=== PATIENT | male | born 1945 | race Caucasian/White ===

== ENCOUNTER 2023-07-22 15:47 | Inpatient (IN) | payer MEDICARE, BC, SELFPAY ==
[2023-07-22] VITALS (20 sets, daily range): BP systolic 82–132; BP diastolic 49–76; PULSE 100–143; RESP 16–22; TEMP 36.4–36.7; O2SAT 90–97; BMI 22.8
--- NOTE | 2023-07-22 16:33 | ED_ITS ---
HPI - General Adult General Chief complaint: Shortness of Breath/Dyspnea Stated complaint: diff breathing-PCP sent to ER for high heart rate Time Seen by Provider: 07/22/23 16:14 Source: patient and family Limitations: no limitations History of Present Illness HPI narrative: Patient is a 78-year-old male presenting today with lethargy, URI symptoms, decreased appetite. Patient is very hard of hearing and his gives most of the history. She states that in the last 3 days he developed URI symptoms including cough, runny nose and congestion. He has become more lethargic with increased fatigue. He has had terrible appetite for many years however in the last 3 days gotten worse where he barely eats anything. He denies any diarrhea or urinary symptoms. He denies any abdominal discomfort or chest pain. has similar URI symptoms. She is not aware of any fever, but states they do not have a thermometer at home. He denies any chills or shivering. Patient was seen in the clinic earlier and swabbed for COVID, however results have not returned and he was told to come to the ER for further management because he was tachycardic. states that he generally uses a wheelchair or walker at home, however she was not able to have an even stand up to use the bathroom today which is not his baseline. Past medical history significant for diabetes, hyperlipidemia, tremor, depression, BPH, coronary artery disease status post CABG, usual bear syndrome, COPD, alcohol use disorder in remission, hearing loss. Related Data Home Medications Medication Instructions Recorded Confirmed albuterol 90 mcg/actuation aerosol mcg inhalation 07/22/23 inhaler aspirin 81 mg chewable tablet 81 mg PO DAILY 07/22/23 07/22/23 (Chin Chewable Low Dose Aspirin) bupropion HCl 300 mg 24 hr tablet, 300 mg PO QAM 07/22/23 07/22/23 extended release cholecalciferol (vitamin D3) .ROUTE 07/22/23 fluticasone propion-salmeterol inhalation 07/22/23 gabapentin 300 mg capsule 300 mg PO QPM 07/22/23 07/22/23 metformin 1,000 mg tablet 1,000 mg PO BID 07/22/23 07/22/23 primidone 50 mg tablet 50 mg PO QAM 07/22/23 07/22/23 tamsulosin 0.4 mg capsule 0.4 mg PO DAILY 07/22/23 07/22/23 trazodone 100 mg tablet 200 mg PO DAILY 07/22/23 07/22/23 Allergies Allergy/AdvReac Type Severity Reaction Status Date / Time No Known Drug Allergies Allergy Verified 07/22/23 16:02 Review of Systems Status of ROS: Reports: 10 or more systems reviewed and unremarkable except as noted in History and below [facility] Medical History Essential tremor ?G25.0 - Essential tremor (ICD-10) Pulmonary nodules ?R91.8 - Other nonspecific abnormal finding of lung field (ICD-10) Alcohol abuse ?F10.10 - Alcohol abuse, uncomplicated (ICD-10) Depression ?F32.A - Depression, unspecified (ICD-10) CKD (chronic kidney disease) stage 3, GFR 30-59 ml/min ?N18.30 - Chronic kidney disease, stage 3 unspecified (ICD-10) COPD (chronic obstructive pulmonary disease) ?J44.9 - Chronic obstructive pulmonary disease, unspecified (ICD-10) Chronic inflammatory demyelinating neuropathy ?G61.81 - Chronic inflammatory demyelinating polyneuritis (ICD-10) Acquired hemolytic anemia ?D59.9 - Acquired hemolytic anemia, unspecified (ICD-10) Hepatic steatosis ?K76.0 - Fatty (change of) liver, not elsewhere classified (ICD-10) Pseudophakia ?Z96.1 - Presence of intraocular lens (ICD-10) Type 2 diabetes mellitus with microalbuminuria ?E11.29 - Type 2 diabetes mellitus with other diabetic kidney complication (ICD-10) ?R80.9 - Proteinuria, unspecified (ICD-10) Gilbert syndrome ?E80.4 - Gilbert syndrome (ICD-10) Diabetic peripheral neuropathy ?E11.42 - Type 2 diabetes mellitus with diabetic polyneuropathy (ICD-10) Gout ?M10.9 - Gout, unspecified (ICD-10) Hypercholesterolemia ?E78.00 - Pure hypercholesterolemia, unspecified (ICD-10) CAD (coronary artery disease) ?I25.10 - Atherosclerotic heart disease of [place] coronary artery without angina pectoris (ICD-10) Social History (Updated 07/22/23 @ 22:20 by Marni Albarran PA-C) Do you use any of these nicotine containing products: Vaping Products Exam Narrative: Exam Narrative: frail, elderly patient in no acute distress. Alert and oriented. Answers questions appropriately. Mood and affect are appropriate. Thoughts are goal oriented and rational. No tangential or magical thinking noted. Patient speaks in full sentences without needing to catch their breath. very hard of hearing. Follows all commands. HEENT: Normocephalic atraumatic. Pupils are equally round reactive to light. Extraocular muscles are intact. Conjunctivae are moist without any icterus noted. Moist mucous membranes. Posterior pharynx is normal. Neck is soft without any lymphadenopathy or thyromegaly. No masses are appreciated. Cardiovascular: Irregularly irregular, tachycardic. Lungs: Clear to auscultation bilaterally no wheezes rhonchi or rales are appreciated. Patient takes deep breaths without any discomfort. Abdomen: Soft and nontender nondistended with normal bowel sounds. Extremities: Bilateral lower extremities are without edema. Skin: Well perfused without any obvious rashes. Const: Vital Signs, click to edit/add: Vital Signs - 24 hr 07/22/23 15:54 07/22/23 16:49 07/22/23 17:05 Temperature 97.5 F L Pulse Rate 117 H Pulse Rate [Pulse Oximeter] 112 H Respiratory Rate 16 Blood Pressure 108/70 Blood Pressure [Ri ght Upper Arm] 112/76 Pulse Oximetry 94 97 Oxygen Delivery Me thod Room Air 07/22/23 17:09 07/22/23 17:15 07/22/23 17:33 Temperature Pulse Rate 121 H 128 H 111 H Pulse Rate [Pulse Oximeter] Respiratory Rate Blood Pressure Blood Pressure [Ri ght Upper Arm] Pulse Oximetry 95 96 94 Oxygen Delivery Me thod 07/22/23 17:35 07/22/23 17:45 07/22/23 18:00 Temperature Pulse Rate 116 H 120 H 137 H Pulse Rate [Pulse Oximeter] Respiratory Rate Blood Pressure 112/74 Blood Pressure [Ri ght Upper Arm] Pulse Oximetry 91 96 94 Oxygen Delivery Me thod 07/22/23 18:17 07/22/23 18:30 07/22/23 18:36 Temperature Pulse Rate 129 H 117 H Pulse Rate [Pulse Oximeter] Respiratory Rate Blood Pressure 132/68 Blood Pressure [Ri ght Upper Arm] Pulse Oximetry 95 90 Oxygen Delivery Me thod 07/22/23 19:27 07/22/23 19:28 07/22/23 19:30 Temperature Pulse Rate 130 H 143 H Pulse Rate [Pulse Oximeter] Respiratory Rate Blood Pressure 123/57 L Blood Pressure [Ri ght Upper Arm] Pulse Oximetry 91 90 Oxygen Delivery Me thod 07/22/23 19:45 07/22/23 20:17 Temperature Pulse Rate 111 H Pulse Rate [Pulse Oximeter] Respiratory Rate Blood Pressure 109/54 L Blood Pressure [Ri ght Upper Arm] Pulse Oximetry 94 Oxygen Delivery Pa thod Course Course ED Course: IV established and labs were drawn. His white blood cell count is elevated at 14.05, hemoglobin low at 11.3, neutrophils elevated at 11.1. D-dimer markedly elevated at 2.86 - because of this we did proceed with a chest CT which did not show acute abnormalities. No PE. Chemistries are unremarkable. Lactate elevated at 2.5. Total bili elevated at 3.7 and direct bili at 0.8. LFTs unremarkable. CRP markedly elevated at 16.3. UA positive for protein, glucose and bilirubin, no evidence of infection. Triple swab was negative. Patient's EKG, read by me, shows atrial fibrillation with a pulse of 129. We did start IV fluids. Given his signs of infection, he did receive a dose of Zosyn. For AFib with RVR IV metoprolol was given, pulse did come down into the low 100s. Vital Signs Vital signs: Initial Vital Signs Temperature 97.5 F L 07/22/23 15:54 Temperature Source Temporal Artery Scan 07/22/23 15:54 Pulse Rate 112 H 07/22/23 15:54 Respiratory Rate 16 07/22/23 15:54 Blood Pressure 112/76 07/22/23 15:54 Blood Pressure Mean 88 07/22/23 15:54 Blood Pressure Position Sitting 07/22/23 15:54 Pulse Oximetry 94 07/22/23 15:54 Oxygen Delivery Method Room Air 07/22/23 15:54 Vital Signs Temperature 97.5 F L 07/22/23 15:54 Pulse Rate 112 H 07/22/23 15:54 Respiratory Rate 16 07/22/23 15:54 Blood Pressure 112/76 07/22/23 15:54 Pulse Oximetry 94 07/22/23 15:54 Oxygen Delivery Method Room Air 07/22/23 15:54 Temperature 97.5 F L 07/22/23 15:54 Pulse Rate 111 H 07/22/23 19:45 Respiratory Rate 16 07/22/23 15:54 Blood Pressure 109/54 L 07/22/23 20:17 Pulse Oximetry 94 07/22/23 19:45 Oxygen Delivery Method Room Air 07/22/23 15:54 Medications Administered Medications: Generic Name Dose Route Start Last Admin Trade Name Riddhi PRN Reason Stop Dose Admin Albuterol/Ipratropium 1 neb 07/22/23 22:00 07/22/23 22:46 Iprat-Albut 0.5-2.5 Mg/3 Ml Neb IH 1 neb Q6H GINETTE Administration Benzonatate 100 mg 07/22/23 22:30 07/22/23 22:55 Benzonatate 100 Mg Capsule PO 100 mg TID GINETTE Administration Guaifenesin 600 mg 07/22/23 22:30 07/22/23 22:47 Guaifenesin 600 Mg Tab.Er.12h PO 600 mg BID GINETTE Administration Sodium Chloride 1,000 mls @ 125 mls/hr 07/22/23 21:07 07/22/23 22:46 0.9 % Sodium Chloride 1000 Ml IV 125 mls/hr .Q8H GINETTE Administration Metoprolol Tartrate 12.5 mg 07/22/23 22:30 07/22/23 22:47 Metoprolol Tartrate 25 Mg Tablet PO 12.5 mg BID GINETTE Administration Trazodone HCl 200 mg 07/22/23 22:10 07/22/23 22:47 Trazodone Hcl 50 Mg Tablet PO 200 mg HS GINETTE Administration Discontinued Medications Generic Name Dose Route Start Last Admin Trade Name Riddhi PRN Reason Stop Dose Admin Diltiazem HCl 10 mg 07/22/23 20:05 07/22/23 20:22 Diltiazem 5 Mg/Ml Inj IVP 07/22/23 20:06 Not Given ONCE ONE Sodium Chloride 1,000 mls @ 500 mls/hr 07/22/23 16:24 07/22/23 17:00 0.9 % Sodium Chloride 1000 Ml IV 07/22/23 18:23 500 mls/hr .Q2H GINETTE Administration Piperacillin Sod/Tazobactam 100 mls @ 200 mls/hr 07/22/23 18:00 07/22/23 20:30 Sod 3.375 gm/ Sodium Chloride IVPB 07/22/23 18:01 Infused ONCE ONE Infusion Metoprolol Tartrate 5 mg 07/22/23 19:12 07/22/23 19:25 Metoprolol Tartrate 1 Mg/Ml Inj IVP 07/22/23 19:13 5 mg ONCE ONE Administration Medical Decision Making MDM Narrative Medical decision making narrative: 78-year-old male with weakness, URI symptoms, AFib with RVR, COPD. Patient presenting with weakness- is unable to manage patient home, and evidence of potential infection. At this time patient will be admitted for further management. Medical Records Medical records reviewed: Yes I reviewed the patient's medical records Lab Data Lab results reviewed: Yes I reviewed the patient's lab results Labs: Lab Results 07/22/23 07/22/23 07/22/23 Range/Units 16:44 16:56 19:55 WBC 14.05 H (4.50-11.00) K/uL RBC 3.65 L (4.30-5.90) m/uL Hgb 11.3 L (13.5-17.5) gm/dL Hct 33.0 L (37.0-53.0) % MCV 90 (80-100) fL MCH 31 (26-34) pg MCHC 34 (32-36) gm/dL RDW Coeff of Tong 15.7 H (11.5-15.5) % Plt Count 186 (140-440) K/uL Neut % (Auto) 79.1 H (42.0-72.0) % Lymph % (Auto) 7.2 L (20-44) % Mchenry % (Auto) 12.3 H (0.0-11.0) % Eos % (Auto) 0.1 (0.0-7.0) % Baso % (Auto) 0.7 (0.0-3.0) % Neut # (Auto) 11.10 H (1.7-7.0) K/uL Lymph # (Auto) 1.00 (0.90-2.90) K/uL Mchenry # (Auto) 1.70 H (0.00-0.90) K/UL Eos # (Auto) 0.00 (0.00-0.50) K/uL Baso # (Auto) 0.10 (0.00-0.30) K/uL Abs Immat Gran (auto) 0.10 (0.00-0.30) K/uL Imm/Tot Granulo (auto) 0.6 % Diff Slide Review Acceptable Review (Acceptable) D-Dimer Quant (PE/DVT) 2.86 H (0.00-0.50) ug/ml Sodium 139 (135-149) mmol/L Potassium 3.5 L (3.6-5.1) mmol/L Chloride 103 (96-114) mmol/L Carbon Dioxide 25 (20-32) mmol/L Anion Gap 11 (7-15) mEq/L BUN 19 (7-30) mg/dL Creatinine 0.8 (0.5-1.5) mg/dL Estimated Creat Clear 63.11 Estimated GFR 91 ml/min Glucose 169 H (60-115) mg/dL Lactate 2.5 H 2.8 H (0.5-1.9) mmol/L Calcium 9.8 (8.4-10.6) mg/dL Magnesium 2.1 (1.5-2.6) mg/dL Total Bilirubin 3.7 H (0.1-1.5) mg/dL Direct Bilirubin 0.8 H (0.0-0.5) mg/dL AST 42 H (12-35) U/L ALT 43 (4-50) U/L Alkaline Phosphatase 69 (40-150) U/L Troponin I 0.02 (0.01-0.04) ng/mL C-Reactive Protein 16.3 H (0.5-1.0) mg/dL NT-Pro-B Natriuret Pep 2320 pg/mL Total Protein 8.0 (6.0-8.3) g/dL Albumin 4.4 (3.3-5.0) g/dL Procalcitonin 0.10 (<0.50) ng/mL Urine Color Adilia A (Yellow) Urine Appearance Clear (Clear) Urine pH 5.5 (5.0-8.5) Ur Specific [place] >= 1.030 (1.000-1.030) Urine Protein 2+ A (Negative) Urine Glucose (UA) 1+ A (Negative) Urine Ketones Trace A (Negative) Urine Blood Trace-intact A (Negative) Urine Nitrite Negative (Negative) Urine Bilirubin 1+ A (Negative) Urine Urobilinogen 2.0 A (0.2-1.0) Ur Leukocyte Esterase Negative (Negative) Urine RBC 0-2 (0-2) Urine WBC 0-2 (0-5) Urine WBC Clumps None (None) Ur Squamous Epith Cells None (None-Few) Urine Bacteria Few A (None) SARS-CoV-2 (PCR) Negative SARS-CoV-2 (Negative) Influenza Type A (PCR) Negative PCR FLU A (Negative) Influenza Type B (PCR) Negative PCR FLU B (Negative) RSV (PCR) Negative PCR RSV (Negative) POC Troponin I 0.01 (0.01-0.04) ng/ml Imaging Data CT scan - chest: Attestation: I have reviewed the pertinent imaging results. Radiologist's impression: TECHNIQUE: CT angiogram chest with contrast, pulmonary embolism protocol. Multiplanar axial, coronal, and sagittal reformats are included. MIP images to improve detection of pulmonary emboli are included. Intravenous contrast: 95 mL Isovue 370 FINDINGS: PE: Well-timed contrast bolus. No pulmonary emboli. Normal caliber main pulmonary artery. Normal sized right heart chambers. No reflux of contrast below the diaphragm. Heart and great vessels: No pericardial effusion. Normal cardiac chamber size. Moderate atherosclerotic plaques. No aortic aneurysm. Lungs: Inspiratory phase imaging with respiratory motion artifact. No nodules or masses. No consolidations. Moderate centrilobular emphysema. Basilar and peripheral predominant reticulation without definite honeycombing. Pleura: No pleural effusion. No pneumothorax. Airway: Normal tracheobronchial tree. Lymph nodes: No thoracic adenopathy. Mediastinum: No pneumomediastinum. Bones: No fractures. No focal bone lesions. Median sternotomy wires. Chest wall: Normal. No masses. Upper abdomen: Normal. IMPRESSION: 1. No pulmonary embolus. 2. Centrilobular emphysema. Multifocal peripheral reticulation may be fibrosis. ECG Data Attestation: I personally reviewed and interpreted this ECG as follows: Discharge Plan Discharge Clinical Impression: Weakness, COPD (chronic obstructive pulmonary disease), Atrial fibrillation with RVR, URI (upper respiratory infection), Malnutrition Patient Disposition: Admitted As Observation Condition: Stable
--- OUTSIDE RECORDS SUMMARY | 2023-07-22 16:46 | XMS_ITS | Referral Summary ---
Author Name Unknown Organization [facility] Address [address] [place] [id number] Care Team Providers Care Wheel Fitter Name Role Phone Nabor Xiao Kira DURHAM Primary Care Provider [phone] Allergies No known active allergies Medications Medication Sig Dispensed Refills Start Date End Date Status traZODone (DESYREL) 100 MG tablet Take 200 mg by mouth nightly as needed 0 Active gabapentin (NEURONTIN) 100 MG capsule Take 200 mg by mouth every morning In the morning and noon 0 Active atorvastatin (LIPITOR) 80 MG tablet Take 40 mg by mouth daily Take one-half tablet at bedtime 0 Active cholecalciferol (VITAMIN D) 1000 UNIT tablet Take 1,000 Units by mouth daily 0 Active DULoxetine (CYMBALTA) 60 MG capsule Take 60 mg by mouth daily 0 Active metFORMIN (GLUCOPHAGE) 1000 MG tablet Take 1,000 mg by mouth 2 times daily (with meals) 0 Active gabapentin (NEURONTIN) 100 MG capsule Take 300 mg by mouth every evening 0 Active budesonide-formoterol (SYMBICORT) 160-4.5 MCG/ACT Inhaler Inhale 2 puffs into the lungs 2 times daily 0 Active aspirin 81 MG EC tablet Take 81 mg by mouth daily 0 Active nitroGLYcerin (NITROSTAT) 0.[address] 0.4 mg under the tongue every 5 minutes as needed for chest pain For chest pain place 1 tablet under the tongue every 5 minutes for 3 doses. If symptoms persist 5 minutes after 1st dose call 911. 0 Active glipiZIDE (GLUCOTROL) 5 MG tablet Take 5 mg by mouth every morning 0 Active Active Problems Problem Noted Date Diagnosed Date Altered mental status, unspe cified altered mental status type 02/16/2021 Syncope 02/23/2020 CAD (coronary artery disease) Overview: CABG RODRIGEZ to prox-mid LAD, SVG aorta to posterolateral RCA COPD (chronic obstructive pulmonary disease) Multiple lung nodules Essential tremor HTN (hypertension) Orthostatic hypotension Depression Osteoarthritis Social History Tobacco Use Types Packs/Day Years Used Date Smoking Tobacco: Former Cigarettes 1 2 Q uit: 04/19/2013 Smokeless Tobacco: Never Adolescent Education Answer Date Record ed Getting School Help Needed Not on file 04/07 Sex and Gender Information Value Date Recorded Sex Assigned at Not on file Gender Identity Not on file Sexual Orientation Not on file Last Filed Vital Signs Vital Sign Reading Time Taken Comments Blood Pressure 140/73 03/21/2022 12:50 AM CDT Pulse 86 03/21/2022 12:50 AM CDT Temperature 36.6 ??C (97.9 ??F) 03/20/2022 8:38 PM CD T Respiratory Rate 18 03/20/2022 8:38 PM CDT Oxygen Saturation 98% 03/21/2022 12:50 AM CDT Inhaled Oxygen Concentration - - Weight 72.6 kg (160 lb) 03/20/2022 8:38 PM CDT Height 182.9 cm (6') 02/16/2021 5:07 PM CDT Body Mass Index 21.7 02/16/2021 5:07 PM CDT Plan of Treatment Not on file Advance Directives For more information, please contact: [phone] Latest Code Status on File Code Status Date Activated Date Inactivated Comments Full Code 02/16/2021 10:29 PM 02/17/2021 3:31 PM All basic and advanced life-sustaining interventions are performed as appropriate Question Answer Comments Code status determined by: Unable to determine; FULL CODE until documents or legal decision maker available Code Status History Code Status Date Activated Date Inactivated Comments Full Code 02/23/2020 8:49 PM 02/25/2020 3:14 PM All b asic and advanced life-sustaining interventions are performed as appropriate Question Answer Comments Code status determined by: Discussion with patient/ legal decision maker Care Teams Wheel Fitter Relationship Specialty [place] [id number] [place] [address] PCP - General Family Medicine 09/15/20
--- OUTSIDE RECORDS SUMMARY | 2023-07-22 16:46 | XMS_ITS | Encounter Summary ---
Author Name Unknown Organization [facility] Address [address] [place] [address]. [place] [address] Care Team Providers Care Diagnostics Tech Name Role Phone Frw, None Primary Care Provider Reza Bryant MD Unavailable [phone] [facility] Primary Care Prov ider Xiao Tomlin DO Primary Care Provider [phone] Encounter Details Date Type Department Care Team (Late st Contact Info) Description 04/18/2009 Office Visit-[facility] [address] [place] [address] Magno Bar MD Social History Tobacco Use Types Packs/Day Years Used Date Smoking Tobacco: Never Assessed Sex and Gender Information Value Date Recorded Sex Assigned at Not on file Gender Identity Not on file Sexual Orientation Not on file documented as of this encounter Progress Notes * Magno Bar MD - 04/20/2009 7:47 AM CDT Progress Note Created by: Magno Bar M.D. APPT [id number] DATE: 04/18/2009 LUCÍA VIZCARRA [id number] DATE OF : 1945 AGE: [age] years old Referring Physician: RAMESH CERON Referring Clinic: [facility] CURRENT DIAGNOSES 1. - Hyperlipidemia mixed, 272.2 2. Smoking or Tobacco Abuse, 305.1 3. - CAD, 414.00 4. - CABG, V45.81 ALLERGIES NKA MEDICATIONS (prior to changes made today) 1. Primidone 50 mg, 1 p.o. twice daily 2. Trazodone Hydrochloride 100 mg, 1 p.o. qHS 3. Effexor Xr 225 Mg, 1 p.o. daily 4. Metoprolol 50mg, 1/2 tab twice daily 5. Rosuvastatin 40mg, 1/2 tab qHS 6. Prilosec 20 Mg, 1 p.o. twice daily 7. flunisolide nasal spray 0.025%, Take as Directed 8. Mometasone furoate 220mcg, Take as Directed 9. Albuterol Sulfate 90 mcg/inhaler, Take as Directed 10. Formoterol fumarate 12 mcg, Take as Directed 11. Chondroitin-Glucosamine 400 mg-500 mg, 1 p.o. daily 12. Nicotine Patch ., 14mg patch daily-not on, patient is smoking 13. Isosorbide Mononitrate 30 Mg, 1 p.o. daily 14. Nitroglycerin 0.4 Mg, 1 tab sublingual as needed for chest pain 15. vitamins ., 1 p.o. daily 16. Aspirin 325mg, 1 p.o. daily CHIEF COMPLAINTS Followup of hospital visit HISTORY OF PRESENT ILLNESS I saw Daryl Vizcarra today who is 64 and was in the hospital in December of 2008 because of vague chest discomfort. My clinical intuition was that it was possibly angina but it was not profoundly so. He ended up having coronary and graft angiography, which revealed a totally occluded RCA but a patent graft to the inferior wall and an old inferior scar. The LAD had significant proximal disease with a patent RODRIGEZ. There was a 60% stenosis of the LAD beyond the bifurcation of the LAD and diagonal and distalto the anastomosis of the mammary artery. It was felt that these stenoses were not likely severe enough to cause a type of rest discomfort in symptoms he was having. We chose to treat him medically and subsequently he has done well. On the good side is he has not had any chest pain, palpitations orshortness of breath and he has had a quieting of the symptoms that led him to be hospitalized. On the down side, he is continuing to smoke 5-10 cigarettes a day. I must have spent 20 minutes begging and encouraging him not to do so. His physical exam over and above the smell of tobacco showed a blood pressure of 106/60, heart rate62 beats per minute, he weighed 192 pounds with this clothes on. He had no neck vein distention or bruit. Heart was regular without gallop or murmur. Lungs clear. Abdomen soft without organomegaly. Extremities were free of edema. I reviewed the medications of metoprolol, Crestor, isosorbide, aspirin, and Nitroglycerin with him.These are the drugs mainly from the cardiology standpoint. With this he is normotensive and his lipid profiles have been relatively decent. Total cholesterol in December of 2005 was 130, the LDL 67, HDL l ow at 26, which we have relatively less control over. We could try adding Niacin but I thought it was more important to get him to work on his cigarettes at this point. PAST HISTORY Past Medical Illnesses: depressionS/P ECT treatment, essential tremors dsylipidemia, tobacco abuse, hard of hearing, nephrolithiasis, hypertension, COPD Past Cardiac Illnesses: CAD 2 vessel CABG 11/10 Surgeries/Procedures - General: R knee arthroscopy, reconstructive surgery L upper extremity, Bypass Graft Anatomy: 11/10 CABG RODRIGEZ to proxmal mid LAD, SVG from aorta to posterolateral branch of RCA Cardiology Procedures-Invasive: cardiac cath (left) Oct 2005, cardiac cath (left) Dec 2008 Cardiology Procedures-Noninvasive: 10/11 stress echo, echo Dec 2008, myocardial perfusion (Nuc) Dec 2008 Cardiac Cath Results: 12/14 LAD 70% stenosis PMHx Echo Results: 12/14 mild LAE Left Ventricular Ejection Fraction: 12/14 EF 50-55% by echo Nuclear Results: 12/14, mild apical myocardial ischemia in the distal LAD FAMILY HISTORY: Father - committed suicide; Mother - CAD in her 70 s; Sister 1 - of Hodgkin's in her 40 s; CARDIAC RISK FACTORS Tobacco Abuse: currently smoking, 2008; Family History of Heart Disease: negative; Hyperlipidemia: positive, controlled; Hypertension: positive, well controlled; Diabetes Mellitus: negative; Prior History of Heart Disease: positive, CAD; Obesity:negative; Sedentary Life Style:negative; Age:negative; LDL Goal <LT> 100 SOCIAL HISTORY Alcohol Use - 2 beers a day; Smoking - smoked in teen years, quit for 3 years, restated about 6 months ago and 1 07/09 ppd; Diet - regular diet without modifications and caffeine use-5 or more per day;Lifestyle - with 1 child; Exercise - no regular exercise; Seat Belt Use - always; Occupation - retired and use to work at [employer] in [place]; Residence - lives with and children,lives in [place] year round and raising 's nephew; Place of - [place]; REVIEW OF SYSTEMS GENERAL decreased energy, weight loss, approx 8 lbs since 02/13, no change in appetite INTEGUMENTARY denies any change in hair or nails, rashes, or skin lesions. EYES wears eye glasses/contact lenses, blurred vision EARS, NOSE, THROAT, MOUTH denies any hearing loss, epistaxis, hoarseness or difficulty speaking. RESPIRATORY cough, dyspnea with exertion CARDIOVASCULAR dizziness, light headedness, dyspnea on exertion ABDOMINAL history of acid reflux MUSCULOSKELETAL denies any history of arthritic symptoms or back problems. NEUROLOGICAL positive for headaches PSYCHIATRIC depression ENDOCRINE denies any history of thyroid disease or diabetes mellitus. HEMATOLOGICAL/IMMUNOLOGIC easy bruising PHYSICAL EXAMINATION VITAL SIGNS: Blood Pressure: 106/57 Sitting, Left arm, large cuff Pulse- 63.00/min. Weight- 192.00 lbs. Height- 70.75 Temperature- .00 CONSTITUTIONAL cooperative, alert and oriented,well developed, well nourished, in no acute distress., smell of tobacco SKIN warm and dry to touch, no apparent skin lesions, or masses noted. HEAD normocephalic, atraumatic EYES Pupils equal and round, conjunctivae and lids unremarkable, sclera white, no xanthalasma ENT no pallor or cyanosis, dentition good NECK carotid pulses are full and equal bilaterally, JVP normal, no carotid bruit, no thyromegaly CHEST clear to auscultation CARDIAC regular rhythm, S1 normal, S2 normal, No S3 or S4, Apical impulse not displaced, no murmurs, gallops or rubs detected. ABDOMEN abdomen soft, bowel sounds normoactive, no masses, no hepatosplenomegaly, non- tender, no bruits PERIPHERAL PULSES pulses full and equal in all extremities, no bruits auscultated. EXTREMITIES & BACK no clubbing, cyanosis or edema NEUROLOGICAL no gross motor deficits noted, affect appropriate, oriented to time, person and place. MEDICATIONS UPDATED/STARTED TODAY: Primidone 50 mg, 1 p.o. twice daily, 0 Trazodone Hydrochloride 100 mg, 1 p.o. qHS, 0 Effexor Xr 225 Mg, 1 p.o. daily, 0 Metoprolol 50mg, 1/2 tab twice daily, #60 Rosuvastatin 40mg, 1/2 tab qHS, #30 or #100 Prilosec 20 Mg, 1 p.o. twice daily, 0 flunisolide nasal spray 0.025%, Take as Directed, 0 Mometasone furoate 220mcg, Take as Directed, 0 Albuterol Sulfate 90 mcg/inhaler, Take as Directed, 0 Formoterol fumarate 12 mcg, Take as Directed, 0 Chondroitin-Glucosamine 400 mg-500 mg, 1 p.o. daily, 0 Nicotine Patch ., 14mg patch daily-not on, patient is smoking, 0 Isosorbide Mononitrate 30 Mg, 1 p.o. daily, #30 or #100 Nitroglycerin 0.4 Mg, 1 tab sublingual as needed for chest pain, #25 MEDICATIONS REFILLED/STOPPED TODAY: Prilosec 20 Mg 1 p.o. daily 0 Refill, Flonase 0.05 mg/inh Take as Directed Treatment Completed, Isosorbide Mononitrate 30 mg 1 p.o. daily Refill, Metoprolol 25mg 1 p.o. twice daily Refill, Nicotine patch . 14mg patch daily Refill, Nitroglycerin 0.4 mg 1 tab sublingual as needed for chest pain Refill, Prilosec 20 mg 1 p.o. daily Refill, Crestor 20 mg 1 p.o. qHS Treatment Completed, Effexor XR 225 mg 1 p.o. daily Refill, Desyrel 100 mg 1 qHS Treatment Completed, Ventolin 90 mcg/inh Take as Directed Treatment Completed, Foradil 120 mcg 1 puff twice daily, prn Treatment Completed and Asmanex 220 mcg 2 puffs twice daily Treatment Completed IMPRESSION: 1. No evidence of persistent chest discomfort. 2. No current signs of angina. 3. Multiple vessel coronary artery disease. 4. Chronic tobacco abuse. 5. HDL deficiency, consider titrating up Niacin in the future. He says he is willing to think about stopping smoking again. He says it is difficult, as we know because his smokes. Still in all I tried to strongly encourage him to stand up for himself and get off of cigarettes. He sheepishly admits he will give it a try. Magno Bar M.D. documented in this encounter Plan of Treatment Not on file documented as of this encounter Visit Diagnoses Not on filedocumented in this encounter Additional Health Concerns Infection Onset Date Last Indicated Resolved Time Rule Out COVID-19 02/23/2020 02/23/2020 02/24/2020 2:05 PM CDT Rule Out COVID-19 02/16/2021 02/16/2021 02/16/2021 6:19 PM CDT documented as of this encounter Care Teams Diagnostics Tech Relationship Specialty Start Date End Date Frw, None PCP - General Family Practice 11/09/11 07/20/12 Reza Leary MD [facility] [address] [place] [address] [facility] [address] [place] [address] PCP - ENT ENT-Otolaryngology 11/09/11 02/16/21 [place] [address] PCP - General 07/21/12 09/14/20 [place] [address] [place] [address] PCP - General Family Medicine 09/15/20 documented as of this encounter
--- OUTSIDE RECORDS SUMMARY | 2023-07-22 16:46 | XMS_ITS | Encounter Summary ---
Author Name Unknown Organization [facility] Address [address] [place] [address]. [place] [address] Care Team Providers Care Marketing Developer Name Role Phone Frw, None Primary Care Provider Reza Bryant MD Unavailable [phone] [place], [facility] Primary Care Prov ider Xiao Tomlin DO Primary Care Provider [phone] Encounter Details Date Type Department Care Team (Late st Contact Info) Description 07/17/2012 Office Visit-[facility] [address] [place] [address] Magno Bar MD Social History Tobacco Use Types Packs/Day Years Used Date Smoking Tobacco: Never Assessed Sex and Gender Information Value Date Recorded Sex Assigned at Not on file Gender Identity Not on file Sexual Orientation Not on file documented as of this encounter Progress Notes * Magno Bar MD - 07/21/2012 4:12 PM CST Progress Note Created by: Magno Bar M.D. APPT [id number] DATE: 07/17/2012 LUCÍA VIZCARRA [id number] DATE OF : 1945 AGE: [age] years old Referring Physician: [facility] Referring Clinic: [facility] CURRENT DIAGNOSES 1. - Hyperlipidemia mixed, 272.2 2. Smoking or Tobacco Abuse, 305.1 3. - CAD, 414.00 4. - CABG, V45.81 ALLERGIES NKA MEDICATIONS (prior to changes made today) 1. Albuterol Sulfate 90 mcg/Actuation HFA Aerosol Inhaler, Take as Directed 2. Aspirin 325 mg Tablet, 1 p.o. daily 3. Effexor XR 150 mg capsule,extended release 24hr, 1 p.o. daily 4. Fish Oil 1,000 mg capsule, 1 p.o. daily 5. flunisolide nasal spray 0.025%, Take as Directed 6. Isosorbide Mononitrate 30 mg Tablet Sustained Release 24 hr, 1 p.o. daily 7. Metoprolol Hriuwalf64 mg Tablet, 1/2 tab twice daily 8. Nitroglycerin 0.4 mg Tablet, Sublingual, 1 tab sublingual as needed for chest pain 9. prednisone5 mg tablet, Take as Directed 10. rosuvastatin 40 mg tablet, 1 p.o. qHS 11. Symbicort 160-4.5 mcg/actuation HFA Aerosol Inhaler, Take as Directed 12. Trazodone 100 mg Tablet, 1 p.o. qHS CHIEF COMPLAINTS Followup of - CAD HISTORY OF PRESENT ILLNESS: I met with Lucía Vizcarra today. He is 67 and a patient of the [facility]. He has multiple health and medical issues as best I can tell, but he came today specifically to ask me to evaluate and assess his claim that he has reason to have a certain level of cardiac disability. Apparently the DC assessment has led them to wish to decrease his disability leveland he came to have me help with that assessment. Daryl is 67. He has a history of a previous two vessel bypass in 2005 with a mammary artery placed tothe left anterior descending and a saphenous vein graft to the right coronary artery. Subsequently in 2008 he had a coronary angiogram done at [facility]. I believe this was precipitated by an abnormal stress nuclear study showing some anteroapical ischemia. Cardiac catheterizationat that time - December 08, 2008, showed that the left main was relatively small in the 2.5 mm range with minimal 10% narrowing. The left anterior descending had a severe proximal lesion at the takeoff ofthe first septal at 75% and it is somewhat a small vessel distally. Downstream there was bidirectional flow with a patent mammary artery entering the left anterior descending at a major diagonal branch. Just after the insertion of the left internal mammary artery there was a smooth 70% stenosis that would have been technically difficult to get at and may indeed have played a role in some inducible ischemia. He had 25 to 30% lesion in the left circumflex. The mammary artery is widely patent withthe aforementioned 70% stenosis of the left anterior descending distal to the insertion. The right coronary artery was totally occluded. The vein graft to the distal right coronary artery was widely patent and in great shape. There was a 40 to 50% stenosis proximal in the posterior descending branch of the right coronary artery. The right coronary artery was completely occluded proximally. His ejection fraction was 55 to 60%, compatible with well preserved left ventricular function. Subsequent at that time also he had an echocardiogram that showed left ventricular function low normal at 50 to 55%, no major wall motion abnormalities were identified. Right heart pressures were normal. No significant valvular abnormalities were seen. His left ventricle was not dilated. Currently he says that he is more limited by shortness of breath on exertion. He is not identifyingany obvious angina. He has not had palpations, dizziness or syncope. He has not had orthopnea. He has not had significant lower leg edema. Past medical history includes: 1. Chronic tobacco abuse with likely an underlying component of emphysema- chronic obstructive pulmonary disease. 2. Chronic coronary artery disease with previous two vessel bypass. 3. Well preserved left ventricular function. 4. History of some depression. 5. Nephrolithiasis. 6. Hard of hearing. 7. Reportedly agent orange exposure in [place]. 8. Previous right knee arthroplasty. SOCIAL HISTORY: He is . He continues to smoke a pack a day. He does drink a little bit of alcohol, but not as much as he used to. FAMILY HISTORY: Positive for a mother who had coronary artery disease, sister who had Hodgkin's, father of non-medical issues. ALLERGIES: None. CURRENT MEDICATIONS: Are as listed above and from a cardiac standpoint he is on rosuvastatin, metoprolol, isosorbide and aspirin. PHYSICAL EXAMINATION: Relatively well-developed, well-nourished male. He does smell faintly of tobacco. Blood pressure was 112/74, heart rate 70 beats per minute, he weighed 190 pounds. Head was normal. Neck free of neck vein distention of bruits. Heart was regular without gallop, murmur, rub or click. Lungs clear. Sternum is well healed with a midline sternotomy scar. Abdomen soft without organomegaly or mass. Extremities were free of edema. Femoral pulses were +1 on the right and diminished on the left. Pedal pulses as best I could tell were not palpable. Accordingly I think he has significant peripheral vascular artery disease. Lucía Vizcarra is 67. He came for a second opinion. I told me that it would no way to really define the status of his cardiac performance without some objective testing and specifically I ordered an echocardiogram and a stress nuclear thallium study using SNEHA scan. I told him that we would then correlate his symptoms with his anatomy and whether or not he has inducible ischemia. He may also need todo some form of walking test, but he was not excited to do so because he is limited by dyspnea. Dyspnea certainly can be limited by a component of emphysema-chronic obstructive pulmonary disease.He has deconditioned and he has peripheral vascular artery disease and likely hip and calf claudication. All this together I think makes it a difficult assessment, but he wished to proceed. PAST HISTORY Past Medical Illnesses: depressionS/P ECT treatment, essential tremors dsylipidemia, tobacco abuse, hard of hearing, nephrolithiasis, hypertension, COPD Past Cardiac Illnesses: CAD Surgeries/Procedures - General: R knee arthroscopy, reconstructive surgery L upper extremity, Cardiac and Vascular Surgeries: 2 vessel CABG 11/10 Bypass Graft Anatomy: 11/10 CABG RODRIGEZ to proxmal mid LAD, SVG from aorta to posterolateral branch of RCA Cardiac/Vasc Procedures-Invasive: cardiac cath (left) Oct 2005, cardiac cath (left) Dec 2008 Cardiology Procedures-NonInvasive: 10/11 stress echo, echo Dec 2008, myocardial perfusion (Nuc) Dec 2008 Cardiac Cath Results: 12/14 LAD 70% stenosis PMHx Echo Results: 12/14 mild LAE Left Ventricular Ejection Fraction: 12/14 EF 50-55% by echo Nuclear Results: 12/14, mild apical myocardial ischemia in the distal LAD 12/14 EF 50-55% by echo FAMILY HISTORY: Father - committed suicide; Mother [...] restated about 6 months ago and 1 1/2 ppd; Diet - regular diet without modifications and caffeine use-5 or more per day;Lifestyle - with 1 child, in [place] - 1965 and [place]; Exercise - no regular exercise; Seat Belt Use - always; Occupation - retired and use to work at [employer] in [place]; Residence - lives with and children, lives in [place] year round and raising 's nephew; Placeof - [place]; REVIEW OF SYSTEMS GENERAL weight loss, 2 lb from INTEGUMENTARY denies any change in hair or nails, rashes, or skin lesions. EYES wears eye glasses/contact lenses EARS, NOSE, THROAT, MOUTH denies any hearing loss, epistaxis, hoarseness or difficulty speaking. RESPIRATORY cough, dyspnea CARDIOVASCULAR dizziness, light headedness ABDOMINAL denies ulcer disease, hematochezia or melena. MUSCULOSKELETAL denies any history of arthritic symptoms or back problems. NEUROLOGICAL headaches, am PSYCHIATRIC depression ENDOCRINE increased fatigue, weight loss HEMATOLOGICAL/IMMUNOLOGIC easy bruising PHYSICAL EXAMINATION VITAL SIGNS: Blood Pressure: 112/74Sitting, Left arm, large cuff Pulse- 70.00/min. Weight- 190.00 lbs. Height- 70.75 BMI Measurement: 26 CONSTITUTIONAL cooperative, alert and oriented,well developed, well [...] time, person and place. MEDICATIONS UPDATED/STARTED TODAY: Effexor XR 150 mg capsule,extended release 24hr, 1 p.o. daily, #0 (Zero) Fish Oil 1,000 mg capsule, 1 p.o. daily, #0 (Zero) prednisone 5 mg tablet, Take as Directed, #0 (Zero) rosuvastatin 40 mg tablet, 1 p.o. qHS, #0 (Zero) Symbicort 160-4.5 mcg/actuation HFA Aerosol Inhaler, Take as Directed, #0 (Zero) MEDICATIONS REFILLED/STOPPED TODAY: Chondroitin-Glucosamine 400 mg-500 mg 1 p.o. daily 0 Physician Order, Effexor Xr 225 Mg 1 p.o. daily 0 Physician Order, Formoterol Fumarate 12 mcg Capsule, w/Inhalation Device Take as Directed 0 Physician Order, Mometasone furoate 220mcg Take as Directed 0 Physician Order, Nicotine Patch . 14mg patch daily-not on, patient is smoking 0 Physician Order, Prilosec 20 mg Capsule, Delayed Release(E.C.)1 p.o. twice daily 0 Physician Order, Primidone 50 mg Tablet 1 p.o. twice daily 0 Physician Order, Rosuvastatin 40 mg Tablet 1/2 tab qHS #30 or #100 Physician Order and vitamins . 1 p.o. daily Physician Order IMPRESSION: 1. Multifactorial dyspnea. 2. Cardiac performance status unclear, previously there has been normal left ventricular function with a very trace amount of anteroapical ischemia by stress nuclear study, echo and SNEHA scan thallium study were ordered. 3. Peripheral vascular artery disease with likely hip and leg claudication. 4. Emphysema-chronic obstructive pulmonary disease due to chronic tobacco abuse. 5. Coronary arterydisease with previous left anterior descending and right coronary artery bypass and anatomy as noted above. PLAN: As above. I made no changes. I thought his medical program was appropriate and a good one. I will share the information we obtain with you and you may assess it as you see fit. Magno Bar M.D. documented in this encounter Plan of Treatment Not on file documented as of this encounter Visit Diagnoses Not on filedocumented in this encounter Additional Health Concerns Infection Onset Date Last Indicated Resolved Time Rule Out COVID-19 02/23/2020 02/23/2020 02/24/2020 2:05 PM CDT Rule Out COVID-19 02/16/2021 02/16/2021 02/16/2021 6:19 PM CDT documented as of this encounter Care Teams Marketing Developer Relationship Specialty Start Date End Date Frw, None PCP - General Family Practice 11/09/11 07/20/[address] [facility] [place] [address] [facility] [address] [place] [address] PCP - ENT ENT-Otolaryngology 11/09/11 02/16/21 [place], [place], [place] [address] PCP - General 07/21/12 09/14/20 [place] [address] [place] [address] PCP - General Family Medicine 09/15/20 documented as of this encounter
--- OUTSIDE RECORDS SUMMARY | 2023-07-22 16:46 | XMS_ITS | Encounter Summary ---
Author Name Unknown Organization [facility] Address [address] [place] [address]. [place] [address] Care Team Providers Care Track Moving Machine Operator Name Role Phone Reza Leary MD Unavailable [phone] [facility] Primary Care Prov ider Xiao Tomlin DO Primary Care Provider [phone] Encounter Details Date Type Department Care Team (Late st Contact Info) Description 08/01/2012 Office Visit-[facility] [place] [address] [facility] [address] [place] [id number] Kassie Garrido, RUTH TECHNICAL BUYER XXX RESIGNED XXX [address] [facility] [address] [place] [id number] Social History Tobacco Use Types Packs/Day Years Used Date Smoking Tobacco: Never Assessed Sex and Gender Information Value Date Recorded Sex Assigned at Not on file Gender Identity Not on file Sexual Orientation Not on file documented as of this encounter Progress Notes * Kassie Garrido, PARRIS - 08/04/2012 1:19 PM CST Progress Note Created by: Kassie Garrido, N.P. APPT [phone] DATE: 08/01/2012 LUCÍA VIZCARRA DATE OF : 1945 AGE: [age] years old Referring Physician: [facility] Referring Clinic: [facility] CURRENT DIAGNOSES 1. - CAD, 414.00 2. - CABG, V45.81 3. - Hyperlipidemia mixed, 272.2 4. - Peripheral Vascular Disease, 443.9 5. Smoking or Tobacco Abuse, 305.1 6. SOB, 786.05 ALLERGIES NKA MEDICATIONS (prior to changes made today) 1. alendronate 10 mg tablet, Dose/instruction UNKNOWN 2. Aspirin 325 mg Tablet, 1 p.o. daily 3. Effexor XR 150 mg capsule,extended release 24hr, 1 p.o. daily 4. Fish Oil 1,000 mg capsule, 1 p.o. daily 5. flunisolide nasal spray 0.025%, Take as Directed 6. Isosorbide Mononitrate 30 mg Tablet Sustained Release 24 hr, 1 p.o. daily 7. Metoprolol Xehdgflt06 mg Tablet, 1/2 tab twice daily 8. Nitroglycerin 0.4 mg Tablet, Sublingual, 1 tab sublingual as needed for chest pain 9. prednisone5 mg tablet, Take as Directed 10. rosuvastatin 40 mg tablet, 1 p.o. qHS 11. Symbicort 160-4.5 mcg/actuation HFA Aerosol Inhaler, Take as Directed 12. Trazodone 100 mg Tablet, 1 p.o. qHS 13. Vitamin D3 2,000 unit tablet, Dose/instruction UNKNOWN CHIEF COMPLAINTS review test results HISTORY OF PRESENT ILLNESS: I had the pleasure of meeting Lucía Vizcarra and his in the [facility]. He is a 67-year-old white male with a history of coronary artery disease, coronary artery bypass surgery, dyslipidemia, hypertension, tobacco abuse who recently saw Dr. Bar in consult. He is here to review the results of his nuclear stress test and echocardiogram. His cardiovascular history includes two-vessel coronary artery bypass grafting in 2005. This includes an RAISA to the LAD and a saphenous vein graft to the RCA. He had a coronary angiogram in 2008, which was precipitated by an abnormal nuclear stress test suggesting anterior apical ischemia. Angiogram at that time revealed adequate vascularization with both grafts patent. Just after the insertion of the RODRIGEZ to the LAD there was a smooth 70% stenosis that would have been technically difficult to get at and may have been playing a role in some inducible ischemia. Echocardiogram at that time revealed an ejection fraction of 50-55% without wall motion abnormality and right heart pressures were normal. He sought input from Dr. Bar to clarify his cardiac status as the [facility] has led them to wish to decrease his disability level. Symptomatically he does complain of dyspnea on exertion but denies any anginal symptoms. He denies palpitations, dizziness or light-headedness. There has been noperipheral edema but he has bilateral hip discomfort and some symptoms, which are suggestive of claudication. A nuclear stress test done July 24 revealed an ejection fraction of 51% at rest. There was no evidence of ischemia and in fact compared to the study from 2008 there was resolution of the apical ischemia. This was a Lexiscan nuclear stress test. The echocardiogram performed the same day again shows an ejection fraction of 55%. There was physiologic tricuspid regurgitation but otherwise no significant abnormality. He continues to smoke at least half a pack of cigarettes per day. He denies dyspnea on exertion butthis is no different from prior. There is no anginal component. He describes bilateral hip discomfort right slightly greater than the left. This occurs only with walking and none at rest. Vital signs include a blood pressure of 122/74, pulse is 62 and regular, weight is 192.6 pounds, which is up 5 pounds, his BMI is slightly elevated at 26.92. For full physical exam please see below. PAST HISTORY Past Medical Illnesses: depressionS/P ECT [...] echo Dec 2008, myocardial perfusion (Nuc) Dec 2008, Jul 2012, echocardiogram Jul 2012 Cardiac Cath Results: 12/14 LAD 70% stenosis PMHx Echo Results: 12/14 mild LAE, 07/20 LA mildly dilated Left Ventricular Ejection Fraction: 12/14 EF 50-55% by echo, EF 55% by Echo Jul 2012, EF 42-51% by Nuclear study Jul 2012 Nuclear Results: 12/14, mild apical myocardial ischemia in the distal LAD, 07/20 no ischemia LVEF of 42-51% documented via nuclear study on 07/24/2012 FAMILY HISTORY: Father - committed suicide; Mother [...] <LT> 100 SOCIAL HISTORY Alcohol Use - drinks rarely; Smoking - smokes, 1-2 ppd; Diet - regular diet without modifications and caffeine use-5 or more per day; Lifestyle - with 1 child, in [place] - 1966 and [place]; Exercise - no regular exercise; Seat Belt Use - always; Occupation - retired and use to work at [employer] in [place]; Residence - lives with and children, lives in [place] year round and raising 's nephew; Place of - [place]; REVIEW OF SYSTEMS GENERAL denies recent weight loss, weight gain, fever or chills or change in exercise tolerance. INTEGUMENTARY denies any change in hair or nails, rashes, or skin lesions. EYES wears eye glasses/contact lenses EARS, NOSE, THROAT, MOUTH partial hearing loss both ears RESPIRATORY cough, dyspnea with exertion, snoring CARDIOVASCULAR chest discomfort ABDOMINAL denies ulcer disease, hematochezia or melena. MUSCULOSKELETAL denies any history of arthritic symptoms or back problems. NEUROLOGICAL denies any history of recurrent headaches, strokes, TIA, or seizure disorder. PSYCHIATRIC depression ENDOCRINE increased fatigue HEMATOLOGICAL/IMMUNOLOGIC easy bruising PHYSICAL EXAMINATION VITAL SIGNS: Blood Pressure: 122/74Sitting, Right arm, regular cuff Pulse- 62.00/min. Weight- 192.60 lbs. Height- 70.7 BMI Measurement: 27 CONSTITUTIONAL cooperative, alert and oriented,well developed, well [...] hepatosplenomegaly, non- tender, no bruits PERIPHERAL PULSES femorals 1/3 without bruits, ptib 1/3 bilaterally EXTREMITIES & BACK no clubbing, cyanosis or edema NEUROLOGICAL no gross motor deficits noted, affect appropriate, oriented to time, person and place. MEDICATIONS UPDATED/STARTED TODAY: alendronate 10 mg tablet, Dose/instruction UNKNOWN, #0 (Zero) Vitamin D3 2,000 unit tablet, Dose/instruction UNKNOWN, #0 (Zero) MEDICATIONS REFILLED/STOPPED TODAY: Albuterol Sulfate 90 mcg/Actuation HFA Aerosol Inhaler Take as Directed 0 Physician Order IMPRESSIONS/PLAN ASSESSMENT AND PLAN: 1. Coronary artery disease. He had two-vessel coronary artery bypass grafting in 2005 with last angiogram 2008 as cited above. The nuclear stress test done recently shows no evidence of ischemia and preserved ejection fraction. An angiogram is not recommended. Echocardiogram also shows normal LV function without significant structure abnormality. 2. Dyspnea on exertion. It is felt this does not have a cardiac etiology it is more likely related to his underlying long use of tobacco products. I am not certain if this has been fully evaluated at the [facility] but I leave that to his primary care physician. 3. Hypertension at goal. 4. Dyslipidemia. Labs from June 2012 include a total cholesterol of 141, triglycerides 126, HDL43, and LDL 73. He remains on high dose Crestor. 5. Symptoms suggestive of peripheral vascular disease. Femoral pulses were 1+ bilaterally without bruits and posterior tibials were 1+ bilaterally. Hehas symptoms suggestive of claudication and with his long history of tobacco abuse in addition to his coronary disease, I feel further evaluation is indicated. I asked him if he would like to [facility]rough the [facility] or [facility] clinic. He chose our clinic. Therefore I have scheduled him for ABIs and an initial consult in the peripheral vascular clinic. 6. Tobacco abuse. I advised him from a cardiac nando dpoint to discontinue it entirely. He feels he is going to taper down slowly but this may take morethan 1 year. 7. Depression. He has had multiple therapies in the past and remains on Effexor. TODAYS ORDERS 1. BAKARI Rest w/Pressures+Waveforms Within 2 Weeks 2. Vasc Dx Cl Initial Visit 2-4 weeks 3. F/U with Magno Bar MD 6 months Kassie Garrido N.P. cc:[facility] Dr[facility] Ford documented in this encounter Plan of Treatment Not on file documented as of this encounter Visit Diagnoses Not on filedocumented in this encounter Additional Health Concerns Infection Onset Date Last Indicated Resolved Time Rule Out COVID-19 02/23/2020 02/23/2020 02/24/2020 2:05 PM CDT Rule Out COVID-19 02/16/2021 02/16/2021 02/16/2021 6:19 PM CDT documented as of this encounter Care Teams Track Moving Machine Operator Relationship Specialty Start Date End Date Reza Leary MD [facility] [place] [address] [facility] [address] [facility] [address] [place] [address] PCP - ENT ENT-Otolaryngology 11/09/11 02/16/21 [facility] [place] [address] PCP - General 07/21/12 09/14/20 [place] [address] [place] [address] PCP - General Family Medicine 09/15/20 documented as of this encounter
--- OUTSIDE RECORDS SUMMARY | 2023-07-22 16:46 | XMS_ITS | Clinical Summary ---
Author Name Unknown Organization [facility] Address [address] [place] [id number] Care Team Providers Care Manager Lean Name Role Phone NaborXiao Primary Care Provider [phone] Allergies No known active allergies Medications Medication [...] tremor HTN (hypertension) Orthostatic hypotension Depression Osteoarthritis Family History Medical History Relation Comments Mental Illness Father Unknown/Adopted Mother Relation Status Comments Father (Age 57) depression TB Mother UN[place] Social History Tobacco Use Types Packs/Day Years [...] 02/16/2021 5:07 PM CDT Plan of Treatment Health Maintenance Due Date Last Done Comments ADVANCE CARE PLANNING 1945 ANNUAL REVIEW OF HM ORDERS 1945 COPD ACTION PLAN 1945 SPIROMETRY 1945 HEPATITIS C SCREENING 1964 RSV VACCINE ( & 60+) (1 - 1-dose 60+ series) 2006 LUNG CANCER SCREENING 11/01/2006 11/01/2005 FALL RISK ASSESSMENT 2011 LIPID 12/09/2013 12/09/2008, 10/07, 11/01/2005 ZOSTER IMMUNIZATION (2 of 3) 01/05/2015 11/10/2014 MEDICARE ANNUAL WELLNESS VISIT 08/10/2022 08/10/2021, 07/15/2020 COVID-19 Vaccine ( season) 2023 06/27/2021, 08/31/2020, 08/10/2020 INFLUENZA VACCINE (#1) 2023 , 04/03/2021, 04/11/2020, Additional history exists PHQ-2 (once per calendar year) 2023 DTAP/TDAP/TD IMMUNIZATION (6 - Td or Tdap) 11/10/2024 11/10/2014, 01/22/2006, 01/29/2005, Additional history exists Pneumococcal Vaccine: 65+ Years Completed 05/24/2017, 11/29/2015, 10/12/2015, Additional history exists HPV IMMUNIZATION Aged Out No longer e ligible based on patient's age to complete this topic IPV IMMUNIZATION Aged Out No longer e ligible based on patient's age to complete this topic MENINGITIS IMMUNIZATION Aged Out No l onger eligible based on patient's age to complete this topic RSV MONOCLONAL ANTIBODY Aged Out No l onger eligible based on patient's age to complete this topic Advance Directives For more information, please contact: [phone] Latest Code Status on File Code Status [...] with patient/ legal decision maker Care Teams Manager Lean Relationship Specialty [place] [id number] [place] [address] PCP - General Family Medicine 09/15/20
--- OUTSIDE RECORDS SUMMARY | 2023-07-22 16:47 | XMS_ITS | Encounter Summary ---
Author Name Department of Vetera Affairs Organization Department of Vetera Affairs Address [address] [place] [address] Support Name Relationship Address Phone ALLY VIZCARRA Next of Kin [address] [place] [address] ALLY VIZCARRA Emergency Contact [address] [place] [address] Insurance Providers: All historical and current Section Date Range: From patient's date of to the date document was created. This section includes the names of all active insurance providers for the patient. Insurance Provider Type of Coverage Plan Name Start of Policy Coverage End of Policy Coverage Group Number Member ID Insurance Provider's Telephone Number Policy Davis's Name Patient's Relationship to Policy Davis [place] PREFERRED PROVIDER ORGANIZAT ION (PPO) FEP BASIC PLUS ONE Jul 08, 2015 [id number] HIRAM VIZCARRA RT PATIENT [place] F[place] PREFERRED PROVIDER ORGANIZAT ION (PPO) FEP BASIC PLUS ONE Jul 08, 2015 113 [id number] [phone] HIRAM VIZCARRA RT PATIENT [employer] FEP RX PRESCRIPT ION FEPRX Jul 08, 2015 [id number] HIRAM VIZCARRA RT PATIENT MEDICARE (WNR) MEDICARE (M) PART A Feb 01, 2011 PART A [id number] HIRAM VIZCARRA RT PATIENT MEDICARE (WNR) MEDICARE (M) PART B Feb 01, 2011 PART B [id number] HIRAM VIZCARRA RT PATIENT Selected Encounter This section includes the information on record at [place] for the Encounter. Date/Time Encounter Type Encounter Description Reason Provider Source Jul 26, 2022 12:38 PM Outpatient Encounter ADMIN PAT ACTIVTIES (MASNONCT) BRITTANIE NINO Priscilla Encounter Template Text not used by [place] Plan of Treatment: Future Appointments (+ 6 months) and Future Tests (+/- 45 days) The Plan of Treatment section includes future care activities for the patient from [facility] This section includes future appointments and future orders which are active, pending or scheduled. Future Appointments This section includes appointments that were scheduled to occur 6 months from the date of the Encounter, up to a maximum of 20 appointments. The data comes from all [facility] facilities. Appointment Date/Time Appointment Type Appointme nt Facility Name Aug 16, 2022 03:30 PM AMBULATORY - MEDICINE [facility] Oct 02, 2022 03:00 PM AMBULATORY - MEDICINE [facility] November 13, 2022 01:00 PM AMBULATORY MEDICINE [facility] November 13, 2022 02:00 PM AMBULATORY MEDICINE [facility] Social History: Smoking Status (Most current) and Tobacco Use (All prior to encounter date) This section includes the most current, and the historical, smoking and tobacco- related health factors from the [place] facility where the Encounter took place. Current Smoking Status This section includes the most current smoking, or tobacco-related health factor, from the [place] facility where the Encounter took place. Date/Time Current Smoking Status Comment Augusto ity May 08, 2022 03:00 PM VA-TOBACCO FORMER USER [facility] Tobacco Use History This section includes a history of the smoking, or tobacco-related health factors, that were collected on or before the date of the Encounter. The data comes from the [place] facility where the Encounter took place. Date/Time Smoking Status/Tobacco Use Comment F acility May 08, 2022 03:00 PM VA-TOBACCO QUIT 1 TO < 5 YRS [facility] Jun 27, 2021 10:00 AM VA-TOBACCO FORMER USER [facility] Jun 27, 2021 10:00 AM DE-TOBACCO QUIT 1 TO < 5 YRS [facility] Apr 15, 2019 11:53 AM PATIENT IS TOBACCO USER [facility] Apr 08, 2019 09:44 PM INPT TOBACCO COUNSELING [facility] Jan 20, 2019 11:30 AM VA-TOBACCO FORMER USER [facility] Jan 20, 2019 11:30 AM VA-TOBACCO QUIT 1 TO < 5 YRS [facility] Mar 31, 2018 08:41 AM INPT TOBACCO COUNSELING [facility] Feb 11, 2018 06:44 AM INPT TOBACCO COUNSELING [facility] Jan 17, 2018 01:41 PM FORMER TOBACCO USE >1Y <7Y [facility] Jan 07, 2017 09:31 AM FORMER TOBACCO USER 7Y OR GREATE R [facility] Sep 12, 2015 11:34 AM FORMER TOBACCO USE >1Y <7Y [facility] May 25, 2014 11:05 AM FORMER TOBACCO USE >1Y <7Y [facility] Apr 08, 2013 03:17 PM FORMER TOBACCO USE <1Y [facility] Jun 16, 2012 02:13 PM CURRENT TOBACCO USER [facility] May 14, 2011 01:12 PM CURRENT TOBACCO USER [facility] Jul 13, 2010 01:42 PM CURRENT TOBACCO USER [facility] May 05, 2010 08:29 AM CURRENT TOBACCO USER [facility] Apr 14, 2009 05:18 PM CURRENT TOBACCO USER [facility] Apr 15, 2008 05:27 PM FORMER TOBACCO USE >1Y <7Y [facility] Jun 09, 2007 02:43 PM FORMER TOBACCO USE >1Y <7Y [facility] November 25, 2006 02:54 PM CDM COPD TOBACCO NON-USER [facility] Sep 02, 2006 01:50 PM FORMER TOBACCO USE <1Y [facility] Advance Directives: All historical and current Section Date Range: From patient's date of to the date document was created. This section includes ALL of a patient's completed or amended [place] Advance and Rescinded Directives. The entries below indicate that a directive exists for the patient, but an actual copy is not included with this document. The data comes from all [facility]. Date Advance Directives Provider Source Apr 01, 2018 ADVANCE DIRECTIVE DISCUSSION ISIDRA NOGUERA J [facility] Radiology Reports: +/- 30 days of the encounter Radiology Reports For cases when an order for radiology services may have been completed prior to the date of the Encounter, the report list includes the Radiology Reports that were completed up to 30 days before dateof the Encounter. For cases when an order for radiology services may have been completed after the date of the Encounter, the report list also includes the Radiology Reports that were completed up to30 days after date of the Encounter. The data comes from all [place] treatment facilities. Date/Time Radiology Report Provider Source Jul 24, 2022 03:07 PM LDCT LUNG CANCER SCREENING: LUCÍA VIZCARRA [id number] -1945 M Exm Date: JUL 24, 2022@15:07 Req Phys: BRITTANIE NINO Loc: [facility] PULM CHART CHECK [facility] (Req' Img Loc: CT IMAGING Service: Unknown (Case [id number] COMPLETE) LDCT LUNG CANCER SCREENING (CT Detailed) CPT:82226 Reason for Study: LDCT for Lung Cancer Screening (ANNUAL) Clinical History: [place] IS NOT under investigation for COVID-19 or is COVID-19 negative LDCT for Lung Cancer Screening (ANNUAL) Responsible provider name and phone number to notify for critical findings if other than user placing the order and pager listed below: User placing orders pager: LAST 3: Collection DT Specimen Test Name Result Units Ref Range 05/08/2022 14:07 PLASMA CREATININE 1.1 mg/dL 0.7 - 1.2 12/20/2020 13:46 PLASMA CREATININE 0.9 mg/dL 0.7 - 1.2 08/31/2020 14:02 PLASMA CREATININE 1.0 mg/dL 0.7 - 1.2 05/08/2022 14:07 PLASMA CREAT EGFR(CKD-EP 70 Ref: >=60 12/20/2020 13:46 PLASMA ESTIMATED GFR(eGF >60 Ref: >=60 08/31/2020 14:02 PLASMA ESTIMATED GFR(eGF >60 Ref: >=60 07/18/2020 12:48 PLASMA ESTIMATED GFR(eGF >60 Ref: >=60 Allergies: Patient has answered NKA Report Status: Verified Date Reported: JUL 25, 2022 Date Verified: JUL 25, 2022 Supervisor Weaving E-Sig:/ES/LUZ DALLAS MD Report: NON-CONTRAST LOW-DOSE CHEST CT FOR LUNG CANCER SCREENING 07/24/2022 HISTORY: 77-year-old male for lung cancer screening. Chest CT 06/08/2019 demonstrated 3 mm solid nodule left upper lobe, lung RADS category 2A. Additional less than 5 mm nodules not significantly changed, also lung RADS category 2A. COMPARISON: 06/08/2019, 04/13/2018, 02/20/2017, 01/21/2015, 01/21/2014. Lung base images abdomen pelvis CT 03/26/2019. TECHNIQUE: Low-dose CT of the chest without contrast. Axial and coronal reconstructions were obtained and reviewed. DOSE: DLP: 24.3/CTDIvol Mean: 0.54/Effective Dose: 0.3 FINDINGS: Redemonstration of multiple scattered small solid pulmonary nodules in the setting of pulmonary granulomatous disease, without significant change. Background of lower lobe predominant subpleural groundglass, and reticular interstitial/intralobular septal thickening, which may reflect relatively stable UIP pattern. Nodule: Average diameter: 7 x 4.5 x 4.5 mm, mean 5 mm Density: Solid nodule Location: Central mid left lower lobe Image: series 3, image 235-236 Suspicious features: None Other characteristics: Peribronchovascular Change in diameter: None , stable since 02/20/2017, greater than 5 years of stability Lung RADS category: 2A Additional nodules: Additional nodules also without significant change dating back to 01/21/2014. (Series 3): Right lung - 4 x 3 mm peribronchial central right upper lobe, image 107 - 5.5 x 3 mm medial right upper lobe, peribronchial, image 140 - 5 x 3.5 mm posterior mid right lower lobe, carli fissural, image 207, favored as inflammatory. - 6 x 4 mm peribronchial medial right lower lobe, image 224 - 4 x 2.5 mm central right middle lobe, peribronchial, image 214 Left lung - 3 mm central lateral left upper lobe, prior index nodule, image 97 - 2 mm peribronchial central posterior left upper lobe, image 135 - 7 x 4.5 mm peribronchovascular central left lower lobe, image 235 - 3 x 3.5 mm peribronchial lateral anterior left lower lobe, image 263 - 2.5 mm anterior periphery left costophrenic sulcus, image 278 Other lung findings: Moderate upper lobe predominant centrilobular emphysema. Subpleural lower lobe groundglass with reticulation of intralobular and interlobular septal opacities. Mild central and lower lobe bronchiectasis. No definite honeycombing. Peripheral findings may represent either early UIP, or NSIP. Tracheobronchial tree clear. Pleura: No pleural effusion or pleural-based calcifications. Mediastinum: Heart size normal. No pericardial effusion. Prior sternotomy and presumed coronary arterial bypass. At least moderate calcification the coronary arteries. Ascending aorta 3.8 cm. Main pulmonary artery 2.5 cm. Multiple small mediastinal lymph nodes, some of which are calcified. Unremarkable thyroid. No hernia. Upper abdomen: Imaged portions of liver, and spleen unremarkable. Moderate to large intermediate density material in the superior stomach. No hernia. Bones: Multilevel moderate to advanced lower cervical and thoracic degenerative disc disease, with multiple mild to moderate chronic wedge compression deformities of upper to mid thoracic, and upper lumbar, vertebral bodies. Most significant mid thoracic compression at T7, and T8, each near 40 %. Most severe disc height loss T5-T8, with multiple levels of mid thoracic vacuum disc. Sternotomy, with intact sternal wires, and healed sternum. Old fracture deformity of several anterior right ribs. 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 At least mild bilateral gynecomastia. Impression: 1. Multiple stable small scattered solid pulmonary nodules, index nodule 5 mm mean, central peribronchovascular left lower lobe, lung RADS category 2A. 2. Pulmonary parenchymal changes primarily subpleural lower lobes, possible early UIP, versus NSIP. 3. 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 Old healed anterior right rib fractures. 4. Sternotomy and coronary arterial bypass. 5. Stable multilevel moderate to significant primarily mid thoracic degenerative disc disease. 6. Mild bilateral gynecomastia. Primary Interpreting Staff: LUZ DALLAS MD, RADIOLOGIST (Supervisor Weaving) /LUZ ANGEL [facility] Encounter Notes: All associated encounter notes This section contains the clinical notes associated to the Encounter. Date/Time Encounter Note(s) Provider Source Jul 31, 2022 12:44 PM LETTERS: LOCAL TITLE: FOLLOW UP RESULTS LETTER STANDARD TITLE: LETTERS DATE OF NOTE: JUL 31, 2022@12:44 ENTRY DATE: JUL 31, 2022@12:44:07 AUTHOR: BRITTANIE NINO EXP COSIGNER: URGENCY: STATUS: COMPLETED [facility] [address] [place] [address] Jul LUCÍA VIZCARRA [address] [place] [id number] Dear : I am writing to inform you of the results of testing that you had done recently at the [facility]. 07/24/22 CT chest: Impression: 1. Multiple stable small scattered solid pulmonary nodules, index nodule 5 mm mean, central peribronchovascular left lower lobe, lung RADS category 2A. 2. Pulmonary parenchymal changes primarily subpleural lower lobes, possible early UIP, versus NSIP. 3. 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 Old healed anterior right rib fractures. 4. Sternotomy and coronary arterial bypass. 5. Stable multilevel moderate to significant primarily mid thoracic degenerative disc disease. 6. Mild bilateral gynecomastia. Comments: Your Lung CT scan results are above. We attempted to reach you by phone and were unable to reach. Your nodules (#1) above will be followed up routinely. #2 above indicates there is some scarring and/or inflammation in your lungs. We would like to know how you are feeling and if you are having any symptoms (which could include shortness of breath, cough, wheezing, etc). Please call us with an update when you receive this letter. Otherwise, we will request a phone follow up with you to further discuss. If you prefer to follow up with doctors outside the [place], please be sure to have your CT scan records forwarded to your non-va care team. If you have any further questions or problems, please contact our nursing staff or provider at the following number: [phone]. Sincerely, BRITTANIE NINO MD STAFF PHYSICIAN BRITTANIE NINO [facility] Jul 26, 2022 12:43 PM LETTERS: LOCAL TITLE: FOLLOW UP RESULTS LETTER STANDARD TITLE: LETTERS DATE OF NOTE: JUL 26, 2022@12:43 ENTRY DATE: JUL 26, 2022@12:44 AUTHOR: PARISH RYAN EXP COSIGNER: URGENCY: STATUS: COMPLETED [facility] [address] [place] [address] Jul LUCÍA VIZCARRA [address] [place] [id number] Dear Lucía: Your recent chest imaging on Jul showed: No lung nodules that require further follow up at this time. You may now return to the routine lung cancer screening program. If you still meet criteria for screening, your PCP will let you know when it is time to be screened again. This is usually about a year from your last screening chest CT. If you are scheduled for a scan in the future and you have symptoms of a chest cold at that time, please call number on appointment letter to reschedule for four weeks after symptoms improve. If you have any further questions or problems, please contact Lung Cancer Screening staff at [phone]. PARISH RYAN supervisor maple productsPARISH DAVILA [facility] Jul 26, 2022 12:40 PM PULMONARY NOTE: LOCAL TITLE: PULMONARY LUNG CANCER SCREENING STANDARD TITLE: PULMONARY NOTE DATE OF NOTE: JUL 26, 2022@12:40 ENTRY DATE: JUL 26, 2022@12:40:27 AUTHOR: PARISH RYAN EXP COSIGNER: URGENCY: STATUS: COMPLETED NO LUNG NODULES or TRACKING OF NODULE NOT INDICATED per guidelines (e.g., clearly benign/some small nodules). Date of image: Date: July 24, 2022 LDCT Scan Results: Most recent LDCT scan shows a nodule for which tracking is not indicated per guidelines or radiology report. The following incidental findings were noted: Other: 2. Pulmonary parenchymal changes primarily subpleural lower lobes, possible early UIP, versus NSIP. 3. 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 Old healed anterior right rib fractures. 4. Sternotomy and coronary arterial bypass. 5. Stable multilevel moderate to significant primarily mid thoracic degenerative disc disease. 6. Mild bilateral gynecomastia. Plan: Continue routine annual lung cancer screening. Patient Notification of results: Results letter sent to patient. Dr. Nino please note incidental findings. /desi/ PARISH RYAN supervisor maple products Signed: 07/26/2022 12:43 Receipt Acknowledged By: * AWAITING SIGNATURE * BRITTANIE NINO CHERYL E [facility]
--- OUTSIDE RECORDS SUMMARY | 2023-07-22 16:47 | XMS_ITS | Encounter Summary ---
Author Name [facility] Organization Department of Vetera Affairs Address [address] [place] [address] Support Name Relationship Address Phone ALLY VIZCARRA Next of Kin [address] [place] [address] ALLY VIZCARRA Emergency Contact [address] [place] [address] Insurance Providers: All historical and current [...] BASIC PLUS ONE Jul 08, 2015 113 [id number] [phone] HIRAM VIZCARRA RT PATIENT [place] FEP PREFERRED PROVIDER ORGANIZAT ION (PPO) FEP BASIC PLUS ONE Jul 08, 2015 [id number] HIRAM VIZCARRA RT PATIENT [employer] FEP RX PRESCRIPT ION FEPRX Jul 08, 2015 [id number] HIRAM VIZCARRA RT PATIENT MEDICARE (WNR) MEDICARE (M) PART B Feb 01, 2011 PART B [id number] HIRAM VIZCARRA RT PATIENT MEDICARE (WNR) MEDICARE (M) PART A Feb 01, 2011 PART A [id number] HIRAM VIZCARRA RT PATIENT Selected Encounter This section includes the information on record at DC for the Encounter. Date/Time Encounter Type Encounter Description Reason Pro vider Source Jul 24, 2022 12:00 AM Outpatient Encounter EVENT (HISTORICAL) IHE Encounter Template Text not used by DC Plan of Treatment: Future Appointments (+ 6 months) and Future Tests (+/- 45 days) The Plan of Treatment section includes future care activities for the patient from all [facility]. This section includes future appointments and future orders which are active, pending or scheduled. Future Appointments This section includes appointments that were scheduled to occur 6 months from the date of the Encounter, up to a maximum of 20 appointments. The data comes from all [facility] facilities. Appointment Date/Time Appointment Type Appointme nt Facility Name Aug 16, 2022 03:30 PM AMBULATORY - MEDICINE [facility] Oct 02, 2022 03:00 PM AMBULATORY MEDICINE [facility] November 13, 2022 01:00 PM AMBULATORY MEDICINE [facility] November 13, 2022 02:00 PM AMBULATORY MEDICINE [facility] Social History: Smoking Status (Most current) and Tobacco Use (All prior to encounter date) This section includes the most current, and the historical, smoking and tobacco- related health factors from the [place] facility where the Encounter took place. Current Smoking Status This section includes the most current smoking, or tobacco-related health factor, from the [place] facility where the Encounter took place. Date/Time Current Smoking Status Comment Facil ity May 08, 2022 03:00 PM VA-TOBACCO FORMER USER [facility] Tobacco Use History This section includes a history of the smoking, or tobacco-related health factors, that were collected on or before the date of the Encounter. The data comes from the [place] facility where the Encounter took place. Date/Time Smoking Status/Tobacco Use Comment F acility May 08, 2022 03:00 PM VA-TOBACCO QUIT 1 TO < 5 YRS [facility] Jun 27, 2021 10:00 AM VA-TOBACCO FORMER USER [facility] Jun 27, 2021 10:00 AM DC-TOBACCO QUIT 1 TO < 5 YRS [facility] Apr 15, 2019 11:53 AM PATIENT IS TOBACCO USER [facility] Apr 08, 2019 09:44 PM INPT TOBACCO COUNSELING [facility] Jan 20, 2019 11:30 AM VA-TOBACCO FORMER USER [facility] Jan 20, 2019 11:30 AM DC-TOBACCO QUIT 1 TO < 5 YRS [facility] Mar 31, 2018 08:41 AM INPT TOBACCO COUNSELING [facility] Feb 11, 2018 06:44 AM INPT TOBACCO COUNSELING [facility] Jan 17, 2018 01:41 PM FORMER TOBACCO USE >1Y <7Y [facility] Jan 07, 2017 09:31 AM FORMER TOBACCO USER 7Y OR GREATE R [facility] Sep 12, 2015 11:34 AM FORMER TOBACCO USE >1Y <7Y [facility] May 25, 2014 11:05 AM FORMER TOBACCO USE >1Y <7Y [facility] Apr 08, 2013 03:17 PM FORMER TOBACCO USE <1Y [facility] Jun 16, 2012 02:13 PM CURRENT TOBACCO USER [facility] May 14, 2011 01:12 PM CURRENT TOBACCO USER [facility] Jul 13, 2010 01:42 PM CURRENT TOBACCO USER [facility] May 05, 2010 08:29 AM CURRENT TOBACCO USER [facility] Apr 14, 2009 05:18 PM CURRENT TOBACCO USER [facility] Apr 15, 2008 05:27 PM FORMER TOBACCO USE >1Y <7Y [facility] Jun 09, 2007 02:43 PM FORMER TOBACCO USE >1Y <7Y [facility] November 25, 2006 02:54 PM CDM COPD TOBACCO NON-USER [facility] Sep 02, 2006 01:50 PM FORMER TOBACCO USE <1Y [facility] Advance Directives: All historical and current Section Date Range: From patient's date of to the date document was created. This section includes ALL of a patient's completed or amended [place] Advance and Rescinded Directives. The entries below indicate that a directive exists for the patient, but an actual copy is not included with this document. The data comes from all [facility]. Date Advance Directives Provider Source Apr 01, 2018 ADVANCE DIRECTIVE DISCUSSION ISIDRA NOGUERA ROLE J [facility] Radiology Reports: +/- 30 days of the [...] the Encounter. The data comes from all [place] treatment facilities. Date/Time Radiology Report Provider Source Jul 24, 2022 03:07 PM LDCT LUNG CANCER SCREENING: LUCÍA VIZCARRA [id number] -1945 M Exm Date: JUL 24, 2022@15:07 Req Phys: BRITTANIE NINO Loc: [facility] PULM CHART CHECK [facility] (Req' Img Loc: CT IMAGING Service: Unknown (Case [id number] COMPLETE) LDCT LUNG CANCER SCREENING (CT Detailed) CPT:29102 Reason for Study: LDCT for Lung Cancer Screening (ANNUAL) Clinical History: [place] IS NOT under investigation for COVID-19 or [...] 25, 2022 Date Verified: JUL 25, 2022 Export Specialist E-Sig:/ES/LUZ DALLAS MD Report: NON-CONTRAST LOW-DOSE CHEST [...] Primary Interpreting Staff: LUZ DALLAS MD, RADIOLOGIST (Export Specialist) /LUZ ANGEL [facility]
--- OUTSIDE RECORDS SUMMARY | 2023-07-22 16:47 | XMS_ITS | Clinical Summary ---
Author Name Unknown Organization [facility] Address [place], [place] [address] Care Team Providers Care Lieutenant General Name Role Phone Xiao Tomlin DO Primary Care Provider Ginger Medrano RN Unavailable [phone] Allergies No known active allergies Medications Medication Sig Dispensed Refills Start Date End Date Status traZODone (DESYREL) 100 mg tablet Take 200 mg by mouth at bedtime. 0 6 Active albuterol HFA (PROVENTIL HFA) 90 mcg/actuation inhaler Inhale 2 Puffs by mouth 4 times daily if needed. 0 6 Active DULoxetine (CYMBALTA) 60 mg Delayed-release capsule Take 1 capsule by mouth once daily. 0 7 Active blood-glucose meterIndications:U ncontrolled type 2 diabetes mellitus without complication, with long-term current use of insulin Dispense meter, test strips, lancets covered by pt ins. E11.65 NIDDM type II, uncontrolled - Test 2 times/day. 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 0 8 Active blood sugar diagnostic (ACCU-CHEK GUIDE) stripIndications:U ncontrolled type 2 diabetes mellitus without complication, with long-term current use of insulin Dispense item covered by pt ins. E11.65 NIDDM type II, uncontrolled - Test 3 times/day, Reason: High A1C 100 Strip 6 8 Active cholecalciferol (Vitamin D-3) 2,000 unit capsule Vitamin D3 oral take 1 by oral route daily Active 0 Active primidone (MYSOLINE) 50 mg tablet Take 50 mg by mouth once daily. 0 2 Active Wixela Inhub 250-50 mcg/dose diskus inhaler 0 2 Active metFORMIN (GLUCOPHAGE) 1,000 mg tabletIndications: Diabetes mellitus type 2 with neurological manifestations (HC) Take 1 Tablet (1,000 mg) by mouth two times daily with meals. 180 Tablet 3 3 Active nitroglycerin (NITROSTAT) 0.4 mg sublingual tabletIndications: Chest pain in adult Place 1 Tablet (0.4 mg) under the tongue every 5 minutes if needed for Chest Pain. 30 Tablet 0 3 Active atorvastatin (LIPITOR) 40 mg tabletIndications: Mixed hyperlipidemia Take 1 Tablet (40 mg) by mouth at bedtime. 90 Tablet 3 3 Active tiotropium (SPIRIVA HANDIHALER) 18 mcg inhalation capsule Inhale 18 mcg by mouth once daily. Using a SPRIVA HANDIHALER simons the capsule, then by mouth breathe in the powder. Inhale twice from the same capsule for full dose. 0 Active gabapentin (NEURONTIN) 300 mg capsuleIndications :Diabetic peripheral neuropathy (HC) Take 1 Capsule (300 mg) by mouth at bedtime. 90 Capsule 3 3 Active tamsulosin (FLOMAX) 0.4 mg capsuleIndications :BPH without urinary obstruction Take 1 Capsule (0.4 mg) by mouth once daily after a meal. 90 Capsule 3 3 Active buPROPion (WELLBUTRIN XL) 300 mg Extended-Release tabletIndications: Recurrent major depressive disorder, in full remission (HC) TAKE 1 TABLET BY MOUTH EVERY MORNING 60 Tablet 0 4 Active diclofenac topical (VOLTAREN) 1 % gel Apply topically to affected area(s) four times daily. 0 3 Active buPROPion (WELLBUTRIN XL) 300 mg Extended-Release tabletIndications: Recurrent major depressive disorder, in full remission (HC) Take 1 Tablet (300 mg) by mouth every morning. 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 in past. Last ECT in 2006 (8 total treatments) CIDP (chronic inflammatory demyelinating polyneu ropathy) 12/25/2016 Overview: Treated with IVIG in 07/2010 Osteopenia 12/25/2016 Overview: On alendronate in 2012 when on long-term steroids. Stopped alendronate in 2015. Osteopenia DEXA 02/12/19: T-scores AP: 0.9, LFN 0.0, RFN -1.0. FRAX 5.5%. Recommend basic bone health and repeat in 3-5 years. Hepatic steatosis 12/25/2016 Lung nodule 12/25/2016 Overview: RLL. Benign, followed [facility]. Stable since 2010. CT 04/10/21 stable RLL nodules 6mm, 5mm. Repeat CT in 1 year. Right knee DJD 12/25/2016 Overview: [facility]2016 [facility] Blepharospasm 02/12/2011 COUGH HYPERCHOLESTEROLEMIA, PURE COPD (chronic obstructive pulmonary disease) Status post coronary artery bypass graft Overview: 2006; 2 vessel. RODRIGEZ to LAD; SVG to RCA Resolved Problems Problem Noted Date Diagnosed Date Resolved Date Uncontrolled diabetes mellit us with microalbuminuria 06/26/2020 08/29/2022 Controlled type 2 diabetes m ellitus with diabetic neuropathy, with long-term current use of insulin 11/07/2017 01/22/2019 Uncontrolled type 2 diabetes mellitus without complication, with long-term current use of insulin 08/26/2017 11/07/2017 Fatty infiltration of liver 08/13/2017 01/21/2019 Tobacco use disorder 01/01/2011 015 CYST, SEBACEOUS 08/26/2017 DISORDER, TOBACCO USE 2017 UPPER RESPIRATORY INFECTION - ACUTE 08/26/2017 Encounters Date Type Department Care Team Description 07/22/2023 2:40 PM HANGER Office Visit [facility] [address] [place] [address] Ashley Ferris MD Cough (productive cough); Nose Problem (runny nose); Confusion (up and down not able to sleep due to cough) 07/22/2023 Travel 07/13/2023 [place] [facility] [place] [address] [place] [address] Xiao Tomlin DO Refill Request (Bupropion) 06/18/2023 1:18 PM HANGER - 06/18/2023 11:59 PM HANGER Hospital Encounter [facility] [address] [place] [address] Xiao Tomlin DO Rivera, Sidney W II, PT 06/18/2023 Travel 06/11/2023 1:29 PM HANGER - 06/11/2023 11:59 PM HANGER Hospital Encounter [facility] [address] [place] [address] Xiao Tomlin, DO Lu, Qasim W II, PT 06/11/2023 Travel 06/04/2023 1:22 PM HANGER - 06/04/2023 11:59 PM HANGER Hospital Encounter [facility] [address] [address] [place] [address] Xiao Tomlin, DO Lu, Qasim W II, PT 06/04/2023 Travel 05/28/2023 2:14 PM HANGER - 05/28/2023 11:59 PM HANGER Hospital Encounter [facility] [address] [facility] [place] [address] Xiao Tomlin, DO Lu, Qasim W II, PT 05/28/2023 Travel 05/21/2023 1:32 PM HANGER - 05/21/2023 11:59 PM HANGER Hospital Encounter [facility] [address] [facility] [place] [address] Xiao Tomlin, DO Lu, Qasim W II, PT 05/21/2023 Travel 05/07/2023 11:00 AM CDT - 05/07/2023 11:59 PM CDT Hospital Encounter [facility] [address] [facility] [place] [address] Xiao Tomlin, DO Lu, Qasim W II, PT Impairment of balance 05/07/2023 Travel from Last 3 Months Immunizations Name Administration Dates Next Due COVID-19 vaccine ([facility] [email or web address] 30mcg/0.3mL) PF, MDV 06/27/2021,08/31/2020,08/10/2020 Influenza Virus, Unspecified 04/03/2021, 04/11/2020,05/30/2018,2016,06/22/2016,06/07/2013,06/16/2012,1 ,05/10/2008,04/28/2007, 006,04/26/2005,04/25/2004,05/07/2002 Influenza, Inactivated AIIV4 (Age 65+ Years) Preserv Free 04/08/2023,05/08/2022,03/29/2022,2020 Influenza, Inactivated IIV3 (Age 65+ Years) Preserv Free 05/22/2019 Pneumococcal Poly,23-Valent (Pneumovax) 05/24/2017,05/27/2013,04/22/2013 Pneumococcal conj 13-Valent (Prevnar 13) 11/29/2015,10/12/2015 TD, UNSPECIFIED 07/08/1996 Td (Age >=7 Years) 12/21/1997 Td, Preservative Free (age > = 7 Years) 01/29/2005 Tdap 11/10/2014 Zoster (Zostavax-ZVL, live) 11/10/2014 Social History Tobacco Use Types Packs/Day Years Used Date Smoking Tobacco: Former Cigarettes 1 30 0 07/08/1969 - 07/08/1999 Smokeless Tobacco: Never Tobacco Cessation:Counseling Given: No Comments:using E-cigs now Alcohol Use Standard Drinks/Week Comments No 0 (1 standard drink = 0.6 oz pur e alcohol) Rarely PHQ-2 Answer Date Recorded PHQ-2 TOTAL SCORE 4 09/27/2022 Social Connections Answer Date Recorded Frequency of Communication with Friends and Fami ly Not on file 01/18/2023 Financial Resource Strain Answer Date R ecorded Difficulty of Paying Living Expenses 3 01/17/2022 Difficulty of Paying Living Expenses Not on file 01/17/2022 Food Insecurity Answer Date Recorded Worried About Running Out of Food in the Last Ye ar 1 01/17/2022 Transportation Needs Answer Date Record ed Lack of Transportation (Medical) 1 01/17/2022 Housing Stability Answer Date Recorded Unable to Pay for Housing in the Last Year 1 01/17/2022 Sex and Gender Information Value Date Recorded Sex Assigned at Not on file Gender Identity Not on file Sexual Orientation Not on file Obstetrics History Last Filed Vital Signs Vital Sign Reading Time Taken Comments Blood Pressure 120/74 07/22/2023 2:46 PM HANGER Pulse 116 07/22/2023 2:46 PM HANGER Temperature 36.3 ??C (97.4 ??F) 08/07/2017 2:46 PM CS T Respiratory Rate 20 03/05/2017 5:04 PM CDT Oxygen Saturation 98% 07/22/2023 2:46 PM HANGER Inhaled Oxygen Concentration - - Weight 72.3 kg (159 lb 8 oz) 07/22/2023 2:46 PM HANGER Height 177.6 cm (5' 9.92) 09/27/2022 11:04 AM C DT Body Mass Index 22.94 09/27/2022 11:04 AM CDT Plan of Treatment Upcoming Encounters Date Type Department Care Team (Late st Contact Info) Description 09/09/2023 8:45 AM HANGER [place] [facility] [place] [address] [place] [address] [place] [address] [facility] [place] [address] Health Maintenance Due Date Last Done Comments Zoster (shingles) series for age 50+ (2 of 3) 01/05/2015 11/10/2014 COVID-19 vaccine series ( season) 2023 06/27/2021, 08/31/2020, 08/10/[address] (for lung CA) ag e 50-80 07/24/2023 07/24/2022 (Completed outsid e of Fabian), 04/10/2021 Medicare Wellness for age 65+ 09/27/2023, 08/10/2021, 07/15/2020, Additional history exists BMI (ht and wt on same day) for age 18+ 09/28/2023 09/27/2022, 08/29/2022, 08/10/2021, Additional history exists Depression screening for age 12+ 09/28/2023 09/27/2022, 08/10/2021, 07/19/2020, Additional history exists Tetanus booster 11/10/2024 11/10/2014, 01/06, 12/21/1997, Additional history exists Tdap Completed 11/10/2014 Pneumococcal series for age 65+ Completed 05/24/2017, 11/29/2015, 10/12/2015, Additional history exists Hepatitis C screening for ag e 18-79 Completed 07/15/2020 Fecal testing non-DNA (FIT,FOBT,iFOBT) for age 45-75 Discontinued 05/08/2021, 04/19/2020, 01/30/2019, Additional history exists Influenza for age 65+ Completed 04/08/2023 , 05/08/2022, 03/29/2022, Additional history exists Additional Health Concerns Infection Onset Date Last Indicated Rule-Out COVID-19 07/22/2023 07/22/2023 Care Teams Lieutenant General Relationship Specialty Start [place] [address] [place] [address] PCP - General Family Practice 01/19/19 Ginger Medrano, RN [address] [place] [address] Complex Care Management Registered Nurse 07/22/23
--- OUTSIDE RECORDS SUMMARY | 2023-07-22 16:47 | XMS_ITS | Continuity of Care Document ---
Author Name [facility] Organization [facility] Care Team Providers Care Silo Man Name Role Phone [facility] Unavailable Unavailable Problems Combined list of problems from Department of Defense and Veterans Affairs facilities. It does not include entries that were removed or entered in error. 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, 2010 Entered By: MARY KRAUS I Comment: CIDP, treated with IVIG 07/2010 [facility] Chronic low back pain Active Condition [facility] Chronic obstructive lung disease Active Condition [facility] Colorectal cancer screening Active Condition Apr 08, 2013 Entered By: PATY JACINTO Comment: colonoscopy 01/16; repeat 7 yrs [facility] Coronary heart disease Active Condition November 10, 2014 Entered By: PATY JACINTO Comment: CABG 11/2005; RODRIGEZ to LAD, SVG to RCA [facility] Depression Active Condition [facility] Diabetes mellitus [facility] Gout Active Condition Mar 05 Entered By: PATY JACINTO Comment: by history 01/23 [facility] Gynecomastia Active Condition [facility] Hemolytic anemia Active Condition Feb 07, 2018 Entered By: PATY JACINTO Comment: normal iron, B12 2018 Entered By: PATY JACINTO Comment: hemolysis, Lucie negative 2018 Entered By: PATY JACINTO Comment: splenomegaly (poss. cirrhosis by CT; US normal 04/25) [facility] Hypertension Active Condition November 29, 2015 Entered By: PATY JACINTO Comment: with orthostatic hypotension [facility] Osteoarthritis Active Condition Jan 062020 Entered By: RIAN KLEIN Comment: S/P right total knee in 2017Jul 2020 Entered By: RIAN KLEIN Comment: S/P right total hip in 2018 (for fracture) [facility] Foot Pain (ICD-9-CM 719.47) Inactive Condition 10/10/2006 [facility] Fracture of shaft of radius and ulna, closed Inactive Condition 04/07/2013 Sep 11, 2005 Entered By: MARY KRAUS I Comment: s/p ORIF 1967 [facility] Full thickness rotator cuff tear Inactive Condition 10/29/2013 November 22 Entered By: MARY KRAUS I Comment: s/p repair right shoulder 09/10 [facility] Liver enzymes abnormal Inactive Condition 04/08/2019 Jul 06, 2014 Entered By: PATY JACINTO Comment: hepatic steatosis [facility] Viera's metatarsalgia Inactive Condition 10/29/2013 [facility] Plantar fasciitis Inactive Condition 10/29/2013 [facility] Subclinical hypothyroidism Inactive Condition 11/25/2013 [facility] Tremor Inactive Condition 11/29/2015 [facility] Diagnosis: ICD-10-CM R93.2 Abnormal findings on dx imaging of liver and biliary tract Active Diagnosis [facility] Diagnosis: ICD-10-CM J44.9 Chronic obstructive pulmonary disease, unspecified Active Diagnosis [facility] Diagnosis: ICD-10-CM R06.00 Dyspnea, unspecified Active Diagnosis [facility] Diagnosis: ICD-10-CM Z00.00 Encntr for general adult medical exam w/o abnormal findings Active Diagnosis [facility] Medications Combined list of outpatient medications from Department of Defense and [facility] Affairs facilities.Medications provided include 1) outpatient medications from the last 15 months, and 2) patient-reported medications. Medication Details Route Status Patient Instructions Prescription Expires Prescription Number Last Dispense Date Ordering Provider Order Date Source ALBUTEROL 90MCG/ACTUA T (CFC-F) INHL,ORAL,8 .5GM DOSE COUNTER INHALE 1 PUFF BY INHALATI ON FOUR TIMES A DAY NEEDED FOR SHORTNES S OF BREATH INHALA TION ACTIVE 08/17/2023 [id number] Xiao QUICK 2022 [facility] ASPIRIN 81MG TAB,CHEWABL E CHEW ONE TABLET BY MOUTH EVERY DAY ORALLY ACTIVE PATY CRISTOBAL 2022 [facility] ATORVASTATI N CA 40MG TAB TAKE ONE TABLET BY MOUTH EVERY DAY FOR CHOLESTE ROL ORALLY ACTIVE 10/28/2023 [id number] 4 [facility]INCESS NI 2022 [facility] ATORVASTATI N CA 80MG TAB TAKE ONE-HALF TABLET BY MOUTH AT BEDTIME FOR CHOLESTE ROL ORALLY 06/28/2022 [id number] 2 AVITIA PRINCESS MITCHELL 2020 [place] [facility] CHOLECALCIF KERRI 25MCG (1,000UNIT) TAB TAKE ONE TABLET BY MOUTH EVERY DAY FOR VITAMIN D ORALLY ACTIVE 10/28/2023 [id number] 3 PRINCESS NI 2022 [place] [facility] CHOLECALCIF KERRI 25MCG (1,000UNIT) TAB TAKE ONE TABLET BY MOUTH EVERY DAY FOR VITAMIN- D ORALLY 07/11/2022 [id number] 2 [facility]INCESS NI 2021 [facility] DICLOFENAC NA 1% GEL,TOP APPLY 2 GRAMS TOPICALL Y THREE TIMES A DAY NEEDED TO AFFECTED AREA FOR PAIN. *USE DOSE CARD IN BOX TO MEASURE DOSE. MAX 32 GRAMS PER DAY. FOR PAIN AND INFLAMMA TION TO AFFECTED AREA FOR PAIN. *USE DOSE CARD IN BOX TO MEASURE DOSE. MAX 32 GRAMS PER DAY. FOR PAIN AND INFLAMMA TION TOPICA LLY 05/09/2023 [id number] 3 PRINCESS NI 2021 [facility] DULOXETINE HCL 60MG CAP,EC TAKE ONE CAPSULE BY MOUTH EVERY DAY ORALLY ACTIVE 2024 [id number] PRINCESS NI 2022 [place] [facility] DULOXETINE HCL 60MG CAP,EC TAKE ONE CAPSULE BY MOUTH EVERY DAY ORALLY DISCONT INUED 05/09/2023 [id number] 3 PRINCESS NI 2021 [place] [facility] FLUTICASONE 250MCG/SALM ETEROL 50MCG INHL,ORAL,D ISKUS,60 INHALE 1 PUFF BY INHALATI ON TWICE A DAY FOR COPD INHALA TION ACTIVE 03/12/2024 [id number] 3 PRINCESS NI 2022 [place] [facility] FLUTICASONE 250MCG/SALM ETEROL 50MCG INHL,ORAL,D ISKUS,60 INHALE 1 PUFF BY INHALATI ON TWICE A DAY TO PREVENT BREATHIN G TROUBLE -RINSE MOUTH AFTER USING *REPLACE S SYMBICOR T 10/27* INHALA TION 10/25/2022 [id number] 3 ALBERTO KLEIN R 2021 [place] [facility] GABAPENTIN 100MG CAP TAKE TWO CAPSULES BY MOUTH EVERY MORNING AND TAKE TWO CAPSULES NOON AND TAKE THREE CAPSULES EVERY EVENING FOR NEUROPAT HY PAIN ORALLY DISCONT INUED 06/28/2022 [id number] 2 PRINCESS NI 2020 [place] [facility] GABAPENTIN 300MG CAP TAKE TWO CAPSULES BY MOUTH AT BEDTIME FOR 30 DAYS FOR PAIN AND NUMBNESS ORALLY 05/09/2023 [id number] 2 PRINCESS NI 2021 [place] [facility] LIDOCAINE 5% PATCH APPLY 1 PATCH TOPICALL Y EVERY DAY NEEDED FOR PAIN AND NUMBNESS . WEAR FOR ONLY 12 HOURS THEN REMOVE FOR 12 HOURS. TOPICA LLY 06/07/2022 [id number] 2 PRINCESS NI 2021 [place] METFORMIN HCL 1000MG TAB TAKE ONE TABLET BY MOUTH TWICE A DAY FOR DIABETES ORALLY 12/19/2022 [id number] 3 ALBERTO KLEIN R 2021 [place] [facility] NITROGLYCER IN 0.4MG TAB,SUBLING UAL DISSOLVE ONE TABLET UNDER THE TONGUE EVERY 5 MINUTES FOR UP TO 3 DOSES IF NEEDED CHEST PAIN FOR CHEST PAIN SUBLIN GUAL ACTIVE 11/14/2023 [id number] 3 BHARGAV NINO 2022 [place] [facility] PRIMIDONE 50MG TAB TAKE ONE TABLET BY MOUTH EVERY DAY ORALLY 05/09/2023 [id number] 2 ADORE PRINCESS MITCHELL 2021 [facility] TIOTROPIUM 18MCG CAP,INHL,30 INHALE ONE CAPSULE IN INHALER BY INHALATI ON EVERY DAY FOR COPD INHALA TION ACTIVE 08/17/2023 [id number] 3 RUPESH HORANXiao ITCHAYA 2022 [facility] TRAZODONE HCL 100MG TAB TAKE TWO TABLETS BY MOUTH AT BEDTIME NEEDED FOR SLEEP ORALLY ACTIVE 07/05/2024 [id number] 4 ADORE PRINCESS MITCHELL 2022 [facility] TRAZODONE HCL 100MG TAB TAKE TWO TABLETS BY MOUTH AT BEDTIME NEEDED FOR SLEEP ORALLY DISCONT INUED 11/20/2023 [id number] 3 BE RAMESH I 2022 [facility] TRAZODONE HCL 100MG TAB TAKE TWO TABLETS BY MOUTH AT BEDTIME NEEDED FOR SLEEP ORALLY DISCONT INUED 04/13/2023 [id number] 3 BE RAMESH I 2021 [facility] Immunizations Combined list of available immunizations from the Department of Defense and Veterans Affairs facilities. Immunization Series Date Given Administered By Site Reaction Lot Number CVX Code Drug Functional Mental Disability Teacher Status Comments Source INFLUENZA VACCINE, QUADRIVALENT, ADJUVANTED 2021 205 complet ed [facility] COVID-19 (Qulsar), MRNA, LNP-S, PF, 30 MCG/0.3 ML DOSE 3 2020 208 complet ed PFR; [id number]; 2 [facility] INFLUENZA, UNSPECIFIED FORMULATION 2020 88 complet ed [facility] COVID-19 (Qulsar), MRNA, LNP-S, PF, 30 MCG/0.3 ML DOSE 2 2020 208 complet ed PFR; [id number]; 1 [facility] COVID-19 (Qulsar), MRNA, LNP-S, PF, 30 MCG/0.3 ML DOSE 1 2020 208 complet ed PFR; [id number]; 1 [facility] INFLUENZA, INJECTABLE, QUADRIVALENT, PRESERVATIVE FREE 2019 150 complet ed [facility] INFLUENZA, SEASONAL, INJECTABLE, PRESERVATIVE FREE 2018 140 complet ed [facility] INFLUENZA, SEASONAL, INJECTABLE, PRESERVATIVE FREE 2017 140 complet ed [facility] INFLUENZA, HIGH DOSE SEASONAL 2016 135 complet ed [facility] PNEUMOCOCCAL POLYSACCHARID E PPV23 2016 33 complet ed merck; [id number]; 9 [facility] INFLUENZA, SEASONAL, INJECTABLE, PRESERVATIVE FREE 2015 140 complet ed Partner: Jyoti . Administe red by: Jyoti Clinician (NPI=Not Provided) . Partner 3 Lot#: [id number] Mfr: SEQIRUS [facility] PNEUMOCOCCAL CONJUGATE PCV 13 2015 133 complet ed wyeth lot [id number] exp 12/22 [facility] TDAP 2014 115 complet ed glaxosmit hkline; [id number]; 6 [facility] ZOSTER LIVE 2014 121 complet ed Merck; [id number]; 5 [facility] INFLUENZA, UNSPECIFIED FORMULATION 2013 88 complet ed [facility] INFLUENZA, UNSPECIFIED FORMULATION 2012 88 complet ed [facility] INFLUENZA, UNSPECIFIED FORMULATION 2011 88 complet ed [facility] INFLUENZA, HIGH DOSE SEASONAL, PRESERV-FREE (HISTORICAL) 2009 135 complet ed [facility] INFLUENZA, UNSPECIFIED FORMULATION 2008 88 complet ed [facility] INFLUENZA, UNSPECIFIED FORMULATION 2007 88 complet ed [facility] INFLUENZA, UNSPECIFIED FORMULATION 2006 88 complet ed [facility] INFLUENZA, UNSPECIFIED FORMULATION 2005 88 complet ed [facility] PNEUMOCOCCAL, UNSPECIFIED FORMULATION 2005 109 complet ed [facility] TD(ADULT) UNSPECIFIED FORMULATION 07/18/ 2006 NONE 139 complet ed [facility] INFLUENZA, UNSPECIFIED FORMULATION 2004 88 complet ed [facility] INFLUENZA, UNSPECIFIED FORMULATION 2003 88 complet ed [facility] INFLUENZA, UNSPECIFIED FORMULATION 2001 88 complet ed [facility] TD(ADULT) UNSPECIFIED FORMULATION 1996 139 complet ed [facility] Results Combined list of recent chemistry, hematology and other laboratory results from Department of Defense and Veterans Affairs, ranging from 15 months to all on record, depending upon the facility. Order Name Results Value Reference Range Date Interpretation Specimen Comments Source ALKALINE PHOSPHATA SE ALKALINE PHOSPHATASE [ENZYMATIC ACTIVITY/VO LUME] IN SERUM OR PLASMA 100 40 - 150 05/08 Specimen Type: PLASMA No comment entered. Ordering Provider: EDISON KLEIN Report Released Date/Time: Dec 18, 2021 03:48 PM Reporting Lab: [facility] [address] Performing Lab: [facility] [address] [facility] BASIC METABOLIC PANEL+MG CREATININE [MASS/VOLUM E] IN SERUM OR PLASMA 1.1 0.7 - 1.2 05/08 Specimen Type: PLASMA No comment entered. Ordering Provider: EDISON KLEIN Report Released Date/Time: Dec 18, 2021 03:48 PM Reporting Lab: [facility] [address] Performing Lab: [facility] [address] [place] [facility] BASIC METABOLIC PANEL+MG UREA NITROGEN [MASS/VOLUM E] IN SERUM OR PLASMA 12 8 - 26 05/08 Specimen Type: PLASMA No comment entered. Ordering Provider: EDISON KLEIN Report Released Date/Time: Dec 18, 2021 03:48 PM Reporting Lab: [facility] [address] Performing Lab: [facility] [address] [place] [facility] BASIC METABOLIC PANEL+MG GLUCOSE [MASS/VOLUM E] IN SERUM OR PLASMA 232 70 - 100 05/08 H Specimen Type: PLASMA No comment entered. Ordering Provider: EDISON KLEIN Report Released Date/Time: Dec 18, 2021 03:48 PM Reporting Lab: [facility] [address] Performing Lab: [facility] [address] [place] [facility] BASIC METABOLIC PANEL+MG SODIUM [MOLES/VOLU ME] IN SERUM OR PLASMA 140 136 - 145 05/08 Specimen Type: PLASMA No comment entered. Ordering Provider: EDISON KLEIN Report Released Date/Time: Dec 18, 2021 03:48 PM Reporting Lab: [facility] [address] Performing Lab: [facility] [address] [place] [facility] BASIC METABOLIC PANEL+MG POTASSIUM [MOLES/VOLU ME] IN SERUM OR PLASMA 4.1 3.5 - 5.1 05/08 Specimen Type: PLASMA No comment entered. Ordering Provider: EDISON KLEIN Report Released Date/Time: Dec 18, 2021 03:48 PM Reporting Lab: [facility] [address] Performing Lab: [facility] [address] [place] [facility] BASIC METABOLIC PANEL+MG CHLORIDE [MOLES/VOLU ME] IN SERUM OR PLASMA 102 98 - 107 05/08 Specimen Type: PLASMA No comment entered. Ordering Provider: EDISON KLEIN Report Released Date/Time: Dec 18, 2021 03:48 PM Reporting Lab: [facility] [address] Performing Lab: [facility] [address] [place] [facility] BASIC METABOLIC PANEL+MG CARBON DIOXIDE, TOTAL [MOLES/VOLU ME] IN SERUM OR PLASMA 26 22 - 29 05/08 Specimen Type: PLASMA No comment entered. Ordering Provider: EDISON KLEIN Report Released Date/Time: Dec 18, 2021 03:48 PM Reporting Lab: [facility] [address] Performing Lab: [facility] [address] [place] [facility] BASIC METABOLIC PANEL+MG CALCIUM [MASS/VOLUM E] IN SERUM OR PLASMA 10.3 8.4 - 10.2 05/08 H Specimen Type: PLASMA No comment entered. Ordering Provider: EDISON KLEIN Report Released Date/Time: Dec 18, 2021 03:48 PM Reporting Lab: [facility] [address] Performing Lab: [facility] [address] [place] [facility] BASIC METABOLIC PANEL+MG MAGNESIUM [MASS/VOLUM E] IN SERUM OR PLASMA 1.9 1.6 - 2.6 05/08 Specimen Type: PLASMA No comment entered. Ordering Provider: EDISON KLEIN Report Released Date/Time: Dec 18, 2021 03:48 PM Reporting Lab: [facility] [address] Performing Lab: [facility] [address] [place] [facility] BASIC METABOLIC PANEL+MG ANION GAP IN SERUM OR PLASMA 12 5 - 15 05/08 Specimen Type: PLASMA No comment entered. Ordering Provider: EDISON KLEIN Report Released Date/Time: Dec 18, 2021 03:48 PM Reporting Lab: [facility] [address] Performing Lab: [facility] [address] [place] [facility] BASIC METABOLIC PANEL+MG GLOMERULAR FILTRATION RATE/1.73 SQ M.PREDICTED [VOLUME RATE/AREA] IN SERUM, PLASMA OR BLOOD BY CREATININE- BASED FORMULA (CKD-EPI) 70 60 05/08 Specimen Type: PLASMA No comment entered. Ordering Provider: EDISON KLEIN Report Released Date/Time: Dec 18, 2021 03:48 PM Reporting Lab: [facility] [address] Performing Lab: [facility] [address] [place] [facility] CBC LEUKOCYTES [#/VOLUME] IN BLOOD BY AUTOMATED COUNT 5.39 4.0 - 11.0 05/08 Specimen Type: BLOOD No comment entered. Ordering Provider: EDISON KLEIN Report Released Date/Time: Dec 18, 2021 03:48 PM Reporting Lab: [facility] [address] Performing Lab: [facility] [address] [place] [facility] CBC ERYTHROCYTE S [#/VOLUME] IN BLOOD BY AUTOMATED COUNT 4.55 4.6 - 6.2 05/08 L Specimen Type: BLOOD No comment entered. Ordering Provider: EDISON KLEIN Report Released Date/Time: Dec 18, 2021 03:48 PM Reporting Lab: [facility] [address] Performing Lab: [facility] [address] [place] [facility] CBC HEMOGLOBIN [MASS/VOLUM E] IN BLOOD 13.8 13.5 - 17.9 05/08 Specimen Type: BLOOD No comment entered. Ordering Provider: EDISON KLEIN Report Released Date/Time: Dec 18, 2021 03:48 PM Reporting Lab: [facility] [address] Performing Lab: [facility] [address] [place] [facility] CBC HEMATOCRIT [VOLUME FRACTION] OF BLOOD BY AUTOMATED COUNT 41.2 41 - 54 05/08 Specimen Type: BLOOD No comment entered. Ordering Provider: EDISON KLEIN Report Released Date/Time: Dec 18, 2021 03:48 PM Reporting Lab: [facility] [address] Performing Lab: [place] [phone] [place] [facility] CBC MCV [ENTITIC VOLUME] BY AUTOMATED COUNT 90.5 80 - 100 05/08 Specimen Type: BLOOD No comment entered. Ordering Provider: EDISON KLEIN Report Released Date/Time: Dec 18, 2021 03:48 PM Reporting Lab: [facility] [address] Performing Lab: [facility] [address] [place] [facility] CBC MCH [ENTITIC MASS] BY AUTOMATED COUNT 30.3 27 - 33 05/08 Specimen Type: BLOOD No comment entered. Ordering Provider: EDISON KLEIN Report Released Date/Time: Dec 18, 2021 03:48 PM Reporting Lab: [facility] [address] Performing Lab: [facility] [address] [place] [facility] CBC MCHC [MASS/VOLUM E] BY AUTOMATED COUNT 33.5 32.0 - 37.5 05/08 Specimen Type: BLOOD No comment entered. Ordering Provider: EDISON KLEIN Report Released Date/Time: Dec 18, 2021 03:48 PM Reporting Lab: [facility] [address] Performing Lab: [facility] [address] [place] [facility] CBC PLATELETS [#/VOLUME] IN BLOOD BY AUTOMATED COUNT 206 150 - 400 05/08 Specimen Type: BLOOD No comment entered. Ordering Provider: EDISON KLEIN Report Released Date/Time: Dec 18, 2021 03:48 PM Reporting Lab: [facility] [address] Performing Lab: [facility] [address] [place] [facility] CBC PLATELET MEAN VOLUME [ENTITIC VOLUME] IN BLOOD BY AUTOMATED COUNT 10.3 7.4 - 10.4 05/08 Specimen Type: BLOOD No comment entered. Ordering Provider: EDISON KLEIN Report Released Date/Time: Dec 18, 2021 03:48 PM Reporting Lab: [facility] [address] Performing Lab: [facility] [address] [place] [facility] CBC ERYTHROCYTE DISTRIBUTIO N WIDTH [RATIO] BY AUTOMATED COUNT 15.6 11.5 - 14.5 05/08 H Specimen Type: BLOOD No comment entered. Ordering Provider: EDISON KLEIN Report Released Date/Time: Dec 18, 2021 03:48 PM Reporting Lab: [facility] [address] Performing Lab: [facility] [address] [place] [facility] HEMOGLOBI N A1C HEMOGLOBIN A1C/HEMOGLO BIN.TOTAL IN BLOOD 4.3 4.0 - 6.0 05/08 Specimen Type: BLOOD Comment: Values obtained from A1C measurement s can vary. For typical A1C assays, a reported value of 7.0 could actually be between 6.7 and 7.3 if measured by a reference method. A reported value of 9.0 could actually be between 8.7 and 9.3. Ref: http://[email or web address] ngsp.org/[place] Pdata.asp Ordering Provider: EDISON KLEIN Report Released Date/Time: Dec 18, 2021 03:48 PM Reporting Lab: [facility] [address] Performing Lab: [facility] [address] [place] [facility] LIPID PANEL,NON -FASTING CHOLESTEROL [MASS/VOLUM E] IN SERUM OR PLASMA 125 <199 - 199 05/08 Specimen Type: PLASMA No comment entered. Ordering Provider: EDISON KLEIN Report Released Date/Time: Dec 18, 2021 03:48 PM Reporting Lab: [facility] [address] Performing Lab: [facility] [address] [place] [facility] LIPID PANEL,NON -FASTING CHOLESTEROL IN HDL [MASS/VOLUM E] IN SERUM OR PLASMA 35 40 05/08 L Specimen Type: PLASMA No comment entered. Ordering Provider: EDISON KLEIN Report Released Date/Time: Dec 18, 2021 03:48 PM Reporting Lab: [facility] [address] Performing Lab: [facility] [address] [place] [facility] LIPID PANEL,NON -FASTING CHOLESTEROL IN LDL [MASS/VOLUM E] IN SERUM OR PLASMA BY CALCULATION 64 <99 - 99 05/08 Specimen Type: PLASMA No comment entered. Ordering Provider: EDISON KLEIN Report Released Date/Time: Dec 18, 2021 03:48 PM Reporting Lab: [facility] [address] Performing Lab: [facility] [address] [place] [facility] LIPID PANEL,NON -FASTING CHOLESTEROL IN VLDL [MASS/VOLUM E] IN SERUM OR PLASMA BY CALCULATION 26 <29 - 29 05/08 Specimen Type: PLASMA No comment entered. Ordering Provider: EDISON KLEIN Report Released Date/Time: Dec 18, 2021 03:48 PM Reporting Lab: [facility] [address] Performing Lab: [facility] [address] [place] [facility] LIPID PANEL,NON -FASTING CHOLESTEROL NON HDL [MASS/VOLUM E] IN SERUM OR PLASMA 90 <129 - 129 05/08 Specimen Type: PLASMA No comment entered. Ordering Provider: EDISON KLEIN Report Released Date/Time: Dec 18, 2021 03:48 PM Reporting Lab: [facility] [address] Performing Lab: [facility] [address] [place] [facility] LIPID PANEL,NON -FASTING TRIGLYCERID E [MASS/VOLUM E] IN SERUM OR PLASMA 131 <149 - 149 05/08 Specimen Type: PLASMA No comment entered. Ordering Provider: EDISON KLEIN Report Released Date/Time: Dec 18, 2021 03:48 PM Reporting Lab: [facility] [address] Performing Lab: [facility] [address] [place] [facility] BONE SPEC. ALK PHOS ALKALINE PHOSPHATASE .BONE [MASS/VOLUM E] IN SERUM OR PLASMA 15.2 11/29 Specimen Type: SERUM Comment: Unable to flag abnormal result(s), please refer to reference range(s) below: Reference Ranges for Alkaline Phosphatase (mcg/L): Age Females Males 0 - 1 month Not Established Not Established 2 - 24 months 25.4-124.0 25.4-124.0 25 months - 5 years Not Established Not Established 6 - 9 years 41.0-134.6 41.0-134.6 10 - 13 years 24.2-154.2 43.8-177.4 14 - 17 years 10.5- 75.2 13.7-128.0 18 - 29 years 4.7- 17.8 8.4- 29.3 30 - 39 years 5.3- 19.5 7.7- 21.3 40 - 49 years 5.0- 18.8 7.0- 18.3 50 - 68 years 7.6- 14.9 50 - 76 years 5.6- 29.0 Premenopaus al 35 - 45 years 5.0- 18.2 Pediatric data from Int J Biol Markers (1995) 11:159-164 Test Performed by [facility] [place], [employer] [facility], [address] [place] [address] Helder Mccormick M.D., Ph.D., Director of Laboratorie s , [facility] [id number] Ordering Provider: FLORIDA PAREDES Report Released Date/Time: Aug 01, 2020 10:49 AM Reporting Lab: [facility] [address] Performing Lab: [address] [facility] CALCIUM CALCIUM [MASS/VOLUM E] IN SERUM OR PLASMA 10.2 8.4 - 10.2 11/29 Specimen Type: PLASMA No comment entered. Ordering Provider: FLORIDA PAREDES Report Released Date/Time: Aug 01, 2020 10:49 AM Reporting Lab: [facility] [address] Performing Lab: [facility] [address] [facility] PTH-N-TAC T PARATHYRIN. INTACT [MASS/VOLUM E] IN SERUM OR PLASMA 30.4 8.7 - 77.1 11/29 Specimen Type: PLASMA No comment entered. Ordering Provider: FLORIDA PAREDES Report Released Date/Time: Aug 01, 2020 10:49 AM Reporting Lab: [facility] [id number] Performing Lab: [facility] [id number] [facility] VIT D 25-OH,TOT AL 25-HYDROXYV ITAMIN D3 [MASS/VOLUM E] IN SERUM OR PLASMA 46 12 - 50 11/29 Specimen Type: SERUM No comment entered. Ordering Provider: FLORIDA PAREDES Report Released Date/Time: Aug 01, 2020 10:49 AM Reporting Lab: [facility] [id number] Performing Lab: [facility] [address] [facility] Vital Signs Combined list of inpatient and outpatient Vital Signs from Department of Defense and Veterans Affairs, ranging from 12 months to all on record, depending upon the facility. Vital Sign Value Date Comments Source SYSTOLIC BLOOD PRESSURE 113 11/13/2022 13:33:47 [facility] DIASTOLIC BLOOD PRESSURE 73 11/13/2022 13:33:47 [facility] PULSE OXIMETRY 96% 11/13/2022 13:33:47 [place] [facility] WEIGHT 164.2 11/13/2022 13:33:47 [facility] BMI 24kg/m2 11/13/2022 13:33:47 [facility] PAIN 0 11/13/2022 13:33:47 [facility] HEIGHT 69.3 11/13/2022 13:33:47 [facility] TEMPERATURE 96.6 11/13/2022 13:33:47 [facility] PULSE 81 11/13/2022 13:33:47 [facility] RESPIRATION 16 11/13/2022 13:33:47 [facility] SYSTOLIC BLOOD PRESSURE 138 10/02/2022 15:07:01 [facility] DIASTOLIC BLOOD PRESSURE 83 10/02/2022 15:07:01 [facility] PULSE OXIMETRY 98% 10/02/2022 15:07:01 [facility] WEIGHT 165 10/02/2022 15:07:01 [facility] BMI 23kg/m2 10/02/2022 15:07:01 [facility] PAIN 2 10/02/2022 15:07:01 [facility] PULSE 89 10/02/2022 15:07:01 [facility] RESPIRATION 16 10/02/2022 15:07:01 [facility] Encounters Combined list of: 1) Encounters from Department of [facility] Affairs facilities going back up to thelast 18 months. 2) Encounters from the Department of [facility] facilities going back up to 280 months. Location Location Details Encounter Type Encounter Number Reason For Visit Attending Provider ADM Date DC Date Status Disposition Source [place] [facility] Outpatient Encounter [id number] 05/03 [facility] [place] [facility] [place]MIN [id number] Diagnos is: ICD-10- CM Z00.00 Encntr for general adult medical exam w/o abnorma l finding s
Lisa NI 05/08 [facility] [place] [facility] Outpatient Encounter [id number] SANDRA NINO 05/09 [facility] [place] [facility] Outpatient Encounter [id number] 07/24 [facility] [place] [facility] Outpatient Encounter [id number] SANDRA NINO 07/26 [facility] [place] [facility] Outpatient Encounter [id number] Diagnos is: ICD-10- CM R06.00 Dyspnea , unspeci fied
AGUSTINA HEARD 08/16 [place] [facility] [place] [facility] OFFICE O/P EST SF 10-19 MIN [id number] Diagnos is: ICD-10- CM J44.9 Chronic obstruc tive pulmona ry disease , unspeci fied
Lisa NI 09/25 [place] [facility] [place] [facility] Outpatient Encounter [id number] 09/27 [place] [facility] [place] [facility] OFFICE O/P EST LOW 20-29 MIN [id number] Diagnos is: ICD-10- CM J44.9 Chronic obstruc tive pulmona ry disease , unspeci fied
Lisa NI 10/02 [place] [facility] [place] [facility] Outpatient Encounter [id number] 10/02 [place] [facility] [place] [facility] Outpatient Encounter [id number] DIANA ANDREWS 10/08 [place] [facility] [place] [facility] Outpatient Encounter [id number] 10/27 [place] [facility] [place] [facility] Outpatient Encounter [id number] 10/29 [place] [facility] [place] [facility] Outpatient Encounter [id number] 11/13 [place] [facility] [place] [facility] HEMOGLOBIN [id number] Diagnos is: ICD-10- CM J44.9 Chronic obstruc tive pulmona ry disease , unspeci fied
PATY CRISTOBAL 11/13 [facility] [place] [facility] OFF/OP CNSLTJ NEW/EST LOW 30 [id number] Diagnos is: ICD-10- CM J44.9 Chronic obstruc tive pulmona ry disease , unspeci fied
PATY CRISTOBAL 11/13 [facility] [place] [facility] Outpatient Encounter [id number] 11/13 [place] [facility] [place] [facility] Outpatient Encounter [id number] Marissa DIAZ 02/12 [facility] QNHP OL DIG ASSMT&MGMT - [id number] Diagnos is: ICD-10- CM R93.2 Abnorma l finding s on dx imaging of liver and biliary tract<b r/> PANCHO BARLOW 06/05 [facility] Outpatient Encounter [id number] DIANA ANDREWS 07/05 [facility] Social History Combined list of available smoking, tobacco, and other social history from Department of Defense and Veterans Affairs facilities. Social History Type Response Date Comment Sourc e Tobacco smoking status FLIS HI-TOBACCO QUIT 1 TO < 5 YRS 05/08/2022 [facility] History of tobacco use HI-TOBACCO FORMER USER 05/08/2022 [facility] History of tobacco use HI-TOBACCO FORMER USER 06/27/2021 [facility] History of tobacco use PATIENT IS TOBACCO USER 04/15/2019 [facility] History of tobacco use INPT TOBACCO COUNSELING 04/08/2019 [facility] History of tobacco use VA-TOBACCO FORMER USER 01/20/2019 [facility] History of tobacco use INPT TOBACCO COUNSELING 03/31/2018 [facility] History of tobacco use INPT TOBACCO COUNSELING 02/11/2018 [facility] History of tobacco use FORMER TOBACCO US E >1Y <7Y 01/17/2018 [facility] History of tobacco use FORMER TOBACCO US ER 7Y OR GREATER 01/07/2017 [facility] History of tobacco use FORMER TOBACCO US E >1Y <7Y 09/12/2015 [facility] History of tobacco use FORMER TOBACCO US E >1Y <7Y 05/25/2014 [facility] History of tobacco use FORMER TOBACCO USE <1Y 04/08/2013 [facility] History of tobacco use CURRENT TOBACCO USER 06/16/2012 [facility] History of tobacco use CURRENT TOBACCO USER 05/14/2011 [facility] History of tobacco use CURRENT TOBACCO USER 07/13/2010 [facility] History of tobacco use CURRENT TOBACCO USER 05/05/2010 [facility] History of tobacco use CURRENT TOBACCO USER 04/14/2009 [facility] History of tobacco use FORMER TOBACCO US E >1Y <7Y 04/15/2008 [facility] History of tobacco use FORMER TOBACCO US E >1Y <7Y 06/09/2007 [facility] History of tobacco use CDM COPD TOBACCO NON-USER 7 [facility] History of tobacco use FORMER TOBACCO USE <1Y 09/02/2006 [facility] Plan of Care List of future care activities from Department [facility] facilities. Additional future care activities may be listed in the Assessment and Plan section. Date/Time Care Activity Care Activity Detail Facili ty 08/30/2023 Laboratory - Chemistry Order LIP ID PANEL,NON-FASTING PLASMA SP [facility] Advance Directives List of completed, amended, or rescinded Advance Directives on record at Department of [facility] Affairs facilities. An actual copy of the Directive is not included. Date Advance Directive Provider Source 04/01/2018 ADVANCE DIRECTIVE DISCUSSION ISIDRA NOGUERA ROLE J [facility]
--- OUTSIDE RECORDS SUMMARY | 2023-07-22 16:48 | XMS_ITS | Encounter Summary ---
Author Name Department of [facility] Organization Department of [facility] Address [address] [place] [id number] Support Name Relationship Address Phone ALLY VIZCARRA Next of Kin [address] [place] [address] ALLY VIZCARRA Emergency Contact [address] [place] [address] Insurance Providers: All historical and current [...] BASIC PLUS ONE Jul 08, 2015 [id number] HIRAM VIZCARRA RT PATIENT [place] FEP PREFERRED PROVIDER ORGANIZAT ION (PPO) FEP BASIC PLUS ONE Jul 08, 2015 [id number] HIRAM VIZCARRA RT PATIENT [employer] FEP RX PRESCRIPT ION FEPRX Jul 08, 2015 [id number] HIRAM VIZCARRA RT PATIENT MEDICARE (WNR) MEDICARE (M) PART A Feb 01, 2011 PART A [id number] HIRAM VIZCARRA RT PATIENT MEDICARE (WNR) MEDICARE (M) PART B Feb 01, 2011 PART B [id number] HIRAM VIZCARRA RT PATIENT Selected Encounter This section includes the information on record at [place] for the Encounter. Date/Time Encounter Type Encounter Description Reason Provider Source Aug 16, 2022 03:30 PM Outpatient Encounter TELEPHONE PRIMARY CARE ICD-10-CM R06.00 Dyspnea, unspecified ORQUIDEA,AGUSTINA B IHE Encounter Template Text not used by [place] Assessments - Encounter Diagnoses This section includes the primary and secondary diagnoses documented for the Encounter. Date/Time Primary/Secondary Diagnosis Diagnosis Name Provider Source Aug 16, 2022 03:30 PM PRIMARY Dyspnea, unspecified ORQUIDEA,AGUSTINA B [facility] Aug 16, 2022 03:30 PM SECONDARY Chronic obstructive pulmonary disease, unspecified ORQUIDEA,AGUSTINA B [facility] Aug 16, 2022 03:30 PM SECONDARY Other nonspecific abnormal finding of lung field ORQUIDEA,AGUSTINA B [facility] Plan of Treatment: Future Appointments (+ 6 months) and Future Tests (+/- 45 days) The Plan of Treatment section includes future care activities for the patient from all [facility]. This section includes future appointments and future orders which are active, pending or scheduled. Future Appointments This section includes appointments that were scheduled to occur 6 months from the date of the Encounter, up to a maximum of 20 appointments. The data comes from all [facility] facilities. Appointment Date/Time Appointment Type Appointme nt Facility Name Oct 02, 2022 03:00 PM AMBULATORY - MEDICINE [facility] November 13, 2022 01:00 PM AMBULATORY - MEDICINE [facility] November 13, 2022 02:00 PM AMBULATORY MEDICINE [facility] Social History: Smoking Status (Most current) and Tobacco Use (All prior to encounter date) This section includes the most current, and the historical, smoking and tobacco- related health factors from the [place] facility where the Encounter took place. Current Smoking Status This section includes the most current smoking, or tobacco-related health factor, from the [place] facility where the Encounter took place. Date/Time Current Smoking Status Comment Augusto ity May 08, 2022 03:00 PM VA-TOBACCO FORMER USER [facility] Tobacco Use History This section includes a history of the smoking, or tobacco-related health factors, that were collected on or before the date of the Encounter. The data comes from the [place] facility where the Encounter took place. Date/Time Smoking Status/Tobacco Use Comment F acility May 08, 2022 03:00 PM VA-TOBACCO QUIT 1 TO < 5 YRS [facility] Jun 27, 2021 10:00 AM VA-TOBACCO FORMER USER [facility] Jun 27, 2021 10:00 AM VA-TOBACCO QUIT 1 TO < 5 YRS [facility] Apr 15, 2019 11:53 AM PATIENT IS TOBACCO USER [facility] Apr 08, 2019 09:44 PM INPT TOBACCO COUNSELING [facility] Jan 20, 2019 11:30 AM VA-TOBACCO FORMER USER [facility] Jan 20, 2019 11:30 AM VA-TOBACCO QUIT 1 TO < 5 YRS [facility] Mar 31, 2018 08:41 AM INPT TOBACCO COUNSELING [facility] Feb 11, 2018 06:44 AM INPT TOBACCO COUNSELING [facility] Jan 17, 2018 01:41 PM FORMER TOBACCO USE >1Y <7Y [facility] Jan 07, 2017 09:31 AM FORMER TOBACCO USER 7Y OR GREATE R [facility] Sep 12, 2015 11:34 AM FORMER TOBACCO USE >1Y <7Y [facility] May 25, 2014 11:05 AM FORMER TOBACCO USE >1Y <7Y [facility] Apr 08, 2013 03:17 PM FORMER TOBACCO USE <1Y [facility] Jun 16, 2012 02:13 PM CURRENT TOBACCO USER [facility] May 14, 2011 01:12 PM CURRENT TOBACCO USER [facility] Jul 13, 2010 01:42 PM CURRENT TOBACCO USER [facility] May 05, 2010 08:29 AM CURRENT TOBACCO USER [facility] Apr 14, 2009 05:18 PM CURRENT TOBACCO USER [facility] Apr 15, 2008 05:27 PM FORMER TOBACCO USE >1Y <7Y [facility] Jun 09, 2007 02:43 PM FORMER TOBACCO USE >1Y <7Y [facility] November 25, 2006 02:54 PM CDM COPD TOBACCO NON-USER [facility] Sep 02, 2006 01:50 PM FORMER TOBACCO USE <1Y [facility] Advance Directives: All historical and current Section Date Range: From patient's date of to the date document was created. This section includes ALL of a patient's completed or amended [place] Advance and Rescinded Directives. The entries below indicate that a directive exists for the patient, but an actual copy is not included with this document. The data comes from all [place] facilities. Date Advance Directives Provider Source Apr 01, 2018 ADVANCE DIRECTIVE DISCUSSION ISIDRA NOGUERA ROLE J [facility] Radiology Reports: +/- 30 days of the [...] the Encounter. The data comes from all [place] treatment facilities. Date/Time Radiology Report Provider Source Jul 24, 2022 03:07 PM LDCT LUNG CANCER SCREENING: LUCÍA VIZCARRA [id number] -1945 M Exm Date: JUL 24, 2022@15:07 Req Phys: BRITTANIE NINO Loc: [facility] PULM CHART CHECK [facility] (Req' Img Loc: CT IMAGING Service: Unknown (Case [id number] COMPLETE) LDCT LUNG CANCER SCREENING (CT Detailed) CPT:88271 Reason for Study: LDCT for Lung Cancer Screening (ANNUAL) Clinical History: IS NOT under investigation for COVID-19 or [...] 25, 2022 Date Verified: JUL 25, 2022 Slip Presser E-Sig:/ES/LUZ DALLAS MD Report: NON-CONTRAST LOW-DOSE CHEST [...] Primary Interpreting Staff: LUZ DALLAS MD, RADIOLOGIST (Slip Presser) /LUZ ANGEL [facility] Encounter Notes: All associated encounter notes This section contains the clinical notes associated to the Encounter. Date/Time Encounter Note(s) Provider Source Aug 15, 2022 11:51 AM PACT NOTE: LOCAL TITLE: MEDICINE CLINIC PROVIDER TELEPHONE NOTE STANDARD TITLE: PACT NOTE DATE OF NOTE: AUG 15, 2022@11:51 ENTRY DATE: AUG 15, 2022@11:51:41 AUTHOR: COLLEEN SARABIA EXP COSIGNER: URGENCY: STATUS: COMPLETED MEDICINE CLINIC PROVIDER TELEPHONE NOTE Has ADDENDA History: Mr. Vizcarra is a 77M with pmhx of HTN, T2DM, COPD, CAD s/p CABG in 2005, acquired hemolytic anemia, HLD. Scheduled for this phone appointment for evaluation of symptoms after low dose CT showing bilateral lung infiltrates concerning for early UIP vs NSIP. Patient is co-managed with [facility] by Dr. Xiao Tomlin. Last seen by the [place] clinic in 05/2022. He's been having shortness of breath in the past 3 years which has now been worsening. Currently, he reports huffing and puffing when he tries walking to the toilet. Denies chronic cough, or wheezing. Tried using inhaler(ICS+LABA) in the past but reports that it didn't help so he stopped using it(unclear whether he used it correctly). Denies any fever, chills, nightsweats. Denies any joints pain or morning stiffness in his shoulders, elbows, hands, knees, ankles, feet. Denies family history of autoimmune disease. His reports that he's been having intemittent choking and aspiration episodes + N/V in the past 6 months. Appetite has been low in the past year. Hasn't lost any weight. Overall he's been deconditioning with frequent falls; 3 times or more in the past year c/b right and left rib fractures. Recent falls including 3 weeks ago when he got lightheaded after standing up too fast and 3 days ago when he tripped on his grand children's toys. Bumped his head but didn't loose his consciousness. Didn't seek medical treatment after each fall. Per his , no urinary incontinence or bowel incontinence at that time. He's also more lethargic in the past 1 month and has been sleeping more often through out the whole day. Urine stream is weak and he's having frequency. Denies issues with BMs. No fever/chills, nightsweats. Does have intermittent aspiration episodes as mentioned above. Limited ADLs activity, mostly dependent on his at this time including showering and medication management. Objective: Tried calling 3 times before he picked up. Sounds very withdrawn and tired. Hard of hearing. Doesn't sound confused on the phone. Answering questions appropriately but slowly. 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 Old healed anterior right rib fractures. Multifactorial of progressive SOB: COPD noncompliant with inhalers(mMRC ~ 3- 4), reported aspiration episodes, ?ILD, bilat rib fractures. Denies fever, fast breathing, confusion; no need for emergent ED visit at this time but does need to be seen in person for evaluation sooner than later for worsening shortness of breath, rib fractures, aspiration issues, urinary frequency, deconditioning, lethargy, frequent falls. In the meantime will send tiotopium and albuterol inhaler to the patient for COPD management. Does have diclofenac gel for pain management and doesn't need additional pain meds. - advise to take his inhaler regularly - will add tiotopium daily + albuterol as needed - advise to: - call [facility] to release medical records to his PCP - make an appointment with his PCP sooner than later - ask for appointment with tool distributor regarding possible ILD evaluation, and also COPD management, monitor lung nodules if need be - patient and his would like to schedule appointment with the nonVA provider and it is closer to their house - limit using of gabapentin in the setting of lethargy - bring the patient to the ED if worsening shortness of breath, fast breathing, worsening lethargy, worsening confusion, new fever/chills - call in if any issues Education/Counseling: As above. Time spent instructional coordinator: 11-20 minutes /desi/ NAT SARABIA MD RESIDENT Signed: 08/16/2022 16:49 Receipt Acknowledged By: 08/17/2022 10:21 /desi/ AGUSTINA HEARD MD STAFF PHYSICIAN * AWAITING SIGNATURE * PRINCESS NI 08/17/2022 ADDENDUM STATUS: COMPLETED I have reviewed this patient's history (obtained by the resident), pertinent physical examination (performed by the resident), and, when obtained and available, pertinent laboratory, radiologic or other diagnostic tests with the Internal Medicine Resident evaluating this patient. I agree with the treatment plan as outlined. This plan was reviewed with the resident on the date of this note. This is a 77-year-old male with history of coronary artery disease status post CABG and stent placement, COPD with [id number] tobacco use history, hemolytic anemia, cirrhosis, type 2 diabetes, depression, CIDP status post IVIG, who presents as a phone follow-up after lung cancer screening showed new rib fractures and fibrotic changes. The patient has had worsening dyspnea with exertion over multiple years and is not using his Wixela regularly. He is also been having more frequent falls, generally related to tripping over things or standing up too fast. From the perspective of his breathing, this could be multifactorial in the setting of poorly controlled COPD and/or development of a fibrotic process. He is not using his inhalers currently, has no positive eosinophils on differential or IgE, and no recent exacerbations, so will simplify his regimen to tiotropium daily and as needed albuterol. We also recommended pulmonary evaluation for the fibrosis, which [facility] would [facility]. Patient also sounds like he is having worsening lethargy and falls, and should be examined in person + PT to better assess the etiology of these and rule out any metabolic or neurologic contribution. He does have a history of peripheral neuropathy as well as CIDP distantly that was treated w/ IVIG. The patient is comanaged mostly with [facility], and he and his would prefer to do that and pulmonary evaluation there. We did recommend limiting use of gabapentin given his reported lethargy. /desi/ AGUSTINA HEARD MD STAFF PHYSICIAN Signed: 08/17/2022 10:34 COLLEEN SARABIALUBNA [facility]
--- OUTSIDE RECORDS SUMMARY | 2023-07-22 16:49 | XMS_ITS | Encounter Summary ---
Author Name Department of Vetera [facility] Affairs Organization [facility] Address [address] [place] [id number] Support Name Relationship Address Phone ALLY VIZCARRA Next of Kin [address] [place] [address] ALLY VIZCARRA Emergency Contact [address] [place] [phone] Insurance Providers: All historical and current [...] BASIC PLUS ONE Jul 08, 2015 113 [id number] HIRAM VIZCARRA RT PATIENT [place] FEP PREFERRED PROVIDER ORGANIZAT ION (PPO) FEP BASIC PLUS ONE Jul 08, 2015 113 [id number] HIRAM VIZCARRA RT PATIENT [employer] FEP RX PRESCRIPT ION FEPRX Jul 08, 2015 [id number] HIRAM VIZCARRA RT PATIENT MEDICARE (WNR) MEDICARE (M) PART A Feb 01, 2011 PART A [id number] HIRAM VIZCARRA RT PATIENT MEDICARE (WNR) MEDICARE (M) PART B Feb 01, 2011 PART B [id number] HIRAM VIZCARRA RT PATIENT Selected Encounter This section includes the information on record at [facility] for the Encounter. Date/Time Encounter Type Encounter Description Reason Provider Source Sep 25, 2022 04:12 PM OFFICE O/P EST SF 10-19 MIN PRIMARY CARE/MEDICINE ICD-10-CM J44.9 Chronic obstructive pulmonary disease, unspecified [facility] Encounter Template Text not used by [facility] Assessments - Encounter Diagnoses This section includes the primary and secondary diagnoses documented for the Encounter. Date/Time Primary/Secondary Diagnosis Diagnosis Name Provider Source Sep 25, 2022 04:14 PM PRIMARY Chronic obstructive pulmonary disease, unspecified [facility] Plan of Treatment: Future Appointments (+ 6 months) and Future Tests (+/- 45 days) The Plan of Treatment section includes future care activities for the patient from all [facility]. This section includes future appointments and future orders which are active, pending or scheduled. Future Appointments This section includes appointments that were scheduled to occur 6 months from the date of the Encounter, up to a maximum of 20 appointments. The data comes from all [facility]. Appointment Date/Time Appointment Type Appointme nt Facility Name Oct 02, 2022 03:00 PM AMBULATORY - MEDICINE [facility] November 13, 2022 01:00 PM AMBULATORY - MEDICINE [facility] November 13, 2022 02:00 PM AMBULATORY MEDICINE [facility] Active, Pending, and Scheduled Orders This section includes a listing of several types of active, pending, and scheduled orders, including clinic medications orders, diagnostic test orders, procedure orders and consult orders; where the start date of the order is 45 days before the date of the Encounter or 45 days after the date of theEncounter. The data comes from all [facility]. Test Date/Time Test Type Test Details Facility Name Oct 02, 2022 12:00 AM Laboratory - Chemistry Order COVID-19 SCREENING PANEL (CEPHEID) NASOPHARYNGEAL SWAB Nasopharyngeal SP ONCE [facility] Social History: Smoking Status (Most current) and Tobacco Use (All prior to encounter date) This section includes the most current, and the historical, smoking and tobacco- related health factors from the [facility] facility where the Encounter took place. Current Smoking Status This section includes the most current smoking, or tobacco-related health factor, from the [facility] facility where the Encounter took place. Date/Time Current Smoking Status Comment Augusto carrera May 08, 2022 03:00 PM VA-TOBACCO FORMER USER [facility] Tobacco Use History This section includes a history of the smoking, or tobacco-related health factors, that were collected on or before the date of the Encounter. The data comes from the [facility] facility where the Encounter took place. Date/Time Smoking Status/Tobacco Use Comment F acility May 08, 2022 03:00 PM VA-TOBACCO QUIT 1 TO < 5 YRS [facility] Jun 27, 2021 10:00 AM VA-TOBACCO FORMER USER [facility] Jun 27, 2021 10:00 AM VA-TOBACCO QUIT 1 TO < 5 YRS [facility] Apr 15, 2019 11:53 AM PATIENT IS TOBACCO USER [facility] Apr 08, 2019 09:44 PM INPT TOBACCO COUNSELING [facility] Jan 20, 2019 11:30 AM VA-TOBACCO FORMER USER [facility] Jan 20, 2019 11:30 AM VA-TOBACCO QUIT 1 TO < 5 YRS [facility] Mar 31, 2018 08:41 AM INPT TOBACCO COUNSELING [facility] Feb 11, 2018 06:44 AM INPT TOBACCO COUNSELING [facility] Jan 17, 2018 01:41 PM FORMER TOBACCO USE >1Y <7Y [facility] Jan 07, 2017 09:31 AM FORMER TOBACCO USER 7Y OR GREATE R [facility] Sep 12, 2015 11:34 AM FORMER TOBACCO USE >1Y <7Y [facility] May 25, 2014 11:05 AM FORMER TOBACCO USE >1Y <7Y [facility] Apr 08, 2013 03:17 PM FORMER TOBACCO USE <1Y [facility] Jun 16, 2012 02:13 PM CURRENT TOBACCO USER [facility] May 14, 2011 01:12 PM CURRENT TOBACCO USER [facility] Jul 13, 2010 01:42 PM CURRENT TOBACCO USER [facility] May 05, 2010 08:29 AM CURRENT TOBACCO USER [facility] Apr 14, 2009 05:18 PM CURRENT TOBACCO USER [facility] Apr 15, 2008 05:27 PM FORMER TOBACCO USE >1Y <7Y [facility] Jun 09, 2007 02:43 PM FORMER TOBACCO USE >1Y <7Y [facility] November 25, 2006 02:54 PM CDM COPD TOBACCO NON-USER [facility] Sep 02, 2006 01:50 PM FORMER TOBACCO USE <1Y [facility] Advance Directives: All historical and current Section Date Range: From patient's date of to the date document was created. This section includes ALL of a patient's completed or amended [facility] Advance and Rescinded Directives. The entries below indicate that a directive exists for the patient, but an actual copy is not included with this document. The data comes from all [facility] facilities. Date Advance Directives Provider Source Apr 01, 2018 ADVANCE DIRECTIVE DISCUSSION ISIDRA NOGUERA ROLE J [facility] Encounter Notes: All associated encounter notes This section contains the clinical notes associated to the Encounter. Date/Time Encounter Note(s) Provider Source Sep 25, 2022 04:13 PM INTERNAL MEDICINE NOTE: LOCAL TITLE: MEDICINE CLINIC NOTE STANDARD TITLE: INTERNAL MEDICINE NOTE DATE OF NOTE: SEP 25, 2022@16:13 ENTRY DATE: SEP 25, 2022@16:13:08 AUTHOR: TITO NI COSIGNER: URGENCY: STATUS: COMPLETED Hi Lily, is it possible to schedule a follow up F2F for Mr Vizcarra next Monday 10/02 for reevaluation of his shortness of breath? Thanks so much! /es/ N. RAI MITCHELL MD RESIDENT PHYSICIAN Signed: 09/25/2022 16:14 [facility]
--- OUTSIDE RECORDS SUMMARY | 2023-07-22 16:49 | XMS_ITS | Encounter Summary ---
Author Name Department of Vetera Affairs Organization Department of Vetera ns Affairs Address [address] [place] [address] Support Name Relationship Address Phone ALLY VIZCARRA Next of Kin [address] [place] [address] ALLY VIZCARRA Emergency Contact [address] [place] [address] Insurance Providers: All historical and current [...] BASIC PLUS ONE Jul 08, 2015 113 [id number] HIRAM VIZCARRA RT PATIENT [place] F[place] PREFERRED PROVIDER ORGANIZAT ION (PPO) FEP BASIC PLUS ONE Jul 08, 2015 113 [id number] [phone] HIRAM VIZCARRA RT PATIENT [employer] FEP RX PRESCRIPT ION FEPRX Jul 08, 2015 [id number] [phone] HIRAM VIZCARRA RT PATIENT MEDICARE (WNR) MEDICARE (M) PART B Feb 01, 2011 PART B [id number] HIRAM VIZCARRA RT PATIENT MEDICARE (WNR) MEDICARE (M) PART A Feb 01, 2011 PART A [id number] HIRAM VIZCARRA RT PATIENT Selected Encounter This section includes the information on record at [facility] for the Encounter. Date/Time Encounter Type Encounter Description Reason Pro vider Source Sep 27, 2022 12:02 PM Outpatient Encounter [facility] Encounter Template Text not used by [facility] Plan of Treatment: Future Appointments (+ 6 months) and Future Tests (+/- 45 days) The Plan of Treatment section includes future care activities for the [facility] This section includes future appointments and future orders which are active, pending or scheduled. Future Appointments This section includes appointments that were scheduled to occur 6 months from the date of the Encounter, up to a maximum of 20 appointments. The data comes from all [facility]. Appointment Date/Time Appointment Type Appointme nt Facility Name Oct 02, 2022 03:00 PM AMBULATORY - MEDICINE [facility] November 13, 2022 01:00 PM AMBULATORY MEDICINE [facility] November 13, 2022 02:00 PM [facility] MEDICINE [facility] Active, Pending, and Scheduled Orders This section includes a listing of several types of active, pending, and scheduled orders, including clinic medications orders, diagnostic test orders, procedure orders and consult orders; where the start date of the order is 45 days before the date of the Encounter or 45 days after the date of theEncounter. The data comes from all [facility]. Test Date/Time Test Type Test Details Facility Name Oct 02, 2022 12:00 AM Laboratory - Chemistry Order COVID-19 SCREENING PANEL (CEPHEID) NASOPHARYNGEAL SWAB Nasopharyngeal SP ONCE [facility] Social History: Smoking Status (Most current) and Tobacco Use (All prior to encounter date) This section includes the most current, and the historical, smoking and tobacco- related health factors from the [facility] facility where the Encounter took place. Current Smoking Status This section includes the most current smoking, or tobacco-related health factor, from the [facility] facility where the Encounter took place. Date/Time Current Smoking Status Comment Augusto ity May 08, 2022 03:00 PM VA-TOBACCO FORMER USER [facility] Tobacco Use History This section includes a history of the smoking, or tobacco-related health factors, that were collected on or before the date of the Encounter. The data comes from the [facility] facility where the Encounter took place. Date/Time Smoking Status/Tobacco Use Comment F acility May 08, 2022 03:00 PM ID-TOBACCO QUIT 1 TO < 5 YRS [facility] Jun 27, 2021 10:00 AM VA-TOBACCO FORMER USER [facility] Jun 27, 2021 10:00 AM VA-TOBACCO QUIT 1 TO < 5 YRS [facility] Apr 15, 2019 11:53 AM PATIENT IS TOBACCO USER [facility] Apr 08, 2019 09:44 PM INPT TOBACCO COUNSELING [facility] Jan 20, 2019 11:30 AM VA-TOBACCO FORMER USER [facility] Jan 20, 2019 11:30 AM VA-TOBACCO QUIT 1 TO < 5 YRS [facility] Mar 31, 2018 08:41 AM INPT TOBACCO COUNSELING [facility] Feb 11, 2018 06:44 AM INPT TOBACCO COUNSELING [facility] Jan 17, 2018 01:41 PM FORMER TOBACCO USE >1Y <7Y [facility] Jan 07, 2017 09:31 AM FORMER TOBACCO USER 7Y OR GREATE R [facility] Sep 12, 2015 11:34 AM FORMER TOBACCO USE >1Y <7Y [facility] May 25, 2014 11:05 AM FORMER TOBACCO USE >1Y <7Y [facility] Apr 08, 2013 03:17 PM FORMER TOBACCO USE <1Y [facility] Jun 16, 2012 02:13 PM CURRENT TOBACCO USER [facility] May 14, 2011 01:12 PM CURRENT TOBACCO USER [facility] Jul 13, 2010 01:42 PM CURRENT TOBACCO USER [facility] May 05, 2010 08:29 AM CURRENT TOBACCO USER [facility] Apr 14, 2009 05:18 PM CURRENT TOBACCO USER [facility] Apr 15, 2008 05:27 PM FORMER TOBACCO USE >1Y <7Y [facility] Jun 09, 2007 02:43 PM FORMER TOBACCO USE >1Y <7Y [facility] November 25, 2006 02:54 PM CDM COPD TOBACCO NON-USER [facility] Sep 02, 2006 01:50 PM FORMER TOBACCO USE <1Y [facility] Advance Directives: All historical and current Section Date Range: From patient's date of to the date document was created. This section includes ALL of a patient's completed or amended [facility] Advance and Rescinded Directives. The entries below indicate that a directive exists for the patient, but an actual copy is not included with this document. The data comes from all [facility] facilities. Date Advance Directives Provider Source Apr 01, 2018 ADVANCE DIRECTIVE DISCUSSION ISIDRA NOGUERA ROLE J [facility] Encounter Notes: All associated encounter notes This section contains the clinical notes associated to the Encounter. Date/Time Encounter Note(s) Provider Source Sep 27, 2022 12:02 PM PHARMACY NOTE: LOCAL TITLE: PHARMACY NON [facility] MEDICATIONS STANDARD TITLE: PHARMACY NOTE DATE OF NOTE: SEP 27, 2022@12:02 ENTRY DATE: SEP 27, 2022@12:02:05 AUTHOR: SHERRI ZAMUDIO EXP COSIGNER: URGENCY: STATUS: COMPLETED [facility] RECEIVED electronic prescription(s) (eRX(s)) from NON-ID Provider: JENNYFER MOSQUEDA Date eRX received: Sep Outside (NON-[facility]) provider not authorized to write for prescription(s) through [facility] pharmacy. Prescription request REDIRECTED via FAX to [facility] for review: eRx Reference #: [id number] eRx Prescription Information: eRx Drug: metFORMIN 1,000 mg tablet (GLUCOPHAGE) eRx Qty: 180 eRx Refills: 3 eRx Days Supply: eRx Written Date: SEP 27, 2022 eRx Issue Date: Prohibit Renewals: No eRx Sig: Take 1 Tablet (1,000 mg) by mouth two times daily with meals. eRx Reference #: [id number] eRx Drug: nitroglycerin 0.4 mg sublingual tablet (NITROSTAT) eRx Qty: 30 eRx Refills: 0 eRx Days Supply: eRx Written Date: SEP 27, 2022 eRx Issue Date: Prohibit Renewals: No eRx Sig: Place 1 Tablet (0.4 mg) under the tongue every 5 minutes if needed for Chest Pain. eRx Reference #: [id number] eRx Drug: atorvastatin 40 mg tablet (LIPITOR) eRx Qty: 90 eRx Refills: 3 eRx Days Supply: eRx Written Date: SEP 27, 2022 eRx Issue Date: Prohibit Renewals: No eRx Sig: Take 1 Tablet (40 mg) by mouth at bedtime. /desi/ SHERRI ZAMUDIO pharmacist Signed: 09/27/2022 12:04 SHERRI ZAMUDIO [facility]
[2023-07-22 16:50] LABS: Lactate* 2.5 mmol/L (0.5-1.9)
--- OUTSIDE RECORDS SUMMARY | 2023-07-22 16:50 | XMS_ITS | Encounter Summary ---
Author Name [facility] Organization [facility] of Veter[facility] Affairs Address [address] [place] [id number] Support Name Relationship Address Phone ALLY VIZCARRA Next of Kin [address] [place] [id number] ALLY VIZCARRA Emergency Contact [address] [place] [id number] Insurance Providers: All historical and current [...] BASIC PLUS ONE Jul 08, 2015 [id number] HIRAM VIZCARRA RT PATIENT [place] FEP PREFERRED PROVIDER ORGANIZAT ION (PPO) FEP BASIC PLUS ONE Jul 08, 2015 [id number] HIRAM VIZCARRA RT PATIENT [employer] FEP RX PRESCRIPT ION FEPRX Jul 08, 2015 [id number] HIRAM VIZCARRA RT PATIENT MEDICARE (WNR) MEDICARE (M) PART B Feb 01, 2011 PART B [id number] HIRAM VIZCARRA RT PATIENT MEDICARE (WNR) MEDICARE (M) PART A Feb 01, 2011 PART A [id number] HIRAM VIZCARRA RT PATIENT Selected Encounter This section includes the information on record at [place] for the Encounter. Date/Time Encounter Type Encounter Description Reason Pro vider Source Oct 02, 2022 03:00 PM Outpatient Encounter PRIMARY CARE/MEDICINE IHE Encounter Template Text not used by [place] Plan of Treatment: Future Appointments (+ 6 months) and Future Tests (+/- 45 days) The Plan of Treatment section includes future care activities for the [facility] This section includes future appointments and future orders which are active, pending or scheduled. Future Appointments This section includes appointments that were scheduled to occur 6 months from the date of the Encounter, up to a maximum of 20 appointments. The data comes from all [facility]. Appointment Date/Time Appointment Type Appointme nt Facility Name November 13, 2022 01:00 PM AM[facility]ULATORY [facility] November 13, 2022 02:00 PM AMBULATORY MEDICINE [facility] Active, Pending, and Scheduled Orders This section includes a listing of several types of active, pending, and scheduled orders, including clinic medications orders, diagnostic test orders, procedure orders and consult orders; where the start date of the order is 45 days before the date of the Encounter or 45 days after the date of theEncounter. The data comes from all [facility]. Test Date/Time Test Type Test Details Facility Name Oct 02, 2022 12:00 AM Laboratory - Chemistry Order COVID-19 SCREENING PANEL (CEPHEID) NASOPHARYNGEAL SWAB Nasopharyngeal SP ONCE [facility] Vital Signs: All taken on the encounter date This section contains inpatient and outpatient Vital Signs collected on the date of the Encounter. Date/Time Temperature Pulse Blood Pressure Respiratory Rate SP02 Pain Height Weight Body Mass Index Source Oct 02, 2022 03:07 PM 89 /min 138/83 mm[Hg] 16 /min 98 % 2 165 lb 23 [facility] Social History: Smoking Status (Most current) and [...] 08, 2022 03:00 PM VA-TOBACCO FORMER USER [facility] Tobacco Use History This section includes a history of the smoking, or tobacco-related health factors, that were collected on or before the date of the Encounter. The data comes from the [place] facility where the Encounter took place. Date/Time Smoking Status/Tobacco Use Comment F acility May 08, 2022 03:00 PM VA-TOBACCO QUIT 1 TO < 5 YRS [facility] Jun 27, 2021 10:00 AM VA-TOBACCO FORMER USER [facility] Jun 27, 2021 10:00 AM VA-TOBACCO QUIT 1 TO < 5 YRS [facility] Apr 15, 2019 11:53 AM PATIENT IS TOBACCO USER [facility] Apr 08, 2019 09:44 PM INPT TOBACCO COUNSELING [facility] Jan 20, 2019 11:30 AM VA-TOBACCO FORMER USER [facility] Jan 20, 2019 11:30 AM VA-TOBACCO QUIT 1 TO < 5 YRS [facility] Mar 31, 2018 08:41 AM INPT TOBACCO COUNSELING [facility] Feb 11, 2018 06:44 AM INPT TOBACCO COUNSELING [facility] Jan 17, 2018 01:41 PM FORMER TOBACCO USE >1Y <7Y [facility] Jan 07, 2017 09:31 AM FORMER TOBACCO USER 7Y OR GREATE R [facility] Sep 12, 2015 11:34 AM FORMER TOBACCO USE >1Y <7Y [facility] May 25, 2014 11:05 AM FORMER TOBACCO USE >1Y <7Y [facility] Apr 08, 2013 03:17 PM FORMER TOBACCO USE <1Y [facility] Jun 16, 2012 02:13 PM CURRENT TOBACCO USER [facility] May 14, 2011 01:12 PM CURRENT TOBACCO USER [facility] Jul 13, 2010 01:42 PM CURRENT TOBACCO USER [facility] May 05, 2010 08:29 AM CURRENT TOBACCO USER [facility] Apr 14, 2009 05:18 PM CURRENT TOBACCO USER [facility] Apr 15, 2008 05:27 PM FORMER TOBACCO USE >1Y <7Y [facility] Jun 09, 2007 02:43 PM FORMER TOBACCO USE >1Y <7Y [facility] November 25, 2006 02:54 PM CDM COPD TOBACCO NON-USER [facility] Sep 02, 2006 01:50 PM FORMER TOBACCO USE <1Y [facility] Advance Directives: All historical and current Section Date Range: From patient's date of to the date document was created. This section includes ALL of a patient's completed or amended [place] Advance and Rescinded Directives. The entries below indicate that a directive exists for the patient, but an actual copy is not included with this document. The data comes from all [facility]. Date Advance Directives Provider Source Apr 01, 2018 ADVANCE DIRECTIVE DISCUSSION ISIDRA NOGUERA [facility] Encounter Notes: All associated encounter notes This section contains the clinical notes associated to the Encounter. Date/Time Encounter Note(s) Provider Source Oct 01, 2022 02:05 PM ADMINISTRATIVE NOT E: LOCAL TITLE: PRE VISIT SUMMARY NOTE STANDARD TITLE: ADMINISTRATIVE NOTE DICT DATE: OCT 01, 2022@14:05:39 ENTRY DATE: OCT 01, 2022@14:05:39 DICTATED BY: MARCI PETERS COSIGNER: URGENCY: STATUS: COMPLETED INCLUDED IN THIS LIST: Alphabetical list of active outpatient prescriptions dispensed from this [place] (local) and dispensed from another [place] or [facility] facility (remote) as well as inpatient orders (local pending and active), local clinic medications, locally documented non-VA medications, and local prescriptions that have or been discontinued in the past 90 days. NOTE The display of VA prescriptions dispensed from another [place] or [facility] facility (remote) is limited to active outpatient prescription entries matched to National Drug File at the originating site and may not include some items such as investigational drugs, compounds, etc. MEDICATIONS Albuterol 90mcg (Cfc-F) 200d Oral Inhl INHALE 1 PUFF BY INHALATION FOUR TIMES A DAY NEEDED FOR SHORTNESS OF BREATH Indication: FOR SHORTNESS OF BREATH Rx #: [id number] Pharmacy: [facility] Ordering Provider: NAT SARABIA Status: ACTIVE Quantity: 1 for 50 days Refills Remainin Expires: Aug 17, 2023 Last Filled: Aug 20, 2022 Cholecalcif 25mcg (D3-1,000unit) Tab TAKE ONE TABLET BY MOUTH EVERY DAY FOR VITAMIN-D Rx #: [id number] Pharmacy: [facility] Ordering Provider: PRINCESS NI Status: Quantity: 100 for 90 days Refills Remainin Expires: Jul 11, 2022 Last Filled: Jun 27, 2022 Diclofenac Na 1% Top Gel APPLY 2 GRAMS TOPICALLY THREE TIMES A DAY NEEDED TO AFFECTED AREA FOR PAIN. *USE DOSE CARD IN BOX TO MEASURE DOSE. MAX 32 GRAMS PER DAY. FOR PAIN AND INFLAMMATION Rx #: [id number] Pharmacy: [facility] Ordering Provider: PRINCESS NI Status: ACTIVE Quantity: 100 for 15 days Refills Remainin Expires: May 09, 2023 Last Filled: Sep 18, 2022 Duloxetine Hcl 60mg Ec Cap TAKE ONE CAPSULE BY MOUTH EVERY DAY Rx #: [id number] Pharmacy: [facility] Ordering Provider: PRINCESS NI Status: ACTIVE Quantity: 90 for 90 days Refills Remainin Expires: May 09, 2023 Last Filled: May 11, 2022 Fluticas 250/Salmeterol 50 Inhl Disk 60 INHALE 1 PUFF BY INHALATION TWICE A DAY TO PREVENT BREATHING TROUBLE -RINSE MOUTH AFTER USING *REPLACES SYMBICORT 10/27* Rx #: [id number] Pharmacy: [facility] Ordering Provider: RIAN KLEIN Status: ACTIVE Quantity: 3 for 90 days Refills Remainin Expires: Oct 25, 2022 Last Filled: Apr 04, 2022 Gabapentin 300mg Cap TAKE TWO CAPSULES BY MOUTH AT BEDTIME FOR 30 DAYS FOR PAIN AND NUMBNESS Rx #: [id number] Pharmacy: [facility] Ordering Provider: PRINCESS NI Status: ACTIVE Quantity: 60 for 30 days Refills Remainin Expires: May 09, 2023 Last Filled: Jun 28, 2022 Metformin Hcl 1000mg Tab TAKE ONE TABLET BY MOUTH TWICE A DAY FOR DIABETES Rx #: [id number] Pharmacy: [facility] Ordering Provider: RIAN KLEIN Status: ACTIVE Quantity: 180 for 90 days Refills Remainin Expires: Dec 19, 2022 Last Filled: Jan 30, 2022 Primidone 50mg Tab TAKE ONE TABLET BY MOUTH EVERY DAY Rx #: [id number] Pharmacy: [facility] Ordering Provider: PRINCESS NI Status: ACTIVE Quantity: 90 for 90 days Refills Remainin Expires: May 09, 2023 Last Filled: May 24, 2022 Tiotropium 18mcg Inhl Cap 30 INHALE ONE CAPSULE IN INHALER BY INHALATION EVERY DAY FOR COPD Indication: FOR COPD Rx #: [id number] Pharmacy: [facility] Ordering Provider: NAT SARABIA Status: ACTIVE Quantity: 2 for 60 days Refills Remainin Expires: Aug 17, 2023 Last Filled: Aug 20, 2022 Trazodone Hcl 100mg Tab TAKE TWO TABLETS BY MOUTH AT BEDTIME NEEDED FOR SLEEP Rx #: [id number] Pharmacy: [facility] Ordering Provider: BE RAMESH I Status: ACTIVE Quantity: 60 for 30 days Refills Remainin Expires: Apr 13, 2023 Last Filled: Sep 18, 2022 Ibuprofen Tab Sig: TAKE 200 MG BY MOUTH THREE TIMES A DAY Documenting Facility & Provider: [facility]; CHARLES FERGUSON Non-VA Meds Last Documented On: Feb 20, 2013 FOR NURSING USE ONLY: [] NURSE COLLEGE review of medications completed completed: printed list is correct: PUT THIS SHEET IN RED DOG. [] NURSE COLLEGE review of medications completed: corrections made below: PUT THIS SHEET IN RED DOG [] NURSE COLLEGE review of medications not completed: GIVE THIS SHEET TO PATIENT TO REVIEW END OF NURSING USE SECTION SCANNED DOCUMENT SIGNATURE NOT REQUIRED Electronically Filed: 10/01/2022 by: MARCI PETERS,MARCI [facility]
--- OUTSIDE RECORDS SUMMARY | 2023-07-22 16:50 | XMS_ITS | Encounter Summary ---
Author Name [facility] Organization [facility] Address [address] [place] [id number] Support Name Relationship Address Phone ALLY VIZCARRA Next of Kin [address] [place] [id number] ALLY VIZCARRA Emergency Contact [address] [place] [phone] Insurance Providers: All historical and current [...] BASIC PLUS ONE Jul 08, 2015 [id number] HIRAM VIZCARRA RT PATIENT [place] FEP PREFERRED PROVIDER ORGANIZAT ION (PPO) FEP BASIC PLUS ONE Jul 08, 2015 [id number] HIRAM VIZCARRA RT PATIENT [employer] FEP RX PRESCRIPT ION FEPRX Jul 08, 2015 [id number] [phone] HIRAM VIZCARRA RT PATIENT MEDICARE (WNR) MEDICARE (M) PART A Feb 01, 2011 PART A [id number] HIRAM VIZCARRA RT PATIENT MEDICARE (WNR) MEDICARE (M) PART B Feb 01, 2011 PART B [id number] HIRAM VIZCARRA RT PATIENT Selected Encounter This section includes the information on record at [facility] for the Encounter. Date/Time Encounter Type Encounter Description Reason Provider Source Oct 02, 2022 03:00 PM OFFICE O/P EST LOW 20-29 MIN PRIMARY CARE/MEDICINE ICD-10-CM J44.9 Chronic obstructive pulmonary disease, unspecified [facility] Encounter Template Text not used by [facility] Assessments - Encounter Diagnoses This section includes the primary and secondary diagnoses documented for the Encounter. Date/Time Primary/Secondary Diagnosis Diagnosis Name Provider Source Oct 02, 2022 03:46 PM PRIMARY Chronic obstructive pulmonary disease, unspecified [facility] Plan of Treatment: Future Appointments (+ 6 months) and Future Tests (+/- 45 days) The Plan of Treatment section includes future care activities for the patient from all [facility]. This section includes future appointments and future orders which are active, pending or scheduled. Future Appointments This section includes appointments that were scheduled to occur 6 months from the date of the Encounter, up to a maximum of 20 appointments. The data comes from all [facility]. Appointment Date/Time Appointment Type Appointme nt Facility Name November 13, 2022 01:00 PM AMBULATORY - MEDICINE [facility] November 13, 2022 02:00 PM AMBULATORY - MEDICINE [facility] Active, Pending, and Scheduled Orders This section includes a listing of several types of active, pending, and scheduled orders, including clinic medications orders, diagnostic test orders, procedure orders and consult orders; where the start date of the order is 45 days before the date of the Encounter or 45 days after the date of theEncounter. The data comes from all [facility]. Test Date/Time Test Type Test Details Facility Name Oct 02, 2022 12:00 AM Laboratory - Chemistry Order COVID-19 SCREENING PANEL (CEPHEID) NASOPHARYNGEAL SWAB Nasopharyngeal SP ONCE [facility] Vital Signs: All taken on the encounter date This section contains inpatient and outpatient Vital Signs collected on the date of the Encounter. Date/Time Temperature Pulse Blood Pressure Respiratory Rate SP02 Pain Height Weight Body Mass Index Source Oct 02, 2022 03:07 PM 89 /min 138/83 mm[Hg] 16 /min 98 % 2 165 lb 23 [facility] Social History: Smoking Status (Most current) and Tobacco Use (All prior to encounter date) This section includes the most current, and the historical, smoking and tobacco- related health factors from the [facility] facility where the Encounter took place. Current Smoking Status This section includes the most current smoking, or tobacco-related health factor, from the [facility] facility where the Encounter took place. Date/Time Current Smoking Status Comment Facil ity May 08, 2022 03:00 PM VA-TOBACCO FORMER USER [facility] Tobacco Use History This section includes a history of the smoking, or tobacco-related health factors, that were collected on or before the date of the Encounter. The data comes from the [facility] facility where the Encounter took place. Date/Time Smoking Status/Tobacco Use Comment F acility May 08, 2022 03:00 PM VA-TOBACCO QUIT 1 TO < 5 YRS [facility] Jun 27, 2021 10:00 AM VA-TOBACCO FORMER USER [facility] Jun 27, 2021 10:00 AM VA-TOBACCO QUIT 1 TO < 5 YRS [facility] Apr 15, 2019 11:53 AM PATIENT IS TOBACCO USER [facility] Apr 08, 2019 09:44 PM INPT TOBACCO COUNSELING [facility] Jan 20, 2019 11:30 AM VA-TOBACCO FORMER USER [facility] Jan 20, 2019 11:30 AM VA-TOBACCO QUIT 1 TO < 5 YRS [facility] Mar 31, 2018 08:41 AM INPT TOBACCO COUNSELING [facility] Feb 11, 2018 06:44 AM INPT TOBACCO COUNSELING [facility] Jan 17, 2018 01:41 PM FORMER TOBACCO USE >1Y <7Y [facility] Jan 07, 2017 09:31 AM FORMER TOBACCO USER 7Y OR GREATE R [facility] Sep 12, 2015 11:34 AM FORMER TOBACCO USE >1Y <7Y [facility] May 25, 2014 11:05 AM FORMER TOBACCO USE >1Y <7Y [facility] Apr 08, 2013 03:17 PM FORMER TOBACCO USE <1Y [facility] Jun 16, 2012 02:13 PM CURRENT TOBACCO USER [facility] May 14, 2011 01:12 PM CURRENT TOBACCO USER [facility] Jul 13, 2010 01:42 PM CURRENT TOBACCO USER [facility] May 05, 2010 08:29 AM CURRENT TOBACCO USER [facility] Apr 14, 2009 05:18 PM CURRENT TOBACCO USER [facility] Apr 15, 2008 05:27 PM FORMER TOBACCO USE >1Y <7Y [facility] Jun 09, 2007 02:43 PM FORMER TOBACCO USE >1Y <7Y [facility] November 25, 2006 02:54 PM CDM COPD TOBACCO NON-USER [facility] Sep 02, 2006 01:50 PM FORMER TOBACCO USE <1Y [facility] Advance Directives: All historical and current Section Date Range: From patient's date of to the date document was created. This section includes ALL of a patient's completed or amended [facility] Advance and Rescinded Directives. The entries below indicate that a directive exists for the patient, but an actual copy is not included with this document. The data comes from all [facility] facilities. Date Advance Directives Provider Source Apr 01, 2018 ADVANCE DIRECTIVE DISCUSSION ISIDRA NOGUERA ROLE J [facility] Encounter Notes: All associated encounter notes This section contains the clinical notes associated to the Encounter. Date/Time Encounter Note(s) Provider Source Oct 02, 2022 03:32 PM INTERNAL MEDICINE NOTE: LOCAL TITLE: MEDICINE CLINIC NOTE STANDARD TITLE: INTERNAL MEDICINE NOTE DATE OF NOTE: OCT 02, 2022@15:32 ENTRY DATE: OCT 02, 2022@15:32:31 AUTHOR: EDGAR UNDERWOOD EXP COSIGNER: URGENCY: STATUS: COMPLETED Discussed findings from history, exam, and diagnostic tests with resident at time of patient visit. Agree with plan of management. By problems: -co-managed care- just saw his PCP in community 3 days ago. -wanted to discuss chest CT results- had some small stable pulm nodules, and pulmonary parenchymal changes primarily subpleural lower lobes, possible early UIP, versus NSIP. He is having stable sx c/w his known COPD. -pulm consult, PFTs. /desi/ EDGAR UNDERWOOD MD Staff Physician Signed: 10/02/2022 15:35 EDGAR UNDERWOOD [facility] Oct 02, 2022 03:09 PM INTERNAL MEDICINE OUTPATIENT NOTE: LOCAL TITLE: MEDICINE CLINIC NURSING NOTE STANDARD TITLE: INTERNAL MEDICINE OUTPATIENT NOTE DATE OF NOTE: OCT 02, 2022@15:09 ENTRY DATE: OCT 02, 2022@15:09:39 AUTHOR: DONNIE BURDICK EXP COSIGNER: URGENCY: STATUS: COMPLETED TYPE OF VISIT: Appointment Check In Type of appointment: In-person appointment REASON FOR VISIT: follow up ALLERGIES: Patient has answered NKA VITAL SIGNS: Blood Pressure: 138/83 (10/02/2022 15:07) Pulse: 89 (10/02/2022 15:07) Respiration: 16 (10/02/2022 15:07) Temperature: 97.1 F [36.2 C] (05/08/2022 14:27) Weight: 165 lb [74.84 kg] (10/02/2022 15:07) Height: 71 in [180.3 cm] (05/08/2022 14:27) BMI: 23.1 O2 Sat: 98% (10/02/2022 15:07) Pain: 2 (10/02/2022 15:07) PAIN SCREEN: Patient is having significant pain that they would like to talk to their provider about today. Pain Education Patient indicates readiness to learn and verbalizes understanding of the following: Pain assessment process Has concerns/questions, advised to discuss with provider MEDICATION Active Outpatient Medications (including Supplies): ALBUTEROL 90MCG (CFC-F) 200D ORAL INHL INHALE 1 PUFF BY ACTIVE INHALATION FOUR TIMES A DAY NEEDED FOR SHORTNESS OF BREATH DICLOFENAC NA 1% TOP GEL APPLY 2 GRAMS TOPICALLY THREE ACTIVE TIMES A DAY NEEDED TO AFFECTED AREA FOR PAIN. *USE DOSE CARD IN BOX TO MEASURE DOSE. MAX 32 GRAMS PER DAY. FOR PAIN AND INFLAMMATION DULOXETINE HCL 60MG EC CAP TAKE ONE CAPSULE BY MOUTH EVERY ACTIVE DAY FLUTICAS 250/SALMETEROL 50 INHL DISK 60 INHALE 1 PUFF BY ACTIVE INHALATION TWICE A DAY TO PREVENT BREATHING TROUBLE -RINSE MOUTH AFTER USING *REPLACES SYMBICORT 10/27* GABAPENTIN 300MG CAP TAKE TWO CAPSULES BY MOUTH AT BEDTIME ACTIVE FOR 30 DAYS FOR PAIN AND NUMBNESS METFORMIN HCL 1000MG TAB TAKE ONE TABLET BY MOUTH TWICE A ACTIVE DAY FOR DIABETES PRIMIDONE 50MG TAB TAKE ONE TABLET BY MOUTH EVERY DAY ACTIVE TIOTROPIUM 18MCG INHL CAP 30 INHALE ONE CAPSULE IN INHALER ACTIVE BY INHALATION EVERY DAY FOR COPD TRAZODONE HCL 100MG TAB TAKE TWO TABLETS BY MOUTH AT ACTIVE BEDTIME NEEDED FOR SLEEP Non-VA IBUPROFEN 200MG TAB 200 MG MOUTH THREE TIMES A DAY ACTIVE Over the Counter/Herbal Medications: The patient states that they take some outside medications and/or herbals. Suicide Screen: C-SSRS Screening [place] Suicide Severity Rating Scale (C-SSRS) screener 1. Over the past month, have you wished you were or wished you could go to sleep and not wake up? No 2. Over the past month, have you had any actual thoughts of killing yourself? No 3. Over the past month, have you been thinking about how you might do this? Response not required due to responses to other questions. 4. Over the past month, have you had these thoughts and had some intention of acting on them? Response not required due to responses to other questions. 5. Over the past month, have you started to work out or worked out the details of how to kill yourself? Response not required due to responses to other questions. 6. If yes, at any time in the past month did you intend to carry out this plan? Response not required due to responses to other questions. 7. In your lifetime, have you ever done anything, started to do anything, or prepared to do anything to end your life (for example, collected pills, obtained a gun, gave away valuables, went to the roof but didn't jump)? No 8. If YES, was this within the past 3 months? Response not required due to responses to other questions. Alcohol Use Screen (AUDIT-C): Alcohol Screen: SCREEN FOR ALCOHOL (AUDIT-C) An alcohol screening test (AUDIT-C) was negative (score=0). 1. How often did you have a drink containing alcohol in the past year? Never 2. How many drinks containing alcohol did you have on a typical day when you were drinking in the past year? Response not required due to responses to other questions. 3. How often did you have six or more drinks on one occasion in the past year? Response not required due to responses to other questions. /desi/ DONNIE BURDICK LPN, LPN Signed: 10/02/2022 15:10 DONNIE BURDICK [facility] Oct 02, 2022 02:58 PM ADVANCE DIRECTIVE: LOCAL TITLE: AD NOTIFICATION AND SCREENING STANDARD TITLE: ADVANCE DIRECTIVE DATE OF NOTE: OCT 02, 2022@14:58 ENTRY DATE: OCT 02, 2022@14:58:28 AUTHOR: MIR FRIEDMAN EXP COSIGNER: URGENCY: STATUS: COMPLETED ADVANCE DIRECTIVE NOTIFICATION: I was unable to give the patient written notification of the following rights because: Comment: declined ADVANCE DIRECTIVE SCREENING NOT PERFORMED: It was not possible to perform the advance directive screening because: not interested /david FRIEDMAN AMSA Signed: 10/02/2022 14:59 MIR FRIEDMAN [facility] Oct 02, 2022 01:51 PM INTERNAL MEDICINE NOTE: LOCAL TITLE: MEDICINE CLINIC NOTE STANDARD TITLE: INTERNAL MEDICINE NOTE DATE OF NOTE: OCT 02, 2022@13:51 ENTRY DATE: OCT 02, 2022@13:51:10 AUTHOR: TITO NI COSIGNER: URGENCY: STATUS: COMPLETED LUCÍA VIZCARRA is a 77 year old MALE with the following chief complaint: Nurse's Note Reviewed. Follow up for Annual Check-up HPI/ROS: Mr. Vizcarra is a 77M with pmhx of HTN, T2DM, COPD, CAD s/p CABG in 2005, acquired hemolytic anemia, HLD. Last time I saw Mr Vizcarra was in clinic for his annual follow up in May 08, 2022. Patient is co-managed with [facility] (Dr. Xiao Tomlin). He is VERY hard of hearing. 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 Patient was seen by Dr. Dao Raymond in August 15, 2022 for SOB. Per note,patients has been dealing with a 3-year hx of SOB with progressive worsening over the past month. Has tried inhalers (ICS+LABA) without success, though it's unclear it he was using them correctly. Denies any fever, chills, nightsweats. Denies any joints pain or morning stiffness in his shoulders, elbows, hands, knees, ankles, feet. Denies family history of autoimmune disease. Denies chronic cough, wheezing. But has (+) symptoms for: - Frequent falls (<3 times in the past year) c/b right/left rib fractures. - Lightheadedness when standing up - Weight loss - Intermittent choking and aspiration episodes with N/V - Limited ADLs, including showering and medication management Patient was recently evaluated on 09/29/[address] Tomlin for diarrheas, SOB. Per note, patient had loose stools for 2 days, no N/V, no fever, abdominal pain. No recent antibiotics, travel or concern for food poisoning. Sees [facility] for lung nodule monitoring. Performed a CT scan with the [facility] that showed fibrosis - records are not available. Recommended to follow up with a editor greeting card. Quit smoking 3-4 years ago, now vaping a cartridge a day. Smoked from age [age]yrs. No shortness of breath, wheezing, coughing, or night-time awakenings. [facility] provided him new inhalers: Wixela and Spiriva, but has not yet used them. Not needing albuterol inhaler. He is mainly sedentary. - Established with Neurology at [facility] for his neuropathy and cognitive impairment. -- Denies headache, blurred vision, new weaknes//numbness/tingling -- Denies chest pain, shortness of breath, palpitations, intermittent claudication, ulcers, skin discoloration -- Denies heartburn, abdominal pain, N/V/diarrheas -- Denies fever, weight loss, chills, night sweats Past medical history/Active Problems: Active problems - Computerized Problem List is the source for the followin. Chronic low back pain 2. Chronic obstructive lung disease 3. Depression 4. 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 Alcohol abuse - in remission since 2011 6. Osteoarthritis - S/P right total knee in 2018 - S/P right total hip in 2019 (for fracture) 7. Colorectal cancer screening - colonoscopy 01/16; repeat 7 yrs 8. Hypertension - with orthostatic hypotension 9. Diabetes mellitus 10. Coronary heart disease - CABG 11/2005; RODRIGEZ to LAD, SVG to RCA 11. Gynecomastia 12. Hemolytic anemia 13. Gout - by history 01/23 Allergies: Patient has answered NKA Active Outpatient Medications (excluding Supplies): Outpatient Medications Status 1) ALBUTEROL 90MCG (CFC-F) 200D ORAL INHL INHALE 1 PUFF ACTIVE BY INHALATION FOUR TIMES A DAY NEEDED FOR SHORTNESS OF BREATH 2) DICLOFENAC NA 1% TOP GEL APPLY 2 GRAMS TOPICALLY ACTIVE THREE TIMES A DAY NEEDED TO AFFECTED AREA FOR PAIN. *USE DOSE CARD IN BOX TO MEASURE DOSE. MAX 32 GRAMS PER DAY. FOR PAIN AND INFLAMMATION 3) DULOXETINE HCL 60MG EC CAP TAKE ONE CAPSULE BY MOUTH ACTIVE EVERY DAY 4) FLUTICAS 250/SALMETEROL 50 INHL DISK 60 INHALE 1 PUFF ACTIVE BY INHALATION TWICE A DAY TO PREVENT BREATHING TROUBLE -RINSE MOUTH AFTER USING *REPLACES SYMBICORT 10/27* 5) GABAPENTIN 300MG CAP TAKE TWO CAPSULES BY MOUTH AT ACTIVE BEDTIME FOR 30 DAYS FOR PAIN AND NUMBNESS 6) METFORMIN HCL 1000MG TAB TAKE ONE TABLET BY MOUTH ACTIVE TWICE A DAY FOR DIABETES 7) PRIMIDONE 50MG TAB TAKE ONE TABLET BY MOUTH EVERY DAY ACTIVE 8) TIOTROPIUM 18MCG INHL CAP 30 INHALE ONE CAPSULE IN ACTIVE INHALER BY INHALATION EVERY DAY FOR COPD 9) TRAZODONE HCL 100MG TAB TAKE TWO TABLETS BY MOUTH AT ACTIVE BEDTIME NEEDED FOR SLEEP Non-VA Medications Status 1) Non-VA IBUPROFEN 200MG TAB 200 MG MOUTH THREE TIMES A ACTIVE DAY 10 Total Medications Social history Smoking Status Former * Current packs/day: 0.00 * Average packs/day: 1 pack/day for 30.0 years (30.0 pk-yrs) * Types: Cigarettes * Start date: 07/08/1969 * Quit date: 07/08/1999 * Years since quittin.2 - takes care of all of the finances, cooking, shopping, laundry. He sits in his chair all day and likes to sleep. No longer driving. - Has a walker and cane, but lost his cane MEDICATION RECONCILIATION Outpatient At this visit I have reviewed the medication list, and discussed relevant medications with the patient/surrogate. An updated patient medication list was given to the participant(s). (X) No Change ( ) Change/New: I have noted this on the patient's copy of the medication list. Education on NEW Medication: I have reviewed the medication list for possible drug:drug interactions or contraindications prior to ordering NEW medications during this visit. (X)Patient instructed. I noted new medication on patient's copy of the medication list. Patient sent to Pharmacist for education on new medication. ( )Patient ( )Family Member ( )Caregiver indicated readiness to learn and has been instructed on action, dose, frequency and side effects of the new medication and I noted new medication on participant's copy of the medication list. ( ) Verbalizes understanding of instructions. ( ) Needs additional reinforcement of instructions(sent to Pharmacist). ( )Patient unable to participate in learning/instruction. EXAM: VS: Temp: 97.1 F [36.2 C] (05/08/2022 14:27) BP: 127/83 (05/08/2022 14:27) Pulse:109 (05/08/2022 14:27) Resp: 18 (05/08/2022 14:27) Pain: 4 (05/08/2022 14:27) Weight: WEIGHTS IN LAST 6 MONTHS: 165 (MAY 08, 2022@14:27:24) O2 sat: 95% (05/08/2022 14:27) General: Comfortable. No acute distress HEENT: Normocephalic. Atraumatic. Moist mucous membranes. No swollen glands. Lungs: CTAB. No wheezings. CV: S1 and S2 WNL. Regular rate and rhythm. No murmurs Abdomen: Soft, non-tender. Normal BS. No pain to palpation. Extremities: No swelling in lower extremities. Pulses 2/4 in TP, DP. Skin: No bruises. Neuro: Alert and oriented to self/time/place. No focal deficit Data/Labs: LAB RESULTS LAST 48 HRS - NONE FOUND Assessment and Plan: ACTIVE PROBLEMS #. Shortness of breath, at baseline #. 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 Old healed anterior right rib fractures. #. Hx of CAD s/p CABGx2 vessels #. Former smoker 3-y history of shortness of breath with intermittent worsening over the past 6 months. Patient states that had been at baseline for the past 3 months. Denies cough, wheezings, angina, hemoptysis, syncope, lightheadedness, dizziness or nighttime awakenings. His pmhx includes emphysematous COPD, pulmonary nodules. He was a former smoker (quit 3-4 years ago), but he is vaping a cartridge a day. Patient recently seen by on 09/29/21 for his annual. Patient has not been using inhalers as prescribed. He does know how to use them. Denies worsening symptoms, he feels stable. Has a Pulmonology appointment scheduled in December in [place], but daughter would appreciate sooner appointment from the [facility] if possible - Pulmonary consulted to evaluate potential ILD/COPD, appreciate recs - PFTs ordered whenever patient is evaluated by Pulmonology (pt does not logner drive and depends on his daughter availability. They both live together [place] from the [place]) - Encourage inhalers compliance > Of note, patient has not been taking Wixela and Spiriva as prescrined - Continue with yearly lung screening for multiple lung nodules Patient staffed with Dr. [place] Mitchell Internal Medicine PGY-2 Education on Treatment Plan: Patient indicates readiness to learn, verbalizes understanding, agreement and satisfaction with the treatment plan. Denies further questions. Patient indicates readiness to learn and has been instructed on action, dose, frequency, and side effects of medications. Patient verbalizes understanding. The medication list above was reviewed with the patient at today's visit. I have indicated discrepancies under each medication that is not being taken as prescribed. I have updated the medicines under the med tab as appropriate. /es/ N. RAI MITCHELL MD RESIDENT PHYSICIAN Signed: 10/02/2022 15:46 [facility]
[2023-07-22 16:51] LABS: Basophils Percent Auto 0.7 % (0.0-3.0); Eosinophils Percent Auto 0.1 % (0.0-7.0); Hemoglobin* 11.3 gm/dL (13.5-17.5); Immature Granulocytes Pct Auto 0.6 %; Lymphocytes Percent Auto 7.2 % (20-44); Mean Corpuscular HGB Conc 34 gm/dL (32-36); Mean Corpuscular Hemoglobin 31 pg (26-34); Mean Corpuscular Volume 90 fL (80-100); Monocytes Percent Auto 12.3 % (0.0-11.0); Neutrophils Percent Auto 79.1 % (42.0-72.0); Platelet Count* 186 K/uL (140-440); RDW Coefficient of Variation % 15.7 % (11.5-15.5); Red Blood Count 3.65 m/uL (4.30-5.90); White Blood Count* 14.05 K/uL (4.50-11.00)
--- OUTSIDE RECORDS SUMMARY | 2023-07-22 16:52 | XMS_ITS | Encounter Summary ---
Author Name [facility] Organization Department of [facility] Address [address] [place] [address] Support Name Relationship Address Phone ALLY VIZCARRA Next of Kin [address] [place] [address] ALLY VIZCARRA Emergency Contact [address] [place] [address] Insurance Providers: All historical and current [...] BASIC PLUS ONE Jul 08, 2015 113 [id number] HIRAM VIZCARRA RT PATIENT [place] FEP PREFERRED PROVIDER ORGANIZAT ION (PPO) FEP BASIC PLUS ONE Jul 08, 2015 113 [id number] [phone] HIRAM VIZCARRA RT PATIENT CAREFINGER FEP RX PRESCRIPT ION FEPRX Jul 08, 2015 [id number] HIRAM VIZCARRA RT PATIENT MEDICARE (WNR) MEDICARE (M) PART A Feb 01, 2011 PART A [id number] HIRAM VIZCARRA RT PATIENT MEDICARE (WNR) MEDICARE (M) PART B Feb 01, 2011 PART B [id number] HIRAM VIZCARRA RT PATIENT Selected Encounter This section includes the information on record at [place] for the Encounter. Date/Time Encounter Type Encounter Description Reason Pro vider Source Oct 27, 2022 05:42 PM Outpatient Encounter PULMONARY FUNCTION E Encounter Template Text not used by [place] Plan of Treatment: Future Appointments (+ 6 months) and Future Tests (+/- 45 days) The Plan of Treatment section includes future care activities for the patient from all [facility]. This section includes future appointments and future orders which are active, pending or scheduled. Future Appointments This section includes appointments that were scheduled to occur 6 months from the date of the Encounter, up to a maximum of 20 appointments. The data comes from all [facility]. Appointment Date/Time Appointment Type Appointme nt Facility Name November 13, 2022 01:00 PM AMBULATORY - MEDICINE [facility] November 13, 2022 02:00 PM AMBULATORY - MEDICINE [facility] Active, Pending, and Scheduled Orders This section includes a listing of several types of active, pending, and scheduled orders, including clinic medications orders, diagnostic test orders, procedure orders and consult orders; where the start date of the order is 45 days before the date of the Encounter or 45 days after the date of theEncounter. The data comes from all [facility]. Test Date/Time Test Type Test Details Facility Name Oct 02, 2022 12:00 AM Laboratory - Chemistry Order COVID-19 SCREENING PANEL (CEPHEID) NASOPHARYNGEAL SWAB Nasopharyngeal SP ONCE [facility] Social History: Smoking Status (Most current) and Tobacco Use (All prior to encounter date) This section includes the most current, and the historical, smoking and tobacco- related health factors from the [place] facility where the Encounter took place. Current Smoking Status This section includes the most current smoking, or tobacco-related health factor, from the [place] facility where the Encounter took place. Date/Time Current Smoking Status Comment Augusto ity May 08, 2022 03:00 PM VA-TOBACCO FORMER USER [facility] Tobacco Use History This section includes a history of the smoking, or tobacco-related health factors, that were collected on or before the date of the Encounter. The data comes from the [place] facility where the Encounter took place. Date/Time Smoking Status/Tobacco Use Comment F acility May 08, 2022 03:00 PM [place]-TOBACCO QUIT 1 TO < 5 YRS [facility] Jun 27, 2021 10:00 AM VA-TOBACCO FORMER USER [facility] Jun 27, 2021 10:00 AM [place]-TOBACCO QUIT 1 TO < 5 YRS [facility] Apr 15, 2019 11:53 AM PATIENT IS TOBACCO USER [facility] Apr 08, 2019 09:44 PM INPT TOBACCO COUNSELING [facility] Jan 20, 2019 11:30 AM VA-TOBACCO FORMER USER [facility] Jan 20, 2019 11:30 AM VA-TOBACCO QUIT 1 TO < 5 YRS [facility] Mar 31, 2018 08:41 AM INPT TOBACCO COUNSELING [facility] Feb 11, 2018 06:44 AM INPT TOBACCO COUNSELING [facility] Jan 17, 2018 01:41 PM FORMER TOBACCO USE >1Y <7Y [facility] Jan 07, 2017 09:31 AM FORMER TOBACCO USER 7Y OR GREATE R [facility] Sep 12, 2015 11:34 AM FORMER TOBACCO USE >1Y <7Y [facility] May 25, 2014 11:05 AM FORMER TOBACCO USE >1Y <7Y [facility] Apr 08, 2013 03:17 PM FORMER TOBACCO USE <1Y [facility] Jun 16, 2012 02:13 PM CURRENT TOBACCO USER [facility] May 14, 2011 01:12 PM CURRENT TOBACCO USER [facility] Jul 13, 2010 01:42 PM CURRENT TOBACCO USER [facility] May 05, 2010 08:29 AM CURRENT TOBACCO USER [facility] Apr 14, 2009 05:18 PM CURRENT TOBACCO USER [facility] Apr 15, 2008 05:27 PM FORMER TOBACCO USE >1Y <7Y [facility] Jun 09, 2007 02:43 PM FORMER TOBACCO USE >1Y <7Y [facility] November 25, 2006 02:54 PM CDM COPD TOBACCO NON-USER [facility] Sep 02, 2006 01:50 PM FORMER TOBACCO USE <1Y [facility] Advance Directives: All historical and current Section Date Range: From patient's date of to the date document was created. This section includes ALL of a patient's completed or amended [place] Advance and Rescinded Directives. The entries below indicate that a directive exists for the patient, but an actual copy is not included with this document. The data comes from all [place] facilities. Date Advance Directives Provider Source Apr 01, 2018 ADVANCE DIRECTIVE DISCUSSION ISIDRA NOGUERA ROLE J [facility] Encounter Notes: All associated encounter notes This section contains the clinical notes associated to the Encounter. Date/Time Encounter Note(s) Provider Source Oct 27, 2022 05:42 PM REPORT OF CONTACT: LOCAL TITLE: APPOINTMENT SCHEDULING NOTE STANDARD TITLE: REPORT OF CONTACT DATE OF NOTE: OCT 27, 2022@17:42 ENTRY DATE: OCT 27, 2022@17:42:28 AUTHOR: CHARLES DIAZ EXP COSIGNER: URGENCY: STATUS: COMPLETED PFT Contact attempt made to [place] 1st attempt Telephone 2nd attempt Letter Left message on voice mail to call back to this number [phone] If calls back, schedule appt for: 10/03/2022 08:54 New Order entered by LADI MCCORMICK (SPRINKLER HELPER -) Order Text: PFT PROCEDURE TO SCHEDULE : Pulmonary Function Test Pulmonary Function Test Date of test: Other: PID: Oct Time Sensitive Appt: MUST occur NO later than end of return interval above: No Desired test/tests: DLCO with Spirometry /desi/ CHARLES DIAZ Tractor Operator Laser Leveling Signed: 10/27/2022 17:43 CHARLES DIAZ [facility]
--- OUTSIDE RECORDS SUMMARY | 2023-07-22 16:52 | XMS_ITS | Encounter Summary ---
Author Name [facility] Organization [facility] Address [address] [place] [id number] Support Name Relationship Address Phone ALLY VIZCARRA Next of Kin [address] [place] [address] ALLY VIZCARRA Emergency Contact [address] [place] [address] Insurance Providers: All historical and current [...] BASIC PLUS ONE Jul 08, 2015 113 [id number] [phone] HIRAM VIZCARRA RT PATIENT [place] PREFERRED PROVIDER ORGANIZAT ION (PPO) FEP BASIC PLUS ONE Jul 08, 2015 113 [id number] [phone] HIRAM VIZCARRA RT PATIENT CAREALTOONA FEP RX PRESCRIPT ION FEPRX Jul 08, 2015 [id number] HIRAM VIZCARRA RT PATIENT MEDICARE (WNR) MEDICARE (M) PART A Feb 01, 2011 PART A [id number] HIRAM VIZCARRA RT PATIENT MEDICARE (WNR) MEDICARE (M) PART B Feb 01, 2011 PART B [id number] HIRAM VIZCARRA RT PATIENT Selected Encounter This section includes the information on record at [place] for the Encounter. Date/Time Encounter Type Encounter Description Reason Pro vider Source Oct 08, 2022 02:02 PM Outpatient Encounter PRIMARY CARE/MEDICINE CREW,DIANA CARLOS Encounter Template Text not used by [place] Plan of Treatment: Future Appointments (+ 6 months) and Future Tests (+/- 45 days) The Plan of Treatment section includes future care activities for the patient from all [facility]. This section includes future appointments and future orders which are active, pending or scheduled. Future Appointments This section includes appointments that were scheduled to occur 6 months from the date of the Encounter, up to a maximum of 20 appointments. The data comes from all [facility]. Appointment Date/Time Appointment Type Appointme nt Facility Name November 13, 2022 01:00 PM AMBULATORY - MEDICINE [facility] November 13, 2022 02:00 PM AMBULATORY - MEDICINE [facility] Active, Pending, and Scheduled Orders This section includes a listing of several types of active, pending, and scheduled orders, including clinic medications orders, diagnostic test orders, procedure orders and consult orders; where the start date of the order is 45 days before the date of the Encounter or 45 days after the date of theEncounter. The data comes from all [facility]. Test Date/Time Test Type Test Details Facility Name Oct 02, 2022 12:00 AM Laboratory - Chemistry Order COVID-19 SCREENING PANEL (CEPHEID) NASOPHARYNGEAL SWAB Nasopharyngeal SP ONCE [facility] Social History: Smoking Status (Most current) and Tobacco Use (All prior to encounter date) This section includes the most current, and the historical, smoking and tobacco- related health factors from the [place] facility where the Encounter took place. Current Smoking Status This section includes the most current smoking, or tobacco-related health factor, from the [place] facility where the Encounter took place. Date/Time Current Smoking Status Comment Augusto ity May 08, 2022 03:00 PM VA-TOBACCO FORMER USER [facility] Tobacco Use History This section includes a history of the smoking, or tobacco-related health factors, that were collected on or before the date of the Encounter. The data comes from the [place] facility where the Encounter took place. Date/Time Smoking Status/Tobacco Use Comment F acility May 08, 2022 03:00 PM VA-TOBACCO QUIT 1 TO < 5 YRS [facility] Jun 27, 2021 10:00 AM VA-TOBACCO FORMER USER [facility] Jun 27, 2021 10:00 AM [place]-TOBACCO QUIT 1 TO < 5 YRS [facility] Apr 15, 2019 11:53 AM PATIENT IS TOBACCO USER [facility] Apr 08, 2019 09:44 PM INPT TOBACCO COUNSELING [facility] Jan 20, 2019 11:30 AM VA-TOBACCO FORMER USER [facility] Jan 20, 2019 11:30 AM VA-TOBACCO QUIT 1 TO < 5 YRS [facility] Mar 31, 2018 08:41 AM INPT TOBACCO COUNSELING [facility] Feb 11, 2018 06:44 AM INPT TOBACCO COUNSELING [facility] Jan 17, 2018 01:41 PM FORMER TOBACCO USE >1Y <7Y [facility] Jan 07, 2017 09:31 AM FORMER TOBACCO USER 7Y OR GREATE R [facility] Sep 12, 2015 11:34 AM FORMER TOBACCO USE >1Y <7Y [facility] May 25, 2014 11:05 AM FORMER TOBACCO USE >1Y <7Y [facility] Apr 08, 2013 03:17 PM FORMER TOBACCO USE <1Y [facility] Jun 16, 2012 02:13 PM CURRENT TOBACCO USER [facility] May 14, 2011 01:12 PM CURRENT TOBACCO USER [facility] Jul 13, 2010 01:42 PM CURRENT TOBACCO USER [facility] May 05, 2010 08:29 AM CURRENT TOBACCO USER [facility] Apr 14, 2009 05:18 PM CURRENT TOBACCO USER [facility] Apr 15, 2008 05:27 PM FORMER TOBACCO USE >1Y <7Y [facility] Jun 09, 2007 02:43 PM FORMER TOBACCO USE >1Y <7Y [facility] November 25, 2006 02:54 PM CDM COPD TOBACCO NON-USER [facility] Sep 02, 2006 01:50 PM FORMER TOBACCO USE <1Y [facility] Advance Directives: All historical and current Section Date Range: From patient's date of to the date document was created. This section includes ALL of a patient's completed or amended [place] Advance and Rescinded Directives. The entries below indicate that a directive exists for the patient, but an actual copy is not included with this document. The data comes from all [place] facilities. Date Advance Directives Provider Source Apr 01, 2018 ADVANCE DIRECTIVE DISCUSSION ISIDRA NOGUERA ROLE J [facility] Encounter Notes: All associated encounter notes This section contains the clinical notes associated to the Encounter. Date/Time Encounter Note(s) Provider Source Oct 08, 2022 02:02 PM PRIMARY CARE SECUR E MESSAGING: LOCAL TITLE: PRIMARY CARE SECURE MESSAGING STANDARD TITLE: PRIMARY CARE SECURE MESSAGING DATE OF NOTE: OCT 08, 2022@14:02 ENTRY DATE: OCT 08, 2022@14:02:46 AUTHOR: DIANA ANDREWS EXP COSIGNER: URGENCY: STATUS: COMPLETED PRIMARY CARE SECURE MESSAGING Has ADDENDA ------Original Message Sent: 10/08/2022 10:09 AM ET From: LUCÍA VIZCARRA To: [facility] a Primary Care, [facility], Team E-I Subject: Medication: med Could I get cholecalciferol and atorvastatin renewed? Thank you. ------Original Message Sent: 10/08/2022 03:02 PM ET From: DIANA ANDREWS To: LUCÍA VIZCARRA Subject: Medication: med Hello, I placed request to renew those meds. Please let me know if there is anything else I can help you with. Diana Andrews RN /desi/ DIANA ANDREWS, GARMENT STEAMER NURSE Signed: 10/08/2022 14:02 Receipt Acknowledged By: 10/27/2022 19:21 /es/ N. RAI MITCHELL MD RESIDENT PHYSICIAN 10/27/2022 ADDENDUM STATUS: COMPLETED Orders renewed. Thanks /desi/ N. RAI MITCHELL MD RESIDENT PHYSICIAN Signed: 10/27/2022 19:22 DIANA ANDREWS [facility]
--- OUTSIDE RECORDS SUMMARY | 2023-07-22 16:53 | XMS_ITS | Encounter Summary ---
Author Name [facility] Organization [facility] Address [address] [place] [address] Support Name Relationship Address Phone ALLY VIZCARRA Next of Kin [address] [place] [address] ALLY VIZCARRA Emergency Contact [address] [place] [address] Insurance Providers: All historical and current [...] BASIC PLUS ONE Jul 08, 2015 113 [id number] [phone] HIRAM VIZCARRA RT PATIENT [place] FEP PREFERRED PROVIDER ORGANIZAT ION (PPO) FEP BASIC PLUS ONE Jul 08, 2015 113 [id number] HIRAM VIZCARRA RT PATIENT CAREWILMOT FEP RX PRESCRIPT ION FEPRX Jul 08, 2015 [id number] HIRAM VIZCARRA RT PATIENT MEDICARE (WNR) MEDICARE (M) PART A Feb 01, 2011 PART A [id number] HIRAM VIZCARRA RT PATIENT MEDICARE (WNR) MEDICARE (M) PART B Feb 01, 2011 PART B [id number] HIRAM VIZCARRA RT PATIENT Selected Encounter This section includes the information on record at [place] for the Encounter. Date/Time Encounter Type Encounter Description Reason Pro vider Source Oct 29, 2022 01:48 PM Outpatient Encounter TELEPHONE PRIMARY CARE IHE Encounter Template Text not used by [place] Plan of Treatment: Future Appointments (+ 6 months) and Future Tests (+/- 45 days) The Plan of Treatment section includes future care activities for the patient from all [facility]. This section includes future appointments and future orders which are active, pending or scheduled. Future Appointments This section includes appointments that were scheduled to occur 6 months from the date of the Encounter, up to a maximum of 20 appointments. The data comes from all [facility]. Appointment Date/Time Appointment Type Appointme nt Facility Name November 13, 2022 01:00 PM AMBULATORY - MEDICINE [facility] November 13, 2022 02:00 PM AMBULATORY - MEDICINE [facility] Active, Pending, and Scheduled Orders This section includes a listing of several types of active, pending, and scheduled orders, including clinic medications orders, diagnostic test orders, procedure orders and consult orders; where the start date of the order is 45 days before the date of the Encounter or 45 days after the date of theEncounter. The data comes from all [facility]. Test Date/Time Test Type Test Details Facility Name Oct 02, 2022 12:00 AM Laboratory - Chemistry Order COVID-19 SCREENING PANEL (CEPHEID) NASOPHARYNGEAL SWAB Nasopharyngeal SP ONCE [facility] Social History: Smoking Status (Most current) and Tobacco Use (All prior to encounter date) This section includes the most current, and the historical, smoking and tobacco- related health factors from the [place] facility where the Encounter took place. Current Smoking Status This section includes the most current smoking, or tobacco-related health factor, from the [place] facility where the Encounter took place. Date/Time Current Smoking Status Comment Augusto ity May 08, 2022 03:00 PM [place]-TOBACCO QUIT 1 TO < 5 YRS [facility] Tobacco Use History This section includes a history of the smoking, or tobacco-related health factors, that were collected on or before the date of the Encounter. The data comes from the [place] facility where the Encounter took place. Date/Time Smoking Status/Tobacco Use Comment F acility May 08, 2022 03:00 PM [place]-TOBACCO QUIT 1 TO < 5 YRS [facility] Jun 27, 2021 10:00 AM VA-TOBACCO FORMER USER [facility] Jun 27, 2021 10:00 AM [place]-TOBACCO QUIT 1 TO < 5 YRS [facility] Apr 15, 2019 11:53 AM PATIENT IS TOBACCO USER [facility] Apr 08, 2019 09:44 PM INPT TOBACCO COUNSELING [facility] Jan 20, 2019 11:30 AM VA-TOBACCO FORMER USER [facility] Jan 20, 2019 11:30 AM VA-TOBACCO QUIT 1 TO < 5 YRS [facility] Mar 31, 2018 08:41 AM INPT TOBACCO COUNSELING [facility] Feb 11, 2018 06:44 AM INPT TOBACCO COUNSELING [facility] Jan 17, 2018 01:41 PM FORMER TOBACCO USE >1Y <7Y [facility] Jan 07, 2017 09:31 AM FORMER TOBACCO USER 7Y OR GREATE R [facility] Sep 12, 2015 11:34 AM FORMER TOBACCO USE >1Y <7Y [facility] May 25, 2014 11:05 AM FORMER TOBACCO USE >1Y <7Y [facility] Apr 08, 2013 03:17 PM FORMER TOBACCO USE <1Y [facility] Jun 16, 2012 02:13 PM CURRENT TOBACCO USER [facility] May 14, 2011 01:12 PM CURRENT TOBACCO USER [facility] Jul 13, 2010 01:42 PM CURRENT TOBACCO USER [facility] May 05, 2010 08:29 AM CURRENT TOBACCO USER [facility] Apr 14, 2009 05:18 PM CURRENT TOBACCO USER [facility] Apr 15, 2008 05:27 PM FORMER TOBACCO USE >1Y <7Y [facility] Jun 09, 2007 02:43 PM FORMER TOBACCO USE >1Y <7Y [facility] November 25, 2006 02:54 PM CDM COPD TOBACCO NON-USER [facility] Sep 02, 2006 01:50 PM FORMER TOBACCO USE <1Y [facility] Advance Directives: All historical and current Section Date Range: From patient's date of to the date document was created. This section includes ALL of a patient's completed or amended [place] Advance and Rescinded Directives. The entries below indicate that a directive exists for the patient, but an actual copy is not included with this document. The data comes from all [place] facilities. Date Advance Directives Provider Source Apr 01, 2018 ADVANCE DIRECTIVE DISCUSSION ISIDRA NOGUERA J [facility] Encounter Notes: All associated encounter notes This section contains the clinical notes associated to the Encounter. Date/Time Encounter Note(s) Provider Source Oct 29, 2022 01:58 PM PRIMARY CARE NONVA NOTE: LOCAL TITLE: CO-MANAGED CARE NOTE STANDARD TITLE: PRIMARY CARE NONVA NOTE DATE OF NOTE: OCT 29, 2022@13:58 ENTRY DATE: OCT 29, 2022@13:58:52 AUTHOR: IMELDA FOWLER EXP COSIGNER: URGENCY: STATUS: COMPLETED The following prescriptions have been received in co-managed care. Prescriptions are generally reviewed in the order received. A separate co-managed care note will be entered and alerted to the PCP once reviewed if records have been received. If additional records are needed or formulary issues need to be addressed co-managed care will attempt to work with the patient's local clinic to resolve those issues. Prescription dated: 09/27/22 Date prescription received: 09/27/22 Name of prescription/s received: nitroglycerin Records received: no Faxed for additional information: 10/29/22 /desi/ Imelda Fowler LPN Co-Wild Life Manager Signed: 10/29/2022 13:59 IMELDA FOWLER [facility]
--- OUTSIDE RECORDS SUMMARY | 2023-07-22 16:53 | XMS_ITS | Encounter Summary ---
Author Name [facility] of [facility] Organization [facility] Address [address] [place] [address] Support Name Relationship Address Phone ALLY VIZCARRA Next of Kin [address] [place] [address] ALLY VIZCARRA Emergency Contact [address] [place] [phone] Insurance Providers: All historical and current [...] BASIC PLUS ONE Jul 08, 2015 113 [id number] HIRAM VIZCARRA RT PATIENT [place] FEP PREFERRED PROVIDER ORGANIZAT ION (PPO) FEP BASIC PLUS ONE Jul 08, 2015 113 [id number] [phone] HIRAM VIZCARRA RT PATIENT [employer] FEP RX PRESCRIPT ION FEPRX Jul 08, 2015 [id number] HIRAM VIZCARRA RT PATIENT MEDICARE (WNR) MEDICARE (M) PART A Feb 01, 2011 PART A [id number] [phone] HIRAM VIZCARRA RT PATIENT MEDICARE (WNR) MEDICARE (M) PART B Feb 01, 2011 PART B [id number] HIRAM VIZCARRA RT PATIENT Selected Encounter This section includes the information on record at [place] for the Encounter. Date/Time Encounter Type Encounter Description Reason Provider Source November 13, 2022 02:00 PM OFF/OP CNSLTJ NEW/EST LOW 30 PULMONARY/CHEST ICD-10-CM J44.9 Chronic obstructive pulmonary disease, unspecified LISA CRISTOBAL [facility] Encounter Template Text not used by [place] Assessments - Encounter Diagnoses This section includes the primary and secondary diagnoses documented for the Encounter. Date/Time Primary/Secondary Diagnosis Diagnosis Name Provider Source November 13, 2022 04:11 PM PRIMARY Chronic obstructive pulmonary disease, unspecified LISA CRISTOBAL [facility] November 13, 2022 04:11 PM SECONDARY Other nonspecific abnormal finding of lung field LISA CRISTOBAL [facility] Plan of Treatment: Future Appointments (+ 6 months) and Future Tests (+/- 45 days) The Plan of Treatment section includes future care activities for the [facility] [place] [facility] This section includes future appointments and future orders which are active, pending or scheduled. Active, Pending, and Scheduled Orders This section includes a listing of several types of active, pending, and scheduled orders, including clinic medications orders, diagnostic test orders, procedure orders and consult orders; where the start date of the order is 45 days before the date of the Encounter or 45 days after the date of theEncounter. The data comes from all [place] treatment facilities. Test Date/Time Test Type Test Details Facility Name Oct 02, 2022 12:00 AM Laboratory - Chemistry Order COVID-19 SCREENING PANEL (CEPHEID) NASOPHARYNGEAL SWAB Nasopharyngeal SP ONCE [facility] Vital Signs: All taken on the encounter date This section contains inpatient and outpatient Vital Signs collected on the date of the Encounter. Date/Time Temperature Pulse Blood Pressure Respiratory Rate SP02 Pain Height Weight Body Mass Index Source November 13, 2022 01:33 PM 96.6 F 81 /min 113/73 mm[Hg] 16 /min 96 % 0 69.3 in 164.2 lb 24 [place] [facility] Social History: Smoking Status (Most current) and Tobacco Use (All prior to encounter date) This section includes the most current, and the historical, smoking and tobacco- related health factors from the [place] facility where the Encounter took place. Current Smoking Status This section includes the most current smoking, or tobacco-related health factor, from the [place] facility where the Encounter took place. Date/Time Current Smoking Status Lauro carrera May 08, 2022 03:00 PM VA-TOBACCO FORMER USER [facility] Tobacco Use History This section includes a history of the smoking, or tobacco-related health factors, that were collected on or before the date of the Encounter. The data comes from the [place] facility where the Encounter took place. Date/Time Smoking Status/Tobacco Use Comment F acility May 08, 2022 03:00 PM VA-TOBACCO QUIT 1 TO < 5 YRS [facility] Jun 27, 2021 10:00 AM VA-TOBACCO FORMER USER [facility] Jun 27, 2021 10:00 AM [place]-TOBACCO QUIT 1 TO < 5 YRS [facility] Apr 15, 2019 11:53 AM PATIENT IS TOBACCO USER [facility] Apr 08, 2019 09:44 PM INPT TOBACCO COUNSELING [facility] Jan 20, 2019 11:30 AM VA-TOBACCO FORMER USER [facility] Jan 20, 2019 11:30 AM [place]-TOBACCO QUIT 1 TO < 5 YRS [facility] Mar 31, 2018 08:41 AM INPT TOBACCO COUNSELING [facility] Feb 11, 2018 06:44 AM INPT TOBACCO COUNSELING [facility] Jan 17, 2018 01:41 PM FORMER TOBACCO USE >1Y <7Y [facility] Jan 07, 2017 09:31 AM FORMER TOBACCO USER 7Y OR GREATE R [facility] Sep 12, 2015 11:34 AM FORMER TOBACCO USE >1Y <7Y [facility] May 25, 2014 11:05 AM FORMER TOBACCO USE >1Y <7Y [facility] Apr 08, 2013 03:17 PM FORMER TOBACCO USE <1Y [facility] Jun 16, 2012 02:13 PM CURRENT TOBACCO USER [facility] May 14, 2011 01:12 PM CURRENT TOBACCO USER [facility] Jul 13, 2010 01:42 PM CURRENT TOBACCO USER [facility] May 05, 2010 08:29 AM CURRENT TOBACCO USER [facility] Apr 14, 2009 05:18 PM CURRENT TOBACCO USER [facility] Apr 15, 2008 05:27 PM FORMER TOBACCO USE >1Y <7Y [facility] Jun 09, 2007 02:43 PM FORMER TOBACCO USE >1Y <7Y [facility] November 25, 2006 02:54 PM CDM COPD TOBACCO NON-USER [facility] Sep 02, 2006 01:50 PM FORMER TOBACCO USE <1Y [facility] Advance Directives: All historical and current Section Date Range: From patient's date of to the date document was created. This section includes ALL of a patient's completed or amended [place] Advance and Rescinded Directives. The entries below indicate that a directive exists for the patient, but an actual copy is not included with this document. The data comes from all [place] facilities. Date Advance Directives Provider Source Apr 01, 2018 ADVANCE DIRECTIVE DISCUSSION ISIDRA NOGUERA ROLE J [facility] Encounter Notes: All associated encounter notes This section contains the clinical notes associated to the Encounter. Date/Time Encounter Note(s) Provider Source November 13, 2022 02:15 PM PULMONARY CONSULT: LOCAL TITLE: PULMONARY CONSULT STANDARD TITLE: PULMONARY CONSULT DATE OF NOTE: NOVEMBER 13, 2022@14:15 ENTRY DATE: NOVEMBER 13, 2022@14:15:21 AUTHOR: LELIA POE EXP COSIGNER: URGENCY: STATUS: COMPLETED PULMONARY CONSULT Has ADDENDA History of Present Illness and Pulmonary Review of Systems: The patient is a(n) 77 year old MALE with hx of COPD, CIDP, CAD s/p CABG who presents to pulmonology clinic for evaluation of recent CT imaging. Patient denies any changes in his breathing, he reports being able to walk a quarter mile without resting, although his states they had to stop twice when they came in to clinic from the parking lot. He denies any significant wheezing. Reports chronic dry cough. No chest pain. He is on triple inhaler therapy, and doesn't use any albuterol. No recent exacerbations. No pitting edema, or orthopnea. No fevers, chills, weight loss. He has no concerns about his breathing. Personal/Social/Occupational: Smoking: Quit 8 yrs ago, 1 ppd, ~ 50 pack yr hx. Currently vapes one canister a day. No marijuana. : [employer]. Exposures: Agent orange. Occupation: Postal service Pets: 2 dogs Family hx: TB Past medical history: Computerized Problem List is the source for the followin. Chronic low back pain ACTIVE 2. Chronic obstructive lung disease ACTIVE 3. Depression ACTIVE 4. 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 Alcohol abuse ACTIVE in remission since 2011 6. Osteoarthritis ACTIVE S/P right total knee in 2018 S/P right total hip in 2019 (for fracture) 7. Colorectal cancer screening ACTIVE colonoscopy 01/16; repeat 7 yrs 8. Hypertension ACTIVE with orthostatic hypotension 9. Diabetes mellitus ACTIVE 10. Coronary heart disease ACTIVE CABG 11/2005; RODRIGEZ to LAD, SVG to RCA 11. Gynecomastia ACTIVE 12. Hemolytic anemia ACTIVE 13. Gout ACTIVE by history 01/23 14. Tremor INACTIVE 15. Foot Pain (ICD-9-CM 719.47) INACTIVE 16. Fracture of shaft of radius and ulna, closed INACTIVE s/p ORIF 1967 17. Full thickness rotator cuff tear INACTIVE s/p repair right shoulder 09/10 18. Plantar fasciitis INACTIVE 19. Viera's metatarsalgia INACTIVE 20. Subclinical hypothyroidism INACTIVE 21. Subclinical hypothyroidism INACTIVE 22. Liver enzymes abnormal INACTIVE hepatic steatosis Medications: Active Outpatient Medications (including Supplies): Active Outpatient Medications Status 1) ALBUTEROL 90MCG (CFC-F) 200D ORAL INHL INHALE 1 PUFF ACTIVE BY INHALATION FOUR TIMES A DAY NEEDED FOR SHORTNESS OF BREATH 2) ATORVASTATIN CALCIUM 40MG TAB TAKE ONE TABLET BY ACTIVE MOUTH EVERY DAY FOR CHOLESTEROL 3) CHOLECALCIF 25MCG (D3-1,000UNIT) TAB TAKE ONE TABLET ACTIVE BY MOUTH EVERY DAY FOR VITAMIN D 4) DICLOFENAC NA 1% TOP GEL APPLY 2 GRAMS TOPICALLY ACTIVE THREE TIMES A DAY NEEDED TO AFFECTED AREA FOR PAIN. *USE DOSE CARD IN BOX TO MEASURE DOSE. MAX 32 GRAMS PER DAY. FOR PAIN AND INFLAMMATION 5) DULOXETINE HCL 60MG EC CAP TAKE ONE CAPSULE BY MOUTH ACTIVE EVERY DAY 6) GABAPENTIN 300MG CAP TAKE TWO CAPSULES BY MOUTH AT ACTIVE BEDTIME FOR 30 DAYS FOR PAIN AND NUMBNESS 7) METFORMIN HCL 1000MG TAB TAKE ONE TABLET BY MOUTH ACTIVE TWICE A DAY FOR DIABETES 8) PRIMIDONE 50MG TAB TAKE ONE TABLET BY MOUTH EVERY DAY ACTIVE 9) TIOTROPIUM 18MCG INHL CAP 30 INHALE ONE CAPSULE IN ACTIVE INHALER BY INHALATION EVERY DAY FOR COPD 10) TRAZODONE HCL 100MG TAB TAKE TWO TABLETS BY MOUTH AT ACTIVE BEDTIME NEEDED FOR SLEEP Active Non-VA Medications Status 1) Non-VA ASPIRIN 81MG CHEW TAB 81MG MOUTH EVERY DAY ACTIVE 11 Total Medications Physical exam: Vitals: Blood pressure: 113/73 (11/13/2022 13:33) Pulse: 81 (11/13/2022 13:33) Respiration: 16 (11/13/2022 13:33) Temperature: 96.6 F [35.9 C] (11/13/2022 13:33) Weight: 164.2 lb [74.48 kg] (11/13/2022 13:33) Pulse Oximetry: 96% (11/13/2022 13:33) General: NAD HEENT: no sinus tenderness Resp: CTAB, no wheezing or crackles Cardiac: RRR Abd: non-tender, non-distended MSK: no pitting edema Radiology reports: CT 07/24/2022 Impression: 1. Multiple stable small scattered solid [...] degenerative disc disease. 6. Mild bilateral gynecomastia. HGB 13.8 (05/08/22) PLT 206 (05/08/22) WBC 5.39 (05/08/22) PFT Reports: Spirometry Ref LLN Pre ZScore% Ref FVC L 3.60 2.67 3.47 -0.23 96.4 FEV 1 L 2.72 1.90 2.33 -0.80 85.6 FEV1/FVC% 76 63 67 -1.12 PEF L/s 7.69 5.70 8.03 0.28 104.4 Z-Score Pre-Bronchodilator FVC L -0.23 FEV 1 L -0.80 FEV1/FVC % -1 Diffusing Capacity Ref LLN Pre %Ref Z-Score Z-Score DLCO_SBml/(min*m24.3617.71 10.35 42.5 -3.99 -3.99 DLCOcSBml/(min*m24.3617.71 11.02 45.3 -3.74 -3.74 Hb g(Hb)/dL 13.00 12.60 -2.06 -2.06 Parameter FVC FEV1 FEV1/FVC TLC RV DLCO_SB 01/22/2006 4.77 2.68 56 11/13/2022 3.47 2.33 67 10.35 Interpretation: Spirometry is Normal. Diffusion capacity is reduced: moderate. Compared to previous test on (01/22/06), worse. Signed By: Paty Cristobal MD Labs, tests and imaging results listed in pulmonary note were discussed with patient. Impression/diagnosis: 77 year old MALE with hx of COPD, CIDP, CAD s/p CABG who presents to pulmonology clinic for evaluation of recent CT imaging. CT with evidence of emphysema and mild basilar fibrosis, appears to be stable to slightly improved compared to 2019. Patient with normal spirometry and reduced DLCO. 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 Patient reports to be at baseline respiratory status, thus will continue monitoring with yearly spirometry. Regarding COPD, he is on triple inhaler therapy w/o frequent exacerbations. Given peripheral eosinophilia will continue ICS at this time. Regarding pulmonary nodules, all appear to be small, recommend continuing annual screening. Recommendation/plan: - Continue current inhalers - Continue lung cancer screening - RTC 1 yr with repeat spirometry w/ DLCO I have discussed the patient with my supervising/collaborating practitioner, Dr. Cristobal, and they agree with my assessment/plan. Lelia Poe Pulm/CC Fellow /desi/ LELIA POE MD RESIDENT Signed: 11/13/2022 15:36 Receipt Acknowledged By: 11/13/2022 16:11 /desi/ PATY CRISTOBAL MD PAC STAFF PHYSICIAN 11/13/2022 ADDENDUM STATUS: COMPLETED 77-year-old man with a history of tobacco use and COPD seen for evaluation of an abnormal chest CT. He has combined pulmonary fibrosis and emphysema. His symptoms are stable. He does have COPD and based upon previous eosinophil counts, we will continue triple inhaler therapy. The question was also raised of interstitial lung disease/IPF. His recent lung cancer screening CT is stable from 2019 (portions may actually be improved, though difficult to determine without a high resolution scan), and he has not lost lung function relative to age since 2006. Given the stability in his scan, symptoms, and lung function we did not discuss initiating antifibrotic treatment today. I will follow-up with him in 1 year with repeat pulmonary function testing, if stable we may stretch follow-up to every 2 years. /es/ PATY CRISTOBAL MD PACCS STAFF PHYSICIAN Signed: 11/13/2022 16:14 LELIA POE [facility] November 13, 2022 01:35 PM INTERNAL MEDICINE OUTPATIENT NOTE: LOCAL TITLE: MEDICINE CLINIC NURSING NOTE STANDARD TITLE: INTERNAL MEDICINE OUTPATIENT NOTE DATE OF NOTE: NOVEMBER 13, 2022@13:35 ENTRY DATE: NOVEMBER 13, 2022@13:35:43 AUTHOR: LOWELL MG EXP COSIGNER: URGENCY: STATUS: COMPLETED TYPE OF VISIT: Appointment Check In Type of appointment: In-person appointment REASON FOR VISIT: Pulm Eval ALLERGIES: Patient has answered NKA VITAL SIGNS: Blood Pressure: 113/73 (11/13/2022 13:33) Pulse: 81 (11/13/2022 13:33) Respiration: 16 (11/13/2022 13:33) Temperature: 96.6 F [35.9 C] (11/13/2022 13:33) Weight: 164.2 lb [74.48 kg] (11/13/2022 13:33) Height: 69.3 in [176.0 cm] (11/13/2022 13:33) BMI: 24.1 O2 Sat: 96% (11/13/2022 13:33) Pain: 0 (11/13/2022 13:33) PAIN SCREEN: Patient is not having significant pain that they wish to discuss with their provider today. MEDICATION Over the Counter/Herbal Medications: The patient states that they take some outside medications and/or herbals. /desi/ LOWELL MG LPN, LPN Signed: 11/13/2022 13:36 LOWELL MG [facility]
--- OUTSIDE RECORDS SUMMARY | 2023-07-22 16:53 | XMS_ITS | Encounter Summary ---
Author Name [facility] Organization Department of Vetera ns [facility] Address [address] [place] [id number] Support Name Relationship Address Phone ALLY VIZCARRA Next of Kin [address] [place] [address] ALLY VIZCARRA Emergency Contact [address] [place] [phone] Insurance Providers: All historical and current [...] BASIC PLUS ONE Jul 08, 2015 113 [id number] [phone] HIRAM VIZCARRA RT PATIENT [place] FEP PREFERRED PROVIDER ORGANIZAT ION (PPO) FEP BASIC PLUS ONE Jul 08, 2015 113 [id number] HIRAM VIZCARRA RT PATIENT [employer] FEP RX PRESCRIPT ION FEPRX Jul 08, 2015 [id number] [phone] HIRAM VIZCARRA RT PATIENT MEDICARE (WNR) MEDICARE (M) PART A Feb 01, 2011 PART A [id number] HIRAM VIZCARRA RT PATIENT MEDICARE (WNR) MEDICARE (M) PART B Feb 01, 2011 PART B [id number] HIRAM VIZCARRA RT PATIENT Selected Encounter This section includes the information on record at [place] for the Encounter. Date/Time Encounter Type Encounter Description Reason Provider Source November 13, 2022 01:00 PM HEMOGLOBIN PULMONARY FUNCTION ICD-10-CM J44.9 Chronic obstructive pulmonary disease, unspecified LISA CRISTOBAL E Encounter Template Text not used by [place] Assessments - Encounter Diagnoses This section includes the primary and secondary diagnoses documented for the Encounter. Date/Time Primary/Secondary Diagnosis Diagnosis Name Provider Source November 13, 2022 01:30 PM PRIMARY Chronic obstructive pulmonary disease, unspecified FLORENTIN LEE [facility] Plan of Treatment: Future Appointments (+ 6 months) and Future Tests (+/- 45 days) The Plan of Treatment section includes future care activities for the patient from all [place] treatmentfacilities. This section includes future appointments and future [...] of theEncounter. The data comes from all [place] treatment facilities. Test Date/Time Test Type Test Details Facility Name Oct 02, 2022 12:00 AM Laboratory - Chemistry Order COVID-19 SCREENING PANEL (CEPHEID) NASOPHARYNGEAL SWAB Nasopharyngeal SP ONCE [facility] Vital Signs: All taken on the encounter date This section contains inpatient and outpatient Vital Signs collected on the date of the Encounter. Date/Time Temperature Pulse Blood Pressure Respiratory Rate SP02 Pain Height Weight Body Mass Index Source November 13, 2022 01:33 PM 96.6 F 81 /min 113/73 mm[Hg] 16 /min 96 % 0 69.3 in 164.2 lb 24 [place] [facility] Social History: Smoking Status (Most current) and Tobacco Use (All prior to encounter date) This section includes the most current, and the historical, smoking and tobacco- related health factors from the [place] facility where the Encounter took place. Current Smoking Status This section includes the most current smoking, or tobacco-related health factor, from the [place] facility where the Encounter took place. Date/Time Current Smoking Status Comment Augusto itkj May 08, 2022 03:00 PM VA-TOBACCO FORMER USER [facility] Tobacco Use History This section includes a history of the smoking, or tobacco-related health factors, that were collected on or before the date of the Encounter. The data comes from the [place] facility where the Encounter took place. Date/Time Smoking Status/Tobacco Use Comment F acaddison May 08, 2022 03:00 PM VA-TOBACCO QUIT 1 TO < 5 YRS [facility] Jun 27, 2021 10:00 AM VA-TOBACCO FORMER USER [facility] Jun 27, 2021 10:00 AM VA-TOBACCO QUIT 1 TO < 5 YRS [facility] Apr 15, 2019 11:53 AM PATIENT IS TOBACCO USER [facility] Apr 08, 2019 09:44 PM INPT TOBACCO COUNSELING [facility] Jan 20, 2019 11:30 AM VA-TOBACCO FORMER USER [facility] Jan 20, 2019 11:30 AM VA-TOBACCO QUIT 1 TO < 5 YRS [facility] Mar 31, 2018 08:41 AM INPT TOBACCO COUNSELING [facility] Feb 11, 2018 06:44 AM INPT TOBACCO COUNSELING [facility] Jan 17, 2018 01:41 PM FORMER TOBACCO USE >1Y <7Y [facility] Jan 07, 2017 09:31 AM FORMER TOBACCO USER 7Y OR GREATE R [facility] Sep 12, 2015 11:34 AM FORMER TOBACCO USE >1Y <7Y [facility] May 25, 2014 11:05 AM FORMER TOBACCO USE >1Y <7Y [facility] Apr 08, 2013 03:17 PM FORMER TOBACCO USE <1Y [facility] Jun 16, 2012 02:13 PM CURRENT TOBACCO USER [facility] May 14, 2011 01:12 PM CURRENT TOBACCO USER [facility] Jul 13, 2010 01:42 PM CURRENT TOBACCO USER [facility] May 05, 2010 08:29 AM CURRENT TOBACCO USER [facility] Apr 14, 2009 05:18 PM CURRENT TOBACCO USER [facility] Apr 15, 2008 05:27 PM FORMER TOBACCO USE >1Y <7Y [facility] Jun 09, 2007 02:43 PM FORMER TOBACCO USE >1Y <7Y [facility] November 25, 2006 02:54 PM CDM COPD TOBACCO NON-USER [facility] Sep 02, 2006 01:50 PM FORMER TOBACCO USE <1Y [facility] Advance Directives: All historical and current Section Date Range: From patient's date of to the date document was created. This section includes ALL of a patient's completed or amended [place] Advance and Rescinded Directives. The entries below indicate that a directive exists for the patient, but an actual copy is not included with this document. The data comes from all [place] facilities. Date Advance Directives Provider Source Apr 01, 2018 ADVANCE DIRECTIVE DISCUSSION ISIDRA NOGUERA ROLE J [facility]
--- OUTSIDE RECORDS SUMMARY | 2023-07-22 16:54 | XMS_ITS | Encounter Summary ---
Author Name Department of [facility] Organization Department of Vetera [facility] Address [address] [place] [id number] Support Name Relationship Address Phone ALLY VIZCARRA Next of Kin [address] [place] [address] ALLY VIZCARRA Emergency Contact [address] [place] [address] Insurance Providers: All historical and current [...] BASIC PLUS ONE Jul 08, 2015 113 [id number] [phone] HIRAM VIZCARRA RT PATIENT [place] FEP PREFERRED PROVIDER ORGANIZAT ION (PPO) FEP BASIC PLUS ONE Jul 08, 2015 113 [id number] HIRAM VIZCARRA RT PATIENT [employer] FEP RX PRESCRIPT ION FEPRX Jul 08, 2015 [id number] HIRAM VIZCARRA RT PATIENT MEDICARE (WNR) MEDICARE (M) PART A Feb 01, 2011 PART A [id number] HIRAM VIZCARRA RT PATIENT MEDICARE (WNR) MEDICARE (M) PART B Feb 01, 2011 PART B [id number] HIRAM VIZCARRA RT PATIENT Selected Encounter This section includes the information on record at [place] for the Encounter. Date/Time Encounter Type Encounter Description Reason Pro vider Source November 13, 2022 12:59 PM Outpatient Encounter PULMONARY FUNCTION E Encounter Template Text not used by [place] Plan of Treatment: Future Appointments (+ 6 months) and Future Tests (+/- 45 days) The Plan of Treatment section includes future care activities for the patient from all [place] treatmentfacilities. This section includes future appointments and [...] of theEncounter. The data comes from all [place] treatment facilities. Test Date/Time Test Type Test Details Facility Name Oct 02, 2022 12:00 AM Laboratory - Chemistry Order COVID-19 SCREENING PANEL (CEPHEID) NASOPHARYNGEAL SWAB Nasopharyngeal SP ONCE [facility] Vital Signs: All taken on the encounter date This section contains inpatient and outpatient Vital Signs collected on the date of the Encounter. Date/Time Temperature Pulse Blood Pressure Respiratory Rate SP02 Pain Height Weight Body Mass Index Source November 13, 2022 01:33 PM 96.6 F 81 /min 113/73 mm[Hg] 16 /min 96 % 0 69.3 in 164.2 lb 24 [place] [facility] Social History: Smoking Status (Most current) and Tobacco Use (All prior to encounter date) This section includes the most current, and the historical, smoking and tobacco- related health factors from the [place] facility where the Encounter took place. Current Smoking Status This section includes the most current smoking, or tobacco-related health factor, from the [place] facility where the Encounter took place. Date/Time Current Smoking Status Comment Augusto ity May 08, 2022 03:00 PM [place]-TOBACCO FORMER USER [facility] Tobacco Use History This section includes a history of the smoking, or tobacco-related health factors, that were collected on or before the date of the Encounter. The data comes from the [place] facility where the Encounter took place. Date/Time Smoking Status/Tobacco Use Comment F acility May 08, 2022 03:00 PM [place]-TOBACCO QUIT 1 TO < 5 YRS [facility] Jun 27, 2021 10:00 AM VA-TOBACCO FORMER USER [facility] Jun 27, 2021 10:00 AM [place]-TOBACCO QUIT 1 TO < 5 YRS [facility] Apr 15, 2019 11:53 AM PATIENT IS TOBACCO USER [facility] Apr 08, 2019 09:44 PM INPT TOBACCO COUNSELING [facility] Jan 20, 2019 11:30 AM VA-TOBACCO FORMER USER [facility] Jan 20, 2019 11:30 AM VA-TOBACCO QUIT 1 TO < 5 YRS [facility] Mar 31, 2018 08:41 AM INPT TOBACCO COUNSELING [facility] Feb 11, 2018 06:44 AM INPT TOBACCO COUNSELING [facility] Jan 17, 2018 01:41 PM FORMER TOBACCO USE >1Y <7Y [facility] Jan 07, 2017 09:31 AM FORMER TOBACCO USER 7Y OR GREATE R [facility] Sep 12, 2015 11:34 AM FORMER TOBACCO USE >1Y <7Y [facility] May 25, 2014 11:05 AM FORMER TOBACCO USE >1Y <7Y [facility] Apr 08, 2013 03:17 PM FORMER TOBACCO USE <1Y [facility] Jun 16, 2012 02:13 PM CURRENT TOBACCO USER [facility] May 14, 2011 01:12 PM CURRENT TOBACCO USER [facility] Jul 13, 2010 01:42 PM CURRENT TOBACCO USER [facility] May 05, 2010 08:29 AM CURRENT TOBACCO USER [facility] Apr 14, 2009 05:18 PM CURRENT TOBACCO USER [facility] Apr 15, 2008 05:27 PM FORMER TOBACCO USE >1Y <7Y [facility] Jun 09, 2007 02:43 PM FORMER TOBACCO USE >1Y <7Y [facility] November 25, 2006 02:54 PM CDM COPD TOBACCO NON-USER [facility] Sep 02, 2006 01:50 PM FORMER TOBACCO USE <1Y [facility] Advance Directives: All historical and current Section Date Range: From patient's date of to the date document was created. This section includes ALL of a patient's completed or amended [place] Advance and Rescinded Directives. The entries below indicate that a directive exists for the patient, but an actual copy is not included with this document. The data comes from all [place] facilities. Date Advance Directives Provider Source Apr 01, 2018 ADVANCE DIRECTIVE DISCUSSION ISIDRA NOGUERA ROLE J [facility] Encounter Notes: All associated encounter notes This section contains the clinical notes associated to the Encounter. Date/Time Encounter Note(s) Provider Source November 13, 2022 02:00 PM PULMONARY PROCEDUR E NOTE: LOCAL TITLE: CP PULMONARY FUNCTION TEST STANDARD TITLE: PULMONARY PROCEDURE NOTE DATE OF NOTE: NOVEMBER 13, 2022@14:00:58 ENTRY DATE: NOVEMBER 13, 2022@14:00:58 AUTHOR: CLINICAL,DEVICE PRO EXP COSIGNER: URGENCY: STATUS: COMPLETED PROCEDURE SUMMARY CODE: Machine Resulted DATE/TIME PERFORMED: NOVEMBER 13, 2022@13:03:1 DOCUMENT IN [facility]ISTA IMAGING SEE FULL REPORT IN [facility]ISTA [facility] SIGNATURE NOT REQUIRED SEE SIGNATURE IN [facility]ISTA IMAGING (VYAIRE (PFT)) AUTO-INSTRUMENT DIAGNOSIS Procedure: MIN_PFT PFT Measurement ti01:04PM Spirometry Ref LLN Pre ZScore% Ref FVC L 3.60 2.67 3.47 -0.23 96.4 FEV 1 L 2.72 1.90 2.33 -0.80 85.6 FEV1/FVC% 76 63 67 -1.12 PEF L/s 7.69 5.70 8.03 0.28 104.4 Z-Score Pre-Bronchodilator FVC L -0.23 FEV 1 L -0.80 FEV1/FVC % -1 Diffusing Capacity Ref LLN Pre %Ref Z-Score Z-Score DLCO_SBml/(min*m24.3617 .71 10.35 42.5 -3.99 -3.99 DLCOcSBml/(min*m24.3617 .71 11.02 45.3 -3.74 -3.74 Hb g(Hb)/dL 13.00 12.60 -2.06 -2.06 Parameter FVC FEV1 FEV1/FVC TLC RV DLCO_SB 01/22/2006 4.77 2.68 56 11/13/2022 3.47 2.33 67 10.35 Interpretation: Spirometry is Normal. Diffusiong capacity is reduced: moderate. Compared to previous test on (01/22/06), worse. Signed By: Frederic Shaikh MD Administrative Closure: 11/13/2022 by: CLINICAL,DEVICE PROXY SERVICE CLINICAL,DEVICE PROXY SERVICE [facility]
--- OUTSIDE RECORDS SUMMARY | 2023-07-22 16:55 | XMS_ITS | Encounter Summary ---
Author Name Department of [facility] Organization Department of [facility] Address [address] [place] [address] Support Name Relationship Address Phone ALLY VIZCARRA Next of Kin [address] [place] [address] ALLY VIZCARRA Emergency Contact [address] [place] [address] Insurance Providers: All historical and current [...] BASIC PLUS ONE Jul 08, 2015 113 [id number] HIRAM VIZCARRA RT PATIENT [place] FEP PREFERRED PROVIDER ORGANIZAT ION (PPO) FEP BASIC PLUS ONE Jul 08, 2015 113 [id number] HIRAM VIZCARRA RT PATIENT [place] FEP RX PRESCRIPT ION FEPRX Jul 08, 2015 [id number] HIRAM VIZCARRA RT PATIENT MEDICARE (WNR) MEDICARE (M) PART A Feb 01, 2011 PART A [id number] HIRAM VIZCARRA RT PATIENT MEDICARE (WNR) MEDICARE (M) PART B Feb 01, 2011 PART B [id number] HIRAM VIZCARRA RT PATIENT Selected Encounter This section includes the information on record at [place] for the Encounter. Date/Time Encounter Type Encounter Description Reason Pro vider Source Feb 12, 2023 08:02 AM Outpatient Encounter OPHTHALMOLOGY KENNETH DIAZ Encounter Template Text not used by [place] Social History: Smoking Status (Most current) and Tobacco Use (All prior to encounter date) This section includes the most current, and the historical, smoking and tobacco- related health factors from the [place] facility where the Encounter took place. Current Smoking Status This section includes the most current smoking, or tobacco-related health factor, from the [place] facility where the Encounter took place. Date/Time Current Smoking Status Comment Facil ity May 08, 2022 03:00 PM VA-TOBACCO FORMER USER [facility] Tobacco Use History This section includes a history of the smoking, or tobacco-related health factors, that were collected on or before the date of the Encounter. The data comes from the [place] facility where the Encounter took place. Date/Time Smoking Status/Tobacco Use Comment F acility May 08, 2022 03:00 PM VA-TOBACCO QUIT 1 TO < 5 YRS [facility] Jun 27, 2021 10:00 AM VA-TOBACCO FORMER USER [facility] Jun 27, 2021 10:00 AM VA-TOBACCO QUIT 1 TO < 5 YRS [facility] Apr 15, 2019 11:53 AM PATIENT IS TOBACCO USER [facility] Apr 08, 2019 09:44 PM INPT TOBACCO COUNSELING [facility] Jan 20, 2019 11:30 AM VA-TOBACCO FORMER USER [facility] Jan 20, 2019 11:30 AM [place]-TOBACCO QUIT 1 TO < 5 YRS [facility] Mar 31, 2018 08:41 AM INPT TOBACCO COUNSELING [facility] Feb 11, 2018 06:44 AM INPT TOBACCO COUNSELING [facility] Jan 17, 2018 01:41 PM FORMER TOBACCO USE >1Y <7Y [facility] Jan 07, 2017 09:31 AM FORMER TOBACCO USER 7Y OR GREATE R [facility] Sep 12, 2015 11:34 AM FORMER TOBACCO USE >1Y <7Y [facility] May 25, 2014 11:05 AM FORMER TOBACCO USE >1Y <7Y [facility] Apr 08, 2013 03:17 PM FORMER TOBACCO USE <1Y [facility] Jun 16, 2012 02:13 PM CURRENT TOBACCO USER [facility] May 14, 2011 01:12 PM CURRENT TOBACCO USER [facility] Jul 13, 2010 01:42 PM CURRENT TOBACCO USER [facility] May 05, 2010 08:29 AM CURRENT TOBACCO USER [facility] Apr 14, 2009 05:18 PM CURRENT TOBACCO USER [facility] Apr 15, 2008 05:27 PM FORMER TOBACCO USE >1Y <7Y [facility] Jun 09, 2007 02:43 PM FORMER TOBACCO USE >1Y <7Y [facility] November 25, 2006 02:54 PM CDM COPD TOBACCO NON-USER [facility] Sep 02, 2006 01:50 PM FORMER TOBACCO USE <1Y [facility] Advance Directives: All historical and current Section Date Range: From patient's date of to the date document was created. This section includes ALL of a patient's completed or amended [place] Advance and Rescinded Directives. The entries below indicate that a directive exists for the patient, but an actual copy is not included with this document. The data comes from all [place] facilities. Date Advance Directives Provider Source Apr 01, 2018 ADVANCE DIRECTIVE DISCUSSION ISIDRA NOGUERA ROLE J [facility] Encounter Notes: All associated encounter notes This section contains the clinical notes associated to the Encounter. Date/Time Encounter Note(s) Provider Source Feb 12, 2023 08:02 AM ADMINISTRATIVE NOT E: LOCAL TITLE: COVID-19 SCHEDULING NOTE STANDARD TITLE: ADMINISTRATIVE NOTE DATE OF NOTE: FEB 12, 2023@08:02 ENTRY DATE: FEB 12, 2023@08:02:33 AUTHOR: SUBHASH SEBASTIAN EXP COSIGNER: URGENCY: STATUS: COMPLETED Review of cancelled appointments during COVID-19 pandemic: CVP - Past Clinic Visits 11/13/2022 14:00 [facility] PULM EVAL 11/13/2022 13:00 [facility] 3M PULM PFT LAB 10/02/2022 15:00 [facility] APACT F RES 03 WH 4F 09/25/2022 16:12 [facility] APACT F RES 03 WH 4F UNSCHEDULED 08/16/2022 15:30 [facility] APACT F RES 04 WH CHANTEL Date(s) of appointment(s) being reviewed: 04/21/2021 2:00:00 PM Clinic Location/Specialty: [facility] EYE OPHTHAL [facility]AR [facility] [place] chart has been reviewed and the action below is indicated for this cancelled appointment: None, minimum scheduling attempts met /desi/ SUBHASH SEBASTIAN REMOTE ENCODING OPERATIONS SUPERVISOR Signed: 02/12/2023 08:02 SUBHASH SEBASTIAN [facility]
--- OUTSIDE RECORDS SUMMARY | 2023-07-22 16:55 | XMS_ITS | Encounter Summary ---
Author Name [facility] Organization Department of Vetera ns [facility] Address [address] [place] [address] Support Name Relationship Address Phone ALLY VIZCARRA Next of Kin [address] [place] [address] ALLY VIZCARRA Emergency Contact [address] [place] [address] Insurance Providers: All historical and current [...] BASIC PLUS ONE Jul 08, 2015 113 [id number] HIRAM VIZCARRA RT PATIENT [place] FEP PREFERRED PROVIDER ORGANIZAT ION (PPO) FEP BASIC PLUS ONE Jul 08, 2015 113 [id number] [phone] HIRAM VIZCARRA RT PATIENT [employer] FEP RX PRESCRIPT ION FEPRX Jul 08, 2015 [id number] HIRAM VIZCARRA RT PATIENT MEDICARE (WNR) MEDICARE (M) PART A Feb 01, 2011 PART A [id number] HIRAM VIZCARRA RT PATIENT MEDICARE (WNR) MEDICARE (M) PART B Feb 01, 2011 PART B [id number] HIRAM VIZCARRA RT PATIENT Selected Encounter This section includes the information on record at [place] for the Encounter. Date/Time Encounter Type Encounter Description Reason Pro vider Source November 13, 2022 03:52 PM Outpatient Encounter TELEPHONE PRIMARY CARE IHE Encounter Template Text not used by [place] Plan of Treatment: Future Appointments (+ 6 months) and Future Tests (+/- 45 days) The Plan of Treatment section includes future care activities for the patient from all [place] treatmentfacilities. This section includes future appointments and [...] of theEncounter. The data comes from all [place] treatment facilities. Test Date/Time Test Type Test Details Facility Name Oct 02, 2022 12:00 AM Laboratory - Chemistry Order COVID-19 SCREENING PANEL (CEPHEID) NASOPHARYNGEAL SWAB Nasopharyngeal SP ONCE [facility] Vital Signs: All taken on the encounter date This section contains inpatient and outpatient Vital Signs collected on the date of the Encounter. Date/Time Temperature Pulse Blood Pressure Respiratory Rate SP02 Pain Height Weight Body Mass Index Source November 13, 2022 01:33 PM 96.6 F 81 /min 113/73 mm[Hg] 16 /min 96 % 0 69.3 in 164.2 lb 24 [place] [facility] Social History: Smoking Status (Most current) and Tobacco Use (All prior to encounter date) This section includes the most current, and the historical, smoking and tobacco- related health factors from the [place] facility where the Encounter took place. Current Smoking Status This section includes the most current smoking, or tobacco-related health factor, from the [place] facility where the Encounter took place. Date/Time Current Smoking Status Comment Augusto ity May 08, 2022 03:00 PM VA-TOBACCO FORMER USER [facility] Tobacco Use History This section includes a history of the smoking, or tobacco-related health factors, that were collected on or before the date of the Encounter. The data comes from the [place] facility where the Encounter took place. Date/Time Smoking Status/Tobacco Use Comment F acility May 08, 2022 03:00 PM [place]-TOBACCO QUIT 1 TO < 5 YRS [facility] Jun 27, 2021 10:00 AM VA-TOBACCO FORMER USER [facility] Jun 27, 2021 10:00 AM [place]-TOBACCO QUIT 1 TO < 5 YRS [facility] Apr 15, 2019 11:53 AM PATIENT IS TOBACCO USER [facility] Apr 08, 2019 09:44 PM INPT TOBACCO COUNSELING [facility] Jan 20, 2019 11:30 AM VA-TOBACCO FORMER USER [facility] Jan 20, 2019 11:30 AM VA-TOBACCO QUIT 1 TO < 5 YRS [facility] Mar 31, 2018 08:41 AM INPT TOBACCO COUNSELING [facility] Feb 11, 2018 06:44 AM INPT TOBACCO COUNSELING [facility] Jan 17, 2018 01:41 PM FORMER TOBACCO USE >1Y <7Y [facility] Jan 07, 2017 09:31 AM FORMER TOBACCO USER 7Y OR GREATE R [facility] Sep 12, 2015 11:34 AM FORMER TOBACCO USE >1Y <7Y [facility] May 25, 2014 11:05 AM FORMER TOBACCO USE >1Y <7Y [facility] Apr 08, 2013 03:17 PM FORMER TOBACCO USE <1Y [facility] Jun 16, 2012 02:13 PM CURRENT TOBACCO USER [facility] May 14, 2011 01:12 PM CURRENT TOBACCO USER [facility] Jul 13, 2010 01:42 PM CURRENT TOBACCO USER [facility] May 05, 2010 08:29 AM CURRENT TOBACCO USER [facility] Apr 14, 2009 05:18 PM CURRENT TOBACCO USER [facility] Apr 15, 2008 05:27 PM FORMER TOBACCO USE >1Y <7Y [facility] Jun 09, 2007 02:43 PM FORMER TOBACCO USE >1Y <7Y [facility] November 25, 2006 02:54 PM CDM COPD TOBACCO NON-USER [facility] Sep 02, 2006 01:50 PM FORMER TOBACCO USE <1Y [facility] Advance Directives: All historical and current Section Date Range: From patient's date of to the date document was created. This section includes ALL of a patient's completed or amended [place] Advance and Rescinded Directives. The entries below indicate that a directive exists for the patient, but an actual copy is not included with this document. The data comes from all [place] facilities. Date Advance Directives Provider Source Apr 01, 2018 ADVANCE DIRECTIVE DISCUSSION ISIDRA NOGUERA J [facility] Encounter Notes: All associated encounter notes This section contains the clinical notes associated to the Encounter. Date/Time Encounter Note(s) Provider Source November 13, 2022 03:52 PM PRIMARY CARE NONVA NOTE: LOCAL TITLE: CO-MANAGED CARE NOTE STANDARD TITLE: PRIMARY CARE NONVA NOTE DATE OF NOTE: NOVEMBER 13, 2022@15:52 ENTRY DATE: NOVEMBER 13, 2022@15:52:14 AUTHOR: ED MORGAN EXP COSIGNER: URGENCY: STATUS: COMPLETED CO-MANAGED CARE NOTE Has ADDENDA Received request for: 1. Nitroglycerin 0.4 mg sublingual tablet; Place 1 tab under the tongue every 5 minutes PRN chest pain. QTY:30 Refills:0 Rx written by: MD Xiao Tomlin Facility:[facility] Local provider phone #[phone] Local provider fax #[phone] Records scanned/available for review in [employer] or [employer]. Please view alert resume writer if: [facility] PCP needs further information to make decision (specify) -or- [facility] PCP recommends alternative (specify) -or- Request is denied (pt will need to continue to fill outside of [facility]). Fingerer will then relay the above to local prescriber's office. /desi/ ED MORGAN LPN [employer] Bond Worker Signed: 11/13/2022 16:01 Receipt Acknowledged By: * AWAITING SIGNATURE * PRINCESS NI 11/13/2022 16:11 /desi/ BRITTANIE NINO MD STAFF PHYSICIAN 11/13/2022 ADDENDUM STATUS: COMPLETED precription written /desi/ BRITTANIE NINO MD STAFF PHYSICIAN Signed: 11/13/2022 16:11 Receipt Acknowledged By: * AWAITING SIGNATURE * ED MORGAN ALEAH M [facility]
--- OUTSIDE RECORDS SUMMARY | 2023-07-22 16:56 | XMS_ITS | Encounter Summary ---
Author Name Department of Vetera Affairs Organization [facility] of [facility] Affairs Address [address] [place] [address] Support Name Relationship Address Phone ALLY VIZCARRA Next of Kin [address] [place] [address] ALLY VIZCARRA Emergency Contact [address] [place] [phone] Insurance Providers: All historical and current [...] BASIC PLUS ONE Jul 08, 2015 113 [id number] HIRAM VIZCARRA RT PATIENT [place] FEP PREFERRED PROVIDER ORGANIZAT ION (PPO) FEP BASIC PLUS ONE Jul 08, 2015 113 [id number] HIRAM VIZCARRA RT PATIENT [employer] FEP RX PRESCRIPT ION FEPRX Jul 08, 2015 [id number] HIRAM VIZCARRA RT PATIENT MEDICARE (WNR) MEDICARE (M) PART A Feb 01, 2011 PART A [id number] HIRAM VIZCARRA RT PATIENT MEDICARE (WNR) MEDICARE (M) PART B Feb 01, 2011 PART B [id number] HIRAM VIZCARRA RT PATIENT Selected Encounter This section includes the information on record at OR for the Encounter. Date/Time Encounter Type Encounter Description Reason Pro vider Source Jul 05, 2023 11:10 AM Outpatient Encounter PRIMARY CARE/MEDICINE CREW,DIANA CARLOS Encounter Template Text not used by OR Social History: Smoking Status (Most current) and Tobacco Use (All prior to encounter date) This section includes the most current, and the historical, smoking and tobacco- related health factors from the OR facility where the Encounter took place. Current Smoking Status This section includes the most current smoking, or tobacco-related health factor, from the OR facility where the Encounter took place. Date/Time Current Smoking Status Comment Facil ity May 08, 2022 03:00 PM VA-TOBACCO FORMER USER [facility] Tobacco Use History This section includes a history of the smoking, or tobacco-related health factors, that were collected on or before the date of the Encounter. The data comes from the OR facility where the Encounter took place. Date/Time Smoking Status/Tobacco Use Comment F acility May 08, 2022 03:00 PM VA-TOBACCO QUIT 1 TO < 5 YRS [facility] Jun 27, 2021 10:00 AM VA-TOBACCO FORMER USER [facility] Jun 27, 2021 10:00 AM OR-TOBACCO QUIT 1 TO < 5 YRS [facility] Apr 15, 2019 11:53 AM PATIENT IS TOBACCO USER [facility] Apr 08, 2019 09:44 PM INPT TOBACCO COUNSELING [facility] Jan 20, 2019 11:30 AM VA-TOBACCO FORMER USER [facility] Jan 20, 2019 11:30 AM OR-TOBACCO QUIT 1 TO < 5 YRS [facility] Mar 31, 2018 08:41 AM INPT TOBACCO COUNSELING [facility] Feb 11, 2018 06:44 AM INPT TOBACCO COUNSELING [facility] Jan 17, 2018 01:41 PM FORMER TOBACCO USE >1Y <7Y [facility] Jan 07, 2017 09:31 AM FORMER TOBACCO USER 7Y OR GREATE R [facility] Sep 12, 2015 11:34 AM FORMER TOBACCO USE >1Y <7Y [facility] May 25, 2014 11:05 AM FORMER TOBACCO USE >1Y <7Y [facility] Apr 08, 2013 03:17 PM FORMER TOBACCO USE <1Y [facility] Jun 16, 2012 02:13 PM CURRENT TOBACCO USER [facility] May 14, 2011 01:12 PM CURRENT TOBACCO USER [facility] Jul 13, 2010 01:42 PM CURRENT TOBACCO USER [facility] May 05, 2010 08:29 AM CURRENT TOBACCO USER [facility] Apr 14, 2009 05:18 PM CURRENT TOBACCO USER [facility] Apr 15, 2008 05:27 PM FORMER TOBACCO USE >1Y <7Y [facility] Jun 09, 2007 02:43 PM FORMER TOBACCO USE >1Y <7Y [facility] November 25, 2006 02:54 PM CDM COPD TOBACCO NON-USER [facility] Sep 02, 2006 01:50 PM FORMER TOBACCO USE <1Y [facility] Advance Directives: All historical and current Section Date Range: From patient's date of to the date document was created. This section includes ALL of a patient's completed or amended OR Advance and Rescinded Directives. The entries below indicate that a directive exists for the patient, but an actual copy is not included with this document. The data comes from all OR facilities. Date Advance Directives Provider Source Apr 01, 2018 ADVANCE DIRECTIVE DISCUSSION ISIDRA NOGUERA ROLE J [facility] Encounter Notes: All associated encounter notes This section contains the clinical notes associated to the Encounter. Date/Time Encounter Note(s) Provider Source Jul 05, 2023 11:10 AM PRIMARY CARE [employer] MESSAGING: LOCAL TITLE: PRIMARY CARE SECURE MESSAGING STANDARD TITLE: PRIMARY CARE SECURE MESSAGING DATE OF NOTE: JUL 05, 2023@11:10 ENTRY DATE: JUL 05, 2023@10:10:35 AUTHOR: DIANA ANDREWS EXP COSIGNER: URGENCY: STATUS: COMPLETED ------Original Message Sent: 07/05/2023 10:30 AM ET From: LUCÍA VIZCARRA To: [facility], Team F Subject: Medication:Trazodone We requested a refill by phone 06/24/2023 and no action has been taken on this request. I am having a hard time getting to sleep. Can I please get this refilled?? ------Original Message Sent: 07/05/2023 11:10 AM ET From: DIANA ANDREWS To: LUCÍA VIZCARRA Subject: Medication:Trazodone Cyndilo, I'm sorry there were no more refills, so I will send it to a Provider to renew the order. Sorry for the delay. Diana Andrews RN /es/ DIANA ANDREWS, EVALUATION ADVISOR NURSE Signed: 07/05/2023 10:10 Receipt Acknowledged By: * AWAITING SIGNATURE * [facility]
--- OUTSIDE RECORDS SUMMARY | 2023-07-22 16:56 | XMS_ITS | Encounter Summary ---
Author Name [facility] Organization Department of Vetera ns [facility] Address [address] [place] [address] Support Name Relationship Address Phone ALLY VIZCARRA Next of Kin [address] [place] [address] ALLY VIZCARRA Emergency Contact [address] [place] [address] Insurance Providers: All historical and current [...] BASIC PLUS ONE Jul 08, 2015 113 [id number] HIRAM VIZCARRA RT PATIENT [place] PREFERRED PROVIDER ORGANIZAT ION (PPO) FEP BASIC PLUS ONE Jul 08, 2015 113 [id number] [phone] HIRAM VIZCARRA RT PATIENT [employer] FEP RX PRESCRIPT ION FEPRX Jul 08, 2015 [id number] HIRAM VIZCARRA RT PATIENT MEDICARE (WNR) MEDICARE (M) PART A Feb 01, 2011 PART A [id number] HIRAM VIZCARRA RT PATIENT MEDICARE (WNR) MEDICARE (M) PART B Feb 01, 2011 PART B [id number] HIRAM VIZCARRA RT PATIENT Selected Encounter This section includes the information on record at OR for the Encounter. Date/Time Encounter Type Encounter Description Reason Provider Source Jun 05, 2023 09:44 AM QNHP OL DIG ASSMT&MGMT 11[facility]Y [facility] ICD-10-CM R93.2 Abnormal findings on dx imaging of liver and biliary tract DALIA BARLOW IHPriscilla Encounter Template Text not used by OR Assessments - Encounter Diagnoses This section includes the primary and secondary diagnoses documented for the Encounter. Date/Time Primary/Secondary Diagnosis Diagnosis Name Provider Source Jun 05, 2023 09:52 AM PRIMARY Abnormal findings on dx imaging of liver and biliary tract DALIA BARLOW [facility] Social History: Smoking Status (Most [...] PM VA-TOBACCO FORMER USER [facility] Tobacco Use History This section includes a history of the smoking, or tobacco-related health factors, that were collected on or before the date of the Encounter. The data comes from the OR facility where the Encounter took place. Date/Time Smoking Status/Tobacco Use Comment F acility May 08, 2022 03:00 PM VA-TOBACCO QUIT 1 TO < 5 YRS [facility] Jun 27, 2021 10:00 AM VA-TOBACCO FORMER USER [facility] Jun 27, 2021 10:00 AM VA-TOBACCO QUIT 1 TO < 5 YRS [facility] Apr 15, 2019 11:53 AM PATIENT IS TOBACCO USER [facility] Apr 08, 2019 09:44 PM INPT TOBACCO COUNSELING [facility] Jan 20, 2019 11:30 AM VA-TOBACCO FORMER USER [facility] Jan 20, 2019 11:30 AM VA-TOBACCO QUIT 1 TO < 5 YRS [facility] Mar 31, 2018 08:41 AM INPT TOBACCO COUNSELING [facility] Feb 11, 2018 06:44 AM INPT TOBACCO COUNSELING [facility] Jan 17, 2018 01:41 PM FORMER TOBACCO USE >1Y <7Y [facility] Jan 07, 2017 09:31 AM FORMER TOBACCO USER 7Y OR GREATE R [facility] Sep 12, 2015 11:34 AM FORMER TOBACCO USE >1Y <7Y [facility] May 25, 2014 11:05 AM FORMER TOBACCO USE >1Y <7Y [facility] Apr 08, 2013 03:17 PM FORMER TOBACCO USE <1Y [facility] Jun 16, 2012 02:13 PM CURRENT TOBACCO USER [facility] May 14, 2011 01:12 PM CURRENT TOBACCO USER [facility] Jul 13, 2010 01:42 PM CURRENT TOBACCO USER [facility] May 05, 2010 08:29 AM CURRENT TOBACCO USER [facility] Apr 14, 2009 05:18 PM CURRENT TOBACCO USER [facility] Apr 15, 2008 05:27 PM FORMER TOBACCO USE >1Y <7Y [facility] Jun 09, 2007 02:43 PM FORMER TOBACCO USE >1Y <7Y [facility] November 25, 2006 02:54 PM CDM COPD TOBACCO NON-USER [facility] Sep 02, 2006 01:50 PM FORMER TOBACCO USE <1Y [facility] Advance Directives: All historical and current Section Date Range: From patient's date of to the date document was created. This section includes ALL of a patient's completed or amended OR Advance and Rescinded Directives. The entries below indicate that a directive exists for the patient, but an actual copy is not included with this document. The data comes from all [facility]. Date Advance Directives Provider Source Apr 01, 2018 ADVANCE DIRECTIVE DISCUSSION ISIDRA NOGUERA J [facility] Encounter Notes: All associated encounter notes This section contains the clinical notes associated to the Encounter. Date/Time Encounter Note(s) Provider Source Jun 05, 2023 08:05 PM ADDENDUM: LOCAL TITLE: Addendum STANDARD TITLE: ADDENDUM DATE OF NOTE: JUN 05, 2023@20:05:53 ENTRY DATE: JUN 05, 2023@20:05:54 AUTHOR: BRITTANIE NINO EXP COSIGNER: URGENCY: STATUS: COMPLETED will request primary resident provider to contact and review hx, see above. thank you /desi/ BRITTANIE NINO MD STAFF PHYSICIAN Signed: 06/05/2023 20:06 Receipt Acknowledged By: 06/27/2023 11:47 /david NINO MD STAFF PHYSICIAN for PR[facility]ESS Elmore ADORE MITCHELL --- Original Document --- 06/05/23 GASTROENTEROLOGY CHART REVIEW: Advanced Liver Dx Screening Chart Review Background: Patient is a 78 year old with a PMHx significant for advanced fibrosis/cirrhosis. The purpose of today's chart review is to evaluate the need for hepatocellular carcinoma (HCC) screening per AASLD guidelines and the [facility] national initiative. Labs: Metabolic Panel: No data available INR: INR____ CBC: No data available HCC Screening: US-ABDOMEN COMPLETE - NONE FOUND - 1Y No data available No data available for: MRI ABD W/ & WO CONTRAST US abdomen 05/01/2019 Impression: Negative for cirrhosis or portal hypertension on the present exam. The comparison CT is less technique dependent and does demonstrate splenomegaly (13.9 cm greatest length). Recommendations: HCC Screening: [place] is comanaged in the community. He carries a diagnosis in the chart of unspecified cirrhosis of liver dated 04/01/2019. Chart reviewed and notable for an ultrasound 04/2019 which did not suggest cirrhosis or portal hypertension. Question accuracy of diagnosis. Labs notable for normal platelets and albumin. If has cirrhosis, would benefit from HCC screening via US or cross sectional imaging every 6 months. Attaching PCP to this message to comment if has cirrhosis. If no cirrhosis present, can remove from HCC surveillance database. /desi/ PANCHO CHAU Signed: 06/05/2023 09:52 Receipt Acknowledged By: 06/05/2023 20:05 /es/ BRITTANIE NINO MD STAFF PHYSICIAN 06/10/2023 ADDENDUM STATUS: UNSIGNED You may not VIEW this UNSIGNED Addendum. 06/27/2023 ADDENDUM STATUS: UNSIGNED You may not VIEW this UNSIGNED Addendum. BRITTANIE NINO [facility] Jun 05, 2023 09:44 AM GASTROENTEROLOGY NOTE: LOCAL TITLE: GASTROENTEROLOGY CHART REVIEW STANDARD TITLE: GASTROENTEROLOGY NOTE DATE OF NOTE: JUN 05, 2023@09:44 ENTRY DATE: JUN 05, 2023@09:44:08 AUTHOR: PANCHO BARLOW EXP COSIGNER: URGENCY: STATUS: COMPLETED GASTROENTEROLOGY CHART REVIEW Has ADDENDA Advanced Liver Dx Screening Chart Review Background: Patient is a 78 year old with a PMHx significant for advanced fibrosis/cirrhosis. The purpose of today's chart review is to evaluate the need for hepatocellular carcinoma (HCC) screening per AASLD guidelines and the [facility] national initiative. Labs: Metabolic Panel: No data available INR: INR____ CBC: No data available HCC Screening: US-ABDOMEN COMPLETE - NONE FOUND - 1Y No data available No data available for: MRI ABD W/ & WO CONTRAST US abdomen 05/01/2019 Impression: Negative for cirrhosis or portal hypertension on the present exam. The comparison CT is less technique dependent and does demonstrate splenomegaly (13.9 cm greatest length). Recommendations: HCC Screening: Zach is comanaged in the community. He carries a diagnosis in the chart of unspecified cirrhosis of liver dated 04/01/2019. Chart reviewed and notable for an ultrasound 04/2019 which did not suggest cirrhosis or portal hypertension. Question accuracy of diagnosis. Labs notable for normal platelets and albumin. If has cirrhosis, would benefit from HCC screening via US or cross sectional imaging every 6 months. Attaching PCP to this message to comment if has cirrhosis. If no cirrhosis present, can remove from HCC surveillance database. /desi/ PANCHO CHAU Signed: 06/05/2023 09:52 Receipt Acknowledged By: 06/05/2023 20:05 /desi/ BRITTANIE NINO MD STAFF PHYSICIAN 06/05/2023 ADDENDUM STATUS: COMPLETED will request primary resident provider to contact and review hx, see above. thank you /desi/ BRITTANIE NINO MD STAFF PHYSICIAN Signed: 06/05/2023 20:06 Receipt Acknowledged By: 06/27/2023 11:47 /desi/ BRITTANIE NINO MD STAFF PHYSICIAN for [facility]ESS MITCHELL 06/10/2023 ADDENDUM STATUS: UNSIGNED You may not VIEW this UNSIGNED Addendum. 06/27/2023 ADDENDUM STATUS: COMPLETED I reviewed chart. dx of cirrhosis added to 's chart [address] 03/2019 indicated the following (copied below). Notes indicate a past h/o etoh use (in remission per dc summary). Non-va notes indicate hepatic steatosis and past h/o alcoholism. Has hemolytic anemia, no thrombocytopenia and albumin nl. Of note he is past due for OR annual visit as well. I will order abdominal ultrasound here at the ri around the time of his annual visit, could consider formal GI consult if not clear re: dx of cirrhosis (Seen on past ct, but not clear on f/u u/s). If cirrhotic, should get q6m screening u/s for HCC. --------- CT a/p 03/26/19 Impression: 1. Cirrhotic configuration to the liver as described above. Does the patient have a history of cirrhosis?. 2. Splenomegaly. 3. A few indeterminant periportal and portal caval lymph nodes. 4. Colonic diverticulosis only partially imaged. 5. Incidental findings as described above. Abdominal ultrasound: 05/01/19 Impression: Negative for cirrhosis or portal hypertension on the present exam. The comparison CT is less technique dependent and does demonstrate splenomegaly (13.9 cm greatest length). 04/08/23 medicare wellness exam non-va, copied from [facility]: SUBJECTIVE: 77 y.o. Lucía Vizcarra presents for a medication management visit. He is VERY hard of hearing. Established with neurology at [facility] for his neuropathy and mild cognitive impairment. takes care of all of the finances, cooking, shopping, laundry. He sits in his chair all day and likes to sleep. No longer driving, but planning on taking the driving test a day. Complains of a weak stream for the last year. No FH of prostate cancer. No urinary urgency, frequency, dysuria, hematuria, nocturia, abdominal/back pain, or fevers/chills. No hesitancy or incontinence. Has a walker and cane. Neurology prescribes mysoline 50mg to take for resting tremor which has been helpful. Physical therapy has been ordered, but patient declined. History of a right hip replacement. History of coronary artery disease with a CABG in 2005. Taking lipitor 40mg and aspirin 81mg daily. Shortness of breath with activity - not compliant with inhalers and no regular physical exercise. No wheezing, coughing, or night-time awakenings. Not needing and albuterol inhaler. Vaping nicotine. History of diabetes mellitus type 2 and taking metformin 1000mg twice daily. Off of glipizide. Due to his history of hemolytic anemia, it falsely lowers his A1C so monitoring home glucose readings. Working on healthier food choices. Does have a history of lower peripheral neuropathy and benign resting tremor. Off of gabapentin. Mild numbness during the day, but worse at night. Does have depression and on Cymbalta 60mg - counseling at the OR. Blood sugars fastin-130. In the afternoon are higher 190. Diet: chicken, hamburgers, fruits/vegetables. Drinking 3 sodas a day Pepsi 0. Exercise: none Sees OR for lung nodule monitoring. Performed a CT scan with the OR that showed fibrosis - records are not available. Recommended to follow up with a construction rigger. Quit smoking 3-4 years ago, now vaping a cartridge a day. Smoked from age [age]yrs. Not interested in the nicotine patches. No shortness of breath, wheezing, coughing, or night-time awakenings. OR provided him with Wixela and Spiriva, and tells me he is taking them - no noticeable difference. Not needing albuterol inhaler. He is mainly sedentary. /desi/ BRITTANIE NINO MD STAFF PHYSICIAN Signed: 06/27/2023 12:15 PANCHO BARLOW [facility]
[2023-07-22] MEDS: 0.9 % SODIUM CHLORIDE 1000 ml 1,000 ML 500 ML IV (17:00)
[2023-07-22 17:06] LABS: Appearance Urine Clear (Clear); Bilirubin Urine 1+ (Negative); Blood Urine Trace-intact (Negative); Color Urine Amber (Yellow); Glucose Urine 1+ (Negative); Ketones Urine Trace (Negative); Leukocyte Esterase Urine Negative (Negative); Nitrite Urine Negative (Negative); Protein Urine 2+ (Negative); Specific Gravity Urine >= 1.030 (1.000-1.030); pH Urine 5.5 (5.0-8.5)
[2023-07-22 17:08] LABS: Slide Review Reflex Yes
[2023-07-22 17:16] LABS: Albumin* 4.4 g/dL (3.3-5.0); Chloride* 103 mmol/L (96-114)
[2023-07-22 17:17] LABS: Potassium* 3.5 mmol/L (3.6-5.1); Sodium* 139 mmol/L (135-149)
[2023-07-22 17:19] LABS: Creatinine* 0.8 mg/dL (0.5-1.5); Est. Creatinine Clearance* 63.11; Estimated Glomerular Filt Rate 91 ml/min
[2023-07-22 17:20] LABS: Alanine Aminotransferase* 43 U/L (4-50); Alkaline Phosphatase* 69 U/L (40-150); Anion Gap 11 mEq/L (7-15); Aspartate Amino Transferase* 42 U/L (12-35); Bilirubin Direct* 0.8 mg/dL (0.0-0.5); Bilirubin Total* 3.7 mg/dL (0.1-1.5); Blood Urea Nitrogen* 19 mg/dL (7-30); Calcium* 9.8 mg/dL (8.4-10.6); Carbon Dioxide* 25 mmol/L (20-32); Glucose* 169 mg/dL (60-115); Magnesium* 2.1 mg/dL (1.5-2.6)
[2023-07-22 17:21] LABS: D Dimer Quantitative* 2.86 ug/ml (0.00-0.50)
[2023-07-22 17:28] LABS: PCR FLU A Negative PCR FLU A (Negative); PCR FLU B Negative PCR FLU B (Negative); PCR RSV Negative PCR RSV (Negative); SARS PCR* Negative SARS-CoV-2 (Negative); Slide Review Acceptable Review (Acceptable)
[2023-07-22 17:29] LABS: Bacteria Urine Few; RBC Urine 0-2 (0-2); WBC Urine 0-2 (0-5)
[2023-07-22 17:32] LABS: Troponin I* 0.02 ng/mL (0.01-0.04)
[2023-07-22 17:34] LABS: C Reactive Protein* 16.3 mg/dL (0.5-1.0); NT Pro B Type NatriureticPept* 2320 pg/mL
--- NOTE | 2023-07-22 17:43 | CRLHL7_ITS ---
For Patients: As a result of the Century Cures Act, medical imaging exams and procedure reports are released immediately into your electronic medical record. You may view this report before your referring provider. If you have questions, please contact your health care provider. INDICATION: Shortness of breath, wet cough COMPARISON: None. TECHNIQUE: CT angiogram chest with contrast, pulmonary embolism protocol. Multiplanar axial, coronal, and sagittal reformats are included. MIP images to improve detection of pulmonary emboli are included. Intravenous contrast: 95 mL Isovue 370 FINDINGS: PE: Well-timed contrast bolus. No pulmonary emboli. Normal caliber main pulmonary artery. Normal sized right heart chambers. No reflux of contrast below the diaphragm. Heart and great vessels: No pericardial effusion. Normal cardiac chamber size. Moderate atherosclerotic plaques. No aortic aneurysm. Lungs: Inspiratory phase imaging with respiratory motion artifact. No nodules or masses. No consolidations. Moderate centrilobular emphysema. Basilar and peripheral predominant reticulation without definite honeycombing. Pleura: No pleural effusion. No pneumothorax. Airway: Normal tracheobronchial tree. Lymph nodes: No thoracic adenopathy. Mediastinum: No pneumomediastinum. Bones: No fractures. No focal bone lesions. Median sternotomy wires. Chest wall: Normal. No masses. Upper abdomen: Normal. IMPRESSION: 1. No pulmonary embolus. 2. Centrilobular emphysema. Multifocal peripheral reticulation may be fibrosis. Please note that all CT scans at this facility use dose modulation, iterative reconstruction, and/or weight-based dosing when appropriate to reduce radiation dose to as low as reasonably achievable. Dictated by Misty Sanches MD @ 07/22/2023 7:04:22 PM (Electronically Signed)
[2023-07-22 18:12] LABS: Troponin, Point-of-Care* 0.01 ng/ml (0.01-0.04)
[2023-07-22] MEDS: PIPERACILLIN/TAZOBACTAM 3.375 GM in 0.9 % SODIUM CHLORIDE Mini-bag 100 ML IVPB (18:58)
[2023-07-22] MEDS: METOPROLOL TARTRATE 1 MG/ML inj 5 MG IVP (19:25)
--- NOTE | 2023-07-22 19:53 | P.IMHP_ITS ---
Hospitalist- H&P: HPI History of Present Illness Date Seen: 07/22/23 Chief complaint: diff breathing-PCP sent to ER for high heart rate Narrative: Sanket Patel is a 78 year old male past medical history significant for CAD status post CABG, hypercholesterolemia, type 2 diabetes mellitus, diabetic peripheral neuropathy, Gilbert syndrome, hepatic steatosis, acquired hemolytic anemia, osteopenia, CIDP, COPD, lung nodules, active vapor, alcohol abuse in remission is admitted to the medical floor from the ED for further management possible pneumonia, new onset atrial fibrillation with RVR. Patient is very hard of hearing and his who is at bedside assists with some of the history. Patient is reported to in general have a poor appetite however worsening over time. His is concerned that he may be aspirating at times. Weakness is progressing and falls are increasing. Over the last several days, patient has had a worsening cough which sounds wet but has been nonproductive. Patient reports chest congestion. Has been afebrile without chills. No recent nausea or vomiting. Denies headaches and dizziness however his thinks his balance is worse. Patient was seen in the clinic today and noted to be tachycardic. In the ED, patient was noted to be in atrial fibrillation with RVR which is a new diagnosis for him. Patient continues to vape. History of alcohol abuse in remission since 2011. He is followed by the [facility]. Previous hospitalization at [facility]. Review of Systems Narrative: REVIEW OF SYSTEMS: Complete review of systems performed and negative unless otherwise stated in HPI or below. [facility] Medical History Essential tremor ?G25.0 - Essential tremor (ICD-10) Pulmonary nodules ?R91.8 - Other nonspecific abnormal finding of lung field (ICD-10) Alcohol abuse ?F10.10 - Alcohol abuse, uncomplicated (ICD-10) Depression ?F32.A - Depression, unspecified (ICD-10) CKD (chronic kidney disease) stage 3, GFR 30-59 ml/min ?N18.30 - Chronic kidney disease, stage 3 unspecified (ICD-10) COPD (chronic obstructive pulmonary disease) ?J44.9 - Chronic obstructive pulmonary disease, unspecified (ICD-10) Chronic inflammatory demyelinating neuropathy ?G61.81 - Chronic inflammatory demyelinating polyneuritis (ICD-10) Acquired hemolytic anemia ?D59.9 - Acquired hemolytic anemia, unspecified (ICD-10) Hepatic steatosis ?K76.0 - Fatty (change of) liver, not elsewhere classified (ICD-10) Pseudophakia ?Z96.1 - Presence of intraocular lens (ICD-10) Type 2 diabetes mellitus with microalbuminuria ?E11.29 - Type 2 diabetes mellitus with other diabetic kidney complication (ICD-10) ?R80.9 - Proteinuria, unspecified (ICD-10) Gilbert syndrome ?E80.4 - Gilbert syndrome (ICD-10) Diabetic peripheral neuropathy ?E11.42 - Type 2 diabetes mellitus with diabetic polyneuropathy (ICD-10) Gout ?M10.9 - Gout, unspecified (ICD-10) Hypercholesterolemia ?E78.00 - Pure hypercholesterolemia, unspecified (ICD-10) CAD (coronary artery disease) ?I25.10 - Atherosclerotic heart disease of [place] coronary artery without angina pectoris (ICD-10) Social History (Updated 07/22/23 @ 22:20 by Marni Albarran PA-C) Do you use any of these nicotine containing products: Vaping Products Meds Home Medications and Allergies Home Medications Medication Instructions Recorded Confirmed Type albuterol 90 mcg/actuation aerosol mcg inhalation 07/22/23 History inhaler aspirin 81 mg chewable tablet 81 mg PO DAILY 07/22/23 07/22/23 History (Chin Chewable Low Dose Aspirin) bupropion HCl 300 mg 24 hr tablet, 300 mg PO QAM 07/22/23 07/22/23 History extended release cholecalciferol (vitamin D3) .ROUTE 07/22/23 History fluticasone propion-salmeterol inhalation 07/22/23 History gabapentin 300 mg capsule 300 mg PO QPM 07/22/23 07/22/23 History metformin 1,000 mg tablet 1,000 mg PO BID 07/22/23 07/22/23 History primidone 50 mg tablet 50 mg PO QAM 07/22/23 07/22/23 History tamsulosin 0.4 mg capsule 0.4 mg PO DAILY 07/22/23 07/22/23 History trazodone 100 mg tablet 200 mg PO DAILY 07/22/23 07/22/23 History Allergies Allergy/AdvReac Type Severity Reaction Status Date / Time No Known Drug Allergies Allergy Verified 07/22/23 16:02 Exam Narrative: Exam Narrative: PHYSICAL EXAM General: Appears frail, hard of hearing, otherwise NAD HEENT: Normocephalic, atraumatic, sclera white, EOMI, oral mucosa dry Cardiovascular: RRR, S1S2. No pitting edema Pulmonary: Diffusely diminished. No dyspnea on room air. Harsh, wet cough noted Abdominal: Soft, nondistended, NTTP Neurological: Alert, answering questions appropriately, cranial nerves intact, no focal findings Extremities: No gross joint deformity or swelling. AROMI. Neurovascularly intact Skin: Warm, dry. Const: Vital Signs, click to edit/add: Vital Signs - 24 hr 07/22/23 15:54 07/22/23 16:49 07/22/23 17:05 Temperature 97.5 F L Pulse Rate 117 H Pulse Rate [Pulse Oximeter] 112 H Respiratory Rate 16 Blood Pressure 108/70 Blood Pressure [Ri ght Upper Arm] 112/76 Pulse Oximetry 94 [facility] 07/22/23 17:09 07/22/23 17:15 07/22/23 17:33 Temperature Pulse Rate 121 H 128 H 111 H Pulse Rate [Pulse Oximeter] Respiratory Rate Blood Pressure Blood Pressure [Ri ght Upper Arm] Pulse Oximetry 95 96 94 [facility] 07/22/23 17:35 07/22/23 17:45 07/22/23 18:00 Temperature Pulse Rate 116 H 120 H 137 H Pulse Rate [Pulse Oximeter] Respiratory Rate Blood Pressure 112/74 Blood Pressure [Ri ght Upper Arm] Pulse Oximetry 91 96 94 [facility] 07/22/23 18:17 07/22/23 18:30 07/22/23 18:36 Temperature Pulse Rate 129 H 117 H Pulse Rate [Pulse Oximeter] Respiratory Rate Blood Pressure 132/68 Blood Pressure [Ri ght Upper Arm] Pulse Oximetry 95 90 [facility] - H&P: Result Labs Labs: Short CBC 07/22/23 Range/Units 16:44 WBC 14.05 H (4.50-11.00) K/uL Hgb 11.3 L (13.5-17.5) gm/dL Hct 33.0 L (37.0-53.0) % Plt Count 186 (140-440) K/uL BMP 07/22/23 16:44 Sodium 139 Potassium 3.5 L Chloride 103 Carbon Dioxide 25 BUN 19 Creatinine 0.8 Glucose 169 H Calcium 9.8 Cardiac Enzymes 07/22/23 Range/Units 16:44 Troponin I 0.02 (0.01-0.04) ng/mL Liver Function 07/22/23 Range/Units 16:44 Total Bilirubin 3.7 H (0.1-1.5) mg/dL Direct Bilirubin 0.8 H (0.0-0.5) mg/dL AST 42 H (12-35) U/L ALT 43 (4-50) U/L Alkaline Phosphatase 69 (40-150) U/L Albumin 4.4 (3.3-5.0) g/dL Urine 07/22/23 Range/Units 16:56 Urine Color Adilia A (Yellow) Urine Appearance Clear (Clear) Urine pH 5.5 (5.0-8.5) Ur Specific [place] >= 1.030 (1.000-1.030) Urine Protein 2+ A (Negative) Urine Glucose (UA) 1+ A (Negative) ECG ECG interpretation date: 07/22/23 Interpretation: Atrial fibrillation with RVR, premature ventricular or aberrantly conducted complexes, ventricular rate 129, QTC [address] scan - chest: Attestation: I have reviewed the pertinent imaging results. Radiologist's impression: CT angiogram chest with contrast, pulmonary embolism protocol. Multiplanar axial, coronal, and sagittal reformats are included. MIP images to improve detection of pulmonary emboli are included. Intravenous contrast: 95 mL Isovue 370 FINDINGS: PE: Well-timed contrast bolus. No pulmonary emboli. Normal caliber main pulmonary artery. Normal sized right heart chambers. No reflux of contrast below the diaphragm. Heart and great vessels: No pericardial effusion. Normal cardiac chamber size. Moderate atherosclerotic plaques. No aortic aneurysm. Lungs: Inspiratory phase imaging with respiratory motion artifact. No nodules or masses. No consolidations. Moderate centrilobular emphysema. Basilar and peripheral predominant reticulation without definite honeycombing. Pleura: No pleural effusion. No pneumothorax. Airway: Normal tracheobronchial tree. Lymph nodes: No thoracic adenopathy. Mediastinum: No pneumomediastinum. Bones: No fractures. No focal bone lesions. Median sternotomy wires. Chest wall: Normal. No masses. Upper abdomen: Normal. IMPRESSION: 1. No pulmonary embolus. 2. Centrilobular emphysema. Multifocal peripheral reticulation may be fibrosis. Assessment and Plan Assessment and plan (1) Atrial fibrillation with RVR: Problem comment: -new onset, EKG shows AFib with RVR, ventricular rate 129. HR 112-137 in ED -received metoprolol 5 mg IV in ED -start metoprolol 12.5mg po bid, given SBP <110, monitoring, may need to/be able to increase to 25mg bid -metoprolol 5mg IV q 4 hours prn for sustained HR >120 for 30 minutes -[id number] Score 2 for age/sex. reports he has a h/o falling, worse recently. Discussed risks/benefits of anticoagulation, will consider. Status: Acute (2) CAD (coronary artery disease): Problem comment: -s/p CABG RODRIGEZ to prox-mid LAD, SVG aorta to posterolateral RCA -continue aspirin -in reviewing EMR, unable to see echo from 2015, appears he may have had another echo in 2019. BNP 2320. denies known h/o heart failure. Consider repeat echo during hospitalization or as outpatient follow-up -trop 0.02 Status: Chronic (3) URI (upper respiratory infection): Problem comment: -symptomatic with cough, congestion, runny nose. with similar sxs recently. -influenza/COVID/RSV negative -leukocytosis noted, lactate 2.5. Afebrile. Continue IVF, monitoring response. -procalcitonin 0.10, repeat lactate 2.8, BC x2 ordered. UC pending. Sputum culture, strep pneumo/Legionella ordered -CT without evidence of consolidation or concern for pneumonia. Negative for PE - has concerns he may be aspirating, APARTMENT COMMUNITY MANAGER eval ordered -received 1 dose of Zosyn in ED, continue in setting of COPD, aspiration risk -initiate Mucinex, tessalon perles prn Status: Acute (4) COPD (chronic obstructive pulmonary disease): Problem comment: -possible acute on chronic exacerbation. Continues to vape -CT shows centrilobular emphysema, multifocal peripheral reticulation (ILD, fibrosis) -continue home inhalers, scheduled duonebs, prn albuterol nebs (monitoring HR in setting of new onset afib) -continue Zosyn for now as initiated in ED given symptomatic presentation, concern for aspiration risk -consider oral prednisone if necessary. says he had an acute metal status change previously at a higher dose -oxygen saturation adequate on room air, continue to monitor -RT consult -vaping cessation encouraged Status: Chronic (5) Type 2 diabetes mellitus with microalbuminuria: Problem comment: -historically A1c < 5. Repeat A1c ordered -hold home dose of metformin while hospitalized -diabetic diet, glucose checks ACHS, will defer insulin sliding scale at this time given historical A1c, close monitoring -2+ protein in urine noted Status: Chronic (6) Gilbert syndrome: Problem comment: -elevated indirect bilirubin. Currently 2.9 -followed by Dr. Vazquez in past, not currently being treated Status: Chronic (7) Hepatic steatosis: Problem comment: -noted Status: Chronic (8) Acquired hemolytic anemia: Problem comment: -hemoglobin stable, 11.3 Status: Chronic (9) Hypercholesterolemia: Problem comment: -continue statin Status: Chronic (10) CKD (chronic kidney disease) stage 3, GFR 30-59 ml/min: Problem comment: -creatinine 0.8, avoid nephrotoxic medications, renally dosing antibiotics, continue to monitor Status: Acute (11) Malnutrition: Problem comment: -nutrition consult ordered Status: Chronic (12) Weakness: Problem comment: -acutely worsened -h/o falls -PT/OT consults Status: Chronic Plan CODE: Full as discussed with patient . is more realistic in would like to discuss advanced care directives/healthcare directives with social research assistant VTE PPX: Enoxaparin Disposition: Observation
[2023-07-22 20:06] LABS: Lactate* 2.8 mmol/L (0.5-1.9)
--- NOTE | 2023-07-22 20:20 | ED.NURSE ---
given report to M/S nurse and plan to admit to room CCU 1 via WC with tele box [id number]
--- NOTE | 2023-07-22 20:22 | ED.NURSE ---
Diltiazem held, pt last pressure was 109/54 (68), counseled MD KATHIE wanted does held. no further orders at this time
[2023-07-22] MEDS: IPRAT-ALBUT 0.5-2.5 MG/3 ML NEB 1 NEB IH (22:46)
[2023-07-22] MEDS: 0.9 % SODIUM CHLORIDE 1000 ml 1,000 ML 125 ML IV (22:46)
[2023-07-22] MEDS: guaiFENesin 600 MG TAB.ER.12H PO (22:47)
[2023-07-22] MEDS: METOPROLOL TARTRATE 25 MG TABLET 12.5 MG PO (22:47)
[2023-07-22] MEDS: TRAZODONE HCL 50 MG TABLET 200 MG PO (22:47)
[2023-07-22] MEDS: BENZONATATE 100 MG CAPSULE PO (22:55)
[2023-07-23] VITALS (7 sets, daily range): BP systolic 74–119; BP diastolic 38–81; PULSE 51–100; RESP 18–24; TEMP 36.3–37.6; O2SAT 92–98; BMI 22.8
[2023-07-23] MEDS: PIPERACILLIN/TAZOBACTAM 4.5 GM in 0.9 % SODIUM CHLORIDE Mini-bag 100 ML IVPB ×3 (01:46→15:02)
[2023-07-23] MEDS: IPRAT-ALBUT 0.5-2.5 MG/3 ML NEB 1 NEB IH ×4 (05:33→21:45)
[2023-07-23 06:02] LABS: Lactate* 2.2 mmol/L (0.5-1.9)
[2023-07-23 06:08] LABS: Hematocrit 29.5 % (37.0-53.0); Hemoglobin* 9.6 gm/dL (13.5-17.5); Mean Corpuscular HGB Conc 33 gm/dL (32-36); Mean Corpuscular Hemoglobin 30 pg (26-34); Mean Corpuscular Volume 93 fL (80-100); Platelet Count* 168 K/uL (140-440); Red Blood Count 3.18 m/uL (4.30-5.90); White Blood Count* 10.94 K/uL (4.50-11.00)
[2023-07-23 06:15] LABS: Slide Review Reflex No
[2023-07-23 06:23] LABS: Albumin* 3.7 g/dL (3.3-5.0); Chloride* 106 mmol/L (96-114); Sodium* 139 mmol/L (135-149)
[2023-07-23 06:24] LABS: Potassium* 3.4 mmol/L (3.6-5.1)
[2023-07-23 06:26] LABS: Alkaline Phosphatase* 68 U/L (40-150); Anion Gap 9 mEq/L (7-15); Aspartate Amino Transferase* 48 U/L (12-35); Bilirubin Total* 4.4 mg/dL (0.1-1.5); Blood Urea Nitrogen* 17 mg/dL (7-30); Carbon Dioxide* 24 mmol/L (20-32); Creatinine* 0.9 mg/dL (0.5-1.5); Est. Creatinine Clearance* 63.11; Estimated Glomerular Filt Rate 88 ml/min; Glucose* 195 mg/dL (60-115); Hemoglobin A1C* 4.5 % (0-5.6); Total Protein* 6.8 g/dL (6.0-8.3)
[2023-07-23 06:27] LABS: Alanine Aminotransferase* 47 U/L (4-50); Calcium* 8.8 mg/dL (8.4-10.6)
[2023-07-23 06:34] LABS: NT Pro B Type NatriureticPept* 4110 pg/mL
[2023-07-23 06:40] LABS: C Reactive Protein* 17.6 mg/dL (0.5-1.0)
[2023-07-23] MEDS: TAMSULOSIN HCL 0.4 MG CAPSULE PO (09:10)
[2023-07-23] MEDS: PRIMIDONE 50 MG TABLET PO (09:10)
[2023-07-23] MEDS: buPROPion XL 150 MG TABLET 300 MG PO (09:11)
[2023-07-23] MEDS: SODIUM CHLORIDE 0.9 % (FLUSH) 10 ML SYRINGE 5 ML IVF (09:11)
[2023-07-23] MEDS: BENZONATATE 100 MG CAPSULE PO ×3 (09:11→19:27)
[2023-07-23] MEDS: guaiFENesin 600 MG TAB.ER.12H PO ×2 (09:11→19:27)
[2023-07-23] MEDS: ASPIRIN 81 MG TAB.CHEW PO (09:11)
[2023-07-23 09:58] LABS: Legionella pneumo Ag Urine L. pneumo Negative (Negative); S pneumo Ag Urine S. pneumo Negative (Negative)
--- NOTE | 2023-07-23 11:27 | P.IMPN_ITS ---
Progress Note: A&P Assessment and plan (1) Atrial fibrillation with RVR: Problem details: Suspect may be triggered by underlying lung disease, but has coronary history with CABG -new onset, EKG shows AFib with RVR, HR 112-137 in ED -received metoprolol 5 mg IV in ED -started metoprolol 12.5mg po bid, BP now softer, precludes uptitration -Seemed to be in sinus rhythm this am, but tele was not capturing at the time when HR was 70s-80s, back in a fib now rates in low 100s -metoprolol 5mg IV q 4 hours prn for sustained HR >120 for 30 minutes -[id number] Score 2 for age/sex. reports he has a h/o falling, worse recently. Discussed risks/benefits of anticoagulation, will consider. -Given CAD history and no recent echo, will obtain echo now. No CP or troponin elevation on admission. Status: Acute (2) URI (upper respiratory infection): Problem details: COVID/flu/RSV all negative. No infiltrate on imaging or fever. On Zosyn for potential aspiration PNA given his history Status: Acute (3) Weakness: Problem details: -acutely worsened -h/o falls -PT/OT consults Status: Chronic (4) CKD (chronic kidney disease) stage 3, GFR 30-59 ml/min: Problem details: -creatinine 0.9, avoid nephrotoxic medications, renally dosing antibiotics, continue to monitor Status: Acute (5) COPD (chronic obstructive pulmonary disease): Problem details: -possible acute on chronic exacerbation. Continues to vape -CT shows centrilobular emphysema, multifocal peripheral reticulation (ILD, fibrosis) -continue home inhalers, scheduled duonebs, prn albuterol nebs (monitoring HR in setting of new onset afib) -continue Zosyn for now as initiated in ED given symptomatic presentation, concern for aspiration risk -consider oral prednisone if necessary. says he had an acute metal status change previously at a higher dose -oxygen saturation adequate on room air, continue to monitor -RT consult -vaping cessation encouraged Status: Chronic (6) Acquired hemolytic anemia: Problem details: -hemoglobin stable, 11.3 Status: Chronic (7) Type 2 diabetes mellitus with microalbuminuria: Problem details: -historically A1c < 5. Repeat A1c ordered -hold home dose of metformin while hospitalized -diabetic diet, glucose checks ACHS, will defer insulin sliding scale at this time given historical A1c, close monitoring -2+ protein in urine noted Status: Chronic (8) Gilbert syndrome: Problem details: -elevated indirect bilirubin. Currently 2.9 -followed by Dr. Vazquez in past, not currently being treated Status: Chronic (9) Hypercholesterolemia: Problem details: -continue statin Status: Chronic (10) CAD (coronary artery disease): Problem details: -s/p CABG RODRIGEZ to prox-mid LAD, SVG aorta to posterolateral RCA -continue aspirin -in reviewing EMR, unable to see echo from 2015, appears he may have had another echo in 2019. BNP 2320. denies known h/o heart failure. -trop 0.02 Status: Chronic Subjective Date Seen: 07/23/23 Interval history: Patient is seen and examined. He is eating pancakes and really only answers yes/no questions or shrugs in answer to questions. He denies SOB or CP, endorses some abdominal discomfort from coughing, but it is not terribly bothersome. Exam: General- awake, alert and no distress. Continues eating throughout our interaction HEENT- NCAT, mmm CV- RRR during interaction, but later back in a fib on monitor Resp: CTAB but diminished, no wheezing Extremities- no lower extremity edema Skin- warm and dry Exam Const: Vital Signs, click to edit/add: Vital Signs - 24 hr 07/22/23 15:54 07/22/23 16:49 07/22/23 17:05 Temperature 97.5 F L Pulse Rate 117 H Pulse Rate [Left P ulse Oximeter] Pulse Rate [Pulse Oximeter] 112 H Respiratory Rate 16 Blood Pressure 108/70 Blood Pressure [Le ft Arm] Blood Pressure [Ri ght Upper Arm] 112/76 Pulse Oximetry 94 97 Oxygen Delivery Me thod Room Air 07/22/23 17:09 07/22/23 17:15 07/22/23 17:33 Temperature Pulse Rate 121 H 128 H 111 H Pulse Rate [Left P ulse Oximeter] Pulse Rate [Pulse Oximeter] Respiratory Rate Blood Pressure Blood Pressure [Le ft Arm] Blood Pressure [Ri ght Upper Arm] Pulse Oximetry 95 96 94 Oxygen Delivery Me thod 07/22/23 17:35 07/22/23 17:45 07/22/23 18:00 Temperature Pulse Rate 116 H 120 H 137 H Pulse Rate [Left P ulse Oximeter] Pulse Rate [Pulse Oximeter] Respiratory Rate Blood Pressure 112/74 Blood Pressure [Le ft Arm] Blood Pressure [Ri ght Upper Arm] Pulse Oximetry 91 96 94 Oxygen Delivery Me thod 07/22/23 18:17 07/22/23 18:30 07/22/23 18:36 Temperature Pulse Rate 129 H 117 H Pulse Rate [Left P ulse Oximeter] Pulse Rate [Pulse Oximeter] Respiratory Rate Blood Pressure 132/68 Blood Pressure [Le ft Arm] Blood Pressure [Ri ght Upper Arm] Pulse Oximetry 95 90 Oxygen Delivery Me od 07/22/23 19:27 07/22/23 19:28 07/22/23 19:30 Temperature Pulse Rate 130 H 143 H Pulse Rate [Left P ulse Oximeter] Pulse Rate [Pulse Oximeter] Respiratory Rate Blood Pressure 123/57 L Blood Pressure [Le ft Arm] Blood Pressure [Ri ght Upper Arm] Pulse Oximetry 91 90 Oxygen Delivery Me od 07/22/23 19:45 07/22/23 20:17 07/22/23 21:11 Temperature Pulse Rate 111 H Pulse Rate [Left P ulse Oximeter] Pulse Rate [Pulse Oximeter] Respiratory Rate Blood Pressure 109/54 L Blood Pressure [Le ft Arm] Blood Pressure [Ri ght Upper Arm] Pulse Oximetry 94 94 [facility] 07/22/23 22:08 07/22/23 22:08 07/22/23 23:00 Temperature 98.1 F 97.9 F Pulse Rate Pulse Rate [Left P ulse Oximeter] 112 H 100 Pulse Rate [Pulse Oximeter] Respiratory Rate 22 20 20 Blood Pressure Blood Pressure [Le ft Arm] 114/74 82/49 L Blood Pressure [Ri ght Upper Arm] Pulse Oximetry 92 92 [facility] Room Air Room Air 07/22/23 23:00 07/22/23 23:00 07/23/23 03:00 Temperature 99 F Pulse Rate Pulse Rate [Left P ulse Oximeter] 114 H 89 Pulse Rate [Pulse Oximeter] Respiratory Rate 20 Blood Pressure Blood Pressure [Le ft Arm] 95/50 L Blood Pressure [Ri ght Upper Arm] Pulse Oximetry 93 93 Oxygen Delivery Me od Room Air 07/23/23 07:00 Temperature Pulse Rate 86 Pulse Rate [Left P ulse Oximeter] Pulse Rate [Pulse Oximeter] Respiratory Rate Blood Pressure Blood Pressure [Le ft Arm] Blood Pressure [Ri ght Upper Arm] Pulse Oximetry Oxygen Delivery Me thod Labs Labs: Laboratory Results - last 24 hr 07/22/23 07/22/23 07/22/23 16:44 16:56 19:55 WBC 14.05 H RBC 3.65 L Hgb 11.3 L Hct 33.0 L MCV 90 MCH 31 MCHC 34 RDW Coeff of Tong 15.7 H Plt Count 186 Neut % (Auto) 79.1 H Lymph % (Auto) 7.2 L [place] % (Auto) 12.3 H Eos % (Auto) 0.1 Baso % (Auto) 0.7 Neut # (Auto) 11.10 H Lymph # (Auto) 1.00 [place] # (Auto) 1.70 H Eos # (Auto) 0.00 Baso # (Auto) 0.10 Abs Immat Gran (auto) 0.10 Imm/Tot Granulo (auto) 0.6 Diff Slide Review Acceptable Review D-Dimer Quant (PE/DVT) 2.86 H Sodium 139 Potassium 3.5 L Chloride 103 Carbon Dioxide 25 Anion Gap 11 BUN 19 Creatinine 0.8 Estimated Creat Clear 63.11 Estimated GFR 91 Glucose 169 H Hemoglobin A1c Lactate 2.5 H 2.8 H Calcium 9.8 Magnesium 2.1 Total Bilirubin 3.7 H Direct Bilirubin 0.8 H AST 42 H ALT 43 Alkaline Phosphatase 69 Troponin I 0.02 C-Reactive Protein 16.3 H NT-Pro-B Natriuret Pep 2320 Total Protein 8.0 Albumin 4.4 Procalcitonin 0.10 Urine Color Adilia A Urine Appearance Clear Urine pH 5.5 Ur Specific [place] >= 1.030 Urine Protein 2+ A Urine Glucose (UA) 1+ A Urine Ketones Trace A Urine Blood Trace-intact A Urine Nitrite Negative Urine Bilirubin 1+ A Urine Urobilinogen 2.0 A Ur Leukocyte Esterase Negative Urine RBC 0-2 Urine WBC 0-2 Urine WBC Clumps None Ur Squamous Epith Cells None Urine Bacteria Few A Urine L. pneumophilia Ag Urine Strep pneumoniae Ag SARS-CoV-2 (PCR) Negative SARS-CoV-2 Influenza Type A (PCR) Negative PCR FLU A Influenza Type B (PCR) Negative PCR FLU B RSV (PCR) Negative PCR RSV Lab Acknowledgement POC Troponin I 0.01 07/22/23 07/23/23 07/23/23 20:33 05:47 09:21 WBC 10.94 RBC 3.18 L Hgb 9.6 L Hct 29.5 L MCV 93 MCH 30 MCHC 33 RDW Coeff of Tong Plt Count 168 Neut % (Auto) Lymph % (Auto) [place] % (Auto) Eos % (Auto) Baso % (Auto) Neut # (Auto) Lymph # (Auto) [place] # (Auto) Eos # (Auto) Baso # (Auto) Abs Immat Gran (auto) Imm/Tot Granulo (auto) Diff Slide Review D-Dimer Quant (PE/DVT) Sodium 139 Potassium 3.4 L Chloride 106 Carbon Dioxide 24 Anion Gap 9 BUN 17 Creatinine 0.9 Estimated Creat Clear 63.11 Estimated GFR 88 Glucose 195 H Hemoglobin A1c 4.5 Lactate 2.2 H Calcium 8.8 Magnesium Total Bilirubin 4.4 H Direct Bilirubin 1.0 H AST 48 H ALT 47 Alkaline Phosphatase 68 Troponin I C-Reactive Protein 17.6 H NT-Pro-B Natriuret Pep 4110 Total Protein 6.8 Albumin 3.7 Procalcitonin Urine Color Urine Appearance Urine pH Ur Specific [place] Urine Protein Urine Glucose (UA) Urine Ketones Urine Blood Urine Nitrite Urine Bilirubin Urine Urobilinogen Ur Leukocyte Esterase Urine RBC Urine WBC Urine WBC Clumps Ur Squamous Epith Cells Urine Bacteria Urine L. pneumophilia Ag L. pneumo Negative Urine Strep pneumoniae Ag S. pneumo Negative SARS-CoV-2 (PCR) Influenza Type A (PCR) Influenza Type B (PCR) RSV (PCR) Lab Acknowledgement Test Added POC Troponin I
--- NOTE | 2023-07-23 11:30 | RESP.RT ---
Pt seen per consult put in. Pt comfortable on RA SPO2 94%. Nothing to offer at this time.
[2023-07-23] MEDS: METOPROLOL TARTRATE 25 MG TABLET 12.5 MG PO (12:34)
[2023-07-23] MEDS: ACETAMINOPHEN 325 MG TABLET 650 MG PO (12:34)
[2023-07-23] MEDS: 0.9 % SODIUM CHLORIDE 1000 ml 1,000 ML 125 ML IV (12:47)
--- NOTE | 2023-07-23 16:14 | PC.NURSE ---
Please see eMar for meds provided to this patient. He is [place], cooperative with cares. Tele indicates Afib with NVR. Rg by Dr. Bishop and family update at bedside. No behaviors noted, urine sample collected and sent to lab. IV Zosyn infused w/o difficulty. Report to Yessi Payne RN for evening shift.
[2023-07-23] MEDS: POTASSIUM CHLORIDE 10 MEQ CAPSULE ER 20 MEQ PO (18:26)
[2023-07-23] MEDS: ENOXAPARIN 40 MG/0.4 ML INJ SUBCUT (19:25)
[2023-07-23] MEDS: TRAZODONE HCL 50 MG TABLET 200 MG PO (19:26)
[2023-07-23] MEDS: PIPERACILLIN/TAZOBACTAM 3.375 GM in 0.9 % SODIUM CHLORIDE Mini-bag 100 ML IVPB (19:26)
[2023-07-23] MEDS: GABAPENTIN 300 MG CAPSULE PO (19:27)
[2023-07-23 19:36] LABS: Potassium* 3.3 mmol/L (3.6-5.1)
[2023-07-23] MEDS: 0.9 % SODIUM CHLORIDE 250 ml 250 ML IV ×2 (20:32)
[2023-07-23] MEDS: METOPROLOL TARTRATE 25 MG TABLET 6.25 MG PO (21:51)
--- NOTE | 2023-07-23 23:03 | PC.NURSE ---
Shift Note: HS Metoprolol held and MD updated as bp's hypotensive 90's/50's and 80's/50's, HR bradycardic in 50-60's for most of the evening. HR increased to 90's around 2100. Metoprolol dose cut in half per MD and given as well as a 250cc bolus. Pt has been asymptomatic with activity and moves well with assist x1 with GB and walker. Fair appetite, software writer offered frequent snacks and sips of fluids. Tele continues to show a-fib. LS diminished with wheeze on lower left lobe. Pt encouraged to TCDB and change positions.
[2023-07-24] VITALS (11 sets, daily range): BP systolic 92–136; BP diastolic 46–71; PULSE 62–110; RESP 18–22; TEMP 36.3–37.6; O2SAT 83–95
[2023-07-24] MEDS: 0.9 % SODIUM CHLORIDE 1000 ml 1,000 ML 125 ML IV ×2 (00:18→08:58)
[2023-07-24] MEDS: PIPERACILLIN/TAZOBACTAM 3.375 GM in 0.9 % SODIUM CHLORIDE Mini-bag 100 ML IVPB ×4 (03:16→21:15)
--- NOTE | 2023-07-24 03:22 | ED.GENADULT ---
HPI - General Adult General Chief complaint: Shortness of Breath/Dyspnea Stated complaint: diff breathing-PCP sent to ER for high heart rate Time Seen by Provider: 07/22/23 16:14 Source: patient History of Present Illness HPI narrative: Overnight brief note on Mr. Patino, called down by charge nurse during my ED shift for laceration. Workup for fall to be managed by overnight hospitalist, remotely. I was asked to evaluate the laceration to his right forehead area only. Was told to me that he has a history of frequent falls was admitted with AFib with RVR and fell going to the bathroom. There was no loss of consciousness. He is quite hard of hearing. Fall was from standing height. Vital signs stable as observed on monitor in room 1. I observed a man sleeping, arouses to voice. He has a 2 cm superficial laceration to the right occipital/brow bone area. It is epidermal thickness only, currently hemostatic. Some mild bruising and swelling. No palpable defect or crepitus over the brow bone. Normal visual tracking of me examining the wound. Counseled the nurses to apply antibiotic ointment, cover with dry dressing and tape. Will not benefit from Dermabond, suture or Steri-Strips. Call overnight with any additional concerns. Related Data Home Medications Medication Instructions Recorded Confirmed aspirin 81 mg chewable tablet 81 mg PO DAILY 07/22/23 07/22/23 (Chin Chewable Low Dose Aspirin) bupropion HCl 300 mg 24 hr tablet, 300 mg PO QAM 07/22/23 07/22/23 extended release gabapentin 300 mg capsule 300 mg PO HS 07/22/23 07/23/23 metformin 1,000 mg tablet 1,000 mg PO BID 07/22/23 07/22/23 primidone 50 mg tablet 50 mg PO QAM 07/22/23 07/22/23 tamsulosin 0.4 mg capsule 0.4 mg PO DAILY 07/22/23 07/22/23 trazodone 100 mg tablet 200 mg PO HS 07/22/23 07/23/23 albuterol sulfate 90 mcg/actuation 2 inh inhalation Q6H PRN 07/23/23 07/23/23 aerosol inhaler (Ventolin HFA) atorvastatin 40 mg tablet 40 mg PO HS 07/23/23 07/23/23 cholecalciferol (vitamin D3) 50 50 mcg PO DAILY 07/23/23 07/23/23 mcg (2,000 unit) capsule duloxetine 60 mg capsule,delayed 60 mg PO DAILY 07/23/23 07/23/23 release fluticasone 250 mcg-salmeterol 50 1 inh inhalation BID 07/23/23 07/23/23 mcg/dose blistr powdr for inhalation nitroglycerin 0.4 mg sublingual 0.4 mg sublingual Q5M PRN 07/23/23 07/23/23 tablet Allergies Allergy/AdvReac Type Severity Reaction Status Date / Time No Known Drug Allergies Allergy Verified 07/22/23 16:02 [facility] Medical History Essential tremor ?G25.0 - Essential tremor (ICD-10) Pulmonary nodules ?R91.8 - Other nonspecific abnormal finding of lung field (ICD-10) Alcohol abuse ?F10.10 - Alcohol abuse, uncomplicated (ICD-10) Depression ?F32.A - Depression, unspecified (ICD-10) CKD (chronic kidney disease) stage 3, GFR 30-59 ml/min ?N18.30 - Chronic kidney disease, stage 3 unspecified (ICD-10) COPD (chronic obstructive pulmonary disease) ?J44.9 - Chronic obstructive pulmonary disease, unspecified (ICD-10) Chronic inflammatory demyelinating neuropathy ?G61.81 - Chronic inflammatory demyelinating polyneuritis (ICD-10) Acquired hemolytic anemia ?D59.9 - Acquired hemolytic anemia, unspecified (ICD-10) Hepatic steatosis ?K76.0 - Fatty (change of) liver, not elsewhere classified (ICD-10) Pseudophakia ?Z96.1 - Presence of intraocular lens (ICD-10) Type 2 diabetes mellitus with microalbuminuria ?E11.29 - Type 2 diabetes mellitus with other diabetic kidney complication (ICD-10) ?R80.9 - Proteinuria, unspecified (ICD-10) Gilbert syndrome ?E80.4 - Gilbert syndrome (ICD-10) Diabetic peripheral neuropathy ?E11.42 - Type 2 diabetes mellitus with diabetic polyneuropathy (ICD-10) Gout ?M10.9 - Gout, unspecified (ICD-10) Hypercholesterolemia ?E78.00 - Pure hypercholesterolemia, unspecified (ICD-10) CAD (coronary artery disease) ?I25.10 - Atherosclerotic heart disease of [place] coronary artery without angina pectoris (ICD-10) Social History (Updated 07/22/23 @ 22:20 by Marni Albarran PA-C) What is your current living situation?: I presently have a place to live Problems where you live: no known problems Problems where you live details: NA In the past 12 months, utilities in danger of being shut off: no In past 12 months, lack of transportation kept you from medical appts, meetings, work, or getting things needed for daily living: no In the past 12 mos, have been you worried that your food would run out before you had money to buy more?: never true In the past 12 mos, the food you bought just didn't last and you didn't have money to buy more?: never true Highest level of school completed/degree received: GED or equivalent Smoking Status: Former smoker Do you use any of these nicotine containing products: Vaping Products Non-prescribed substance use: denies use Caffeine: Yes How often does anyone, including family, friends and others, physically hurt you: never How often does anyone, including family, friends and others, insult or talk down to you: never How often does anyone, including family, friends and others, threaten you with harm: never How often does anyone, including family, friends and others, scream or curse at you: never service: Yes Exam Const: Vital Signs, click to edit/add: Vital Signs - 24 hr 07/23/23 07:00 07/23/23 07:00 07/23/23 07:30 Temperature 98.5 F Pulse Rate 86 Pulse Rate [Left P ulse Oximeter] 66 Respiratory Rate 18 Blood Pressure [Le ft Arm] 98/81 Pulse Oximetry 98 98 Oxygen Delivery Me thod Room Air 07/23/23 11:15 Temperature 99.7 F H Pulse Rate Pulse Rate [Left P ulse Oximeter] 100 Respiratory Rate 20 Blood Pressure [Le ft Arm] 119/54 L Pulse Oximetry 93 Oxygen Delivery Me thod Room Air Course Vital Signs Vital signs: Initial Vital Signs Temperature 97.5 F L 07/22/23 15:54 Temperature Source Temporal Artery Scan 07/22/23 15:54 Pulse Rate 112 H 07/22/23 15:54 Respiratory Rate 16 07/22/23 15:54 Blood Pressure 112/76 07/22/23 15:54 Blood Pressure Mean 88 07/22/23 15:54 Blood Pressure Position Sitting 07/22/23 15:54 Pulse Oximetry 94 07/22/23 15:54 Oxygen Delivery Method Room Air 07/22/23 15:54 Vital Signs Temperature 97.5 F L 07/22/23 15:54 Pulse Rate 112 H 07/22/23 15:54 Respiratory Rate 16 07/22/23 15:54 Blood Pressure 112/76 07/22/23 15:54 Pulse Oximetry 94 07/22/23 15:54 Oxygen Delivery Method Room Air 07/22/23 15:54 Temperature 98.9 F 07/24/23 02:50 Pulse Rate 82 07/24/23 02:50 Respiratory Rate 20 07/24/23 02:50 Blood Pressure 136/71 07/24/23 02:50 Pulse Oximetry 91 07/24/23 02:50 Oxygen Delivery Method Nasal Cannula 07/24/23 02:50 Oxygen Flow Rate 1 07/24/23 02:50 Medications Administered Medications: Generic Name Dose Route Start Last Admin Trade Name Freq PRN Reason Stop Dose Admin Acetaminophen 650 mg 07/22/23 21:08 07/23/23 12:34 Acetaminophen 325 Mg Tablet PO 650 mg Q6H PRN Administration pain Albuterol/Ipratropium 1 neb 07/22/23 22:00 07/23/23 21:45 Iprat-Albut 0.5-2.5 Mg/3 Ml Neb IH 1 neb Q6H GINETTE Administration Aspirin 81 mg 07/23/23 09:00 07/23/23 09:11 Aspirin 81 Mg Tab.Chew PO 81 mg DAILY GINETTE Administration Benzonatate 100 mg 07/22/23 22:30 07/23/23 19:27 Benzonatate 100 Mg Capsule PO 100 mg TID GINETTE Administration Bupropion HCl 300 mg 07/23/23 09:00 07/23/23 09:11 Bupropion Xl 150 Mg Tablet PO 300 mg QAM GINETTE Administration Enoxaparin Sodium 40 mg 07/23/23 21:00 07/23/23 19:25 Enoxaparin 40 Mg/0.4 Ml Inj SUBCUT 40 mg HS GINETTE Administration Gabapentin 300 mg 07/23/23 21:00 07/23/23 19:27 Gabapentin 300 Mg Capsule PO 300 mg HS GINETTE Administration Guaifenesin 600 mg 07/22/23 22:30 07/23/23 19:27 Guaifenesin 600 Mg Tab.Er.12h PO 600 mg BID GINETTE Administration Sodium Chloride 1,000 mls @ 125 mls/hr 07/22/23 21:07 07/24/23 00:18 0.9 % Sodium Chloride 1000 Ml IV 125 mls/hr .Q8H GINETTE Administration Piperacillin Sod/Tazobactam 100 mls @ 200 mls/hr 07/23/23 21:00 07/23/23 20:32 Sod 3.375 gm/ Sodium Chloride IVPB Infused Q6H GINETTE Infusion Metoprolol Tartrate 6.25 mg 07/23/23 21:00 07/23/23 21:51 Metoprolol Tartrate 25 Mg Tablet PO 6.25 mg BID GINETTE Administration Fluticasone Propion- 1 inhalation 07/23/23 09:00 07/23/23 19:28 Salmeterol 250/50 IH Not Given Mcg Inhaler BID GINETTE Potassium Chloride 20 meq 07/23/23 18:00 07/23/23 18:26 Potassium Chloride 10 Meq Capsule Er PO 07/24/23 18:01 20 meq BIDWM GINETTE Administration Primidone 50 mg 07/23/23 09:00 07/23/23 09:10 Primidone 50 Mg Tablet PO 50 mg QAM GINETTE Administration Sodium Chloride 5 ml 07/23/23 09:00 07/23/23 19:28 Sodium Chloride 0.9 % (Flush) 10 Ml Syringe IVF Not Given BID GINETTE Tamsulosin HCl 0.4 mg 07/23/23 09:00 07/23/23 09:10 Tamsulosin Hcl 0.4 Mg Capsule PO 0.4 mg DAILY GINETTE Administration Trazodone HCl 200 mg 07/22/23 22:10 07/23/23 19:26 Trazodone Hcl 50 Mg Tablet PO 200 mg HS GINETTE Administration Discontinued Medications Generic Name Dose Route Start Last Admin Trade Name Freq PRN Reason Stop Dose Admin Diltiazem HCl 10 mg 07/22/23 20:05 07/22/23 20:22 Diltiazem 5 Mg/Ml Inj IVP 07/22/23 20:06 Not Given ONCE ONE Sodium Chloride 1,000 mls @ 500 mls/hr 07/22/23 16:24 07/22/23 17:00 0.9 % Sodium Chloride 1000 Ml IV 07/22/23 18:23 500 mls/hr .Q2H GINETTE Administration Piperacillin Sod/Tazobactam 100 mls @ 200 mls/hr 07/22/23 18:00 07/22/23 20:30 Sod 3.375 gm/ Sodium Chloride IVPB 07/22/23 18:01 Infused ONCE ONE Infusion Piperacillin Sod/Tazobactam 100 mls @ 200 mls/hr 07/23/23 02:00 07/23/23 15:02 Sod 4.5 gm/ Sodium Chloride IVPB 200 mls/hr Q6H GINETTE Administration Sodium Chloride 250 mls @ 250 mls/hr 07/22/23 23:00 07/23/23 00:00 0.9 % Sodium Chloride 250 Ml IV 07/22/23 23:59 250 mls/hr .Q1H ONE Administration Sodium Chloride 250 mls @ 250 mls/hr 07/23/23 19:42 07/23/23 20:32 0.9 % Sodium Chloride 250 Ml IV 07/23/23 20:41 250 mls/hr .Q1H ONE Administration Metoprolol Tartrate 5 mg 07/22/23 19:12 07/22/23 19:25 Metoprolol Tartrate 1 Mg/Ml Inj IVP 07/22/23 19:13 5 mg ONCE ONE Administration Metoprolol Tartrate 12.5 mg 07/22/23 22:30 07/23/23 12:34 Metoprolol Tartrate 25 Mg Tablet PO 12.5 mg BID GINETTE Administration Medical Decision Making Lab Data Labs: Lab Results 07/22/23 07/22/23 07/22/23 Range/Units 16:44 16:56 19:55 WBC 14.05 H (4.50-11.00) K/uL RBC 3.65 L (4.30-5.90) m/uL Hgb 11.3 L (13.5-17.5) gm/dL Hct 33.0 L (37.0-53.0) % MCV 90 (80-100) fL MCH 31 (26-34) pg MCHC 34 (32-36) gm/dL RDW Coeff of Tong 15.7 H (11.5-15.5) % Plt Count 186 (140-440) K/uL Neut % (Auto) 79.1 H (42.0-72.0) % Lymph % (Auto) 7.2 L (20-44) % [place] % (Auto) 12.3 H (0.0-11.0) % Eos % (Auto) 0.1 (0.0-7.0) % Baso % (Auto) 0.7 (0.0-3.0) % Neut # (Auto) 11.10 H (1.7-7.0) K/uL Lymph # (Auto) 1.00 (0.90-2.90) K/uL [place] # (Auto) 1.70 H (0.00-0.90) K/UL Eos # (Auto) 0.00 (0.00-0.50) K/uL Baso # (Auto) 0.10 (0.00-0.30) K/uL Abs Immat Gran (auto) 0.10 (0.00-0.30) K/uL Imm/Tot Granulo (auto) 0.6 % Diff Slide Review Acceptable Review (Acceptable) D-Dimer Quant (PE/DVT) 2.86 H (0.00-0.50) ug/ml Sodium 139 (135-149) mmol/L Potassium 3.5 L (3.6-5.1) mmol/L Chloride 103 (96-114) mmol/L Carbon Dioxide 25 (20-32) mmol/L Anion Gap 11 (7-15) mEq/L BUN 19 (7-30) mg/dL Creatinine 0.8 (0.5-1.5) mg/dL Estimated Creat Clear 63.11 Estimated GFR 91 ml/min Glucose 169 H (60-115) mg/dL Hemoglobin A1c (0-5.6) % Lactate 2.5 H 2.8 H (0.5-1.9) mmol/L Calcium 9.8 (8.4-10.6) mg/dL Magnesium 2.1 (1.5-2.6) mg/dL Total Bilirubin 3.7 H (0.1-1.5) mg/dL Direct Bilirubin 0.8 H (0.0-0.5) mg/dL AST 42 H (12-35) U/L ALT 43 (4-50) U/L Alkaline Phosphatase 69 (40-150) U/L Troponin I 0.02 (0.01-0.04) ng/mL C-Reactive Protein 16.3 H (0.5-1.0) mg/dL NT-Pro-B Natriuret Pep 2320 pg/mL Total Protein 8.0 (6.0-8.3) g/dL Albumin 4.4 (3.3-5.0) g/dL Procalcitonin 0.10 (<0.50) ng/mL Urine Color [place] A (Yellow) Urine Appearance Clear (Clear) Urine pH 5.5 (5.0-8.5) Ur Specific [place] >= 1.030 (1.000-1.030) Urine Protein 2+ A (Negative) Urine Glucose (UA) 1+ A (Negative) Urine Ketones Trace A (Negative) Urine Blood Trace-intact A (Negative) Urine Nitrite Negative (Negative) Urine Bilirubin 1+ A (Negative) Urine Urobilinogen 2.0 A (0.2-1.0) Ur Leukocyte Esterase Negative (Negative) Urine RBC 0-2 (0-2) Urine WBC 0-2 (0-5) Urine WBC Clumps None (None) Ur Squamous Epith Cells None (None-Few) Urine Bacteria Few A (None) Urine L. pneumophilia Ag (Negative) Urine Strep pneumoniae Ag (Negative) SARS-CoV-2 (PCR) Negative SARS-CoV-2 (Negative) Influenza Type A (PCR) Negative PCR FLU A (Negative) Influenza Type B (PCR) Negative PCR FLU B (Negative) RSV (PCR) Negative PCR RSV (Negative) Lab Acknowledgement POC Troponin I 0.01 (0.01-0.04) ng/ml 07/22/23 07/23/23 07/23/23 Range/Units 20:33 05:47 09:21 WBC 10.94 (4.50-11.00) K/uL RBC 3.18 L (4.30-5.90) m/uL Hgb 9.6 L (13.5-17.5) gm/dL Hct 29.5 L (37.0-53.0) % MCV 93 (80-100) fL MCH 30 (26-34) pg MCHC 33 (32-36) gm/dL RDW Coeff of Tong (11.5-15.5) % Plt Count 168 (140-440) K/uL Neut % (Auto) (42.0-72.0) % Lymph % (Auto) (20-44) % [place] % (Auto) (0.0-11.0) % Eos % (Auto) (0.0-7.0) % Baso % (Auto) (0.0-3.0) % Neut # (Auto) (1.7-7.0) K/uL Lymph # (Auto) (0.90-2.90) K/uL [place] # (Auto) (0.00-0.90) K/UL Eos # (Auto) (0.00-0.50) K/uL Baso # (Auto) (0.00-0.30) K/uL Abs Immat Gran (auto) (0.00-0.30) K/uL Imm/Tot Granulo (auto) % Diff Slide Review (Acceptable) D-Dimer Quant (PE/DVT) (0.00-0.50) ug/ml Sodium 139 (135-149) mmol/L Potassium 3.4 L (3.6-5.1) mmol/L Chloride 106 (96-114) mmol/L Carbon Dioxide 24 (20-32) mmol/L Anion Gap 9 (7-15) mEq/L BUN 17 (7-30) mg/dL Creatinine 0.9 (0.5-1.5) mg/dL Estimated Creat Clear 63.11 Estimated GFR 88 ml/min Glucose 195 H (60-115) mg/dL Hemoglobin A1c 4.5 (0-5.6) % Lactate 2.2 H (0.5-1.9) mmol/L Calcium 8.8 (8.4-10.6) mg/dL Magnesium (1.5-2.6) mg/dL Total Bilirubin 4.4 H (0.1-1.5) mg/dL Direct Bilirubin 1.0 H (0.0-0.5) mg/dL AST 48 H (12-35) U/L ALT 47 (4-50) U/L Alkaline Phosphatase 68 (40-150) U/L Troponin I (0.01-0.04) ng/mL C-Reactive Protein 17.6 H (0.5-1.0) mg/dL NT-Pro-B Natriuret Pep 4110 pg/mL Total Protein 6.8 (6.0-8.3) g/dL Albumin 3.7 (3.3-5.0) g/dL Procalcitonin (<0.50) ng/mL Urine Color (Yellow) Urine Appearance (Clear) Urine pH (5.0-8.5) Ur Specific [place] (1.000-1.030) Urine Protein (Negative) Urine Glucose (UA) (Negative) Urine Ketones (Negative) Urine Blood (Negative) Urine Nitrite (Negative) Urine Bilirubin (Negative) Urine Urobilinogen (0.2-1.0) Ur Leukocyte Esterase (Negative) Urine RBC (0-2) Urine WBC (0-5) Urine WBC Clumps (None) Ur Squamous Epith Cells (None-Few) Urine Bacteria (None) Urine L. pneumophilia Ag L. pneumo Negative (Negative) Urine Strep pneumoniae Ag S. pneumo Negative (Negative) SARS-CoV-2 (PCR) (Negative) Influenza Type A (PCR) (Negative) Influenza Type B (PCR) (Negative) RSV (PCR) (Negative) Lab Acknowledgement Test Added POC Troponin I (0.01-0.04) ng/ml Discharge Plan Discharge Clinical Impression: Weakness, COPD (chronic obstructive pulmonary disease), Atrial fibrillation with RVR, URI (upper respiratory infection), Malnutrition Patient Disposition: Admitted As Observation Condition: Stable
[2023-07-24] MEDS: IPRAT-ALBUT 0.5-2.5 MG/3 ML NEB 1 NEB IH ×4 (03:24→21:15)
[2023-07-24] MEDS: BACITRACIN OINTMENT BULK TUBE 1 APPLIC TOPICAL (05:40)
[2023-07-24 07:01] LABS: Basophils Absolute Auto 0.03 K/uL (0.00-0.30); Basophils Percent Auto 0.5 % (0.0-3.0); Eosinophils Absolute Auto 0.03 K/uL (0.00-0.50); Eosinophils Percent Auto 0.5 % (0.0-7.0); Hematocrit 28.4 % (37.0-53.0); Hemoglobin* 9.2 gm/dL (13.5-17.5); Immature Granulocytes Abs Auto 0.03 K/uL (0.00-0.30); Immature Granulocytes Pct Auto 0.5 %; Lymphocytes Percent Auto 12.7 % (20-44); Mean Corpuscular HGB Conc 32 gm/dL (32-36); Mean Corpuscular Hemoglobin 31 pg (26-34); Mean Corpuscular Volume 95 fL (80-100); Monocytes Percent Auto 12.2 % (0.0-11.0); Neutrophils Percent Auto 73.6 % (42.0-72.0); Platelet Count* 170 K/uL (140-440); RDW Coefficient of Variation % 15.7 % (11.5-15.5); White Blood Count* 6.15 K/uL (4.50-11.00)
[2023-07-24 07:12] LABS: Chloride* 112 mmol/L (96-114); Potassium* 3.7 mmol/L (3.6-5.1); Sodium* 143 mmol/L (135-149)
[2023-07-24 07:14] LABS: Creatinine* 0.9 mg/dL (0.5-1.5); Est. Creatinine Clearance* 63.11; Estimated Glomerular Filt Rate 88 ml/min
[2023-07-24 07:15] LABS: Anion Gap 9 mEq/L (7-15); Blood Urea Nitrogen* 12 mg/dL (7-30); Carbon Dioxide* 22 mmol/L (20-32); Glucose* 151 mg/dL (60-115)
[2023-07-24 07:16] LABS: Calcium* 8.7 mg/dL (8.4-10.6)
[2023-07-24 07:28] LABS: Slide Review Reflex No
[2023-07-24 07:45] LABS: C Reactive Protein* 18.4 mg/dL (0.5-1.0)
--- NOTE | 2023-07-24 07:59 | PC.NURSE ---
Patient pleasant and cooperative. Low BP of 84/38 at start of shift. Recheck BP 99/46 and 136/71. Patient fell at 0245 and obtained a superficial laceration?to right brow. ED MD accessed laceration. New orders received for bacitracin to site, cover with dry dressing and tape. Patient denied any discomfort at that time and during the night. No SCDs placed due to fall risk. ?
[2023-07-24] MEDS: BENZONATATE 100 MG CAPSULE PO (08:54)
[2023-07-24] MEDS: buPROPion XL 150 MG TABLET 300 MG PO (08:54)
[2023-07-24] MEDS: guaiFENesin 600 MG TAB.ER.12H PO ×2 (08:54→21:15)
[2023-07-24] MEDS: ACETAMINOPHEN 325 MG TABLET 650 MG PO ×2 (08:54→21:16)
[2023-07-24] MEDS: ASPIRIN 81 MG TAB.CHEW PO (08:54)
[2023-07-24] MEDS: TAMSULOSIN HCL 0.4 MG CAPSULE PO (08:54)
[2023-07-24] MEDS: POTASSIUM CHLORIDE 10 MEQ CAPSULE ER 20 MEQ PO ×2 (08:55→17:42)
[2023-07-24] MEDS: METOPROLOL TARTRATE 25 MG TABLET 6.25 MG PO ×2 (08:55→21:16)
[2023-07-24] MEDS: PRIMIDONE 50 MG TABLET PO (08:56)
--- NOTE | 2023-07-24 09:14 | PM.IMPN1 ---
Progress Note: A&P Assessment and plan (1) Chronic pulmonary aspiration: Problem details: -acute vs subacute PNA - minimally hypoxic (multifactorial); on zosyn, nebs -neg strep pneumo/legionella. neg resp quad screen. WBC down nicely. tmax 99.1 -portable CXR 07/24. CTA 07/22 reviewed -speech therapy today 07/24/23 -likely adding to comorbidities that lead to falls, weakness Status: Acute (2) Atrial fibrillation: Problem details: Suspect may be triggered by aspiration events, underlying lung disease or coronary history with CABG -new onset -soft bps on oral metoprolol, adjusted to 6.25mg po bid -rate controlled as of am of 07/24 -metoprolol 5mg IV q 4 hours prn for sustained HR >120 for 30 minutes -[id number] Score 2 for age/sex. 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 no sutures/glue. Status: Acute (5) Acquired hemolytic anemia: Problem details: -chronic known problem. -dropping from admission 11.3 --> 9.2 -monitor Status: Chronic (6) Abnormal LFTs (liver function tests): Problem details: -will get u/s of liver 07/24/23 -In review of his liver enzymes in psychiatric: Bilirubin has been 2.6-1.6 over the last 2 years AST, ALT, alk-phos has historically been normal. Jul 2020 CT abd/pelvis Mild diffuse hepatic steatosis similar to the prior ultrasound. No stigmata of cirrhosis or intrahepatic mass. No portal hypertension. -hx of Gilbert syndrome, has followed with Dr. Vazquez in the past -from [facility] in 09/25 Hyperbilirubinemia?patient has a history of a chronic hyperbilirubinemia. The bilirubin level has varied over the years. In 2018 the patient's total bilirubin was 3.7 with a direct of 0.7 it was checked later 2017 and was slightly elevated at 1.4. 2018 bilirubin was 2.5 and in 2019 bilirubin was 3.4. The remaining liver enzymes are normal. AST is 26 ALT 26 and alkaline phosphatase 130. The patient recently had a CT scan that shows mild diffuse fatty liver. No evidence of cirrhosis or intrahepatic mass. No pleural hypertension. There are some atrophy of the pancreas. No evidence of malignancy. He has no past history of liver disease. No history of hepatitis. No family history of liver cirrhosis or problems. Prior to 2018 he received [facility] care [facility] We do not have any old records to compare previous levels of the bilirubin. He does not recall ever being told by a physician that his bilirubin was elevated in the past. Status: Acute (7) COPD (chronic obstructive pulmonary disease): Problem details: -possible acute on chronic exacerbation. Continues to vape -CT shows centrilobular emphysema, multifocal peripheral reticulation (ILD, fibrosis) -continue home inhalers, scheduled duonebs, prn albuterol nebs (monitoring HR in setting of new onset afib) -continue Zosyn for now as initiated in ED given symptomatic presentation, concern for aspiration risk -consider oral prednisone if necessary. says he had an acute metal status change previously at a higher dose -oxygen saturation adequate on room air, continue to monitor -RT consult -vaping cessation encouraged Status: Chronic (8) Malnutrition: Problem details: -nutrition consult ordered Status: Chronic (9) Type 2 diabetes mellitus with microalbuminuria: Problem details: -A1C 4.5 -hold home dose of metformin while hospitalized Status: Chronic (10) Hypercholesterolemia: Problem details: -continue statin Status: Chronic (11) CAD (coronary artery disease): Problem details: -s/p CABG [id number] to prox-mid LAD, SVG aorta to posterolateral RCA -continue aspirin -in reviewing EMR, unable to see echo from 2015, appears he may have had another echo in 2019. BNP 2320. denies known h/o heart failure. -trop 0.02 Status: Chronic (12) CKD (chronic kidney disease) stage 3, GFR 30-59 ml/min: Problem details: -creatinine 0.9, avoid nephrotoxic medications, renally dosing antibiotics, continue to monitor Status: Acute Subjective Date Seen: 07/24/23 Interval history: Daily Progress Note - Hospital Medicine Day #: 3 CC: ongoing weakness, falls. question of aspiration pneumonia. liver inflammation. fall last night. new AFIB. lots of issues. OVERNIGHT UPDATES FROM STAFF & MED, LAB, IMAGING UPDATES sleepy today. RN found difficult to arouse. eating breakfast when I enter room, quite voraciously. coughing after. PT/OT this am noted some worsening hypoxia. very [place] - need pocket talker. ECHO yesterday 07/23/23 -Normal LV size. EF 55-60%. -mildly enlarged left atrium -no significant valvular disease Chest CT reviewed from admission Blood cultures negative to date White blood cell count has downtrended nicely. Normal today at 6.15 Known chronic anemia is at 9.2 Electrolytes have improved nicely. Hemoglobin A1c 4.5. Metformin on hold. CRP is markedly elevated at 17.6 yesterday, 18.4 today LFTs were elevated upon admission, total bilirubin has increased from 3.7-4.4. AST has remained mildly elevated. BNP has increased from [id number] Objective: older than stated age. eating. I put pocket talker on, he answers with 1-2 words. Doesn't look in distress. Vitals: see above Lungs: Clear. Cardiac: S1S2. irregular. no edema. Disposition/Potential discharge - Likely to return to previous living situation. Today I spent 50minutes seeing the patient, reviewing [facility]panse and EPIC notes/diagnostics, discussing the care plan with our care time that includes social work, PT/OT, pharmacy, RT, care home and documenting my impressions and plan in the medical record. Exam Const: Vital Signs, click to edit/add: Vital Signs - 24 hr 07/23/23 11:15 07/23/23 15:00 07/23/23 15:00 Temperature 99.7 F H Pulse Rate 51 L Pulse Rate [Left P ulse Oximeter] 100 Respiratory Rate 20 Blood Pressure [Le ft Arm] 119/54 L Blood Pressure [Ri ght Arm] Pulse Oximetry 93 97 Oxygen Delivery Me thod Room Air Oxygen Flow Rate 07/23/23 15:00 07/23/23 15:00 07/23/23 19:00 Temperature 97.5 F L 97.3 F L Pulse Rate Pulse Rate [Left P ulse Oximeter] 64 64 84 Respiratory Rate 24 24 22 Blood Pressure [Le ft Arm] 74/63 L 97/50 L Blood Pressure [Ri ght Arm] 79/55 L Pulse Oximetry 94 96 Oxygen Delivery Me thod Room Air Room Air Oxygen Flow Rate 07/23/23 23:00 07/23/23 23:00 07/23/23 23:00 Temperature 99.1 F Pulse Rate 63 Pulse Rate [Left P ulse Oximeter] 72 Respiratory Rate 24 Blood Pressure [Le ft Arm] Blood Pressure [Ri ght Arm] 84/38 L Pulse Oximetry 92 92 Oxygen Delivery Me thod Room Air Oxygen Flow Rate 07/24/23 01:24 07/24/23 02:50 07/24/23 07:00 Temperature 98.9 F Pulse Rate 107 H Pulse Rate [Left P ulse Oximeter] 82 Respiratory Rate 20 Blood Pressure [Le ft Arm] Blood Pressure [Ri ght Arm] 99/46 L 136/71 Pulse Oximetry 91 Oxygen Delivery Me thod Nasal Cannula Oxygen Flow Rate 1 07/24/23 08:54 Temperature 99.1 F Pulse Rate Pulse Rate [Left P ulse Oximeter] Respiratory Rate Blood Pressure [Le ft Arm] Blood Pressure [Ri ght Arm] Pulse Oximetry Oxygen Delivery Me thod Oxygen Flow Rate Labs Labs: Laboratory Results - last 24 hr 07/23/23 07/23/23 07/24/23 09:21 18:54 06:24 WBC 6.15 RBC 3.00 L Hgb 9.2 L Hct 28.4 L MCV 95 MCH 31 MCHC 32 RDW Coeff of Tong 15.7 H Plt Count 170 Neut % (Auto) 73.6 H Lymph % (Auto) 12.7 L [place] % (Auto) 12.2 H Eos % (Auto) 0.5 Baso % (Auto) 0.5 Neut # (Auto) 4.50 Lymph # (Auto) 0.80 L [place] # (Auto) 0.80 Eos # (Auto) 0.03 Baso # (Auto) 0.03 Abs Immat Gran (auto) 0.03 Imm/Tot Granulo (auto) 0.5 Sodium 143 Potassium 3.3 L 3.7 Chloride 112 Carbon Dioxide 22 Anion Gap 9 BUN 12 Creatinine 0.9 Estimated Creat Clear 63.11 Estimated GFR 88 Glucose 151 H Calcium 8.7 C-Reactive Protein 18.4 H Urine L. pneumophilia Ag L. pneumo Negative Urine Strep pneumoniae Ag S. pneumo Negative
[2023-07-24 09:44] LABS: Albumin* 3.4 g/dL (3.3-5.0)
[2023-07-24 09:47] LABS: Alkaline Phosphatase* 113 U/L (40-150); Aspartate Amino Transferase* 131 U/L (12-35); Bilirubin Direct* 1.5 mg/dL (0.0-0.5); Bilirubin Total* 2.7 mg/dL (0.1-1.5); Gamma Glutamyl Transpeptidase* 84 U/L (8-55); Lipase* 32 U/L (23-300); Total Protein* 6.8 g/dL (6.0-8.3)
[2023-07-24 09:48] LABS: Alanine Aminotransferase* 140 U/L (4-50)
--- NOTE | 2023-07-24 12:06 | XR_ITS ---
Patient: LUCÍA VIZCARRA Facility:?[facility] Patient ID:?[id number] Site Patient ID:?[id number]. Site :?[id number] Study:?XRay-Chest 1 VIEW PORTABLE-07/24/2023 12:34:19 PM Ordering Physician:?Kevin Browning Final Report: INDICATION: Concern for aspiration TECHNIQUE: Chest 1 views. COMPARISON: CTA chest on July 22, 2023 FINDINGS/IMPRESSION: The cardiomediastinal silhouette is within normal limits. Diffuse interstitial markings bilaterally may be secondary to pulmonary edema versus an acute infectious/inflammatory process, superimposed on emphysematous and mild fibrotic changes as seen on prior CTA chest. No pleural effusion or pneumothorax. Postsurgical changes of median sternotomy. Surgical anchors are seen in the right humerus. No displaced fractures. Dictated by Newton Orozco MD @ 07/24/2023 12:42:05 PM Signed by:?Newton Orozco MD @07/24/2023 12:42:05 PM (Electronic Signature)
--- NOTE | 2023-07-24 13:12 | SLP.EVAL ---
ASSOCIATE DEAN Ifrah Rg Start: 07/24/23 12:37 Freq: Status: Active Protocol: Document 07/24/23 12:39 MJP (Rec: 07/24/23 13:07 CIRILO [id number]) E-signed By Carito Yip MA, [facility], ASSOCIATE DEAN ASSOCIATE DEAN System Review History & Reason For Referral Type of Speech Evaluation Dysphagia Evaluation Rehabilitation Order Evaluation and Treat Date of Order 07/22/23 Reason for Referral Coughing. Question aspiration. Onset Date Of Patient's Problem 07/22/23 Medical Diagnosis AF with RVR Treatment Diagnosis Dysphagia Pertinent Medical History ET. COPD. CAD s/p CABG. DM2. Nicotine use (current vape user). Depression. NULATO. Peripheral Neuropathy. Gilbert Syndrome. Complication/Precautions/ Drowsy. Fall during Contraindication Comments hospitalization (last night) with head laceration. Hearing Information Hearing Status NULATO. Has hearing aids. Does not wear. Patient Orientation Orientation & Mental Status Sleeping soundly when ASSOCIATE DEAN arrived. Roused to eat and drink, but eyes closed for most of assessment. Current Vitals & Interventions Current Vitals &/Or Interventions O2 sats in the 90s on 1l O2 ASSOCIATE DEAN Initial Assessment/POC Subjective Information Subjective/Pain Comment Sleeping but roused for assessment. Kept eyes closed for most of assessment, but following simple instructions. NULATO. ASSOCIATE DEAN used pocket talker which was helpful. Caregiver's Name Lubna - present for most of assessment, but needed to take dogs to the vet. She reported he typically coughs after eating, especially at breakfast time. Assessment & Impression Assessment/Impression CLINICAL SWALLOW EVALUATION: ORAL MOTOR EXAM: Edentulous. Lubna says he has dentures, but he does not like to wear them to eat. They do not fit well. We did not put them in for the bedside swallow. Followed simple oral motor exam. No focal weakness. Generalized reduced range of motion. PO TRIALS: THIN LIQUIDS: Via spoon, cup, regular straw, and large straw . No coughing or signs of aspiration. PUREE: Via spoon. No coughing or signs of aspiration. CANNED FRUIT MIXED WITH THIN LIQUIDS: Slow oral phase, prolonged mastication. No coughing or signs of aspiration. SOLID CRACKER: Slow oral phase , prolonged mastication. No dentures. No coughing or signs of aspiration. ASSESSMENT: No overt clinical signs of aspiration with PO intake. However, he did have coughing prior to PO intake when ASSOCIATE DEAN awoke him and sat him up for assessment. He also had a significant bout of coughing within a minute after ASSOCIATE DEAN finished giving him PO trials for assessment. His face became reddened, and O2 sats briefly dipped into the 80s. Episode appeared similar to what Dr. Brown documented witnessing after his breakfast this morning. As mentioned above, his Lubna reports frequent postprandial coughing, especially after breakfast. had also reported to Dr. Brown that Daryl has had a few episodes of coughing while out to eat at restaurants. ASSOCIATE DEAN gave Daryl more water via straw after his coughing calmed, and he tolerated the water again without signs of aspiration. Recent chest CTA showed no consolidations - moderate centrilobular emphysema. Coughing may be due to emphysema/COPD rather than aspiration. RECOMMEND: Resume regular diet /regular liquids. Suggest patient select softer foods due to edentulous status. Also recommend video swallow evaluation to further assess swallow function due to significant bouts of postprandial coughing. This will have to wait until next week when primary ASSOCIATE DEAN on staff returns. This author will plan to follow up clinically on Saturday and adjust diet as indicated. Functional Limitations & Outcome/Goals Goals/Functional Outcomes 1) Patient will tolerate least restrictive diet with no signs or symptoms of aspiration. 2) Patient/spouse will verbalize comprehension of dysphagia education. Therapist Signature & License # I Certify That Therapy Services Provided, Therapy Plan Established Therapist Signature & License Number Carito Yip MA, [facility]-ASSOCIATE DEAN #[id number] Physician Signature Signature of Physician Indicates Treatment Plan,Certification Plan,Medically Needed Services Dysphagia: General Information General Patient Orientation Person,Place Voice Voice Quality Harsh,Hoarse Food Presentation Evaluation Dietary Recommendations Regular: IDDSI Level 7 Liquid Recommendations Thin Liquids: IDDSI Level 0 Swallow Precautions Sitting Upright (90 deg) Dysphagia Education Topics Education Topics Teaching Recipient Patient,Family Teaching Methods Verbal Speech/Language Pathology Billing Units Billing Units Eval Swallow Function 1
[2023-07-24] MEDS: FUROSEMIDE 40 MG TABLET PO (14:15)
--- NOTE | 2023-07-24 14:33 | PC.NURSE ---
Pt remains sleepy at this time. New order for lasix PO 40 mg initiated. Dressing CDI over right eyebrow laceration. Eval by PT Quinten and OT Anahi, Dr. Brown. Pt unable to perform MOCA. updated via phone and came in to speak with Dr. Brown at bedside. notified of Daryl's fall last night. Pt had a brief drop in his sats during PT, he had a non-productive cough. O2 @ 1 L/nc continues. Sputum sample needs to be collected. Nebulizer given with a mask. Swallow study completed. Portable CXR done per new order from hospitalist. Tele indicates afib with RVR. Pt NPO for US at 4pm this afternoon. [place], pocket talker utilized. Report will be provided to oncoming shift RN.
--- NOTE | 2023-07-24 15:17 | PC.SOCIAL ---
Discharge planning- Phone call to pt's Lubna to discuss requested Health Care Directive forms. Pt's is requesting a health care directive form that she can complete. Pt's will be at the hospital tomorrow morning. This worker will provide document to pt's tomorrow. Informed pt's when pt is medically cleared social work will assist with any discharge plans that need to be put into place. Pt's is agreeable. Social work will follow up as needed.
--- NOTE | 2023-07-24 16:00 | CRLHL7_ITS ---
For Patients: As a result of the Century Cures Act, medical imaging exams and procedure reports are released immediately into your electronic medical record. You may view this report before your referring provider. If you have questions, please contact your health care provider. INDICATION: Elevated LFTs.. TECHNIQUE: Ultrasound abdomen limited. Sonographic images of the right upper quadrant were obtained using knight-scale and color Doppler images. COMPARISON: None. FINDINGS: Liver: Normal in size and echotexture. No suspicious masses. No intrahepatic biliary dilatation. Gallbladder: No stones or sludge. Mildly thickened wall measuring up to 5 millimeters. No pericholecystic fluid. Common bile duct: 4 mm. Pancreas: Unremarkable. Right kidney: Normal in size. Normal echotexture and cortex. No suspicious masses, stones, or hydronephrosis. 9 millimeters simple appearing cyst. Vasculature: Proximal abdominal aorta and IVC are unremarkable. IMPRESSION: Mildly thickened gallbladder wall, nonspecific. No gallbladder stones identified. Otherwise unremarkable right upper quadrant ultrasound. Dictated by Sarah Garces MD @ 07/24/2023 6:57:34 PM (Electronically Signed)
[2023-07-24] MEDS: ENOXAPARIN 40 MG/0.4 ML INJ SUBCUT (21:15)
[2023-07-24] MEDS: TRAZODONE HCL 50 MG TABLET 100 MG PO (21:15)
[2023-07-24] MEDS: ATORVASTATIN CALCIUM 40 MG TABLET PO (21:15)
[2023-07-24] MEDS: GABAPENTIN 300 MG CAPSULE PO (21:16)
[2023-07-24] MEDS: SODIUM CHLORIDE 0.9 % (FLUSH) 10 ML SYRINGE 5 ML IVF (21:17)
--- NOTE | 2023-07-24 22:12 | PC.NURSE ---
End of shift [id number]: Pt alert & oriented to self only. Very [place] and utilizes pocket talker for conversation. Ax1 with gait belt & 2ww to BR. Continues to require 2L to maintain O2 > 90%. Pt drops down to 82-83% on RA. Low grade fever in the evening, T-max 99.7 > PRN Tylenol given x1 dose @ 2114. Pt anxious & impulsive. Often incontinent of urine as well as voiding in the urinal, requiring multiple gown & linen changes. Pt does not utilize his call light, bed alarm in place but he is often already walking d/t fast position changes. Laceration above right eye DOTTIE, dry crusted blood present. Productive, loose cough pt continues to swallow sputum. Sputum sample sent to lab for culture- screen writer noted it to be bloody & thick. IVF discontinued this evening per SEP order from this morning. PIV in left wrist SL and C/D/I. TELE continues to show A. Fib NVR to RVR rate varying 70s- low 100s. Abdominal US today unremarkarble.
[2023-07-25 00:15] VITALS: BP 108/75; PULSE 73; PULSE 89; RESP 22; TEMP 36.6; O2SAT 92
[2023-07-25] MEDS: PIPERACILLIN/TAZOBACTAM 3.375 GM in 0.9 % SODIUM CHLORIDE Mini-bag 100 ML IVPB (02:55)
[2023-07-25] MEDS: IPRAT-ALBUT 0.5-2.5 MG/3 ML NEB 1 NEB IH ×4 (02:59→21:37)
[2023-07-25 03:00] VITALS: BP 102/38; PULSE 60; RESP 24; TEMP 36.4; O2SAT 92
[2023-07-25 06:33] LABS: HCO3 VBG 26 mmol/L (21-28); PCO2 VBG 43 mmHG (40-50); pH VBG 7.391 (7.32-7.43)
[2023-07-25 06:40] LABS: PO2 VBG < 20.0 mmHG (25-47)
[2023-07-25 06:44] LABS: Hematocrit 31.7 % (37.0-53.0); Hemoglobin* 9.9 gm/dL (13.5-17.5); Mean Corpuscular HGB Conc 31 gm/dL (32-36); Mean Corpuscular Hemoglobin 30 pg (26-34); Mean Corpuscular Volume 96 fL (80-100); Platelet Count* 211 K/uL (140-440); Red Blood Count 3.32 m/uL (4.30-5.90); White Blood Count* 7.21 K/uL (4.50-11.00)
[2023-07-25 06:53] LABS: Slide Review Reflex No
[2023-07-25 07:00] VITALS: BP 130/76; PULSE 71; PULSE 98; RESP 24; O2SAT 90
[2023-07-25 07:14] LABS: Albumin* 3.7 g/dL (3.3-5.0)
[2023-07-25 07:15] LABS: Chloride* 107 mmol/L (96-114); Potassium* 3.3 mmol/L (3.6-5.1); Sodium* 141 mmol/L (135-149)
[2023-07-25 07:17] LABS: Alkaline Phosphatase* 117 U/L (40-150); Anion Gap 9 mEq/L (7-15); Aspartate Amino Transferase* 82 U/L (12-35); Bilirubin Direct* 1.1 mg/dL (0.0-0.5); Bilirubin Total* 2.7 mg/dL (0.1-1.5); Blood Urea Nitrogen* 7 mg/dL (7-30); Carbon Dioxide* 25 mmol/L (20-32); Creatinine* 0.8 mg/dL (0.5-1.5); Est. Creatinine Clearance* 63.88; Estimated Glomerular Filt Rate 91 ml/min; Total Protein* 7.2 g/dL (6.0-8.3)
[2023-07-25 07:18] LABS: Alanine Aminotransferase* 124 U/L (4-50); Calcium* 8.8 mg/dL (8.4-10.6); Gamma Glutamyl Transpeptidase* 97 U/L (8-55); Glucose* 138 mg/dL (60-115); Iron* 29 ug/dL (49-181)
[2023-07-25 07:28] LABS: Percent Iron Saturation 13 % (20-50); Total Iron Binding Capacity 225 ug/dL (261-462)
--- NOTE | 2023-07-25 07:43 | PC.NURSE ---
END OF SHIFT NOTE: PT ALERT TO SELF ONLY. [place]; UTILIZE POCKET TALKER. PT USES BSC AND URINAL. DOES NOT USE CALL LIGHT APPROPRIATELY. BED ALARM ON. ON 1L NC FOR SPO2 >90%. UNEVENTFUL NIGHT.
--- NOTE | 2023-07-25 07:57 | PM.IMPN1 ---
Progress Note: A&P Assessment and plan (1) Chronic pulmonary aspiration: Problem details: -acute vs subacute PNA - minimally hypoxic (multifactorial); S/P ZOSYN from 07/22-07/25. Now on Augmentin. Would recommend 7-10 days. (end 07/31 for 10) -neg strep pneumo/legionella. neg resp quad screen. WBC down nicely. tmax 99.7 -speech did not note obvious aspiration but patient clearly coughs and desaturates with eating. suspecting chronic swallowing abnl. will order a video swallow study as an outpatient as there is no staff this week to read -likely adding to comorbidities that lead to falls, weakness Status: Acute (2) Atrial fibrillation: Problem details: Suspect may be triggered by aspiration events, underlying lung disease or coronary history with CABG -new onset - now converted. CONSIDER OUTPATIENT ZIO PATCH. -soft bps on oral metoprolol, adjusted to 6.25mg po bid -rate controlled as of am of 07/24 -metoprolol 5mg IV q 4 hours prn for sustained HR >120 for 30 minutes -[id number] Score 2 for age/sex. 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 no sutures/glue. Status: Acute (5) Acquired hemolytic anemia: Problem details: -chronic known problem. -dropping from admission 11.3 --> 9.2 -->9.9 -monitor Status: Chronic (6) Abnormal LFTs (liver function tests): Problem details: -RUQ u/s is reassuring. Continue to follow. -In review of his liver enzymes in epic: Bilirubin has been 2.6-1.6 over the last 2 years AST, ALT, alk-phos has historically been normal. Jul 2020 CT abd/pelvis Mild diffuse hepatic steatosis similar to the prior ultrasound. No stigmata of cirrhosis or intrahepatic mass. No portal hypertension. -hx of Gilbert syndrome, has followed with Dr. Vazquez in the past -from [facility] in 09/25 Hyperbilirubinemia?patient has a history of a chronic hyperbilirubinemia. The bilirubin level has varied over the years. In 2018 the patient's total bilirubin was 3.7 with a direct of 0.7 it was checked later 2018 and was slightly elevated at 1.4. 2019 bilirubin was 2.5 and in 2019 bilirubin was 3.4. The remaining liver enzymes are normal. AST is 26 ALT 26 and alkaline phosphatase 130. The patient recently had a CT scan that shows mild diffuse fatty liver. No evidence of cirrhosis or intrahepatic mass. No pleural hypertension. There are some atrophy of the pancreas. No evidence of malignancy. He has no past history of liver disease. No history of hepatitis. No family history of liver cirrhosis or problems. Prior to 2018 he received his care at the [facility]. We do not have any old records to compare previous levels of the bilirubin. He does not recall ever being told by a physician that his bilirubin was elevated in the past. Status: Acute (7) COPD (chronic obstructive pulmonary disease): Problem details: -possible acute on chronic exacerbation. Continues to vape -CT shows centrilobular emphysema, multifocal peripheral reticulation (ILD, fibrosis) -continue home inhalers, scheduled duonebs, prn albuterol nebs (monitoring HR in setting of new onset afib) -continue Zosyn for now as initiated in ED given symptomatic presentation, concern for aspiration risk -consider oral prednisone if necessary. says he had an acute metal status change previously at a higher dose -oxygen saturation adequate on room air, continue to monitor -RT consult -vaping cessation encouraged Status: Chronic (8) Malnutrition: Problem details: -nutrition consult ordered Status: Chronic (9) Type 2 diabetes mellitus with microalbuminuria: Problem details: -A1C 4.5 -hold home dose of metformin while hospitalized Status: Chronic (10) Hypercholesterolemia: Problem details: -continue statin Status: Chronic (11) CAD (coronary artery disease): Problem details: -s/p CABG RODRIGEZ to prox-mid LAD, SVG aorta to posterolateral RCA -continue aspirin -in reviewing EMR, unable to see echo from 2015, appears he may have had another echo in 2020. BNP 2320. denies known h/o heart failure. -trop 0.02 Status: Chronic (12) CKD (chronic kidney disease) stage 3, GFR 30-59 ml/min: Problem details: -creatinine 0.8, avoid nephrotoxic medications, renally dosing antibiotics, continue to monitor Status: Acute Subjective Date Seen: 07/25/23 Interval history: Daily Progress Note - Hospital Medicine #: 4 CC: ongoing weakness, falls. question of aspiration pneumonia. liver inflammation. AFIB OVERNIGHT UPDATES FROM STAFF & MED, LAB, IMAGING UPDATES -still on 1 Liter NC -much more alert today -swallow study, bedside, was reassuring. video recommended. - bedside and we discussed TCU stay - she agrees -converted from afib -lac on the right eye improving CXR 07/25 Diffuse interstitial markings bilaterally may be secondary to pulmonary edema versus an acute infectious/inflammatory process, superimposed on emphysematous and mild fibrotic changes as seen on prior CTA chest. No pleural effusion or pneumothorax. ECHO 07/23/23 -Normal LV size. EF 55-60%. -mildly enlarged left atrium -no significant valvular disease RUQ U/S 07/24/23 Mildly thickened gallbladder wall, nonspecific. No gallbladder stones identified. Otherwise unremarkable right upper quadrant ultrasound. Chest CT reviewed from admission Blood cultures negative to date White blood cell count has downtrended nicely. Known chronic anemia is at 9.9 VBG is normal Electrolytes have improved nicely. mild hypokalemia. Hemoglobin A1c 4.5. Metformin on hold. iron studies show iron deficiency CRP continues to climb slowly LFTs were elevated upon admission, total bilirubin seems back to his baseline, 2.7. AST, ALT are mildly elevated (2-4x normal). AP normal. Objective: older than stated age. eating. I put pocket talker on, he answers with 1-2 words. Doesn't look in distress. Vitals: see above Lungs: Clear. Cardiac: S1S2. irregular. no edema. Disposition/Potential discharge - Likely to return to previous living situation. Today I spent 50minutes seeing the patient, reviewing Expanse and EPIC notes/diagnostics, discussing the care plan with our care time that includes social work, PT/OT, pharmacy, RT, long-term and documenting my impressions and plan in the medical record. Exam Const: Vital Signs, click to edit/add: Vital Signs - 24 hr 07/24/23 08:54 07/24/23 09:00 07/24/23 11:45 Temperature 99.1 F 97.4 F L Pulse Rate Pulse Rate [Left P ulse Oximeter] 75 Respiratory Rate 20 Blood Pressure [Le ft Arm] Blood Pressure [Ri ght Arm] 92/68 Pulse Oximetry 94 91 Oxygen Delivery Me thod Nasal Cannula Nasal Cannula Oxygen Flow Rate 1 07/24/23 15:00 07/24/23 15:00 07/24/23 15:00 Temperature Pulse Rate 97 Pulse Rate [Left P ulse Oximeter] 75 Respiratory Rate 18 Blood Pressure [Le ft Arm] Blood Pressure [Ri ght Arm] Pulse Oximetry 83 L Oxygen Delivery Me thod Oxygen Flow Rate 07/24/23 15:00 07/24/23 15:00 07/24/23 19:00 Temperature 98.4 F 99 F Pulse Rate Pulse Rate [Left P ulse Oximeter] 75 110 H Respiratory Rate 18 18 18 Blood Pressure [Le ft Arm] 127/60 Blood Pressure [Ri ght Arm] 102/69 Pulse Oximetry 94 94 95 Oxygen Delivery Me thod Nasal Cannula Nasal Cannula Nasal Cannula Oxygen Flow Rate 2 2 2 07/24/23 21:16 07/24/23 22:08 07/25/23 00:15 Temperature 99 F 99.7 F H Pulse Rate 73 Pulse Rate [Left P ulse Oximeter] Respiratory Rate Blood Pressure [Le ft Arm] Blood Pressure [Ri ght Arm] Pulse Oximetry Oxygen Delivery Me thod Oxygen Flow Rate 07/25/23 00:15 07/25/23 00:15 07/25/23 00:15 Temperature Pulse Rate Pulse Rate [Left P ulse Oximeter] 89 Respiratory Rate 22 22 Blood Pressure [Le ft Arm] Blood Pressure [Ri ght Arm] Pulse Oximetry 92 92 Oxygen Delivery Me thod Nasal Cannula Oxygen Flow Rate 1 07/25/23 00:15 07/25/23 03:00 Temperature 97.8 F 97.6 F Pulse Rate Pulse Rate [Left P ulse Oximeter] 89 60 Respiratory Rate 22 24 Blood Pressure [Le ft Arm] 108/75 Blood Pressure [Ri ght Arm] 102/38 L Pulse Oximetry 92 92 Oxygen Delivery Me thod Nasal Cannula Nasal Cannula Oxygen Flow Rate 1 1 Labs Labs: Laboratory Results - last 24 hr 07/24/23 07/24/23 07/25/23 06:24 09:18 06:16 WBC 7.21 RBC 3.32 L Hgb 9.9 L Hct 31.7 L MCV 96 MCH 30 MCHC 31 L Plt Count 211 VBG pH 7.391 VBG pCO2 43 VBG pO2 < 20.0 L VBG HCO3 26 Sodium 141 Potassium 3.3 L Chloride 107 Carbon Dioxide 25 Anion Gap 9 BUN 7 Creatinine 0.8 Estimated Creat Clear 63.88 Estimated GFR 91 Glucose 138 H Calcium 8.8 Magnesium 2.0 Iron 29 L TIBC 225 L % Saturation 13 L Total Bilirubin 2.7 H 2.7 H Direct Bilirubin 1.5 H 1.1 H GGT 84 H 97 H AST 131 H 82 H ALT 140 H 124 H Alkaline Phosphatase 113 117 Total Protein 6.8 7.2 Albumin 3.4 3.7 Lipase 32 Lab Acknowledgement Test Added
[2023-07-25 08:54] LABS: C Reactive Protein* 19.1 mg/dL (0.5-1.0)
[2023-07-25] MEDS: buPROPion XL 150 MG TABLET 300 MG PO (09:20)
[2023-07-25] MEDS: DULOXETINE 30 MG CAPSULE DR 60 MG PO (09:21)
[2023-07-25] MEDS: METOPROLOL TARTRATE 25 MG TABLET 6.25 MG PO ×2 (09:21→21:36)
[2023-07-25] MEDS: ASPIRIN 81 MG TAB.CHEW PO (09:21)
[2023-07-25] MEDS: guaiFENesin 600 MG TAB.ER.12H PO ×2 (09:21→21:36)
[2023-07-25] MEDS: PRIMIDONE 50 MG TABLET PO (09:21)
[2023-07-25] MEDS: TAMSULOSIN HCL 0.4 MG CAPSULE PO (09:21)
[2023-07-25] MEDS: POTASSIUM CHLORIDE 10 MEQ CAPSULE ER 20 MEQ PO ×2 (09:24→18:01)
[2023-07-25] MEDS: AMOXICILLIN/CLAVULANATE 875 mg/125 mg TABLET PO ×2 (09:24→18:01)
[2023-07-25] MEDS: SODIUM CHLORIDE 0.9 % (FLUSH) 10 ML SYRINGE 5 ML IVF ×2 (09:27→21:38)
[2023-07-25 11:27] VITALS: BP 102/60; PULSE 87; RESP 36; TEMP 36.8; O2SAT 94
--- NOTE | 2023-07-25 14:39 | PC.SOCIAL ---
Addendum entered by MADIE Goetz 07/25/23 16:17: [facility] will continue to assess and make a decision on admit tomorrow. They do not anticipate an available bed until Saturday if pt is accepted for admit. fast food worker to follow up as needed. Addendum entered by MADIE Goetz 07/25/23 16:13: Received call back from Pura at [facility] requesting additional information as they are wondering if pt needs a secure unit and they do not have any beds in secure unit currently. Secure emailed nursing notes and MOCA results for continued assessment. fast food worker to follow up as needed. Original Note: Discharge planning- Met with pt and pt's to discuss discharge plans. Recommendation is SNF for short-term rehab. Pt's informs she would like to take pt home if possible, but if pt needs SNF she would like this worker to look in [place], since [place] lives in [place] or surrounding communities. Received update from that pt will need SNF. Contacted the following SNF's for possible placement. 1. [facility]- Phone call to Yesi in admissions. There are no male beds available at this time. 2. [facility]- Phone call to Nina in admissions. There is a male bed available for Saturday. Faxed referral to [phone]. 3. [facility]- E-mail to Pura in admissions. There are openings. Secure e-mailed referral to [facility] for review. Social work will follow up as needed.
[2023-07-25 15:00] VITALS: PULSE 87; PULSE 91; RESP 28; TEMP 37.1; O2SAT 91; O2SAT 92
[2023-07-25 19:00] VITALS: BP 126/82; PULSE 102; RESP 24; TEMP 37; O2SAT 91
--- NOTE | 2023-07-25 19:01 | PC.NURSE ---
End of shift [id number] - Pt oriented to self, cooperative to care, very hard of hearing but easily redirected. Standby assistance with walker and gait belt. Pt able to stand and walk with PT, but O2 saturation decreases to below 90%. Pt recovers appropriately when coached in an effective breathing pattern. Tolerating O2 via nasal cannula at 1L, able to maintain saturation above 90% with oxygen. Pt unable to verbalize pain, nausea, dizziness. Pt able to use urinal at bedside, but did have 1 episode of bladder incontinence during shift. Pt observed to sleep during majority of the day and refused evening meal. Family at bedside, pt appears to be sleeping at end of shift.
[2023-07-25] MEDS: ACETAMINOPHEN 325 MG TABLET 650 MG PO (21:36)
[2023-07-25] MEDS: GABAPENTIN 300 MG CAPSULE PO (21:36)
[2023-07-25] MEDS: ATORVASTATIN CALCIUM 40 MG TABLET PO (21:36)
[2023-07-25] MEDS: TRAZODONE HCL 50 MG TABLET 100 MG PO (21:37)
[2023-07-25] MEDS: ENOXAPARIN 40 MG/0.4 ML INJ SUBCUT (21:37)
[2023-07-26] VITALS (10 sets, daily range): BP systolic 93–129; BP diastolic 61–83; PULSE 62–100; RESP 20–22; TEMP 36.7–37.3; O2SAT 90–97
--- NOTE | 2023-07-26 00:26 | PC.NURSE ---
End of care [id number]: Pt alert & oriented to self only. Currently on 1L NC to maintain O2 > 90%. Pt is intermittently incontinent of urine vs utilizes urinal at bedside. No BM this shift. Pt very sleepy at beginning of shift but arouses easily. Able to swallow meds whole with water. Pt is NPO at 0000 for planned barium swallow study on 07/26. On TELE showing A. Fib NVR-RVR rate low 100s. PIV in left wrist SL and C/D/I. PRN Tylenol given x1 dose at bedtime. Bacitracin ointment applied to scab on right eyelid.
[2023-07-26 07:04] LABS: Albumin* 3.2 g/dL (3.3-5.0); Chloride* 107 mmol/L (96-114)
[2023-07-26 07:05] LABS: Potassium* 3.6 mmol/L (3.6-5.1); Sodium* 138 mmol/L (135-149)
[2023-07-26 07:07] LABS: Creatinine* 0.7 mg/dL (0.5-1.5); Est. Creatinine Clearance* 63.88; Estimated Glomerular Filt Rate 95 ml/min
[2023-07-26 07:08] LABS: Alanine Aminotransferase* 85 U/L (4-50); Alkaline Phosphatase* 111 U/L (40-150); Anion Gap 6 mEq/L (7-15); Aspartate Amino Transferase* 44 U/L (12-35); Bilirubin Direct* 0.5 mg/dL (0.0-0.5); Bilirubin Total* 1.8 mg/dL (0.1-1.5); Blood Urea Nitrogen* 6 mg/dL (7-30); Calcium* 8.7 mg/dL (8.4-10.6); Carbon Dioxide* 25 mmol/L (20-32); Gamma Glutamyl Transpeptidase* 83 U/L (8-55); Glucose* 132 mg/dL (60-115); Total Protein* 6.3 g/dL (6.0-8.3)
[2023-07-26 07:24] LABS: C Reactive Protein* 19.8 mg/dL (0.5-1.0)
[2023-07-26] MEDS: POTASSIUM CHLORIDE 10 MEQ CAPSULE ER 20 MEQ PO ×2 (09:05→17:42)
[2023-07-26] MEDS: DULOXETINE 30 MG CAPSULE DR 60 MG PO (09:05)
[2023-07-26] MEDS: METOPROLOL TARTRATE 25 MG TABLET 6.25 MG PO ×2 (09:05→21:14)
[2023-07-26] MEDS: guaiFENesin 600 MG TAB.ER.12H PO ×2 (09:05→21:11)
[2023-07-26] MEDS: TAMSULOSIN HCL 0.4 MG CAPSULE PO (09:05)
[2023-07-26] MEDS: ASPIRIN 81 MG TAB.CHEW PO (09:05)
[2023-07-26] MEDS: AMOXICILLIN/CLAVULANATE 875 mg/125 mg TABLET PO ×2 (09:05→17:42)
[2023-07-26] MEDS: buPROPion XL 150 MG TABLET 300 MG PO (09:05)
[2023-07-26] MEDS: SODIUM CHLORIDE 0.9 % (FLUSH) 10 ML SYRINGE 5 ML IVF ×2 (09:11→21:11)
[2023-07-26] MEDS: PRIMIDONE 50 MG TABLET PO (09:11)
--- NOTE | 2023-07-26 09:52 | PC.SOCIAL ---
Discharge planning: Spoke with [facility] who is still assessing pt for admit next week. Answered questions from [facility] admissions staff and awaiting call back with decision on admit. ornamental iron worker to follow up as needed.
[2023-07-26] MEDS: IPRAT-ALBUT 0.5-2.5 MG/3 ML NEB 1 NEB IH ×3 (11:13→21:32)
--- NOTE | 2023-07-26 11:33 | P.IMPN_ITS ---
Progress Note: A&P Assessment and plan (1) Chronic pulmonary aspiration: Problem details: -acute vs subacute PNA - minimally hypoxic (multifactorial); S/P ZOSYN from 07/22-07/25. Now on Augmentin. Would recommend 7-10 days. (end 07/31 for 10 days of total abx) -speech will soften diet -neg strep pneumo/legionella. neg resp quad screen. WBC down nicely. tmax 99.1 -speech did not note obvious aspiration but patient clearly coughs and desaturates with eating. suspecting chronic swallowing abnl. will order a video swallow study as an outpatient as there is no staff this week to read -likely adding to comorbidities that lead to falls, weakness Status: Acute (2) Atrial fibrillation: Problem details: Suspect may be triggered by aspiration events, underlying lung disease or coronary history with CABG -new onset - converted - but flipped back into AFIB. CONSIDER OUTPATIENT ZIO PATCH. -soft bps on oral metoprolol, adjusted to 6.25mg po bid -rate controlled as of am of 07/24 -metoprolol 5mg IV q 4 hours prn for sustained HR >120 for 30 minutes -[id number] Score 2 for age/sex. 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 no sutures/glue. Status: Acute (5) Acquired hemolytic anemia: Problem details: -chronic known problem. -dropping from admission 11.3 --> 9.2 -->9.9 -monitor Status: Chronic (6) Malnutrition: Problem details: -nutrition consult ordered -weight at [facility] was 74.6 kg in November 2022 -weight at admission was 72.1 kg (down 3.4%) -weight up during this stay ... fluid overload treated in hospital. Status: Chronic (7) Abnormal LFTs (liver function tests): Problem details: -RUQ u/s is reassuring. Continue to follow. -In review of his liver enzymes in [facility]: Bilirubin has been 2.6-1.6 over the last 2 years AST, ALT, alk-phos has historically been normal. Jul 2020 CT abd/pelvis Mild diffuse hepatic steatosis similar to the prior ultrasound. No stigmata of cirrhosis or intrahepatic mass. No portal hypertension. -hx of Gilbert syndrome, has followed with Dr. Vazquez in the past -from [facility] in 09/25 Hyperbilirubinemia?patient has a history of a chronic hyperbilirubinemia. The bilirubin level has varied over the years. In 2018 the patient's total bilirubin was 3.7 with a direct of 0.7 it was checked later 2017 and was slightly elevated at 1.4. 2019 bilirubin was 2.5 and in 2019 bilirubin was 3.4. The remaining liver enzymes are normal. AST is 26 ALT 26 and alkaline phosphatase 130. The patient recently had a CT scan that shows mild diffuse fatty liver. No evidence of cirrhosis or intrahepatic mass. No pleural hypertension. There are some atrophy of the pancreas. No evidence of malignancy. He has no past history of liver disease. No history of hepatitis. No family history of liver cirrhosis or problems. Prior to 2017 he received his care at the [facility]. We do not have any old records to compare previous levels of the bilirubin. He does not recall ever being told by a physician that his bilirubin was elevated in the past. Status: Acute (8) COPD (chronic obstructive pulmonary disease): Problem details: -possible acute on chronic exacerbation. Continues to vape -CT shows centrilobular emphysema, multifocal peripheral reticulation (ILD, fibrosis) -continue home inhalers, scheduled duonebs, prn albuterol nebs (monitoring HR in setting of new onset afib) -continue Zosyn for now as initiated in ED given symptomatic presentation, concern for aspiration risk -consider oral prednisone if necessary. says he had an acute metal status change previously at a higher dose -oxygen saturation adequate on room air, continue to monitor -RT consult -vaping cessation encouraged Status: Chronic (9) Type 2 diabetes mellitus with microalbuminuria: Problem details: -A1C 4.5 -hold home dose of metformin while hospitalized Status: Chronic (10) Hypercholesterolemia: Problem details: -continue statin Status: Chronic (11) CAD (coronary artery disease): Problem details: -s/p CABG RODRIGEZ to prox-mid LAD, SVG aorta to posterolateral RCA -continue aspirin -in reviewing EMR, unable to see echo from 2015, appears he may have had another echo in 2019. BNP 2320. denies known h/o heart failure. -trop 0.02 Status: Chronic (12) CKD (chronic kidney disease) stage 3, GFR 30-59 ml/min: Problem details: -creatinine 0.8, avoid nephrotoxic medications, renally dosing antibiotics, continue to monitor Status: Acute Subjective Date Seen: 07/26/23 Interval history: Daily Progress Note - Hospital Medicine Day #: 5 CC: ongoing weakness, falls. question of aspiration pneumonia. liver inflammation. AFIB OVERNIGHT UPDATES FROM STAFF & MED, LAB, IMAGING UPDATES -still on 1 Liter NC -continues to be alert -conferenced with Speech Path again today - she is going to adjust diet to soft. Video swallow study next week likely. -working on TCU placement. -lac on the right eye improving CXR 07/24 Diffuse interstitial markings bilaterally may be secondary to pulmonary edema versus an acute infectious/inflammatory process, superimposed on emphysematous and mild fibrotic changes as seen on prior CTA chest. No pleural effusion or pneumothorax. ECHO 07/23/23 -Normal LV size. EF 55-60%. -mildly enlarged left atrium -no significant valvular disease RUQ U/S 07/24/23 Mildly thickened gallbladder wall, nonspecific. No gallbladder stones identified. Otherwise unremarkable right upper quadrant ultrasound. Chest CT reviewed from admission Blood cultures negative to date Sputum culture is still at no growth White blood cell count has downtrended nicely. Known chronic anemia is at 9.9 VBG is normal Electrolytes have improved nicely. Hemoglobin A1c 4.5. Metformin on hold. iron studies show iron deficiency CRP continues to climb slowly LFTs were elevated upon admission, total bilirubin seems back to his baseline, 2.7. AST, ALT are mildly elevated (2-4x normal). AP normal. Objective: older than stated age. eating. I put pocket talker on, he answers with 1-2 words. Doesn't look in distress. Vitals: see above Lungs: Clear. Cardiac: S1S2. irregular. no edema. Disposition/Potential discharge - Likely to return to previous living situation. Today I spent 50minutes seeing the patient, reviewing Expanse and EPIC notes/diagnostics, discussing the care plan with our care time that includes social work, PT/OT, pharmacy, RT, penitentiary and documenting my impressions and plan in the medical record. Exam Const: Vital Signs, click to edit/add: Vital Signs - 24 hr 07/25/23 15:00 07/25/23 15:00 07/25/23 15:00 Temperature Pulse Rate Pulse Rate [Left P ulse Oximeter] 87 Respiratory Rate Blood Pressure [Le ft Arm] Blood Pressure [Ri ght Arm] Pulse Oximetry 92 91 Oxygen Delivery Me thod Nasal Cannula Oxygen Flow Rate 1 07/25/23 15:00 07/25/23 19:00 07/26/23 01:30 Temperature 98.7 F 98.6 F Pulse Rate 94 Pulse Rate [Left P ulse Oximeter] 91 102 H Respiratory Rate 28 H 24 Blood Pressure [Le ft Arm] Blood Pressure [Ri ght Arm] 126/82 Pulse Oximetry 91 91 Oxygen Delivery Me thod Nasal Cannula Nasal Cannula Oxygen Flow Rate 1 1 07/26/23 01:30 07/26/23 01:30 07/26/23 01:30 Temperature Pulse Rate Pulse Rate [Left P ulse Oximeter] 85 Respiratory Rate 22 22 Blood Pressure [Le ft Arm] Blood Pressure [Ri ght Arm] Pulse Oximetry 94 94 Oxygen Delivery Me thod Nasal Cannula Oxygen Flow Rate 1 07/26/23 01:30 07/26/23 04:00 07/26/23 07:00 Temperature 99.1 F Pulse Rate Pulse Rate [Left P ulse Oximeter] 85 75 Respiratory Rate 22 20 Blood Pressure [Le ft Arm] 93/65 Blood Pressure [Ri ght Arm] Pulse Oximetry 94 91 97 Oxygen Delivery Me thod Nasal Cannula Nasal Cannula Oxygen Flow Rate 1 1 07/26/23 07:00 07/26/23 07:00 07/26/23 07:00 Temperature 98.7 F Pulse Rate Pulse Rate [Left P ulse Oximeter] 74 74 Respiratory Rate 22 22 22 Blood Pressure [Le ft Arm] 123/72 Blood Pressure [Ri ght Arm] Pulse Oximetry 96 96 Oxygen Delivery Me thod Nasal Cannula Nasal Cannula Oxygen Flow Rate 1 1 07/26/23 07:00 Temperature Pulse Rate 78 Pulse Rate [Left P ulse Oximeter] Respiratory Rate Blood Pressure [Le ft Arm] Blood Pressure [Ri ght Arm] Pulse Oximetry Oxygen Delivery Me thod Oxygen Flow Rate Labs Labs: Laboratory Results - last 24 hr 07/26/23 06:21 Sodium 138 Potassium 3.6 Chloride 107 Carbon Dioxide 25 Anion Gap 6 L BUN 6 L Creatinine 0.7 Estimated Creat Clear 63.88 Estimated GFR 95 Glucose 132 H Calcium 8.7 Total Bilirubin 1.8 H Direct Bilirubin 0.5 GGT 83 H AST 44 H ALT 85 H Alkaline Phosphatase 111 C-Reactive Protein 19.8 H Total Protein 6.3 Albumin 3.2 L
--- NOTE | 2023-07-26 16:45 | PC.SOCIAL ---
Addendum entered by MADIE Goetz 07/26/23 17:11: Received email back from Rama at [facility] that they are unable to accept pt for admit as they do not feel he is a rehab candidate and has been falling too much to come to their facility. wardrobe specialty worker to continue to work on half-way placement. Original Note: Discharge planning: Received call from Pura at [facility] stating they are unable to accept pt as they feel he needs a secure half-way bed and this is not currently available in their [facility] unit. Pt has been refused admission due to not having beds avaiiable at [facility] and [facility]. Called who is disapointed pt can not go to [facility] as this would be most convenient for her. Emailed the resource list of closest and extended list of care home facilities in the area with the Department of Health ratings and information on how to locate these ratings. requested community mental health social worker contact the two facilities in [place], [place] for placement. Called and secure emailed information for review to Xochitl at [facility] and to Rama at [facility]. Awaiting decisions on admit. wardrobe specialty worker to follow up as needed.
--- NOTE | 2023-07-26 19:23 | PC.NURSE ---
Nursing Care Hours: [id number] took over cares for last two hours. Pt stable, declined dinner d/t no appetite. Took pills whole. No c/o pain. Talking with friend on the phone.
[2023-07-26] MEDS: ENOXAPARIN 40 MG/0.4 ML INJ SUBCUT (21:10)
[2023-07-26] MEDS: ATORVASTATIN CALCIUM 40 MG TABLET PO (21:10)
[2023-07-26] MEDS: GABAPENTIN 300 MG CAPSULE PO (21:11)
[2023-07-26] MEDS: TRAZODONE HCL 50 MG TABLET 100 MG PO (21:11)
[2023-07-27] VITALS (10 sets, daily range): BP systolic 99–119; BP diastolic 61–78; PULSE 79–103; RESP 18–20; TEMP 36.3–36.9; O2SAT 90–94
[2023-07-27] MEDS: IPRAT-ALBUT 0.5-2.5 MG/3 ML NEB 1 NEB IH ×4 (03:49→21:38)
[2023-07-27] MEDS: polyethylene glycoL 3350 17 GM PACK PO (06:25)
[2023-07-27 06:38] LABS: HCO3 VBG 27 mmol/L (21-28); PCO2 VBG 37 mmHG (40-50); PO2 VBG 40.8 mmHG (25-47); pH VBG 7.471 (7.32-7.43)
[2023-07-27 06:39] LABS: Hematocrit 29.3 % (37.0-53.0); Hemoglobin* 9.4 gm/dL (13.5-17.5); Mean Corpuscular HGB Conc 32 gm/dL (32-36); Mean Corpuscular Hemoglobin 30 pg (26-34); Mean Corpuscular Volume 94 fL (80-100); Platelet Count* 230 K/uL (140-440); Red Blood Count 3.13 m/uL (4.30-5.90); White Blood Count* 5.77 K/uL (4.50-11.00)
--- NOTE | 2023-07-27 06:44 | PC.NURSE ---
End of shift note [id number]: Pt noted to be alert & oriented to person, place and time upon assessment though is impulsive when having to toilet. He has been mostly continent of urine this shift using bedside urinal though was noted to be incontinent of bladder x 1 as well. Bed alarm utilized as pt does not use call light and will often sit up at side of bed independently and attempt to use urinal alone without using call light. Pt remains on telemetry due to new onset A fib with RVR during this hospitalization. A fib continues to be noted on telemetry. He has denied pain when asked and has been afebrile. 1 LPM oxygen used throughout the night to maintain sats >90% as pt noted to be 85-86% on RA. Pt does become tachycardic with exertion and is noted to be deconditioned as he is unable to independently support his trunk while using urinal at bedside. Pt was given PRN Miralax this morning as last BM noted to be 07/24/23.
[2023-07-27 06:47] LABS: Slide Review Reflex No
[2023-07-27 07:21] LABS: Albumin* 3.3 g/dL (3.3-5.0); Chloride* 107 mmol/L (96-114); Sodium* 139 mmol/L (135-149)
[2023-07-27 07:22] LABS: Potassium* 4.1 mmol/L (3.6-5.1)
[2023-07-27 07:23] LABS: Creatinine* 0.6 mg/dL (0.5-1.5); Est. Creatinine Clearance* 63.88
[2023-07-27 07:24] LABS: Alanine Aminotransferase* 68 U/L (4-50); Alkaline Phosphatase* 113 U/L (40-150); Anion Gap 7 mEq/L (7-15); Aspartate Amino Transferase* 40 U/L (12-35); Bilirubin Total* 1.7 mg/dL (0.1-1.5); Blood Urea Nitrogen* 5 mg/dL (7-30); Carbon Dioxide* 25 mmol/L (20-32); Estimated Glomerular Filt Rate 99 ml/min; Gamma Glutamyl Transpeptidase* 85 U/L (8-55); Glucose* 146 mg/dL (60-115); Total Protein* 6.4 g/dL (6.0-8.3)
[2023-07-27 07:25] LABS: Calcium* 8.5 mg/dL (8.4-10.6); Magnesium* 2.2 mg/dL (1.5-2.6)
[2023-07-27 07:38] LABS: C Reactive Protein* 16.7 mg/dL (0.5-1.0)
--- NOTE | 2023-07-27 09:00 | CRLHL7_ITS ---
For Patients: As a result of the Century Cures Act, medical imaging exams and procedure reports are released immediately into your electronic medical record. You may view this report before your referring provider. If you have questions, please contact your health care provider. INDICATION: Follow-up pneumonia COMPARISON: July 24, 2023 TECHNIQUE: Single-view study July 27, 2023 9:15 a.m. FINDINGS: TUBES AND LINES: None. HEART AND MEDIASTINUM: The heart size is normal. The mediastinal contour appears normal for patient age.Median sternotomy LUNGS AND PLEURAL SPACES: [id number] diffuse multifocal airspace process bilaterally. This has improved since the prior study.The pleural spaces are unremarkable. OSSEOUS STRUCTURES: Age-appropriate appearance. No acute focal finding. IMPRESSION: [id number]-[id number] diffuse multifocal airspace process bilaterally improved since the prior study. Heart size normal. Sternotomy. Dictated by Neo Lobo MD @ 07/27/2023 9:40:16 AM (Electronically Signed)
[2023-07-27] MEDS: PRIMIDONE 50 MG TABLET PO (09:25)
[2023-07-27] MEDS: buPROPion XL 150 MG TABLET 300 MG PO (09:26)
[2023-07-27] MEDS: DULOXETINE 30 MG CAPSULE DR 60 MG PO (09:26)
[2023-07-27] MEDS: ASPIRIN 81 MG TAB.CHEW PO (09:26)
[2023-07-27] MEDS: guaiFENesin 600 MG TAB.ER.12H PO ×2 (09:26→20:45)
[2023-07-27] MEDS: METOPROLOL TARTRATE 25 MG TABLET 6.25 MG PO (09:27)
[2023-07-27] MEDS: POTASSIUM CHLORIDE 10 MEQ CAPSULE ER 20 MEQ PO ×2 (09:29→18:09)
[2023-07-27] MEDS: AMOXICILLIN/CLAVULANATE 875 mg/125 mg TABLET PO ×2 (09:29→18:09)
[2023-07-27] MEDS: SODIUM CHLORIDE 0.9 % (FLUSH) 10 ML SYRINGE 5 ML IVF ×2 (09:30→20:45)
[2023-07-27] MEDS: TAMSULOSIN HCL 0.4 MG CAPSULE PO (09:32)
--- NOTE | 2023-07-27 15:08 | P.IMPN_ITS ---
Progress Note: A&P Assessment and plan (1) Chronic pulmonary aspiration: Problem details: Ongoing concern about possibility of aspiration. Has been treated with antibiotics during this hospital stay. Consider possible outpatient swallowing evaluation/swallow study Status: Acute (2) Atrial fibrillation: Problem details: Appears to be paroxysmal atrial fibrillation. Rate control with metoprolol. Appears to need slightly better rate control so will increase metoprolol despite relatively low blood pressures. 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 no sutures/glue. Status: Acute (5) Acquired hemolytic anemia: Problem details: Previous diagnosis found in past medical history -dropping from admission 11.3 --> 9.2 -->9.9 -monitor Status: Chronic (6) Malnutrition: Problem details: -nutrition consult ordered -weight at [facility] was 74.6 kg in November 2022 -weight at admission was 72.1 kg (down 3.4%) -weight up during this stay ... fluid overload treated in hospital. Status: Chronic (7) Abnormal LFTs (liver function tests): Problem details: -RUQ u/s is reassuring. Continue to follow. -In review of his liver enzymes in [facility]: Bilirubin has been 2.6-1.6 over the last 2 years AST, ALT, alk-phos has historically been normal. Jul 2020 CT abd/pelvis Mild diffuse hepatic steatosis similar to the prior ultrasound. No stigmata of cirrhosis or intrahepatic mass. No portal hypertension. -hx of Gilbert syndrome, has followed with Dr. Vazquez in the past -from [facility] in 09/25 Hyperbilirubinemia?patient has a history of a chronic hyperbilirubinemia. The bilirubin level has varied over the years. In 2018 the patient's total bilirubin was 3.7 with a direct of 0.7 it was checked later 2017 and was slightly elevated at 1.4. 2018 bilirubin was 2.5 and in 2019 bilirubin was 3.4. The remaining liver enzymes are normal. AST is 26 ALT 26 and alkaline phosphatase 130. The patient recently had a CT scan that shows mild diffuse fatty liver. No evidence of cirrhosis or intrahepatic mass. No pleural hypertension. There are some atrophy of the pancreas. No evidence of malignancy. He has no past history of liver disease. No history of hepatitis. No family history of liver cirrhosis or problems. Prior to 2018 he received his care at the [facility]. We do not have any old records to compare previous levels of the bilirubin. He does not recall ever being told by a physician that his bilirubin was elevated in the past. Status: Acute (8) COPD (chronic obstructive pulmonary disease): Problem details: -possible acute on chronic exacerbation. Continues to vape -CT shows centrilobular emphysema, multifocal peripheral reticulation (ILD, fibrosis) -continue home inhalers, scheduled duonebs, prn albuterol nebs (monitoring HR in setting of new onset afib) Intermittently requiring oxygen to maintain O2 sats above 90% Status: Chronic (9) Type 2 diabetes mellitus with microalbuminuria: Problem details: -A1C 4.5. Possibly attributable to hemolytic anemia? -hold home dose of metformin while hospitalized Blood sugars well controlled in the hospital Status: Chronic (10) Hypercholesterolemia: Problem details: -continue statin Status: Chronic (11) CAD (coronary artery disease): Problem details: -s/p CABG RODRIGEZ to prox-mid LAD, SVG aorta to posterolateral RCA -continue aspirin -in reviewing EMR, unable to see echo from 2016, appears he may have had another echo in 2020. BNP 2320. denies known h/o heart failure. -trop 0.02 Status: Chronic (12) CKD (chronic kidney disease) stage 3, GFR 30-59 ml/min: Problem details: -creatinine 0.8, avoid nephrotoxic medications, renally dosing antibiotics, continue to monitor Status: Acute (13) Discharge planning issues: Problem details: Continue to work work with psych social worker to make arrangements for safe discharge. Currently looking at snf placement for rehab Status: Acute Plan Continue to monitor and manage respiratory status , hypoxia and COPD, continue to monitor diabetes and atrial fibrillation with RVR. Await safe discharge plan. Time Spent With Patient Total time spent: Total time spent today is 60 minutes, 40 minutes in coordination of care discussing with patient and other providers ongoing evaluation management of disability, atrial fibrillation, COPD Subjective Date Seen: 07/27/23 Interval history: Daily Progress Note - Hospital Medicine Day #: 6 CC: ongoing weakness, falls. Concern for aspiration pneumonia. CT scan shows emphysema and possible fibrosis. No PE. Atrial fibrillation. OVERNIGHT UPDATES FROM STAFF & MED, LAB, IMAGING UPDATES -still on 1 Liter NC -continues to be alert -conferenced with Speech Path again today - she is going to adjust diet to soft. Video swallow study next week likely. -working on TCU placement. -lac on the right eye improving CXR 07/24 Diffuse interstitial markings bilaterally may be secondary to pulmonary edema versus an acute infectious/inflammatory process, superimposed on emphysematous and mild fibrotic changes as seen on prior CTA chest. No pleural effusion or pneumothorax. ECHO 07/23/23 -Normal LV size. EF 55-60%. -mildly enlarged left atrium -no significant valvular disease RUQ U/S 07/24/23 Mildly thickened gallbladder wall, nonspecific. No gallbladder stones identified. Otherwise unremarkable right upper quadrant ultrasound. Chest CT reviewed from admission Blood cultures negative to date Sputum culture is still at no growth White blood cell count has downtrended nicely. Known chronic anemia is at 9.9 VBG is normal Electrolytes have improved nicely. Hemoglobin A1c 4.5. Metformin on hold. iron studies show iron deficiency CRP continues to climb slowly LFTs were elevated upon admission, total bilirubin seems back to his baseline, 2.7. AST, ALT are mildly elevated (2-4x normal). AP normal. Objective: older than stated age. eating. I put pocket talker on, he answers with 1-2 words. Doesn't look in distress. Vitals: see above Lungs: Clear. Cardiac: S1S2. irregular. no edema. Patient reports no concerns today. He has been on and off oxygen with O2 sats in the upper 80s on room air low 90s on 1 L per nasal cannula. No fever, chest pain. He reports he has been able to eat with a good appetite. Exam Narrative: Exam Narrative: He is alert and appears in no distress. He is quite hard of hearing. Using the pocket talker. He gives his own history. Respirations with diminished breath sounds. No wheezing rales or rhonchi. Cardiovascular: S1, S2, relatively regular rhythm. Abdomen is soft without tenderness or mass. Extremities without edema. He moves all 4 extremities well. Const: Vital Signs, click to edit/add: Vital Signs - 24 hr 07/26/23 19:36 07/26/23 23:00 07/26/23 23:00 Temperature 98.4 F Pulse Rate 100 Pulse Rate [Left P ulse Oximeter] 98 100 Respiratory Rate 20 20 Blood Pressure [Ri ght Arm] 129/62 Pulse Oximetry 90 Oxygen Delivery Me thod Room Air Oxygen Flow Rate 07/26/23 23:04 07/26/23 23:05 07/26/23 23:07 Temperature 98.0 F Pulse Rate Pulse Rate [Left P ulse Oximeter] 100 Respiratory Rate 20 20 Blood Pressure [Ri ght Arm] 101/61 Pulse Oximetry 92 92 92 Oxygen Delivery Me thod Nasal Cannula Nasal Cannula Oxygen Flow Rate 1 1 07/27/23 03:52 07/27/23 07:00 07/27/23 07:00 Temperature 97.3 F L Pulse Rate Pulse Rate [Left P ulse Oximeter] 97 102 H Respiratory Rate 18 18 Blood Pressure [Ri ght Arm] 118/71 Pulse Oximetry 93 93 Oxygen Delivery Me thod Nasal Cannula Oxygen Flow Rate 1 07/27/23 07:00 07/27/23 07:00 07/27/23 07:00 Temperature 97.9 F Pulse Rate 103 H Pulse Rate [Left P ulse Oximeter] 102 H Respiratory Rate 18 18 Blood Pressure [Ri ght Arm] 119/71 Pulse Oximetry 93 93 Oxygen Delivery Me thod Nasal Cannula Nasal Cannula Oxygen Flow Rate 1 1 07/27/23 10:57 Temperature 97.9 F Pulse Rate Pulse Rate [Left P ulse Oximeter] 101 H Respiratory Rate 18 Blood Pressure [Ri ght Arm] 99/78 Pulse Oximetry 94 Oxygen Delivery Me thod Room Air Oxygen Flow Rate 1 Documenting provider has reviewed patient's vital signs: yes Labs Labs: Laboratory Results - last 24 hr 07/27/23 06:21 WBC 5.77 RBC 3.13 L Hgb 9.4 L Hct 29.3 L MCV 94 MCH 30 MCHC 32 Plt Count 230 Diff Slide Review Cancelled VBG pH 7.471 H VBG pCO2 37 L VBG pO2 40.8 VBG HCO3 27 Sodium 139 Potassium 4.1 Chloride 107 Carbon Dioxide 25 Anion Gap 7 BUN 5 L Creatinine 0.6 Estimated Creat Clear 63.88 Estimated GFR 99 Glucose 146 H Calcium 8.5 Magnesium 2.2 Total Bilirubin 1.7 H GGT 85 H AST 40 H ALT 68 H Alkaline Phosphatase 113 C-Reactive Protein 16.7 H Total Protein 6.4 Albumin 3.3
--- NOTE | 2023-07-27 18:30 | PC.NURSE ---
End of shift note: Patient is pleasant and cooperative. Patient is alert & oriented to person, place, and time. Can use urinal independently at bedside. Patient is unable to use call light so bed and chair alarms in use for patient safety. Patient A-fib on tele. Patient afebrile this shift, VSS w/ 88-93% on RA. Patient denies pain. Patient is tachycardic w/activity but is noted to recover quickly. BG 141, 195, 141. Metformin still held per MD. see eMar. Patient tolerating a reg. diet. Patient up to chair for meals and ambulate hallways with therapy.
[2023-07-27] MEDS: ATORVASTATIN CALCIUM 40 MG TABLET PO (20:44)
[2023-07-27] MEDS: ENOXAPARIN 40 MG/0.4 ML INJ SUBCUT (20:44)
[2023-07-27] MEDS: METOPROLOL TARTRATE 25 MG TABLET 12.5 MG PO (20:45)
[2023-07-27] MEDS: GABAPENTIN 300 MG CAPSULE PO (20:45)
[2023-07-27] MEDS: TRAZODONE HCL 50 MG TABLET 100 MG PO (20:49)
[2023-07-28] VITALS (8 sets, daily range): BP systolic 117–128; BP diastolic 58–94; PULSE 73–88; RESP 18–20; TEMP 36.7–37.2; O2SAT 89–95
[2023-07-28] MEDS: IPRAT-ALBUT 0.5-2.5 MG/3 ML NEB 1 NEB IH ×4 (03:57→21:38)
[2023-07-28] MEDS: bisacodyL 10 MG SUPP.RECT PR (06:03)
--- NOTE | 2023-07-28 07:33 | PC.NURSE ---
End of shift note [id number]: Pt has been afebrile throughout the shift and remains on telemetry with A fib noted which is not a new finding. Healing laceration near R eye open to air with no warmth, redness, edema or drainage observed. Bed alarm used as pt is impulsive and frequently will not use call light when needing assistance. He uses urinal at bedside for voiding though does need assistance with this at times as he does spill urinal at times. Oxygen 1 LPM used overnight due to O2 sat dropping to 85-86% when on RA. Pt able to reposition independently in bed. PRN Bisacodyl suppository given for no documented BM since 07/24/23 though bowel sounds active x 4. Pt transfers/ambulates in room with SBA using walker and GB.
[2023-07-28] MEDS: buPROPion XL 150 MG TABLET 300 MG PO (09:24)
[2023-07-28] MEDS: AMOXICILLIN/CLAVULANATE 875 mg/125 mg TABLET PO ×2 (09:24→17:52)
[2023-07-28] MEDS: POTASSIUM CHLORIDE 10 MEQ CAPSULE ER 20 MEQ PO ×2 (09:24→17:52)
[2023-07-28] MEDS: guaiFENesin 600 MG TAB.ER.12H PO ×2 (09:25→21:04)
[2023-07-28] MEDS: METOPROLOL TARTRATE 25 MG TABLET 12.5 MG PO ×2 (09:25→21:04)
[2023-07-28] MEDS: PRIMIDONE 50 MG TABLET PO (09:25)
[2023-07-28] MEDS: TAMSULOSIN HCL 0.4 MG CAPSULE PO (09:25)
[2023-07-28] MEDS: ASPIRIN 81 MG TAB.CHEW PO (09:25)
[2023-07-28] MEDS: DULOXETINE 30 MG CAPSULE DR 60 MG PO (09:25)
[2023-07-28] MEDS: SODIUM CHLORIDE 0.9 % (FLUSH) 10 ML SYRINGE 5 ML IVF ×2 (09:26→21:05)
--- NOTE | 2023-07-28 13:23 | P.IMPN_ITS ---
Progress Note: A&P Assessment and plan (1) Chronic pulmonary aspiration: Problem details: Ongoing concern about possibility of aspiration. Has been treated with antibiotics during this hospital stay. Consider possible outpatient swallowing evaluation/video swallow study Status: Acute (2) Atrial fibrillation: Problem details: Appears to be paroxysmal atrial fibrillation. Rate control with metoprolol. Appears to need slightly better rate control so will increase metoprolol despite relatively low blood pressures. Previous discussion has led to the conclusion that anticoagulation is contraindicated due to frequent falls Status: Acute (3) Weakness: Problem details: Getting back to baseline. Ongoing high risk for falls due to chronic neurologic impairment. -h/o falls -PT/OT consults Status: Chronic (4) Fall during current hospitalization: Problem details: foot tender hours of 07/24 -lac to the right brow; bandage/oint. no sutures/glue. Status: Acute (5) Acquired hemolytic anemia: Problem details: Previous diagnosis found in past medical history. Details of the nature of his hemolytic anemia is uncertain -dropping from admission 11.3 --> 9.2 -->9.9 -monitor Status: Chronic (6) Malnutrition: Problem details: -nutrition consult ordered -weight at [facility] was 74.6 kg in November 2022 -weight at admission was 72.1 kg (down 3.4%) -weight up during this stay ... fluid overload treated in hospital. Status: Chronic (7) Abnormal LFTs (liver function tests): Problem details: -RUQ u/s is reassuring. Continue to follow. -In review of his liver enzymes in [facility]: Bilirubin has been 2.6-1.6 over the last 2 years AST, ALT, alk-phos has historically been normal. Jul 2020 CT abd/pelvis Mild diffuse hepatic steatosis similar to the prior ultrasound. No stigmata of cirrhosis or intrahepatic mass. No portal hypertension. -hx of Gilbert syndrome, has followed with Dr. Vazquez in the past -from [facility] in 09/25 Hyperbilirubinemia?patient has a history of a chronic hyperbilirubinemia. The bilirubin level has varied over the years. In 2018 the patient's total bilirubin was 3.7 with a direct of 0.7 it was checked later 2017 and was slightly elevated at 1.4. 2018 bilirubin was 2.5 and in 2019 bilirubin was 3.4. The remaining liver enzymes are normal. AST is 26 ALT 26 and alkaline phosphatase 130. The patient recently had a CT scan that shows mild diffuse fatty liver. No evidence of cirrhosis or intrahepatic mass. No pleural hypertension. There are some atrophy of the pancreas. No evidence of malignancy. He has no past history of liver disease. No history of hepatitis. No family history of liver cirrhosis or problems. Prior to 2018 he received his care at the [facility]. We do not have any old records to compare previous levels of the bilirubin. He does not recall ever being told by a physician that his bilirubin was elevated in the past. Status: Acute (8) COPD (chronic obstructive pulmonary disease): Problem details: -possible acute on chronic exacerbation. Continues to vape -CT shows centrilobular emphysema, multifocal peripheral reticulation (ILD, fibrosis) -continue home inhalers, scheduled duonebs, prn albuterol nebs (monitoring HR in setting of new onset afib) Intermittently requiring oxygen to maintain O2 sats above 90% Status: Chronic (9) Type 2 diabetes mellitus with microalbuminuria: Problem details: -A1C 4.5. Possibly attributable to hemolytic anemia? -hold home dose of metformin while hospitalized Blood sugars well controlled in the hospital Status: Chronic (10) Hypercholesterolemia: Problem details: -continue statin Status: Chronic (11) CAD (coronary artery disease): Problem details: -s/p CABG RODRIGEZ to prox-mid LAD, SVG aorta to posterolateral RCA -continue aspirin -in reviewing EMR, unable to see echo from 2015, appears he may have had another echo in 2019. BNP 2320. denies known h/o heart failure. -trop 0.02 Status: Chronic (12) CKD (chronic kidney disease) stage 3, GFR 30-59 ml/min: Problem details: -creatinine 0.8, avoid nephrotoxic medications, renally dosing antibiotics, continue to monitor Status: Acute (13) Discharge planning issues: Problem details: Initial plan was that [facility]. Patient and family now would like him to go home. Status: Acute (14) Dementia: Problem details: MOCA July 25, 2023 Per Neurology notes there was a question of whether this is related to remote history of alcoholism. Status: Acute (15) Unstable gait: Problem details: Chronic, needs walker. Status: Acute (16) Impaired judgment regarding safety: Problem details: Staff and family note that patient has done behaviors that have some risk. Indicated that this is likely a chronic impairment of judgment and not likely to improve so he will need more supervision for his safety Status: Acute Plan Continue in hospital for ongoing evaluation management. Plan outpatient follow- up of unresolved issues including concerns about aspiration, ongoing therapy, support and education of patient and family regarding safety at home. Time Spent With Patient Total time spent: Total time spent today is 60 minutes, 45 minutes in coordination of care discussing with patient and family ongoing evaluation management of chronic medical problems Subjective Date Seen: 07/28/23 Interval history: 78-year-old male with a history of coronary artery disease status post CABG, type 2 diabetes, Gilbert's, hepatic steatosis, alcoholism in remission, hemolytic anemia, COPD admitted to the hospital with concern of possible aspiration pneumonia and new onset of atrial fibrillation with rapid ventricular response. At time of admission evaluation showed atrial fibrillation with rapid ventricular response. He was treated with metoprolol for rate control. Anticoagulation was withheld due to concerns about fall risk. Early in his hospital stay he had a fall sustaining a head laceration. He is known to have problems with falling at home. He has previously had neurologic evaluation and is felt to have chronic neurologic problems at least partly related to longstanding history of alcohol abuse. This is thought to be contributing to his fall risk as well as his cognitive impairment. He had a Diamond score of 14/30 on July 25. He has been evaluated for falling and has improved ability to ambulate safely with a walker. Therapy is still working with him to use the walker safely. On admission his was concerned she could no longer care for him because of his significant disabilities. She is now indicating that she thinks he could go home with her. He had evaluation for aspiration. No definite aspiration was identified on the bedside study. There is a recommendation for a video swallow study which is not been done yet and is planned as an outpatient. No significant recurrent problems with aspiration in the last couple days. With metoprolol his blood pressure has been relatively low but he has been relatively asymptomatic with regards to his orthostatic hypotension. He does have some doc drop in his blood pressure with orthostatic testing. Patient and family are scheduled for a [employer] cruise in 2 weeks. I indicated that there was no definite immediate problem that would be contraindicated on a cruise but that he is high risk for potentially serious medical complications that could occur whether he is at home or on a cruise. On a cruise he would not have the resources necessary to manage many medical complications and would need to be evacuated. I discussed this with the family. He would also need a wheelchair transport on and off a cruise. Exam Narrative: Exam Narrative: He is alert and appears in no distress. He is hard of hearing but communicates well with the pocket talker. He reports no concerns today other than wanting to leave the hospital. Respirations with diminished breath sounds but no wheezing rales or rhonchi. Cardiovascular: S1, S2, somewhat irregular rate and rhythm. Abdomen is soft without tenderness or mass. He moves all 4 extremities well. Const: Vital Signs, click to edit/add: Vital Signs - 24 hr 07/27/23 15:00 07/27/23 15:00 07/27/23 15:00 Temperature Pulse Rate Pulse Rate [Left P ulse Oximeter] 92 Respiratory Rate 18 18 Blood Pressure [Le ft Arm] Blood Pressure [Ri ght Arm] Pulse Oximetry 91 91 Oxygen Delivery Me thod Room Air Oxygen Flow Rate 07/27/23 15:00 07/27/23 15:00 07/27/23 20:04 Temperature 98.3 F 98.4 F Pulse Rate 92 Pulse Rate [Left P ulse Oximeter] 92 94 Respiratory Rate 18 20 Blood Pressure [Le ft Arm] 107/64 Blood Pressure [Ri ght Arm] 99/61 Pulse Oximetry 91 91 Oxygen Delivery Me thod Room Air Room Air Oxygen Flow Rate 1 07/27/23 22:59 07/27/23 23:00 07/27/23 23:14 Temperature Pulse Rate 79 Pulse Rate [Left P ulse Oximeter] 80 Respiratory Rate 20 Blood Pressure [Le ft Arm] Blood Pressure [Ri ght Arm] Pulse Oximetry 90 Oxygen Delivery Me thod Oxygen Flow Rate 07/27/23 23:15 07/27/23 23:18 07/28/23 03:00 Temperature 98.2 F 98.6 F Pulse Rate Pulse Rate [Left P ulse Oximeter] 80 77 Respiratory Rate 20 20 18 Blood Pressure [Le ft Arm] 117/63 Blood Pressure [Ri ght Arm] 99/62 Pulse Oximetry 90 90 91 Oxygen Delivery Me thod Room Air Nasal Cannula Nasal Cannula Oxygen Flow Rate 0.5 0.5 1 07/28/23 07:00 07/28/23 07:00 07/28/23 07:00 Temperature Pulse Rate Pulse Rate [Left P ulse Oximeter] 79 Respiratory Rate 18 18 Blood Pressure [Le ft Arm] Blood Pressure [Ri ght Arm] Pulse Oximetry 92 92 Oxygen Delivery Me thod Nasal Cannula Oxygen Flow Rate 1 07/28/23 07:00 07/28/23 07:00 07/28/23 10:55 Temperature 98.1 F Pulse Rate 88 Pulse Rate [Left P ulse Oximeter] 79 76 Respiratory Rate 18 Blood Pressure [Le ft Arm] 119/83 117/58 L Blood Pressure [Ri ght Arm] Pulse Oximetry 92 94 Oxygen Delivery Me thod Nasal Cannula Room Air Oxygen Flow Rate 1 07/28/23 11:00 Temperature 98.0 F Pulse Rate Pulse Rate [Left P ulse Oximeter] 76 Respiratory Rate 18 Blood Pressure [Le ft Arm] 117/58 L Blood Pressure [Ri ght Arm] Pulse Oximetry 94 Oxygen Delivery Me thod Room Air Oxygen Flow Rate Documenting provider has reviewed patient's vital signs: yes
--- NOTE | 2023-07-28 18:42 | PC.NURSE ---
End of shift note: Patient is pleasant and cooperative. Patient is alert & oriented to person, place, and time. Can use urinal independently at bedside. Patient is unable to use call light so bed and chair alarms in use for patient safety. Patient A-fib w/normal ventricular rate on tele. Patient afebrile this shift, VSS w/ 88-95% on RA. Patient denies pain. Patient's HR WNL after increase of metoprolol. Metformin still held per MD. see eMar. Patient tolerating a reg. diet. Patient ambulate hallways with therapy and to BR w/walker and GB, tolerated activity well.
[2023-07-28] MEDS: ENOXAPARIN 40 MG/0.4 ML INJ SUBCUT (21:03)
[2023-07-28] MEDS: ATORVASTATIN CALCIUM 40 MG TABLET PO (21:03)
[2023-07-28] MEDS: GABAPENTIN 300 MG CAPSULE PO (21:04)
[2023-07-28] MEDS: TRAZODONE HCL 50 MG TABLET 100 MG PO (21:05)
[2023-07-29] MEDS: ALBUTEROL SULFATE 2.5 MG/3 ML VIAL.NEB NEB (01:45)
[2023-07-29 03:34] VITALS: BP 111/69; PULSE 68; RESP 20; TEMP 36.4; O2SAT 92
[2023-07-29] MEDS: IPRAT-ALBUT 0.5-2.5 MG/3 ML NEB 1 NEB IH ×2 (03:42→10:17)
[2023-07-29 06:50] LABS: Basophils Absolute Auto 0.06 K/uL (0.00-0.30); Basophils Percent Auto 0.9 % (0.0-3.0); Eosinophils Absolute Auto 0.05 K/uL (0.00-0.50); Eosinophils Percent Auto 0.8 % (0.0-7.0); Hematocrit 29.4 % (37.0-53.0); Hemoglobin* 9.3 gm/dL (13.5-17.5); Immature Granulocytes Abs Auto 0.17 K/uL (0.00-0.30); Immature Granulocytes Pct Auto 2.6 %; Lymphocytes Percent Auto 15.8 % (20-44); Mean Corpuscular HGB Conc 32 gm/dL (32-36); Mean Corpuscular Hemoglobin 29 pg (26-34); Mean Corpuscular Volume 93 fL (80-100); Monocytes Percent Auto 16.1 % (0.0-11.0); Neutrophils Absolute Auto 4.19 K/uL (1.7-7.0); Neutrophils Percent Auto 63.8 % (42.0-72.0); Platelet Count* 307 K/uL (140-440); RDW Coefficient of Variation % 15.8 % (11.5-15.5); Red Blood Count 3.16 m/uL (4.30-5.90); White Blood Count* 6.57 K/uL (4.50-11.00)
--- NOTE | 2023-07-29 06:52 | PC.NURSE ---
End of shift note [id number]: Pt alert & oriented to person, place and time though remains impulsive at night as he does not use call light when needing assistance. Pt will try to use urinal or walk to bathroom on his own without using call light. Bed alarm on due to fall risk. Pt has been both continent and incontinent of bladder as he has urinary urgency noted which is not a new finding. Pt has been afebrile throughout the shift. IV to L hand remains patent and SL. Pt remains on telemetry with A fib with normal ventricular rate noted which is not a new finding. Laceration near R eye remains DOTTIE with no s/s of infection present. Pt required assist of 2 when ambulating to bathroom as he is noted to be unsteady and needs a lot of cueing to use walker. Formula Bottler administered PRN nebulizer tx early this morning due to shortness of breath after repositioning. O2 1-2 LPM used throughout the shift to maintain O2 sat above 88% as O2 sat dips to 85-86% on RA while pt is sleeping.
[2023-07-29 07:03] LABS: Slide Review Reflex No
[2023-07-29 07:06] LABS: Chloride* 103 mmol/L (96-114); Potassium* 4.2 mmol/L (3.6-5.1); Sodium* 138 mmol/L (135-149)
[2023-07-29 07:08] LABS: Creatinine* 0.7 mg/dL (0.5-1.5); Est. Creatinine Clearance* 63.88; Estimated Glomerular Filt Rate 95 ml/min
[2023-07-29 07:09] LABS: Anion Gap 8 mEq/L (7-15); Blood Urea Nitrogen* 8 mg/dL (7-30); Carbon Dioxide* 27 mmol/L (20-32); Glucose* 145 mg/dL (60-115)
[2023-07-29 07:10] LABS: Calcium* 9.1 mg/dL (8.4-10.6)
[2023-07-29 07:52] VITALS: PULSE 77
[2023-07-29 07:54] VITALS: BP 123/78; PULSE 78; RESP 20; TEMP 36.6; O2SAT 95
[2023-07-29] MEDS: METOPROLOL TARTRATE 25 MG TABLET 12.5 MG PO (08:56)
[2023-07-29] MEDS: PRIMIDONE 50 MG TABLET PO (08:56)
[2023-07-29] MEDS: POTASSIUM CHLORIDE 10 MEQ CAPSULE ER 20 MEQ PO (08:57)
[2023-07-29] MEDS: DULOXETINE 30 MG CAPSULE DR 60 MG PO (08:57)
[2023-07-29] MEDS: TAMSULOSIN HCL 0.4 MG CAPSULE PO (08:57)
[2023-07-29] MEDS: ASPIRIN 81 MG TAB.CHEW PO (08:57)
[2023-07-29] MEDS: SODIUM CHLORIDE 0.9 % (FLUSH) 10 ML SYRINGE 5 ML IVF (08:57)
[2023-07-29] MEDS: guaiFENesin 600 MG TAB.ER.12H PO (08:58)
[2023-07-29] MEDS: buPROPion XL 150 MG TABLET 300 MG PO (08:58)
[2023-07-29] MEDS: AMOXICILLIN/CLAVULANATE 875 mg/125 mg TABLET PO (08:58)
--- NOTE | 2023-07-29 11:45 | P.DS_ITS ---
DS: Providers Provider Date Seen: 07/29/23 Date of admission: 07/23/23 12:54 Primary care physician: Not a Local Provider Admitting Clinician: Nallely Brown MD Attending Physician on discharge: Phillip Aranda MD Date of Discharge: 07/29/23 DS: Diagnosis Discharge Diagnosis (1) Atrial fibrillation: Status: Acute Problem details: Appears to be paroxysmal atrial fibrillation. Rate control with metoprolol 12.5 mg b.i.d.. Decision made to avoid anticoagulation for stroke prophylaxis due to high risk of falls and frequent falls. (2) Chronic pulmonary aspiration: Status: Acute Problem details: On admission there was concern about aspiration. Bedside swallowing evaluation did not show any definite aspiration. Outpatient video swallow is pending. Observed to eat and drink without difficulties in the last couple days. (3) Dementia: Status: Acute Problem details: MOCA July 25, 2023 Per Neurology notes there was a question of whether this is related to remote history of alcoholism. (4) Unstable gait: Status: Acute Problem details: Chronic, needs walker. Has ataxia when walking. Also ataxia on [id number] testing. 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 Possibly related to remote history of alcohol abuse. (5) Impaired judgment regarding safety: Status: Acute Problem details: Staff and family note that patient has done behaviors that have some risk. Indicated that this is likely a chronic impairment of judgment and not likely to improve so he will need more supervision for his safety. Reviewed with family need for 247 supervision. (6) Abnormal LFTs (liver function tests): Status: Acute Problem details: -RUQ u/s is reassuring. Continue to follow. -In review of his liver enzymes in [facility]: Bilirubin has been 2.6-1.6 over the last 2 years AST, ALT, alk-phos has historically been normal. Jul 2020 CT abd/pelvis Mild diffuse hepatic steatosis similar to the prior ultrasound. No stigmata of cirrhosis or intrahepatic mass. No portal hypertension. -hx of Gilbert syndrome, has followed with Dr. Vazquez in the past -from [facility] in 09/25 Hyperbilirubinemia?patient has a history of a chronic hyperbilirubinemia. The bilirubin level has varied over the years. In 2018 the patient's total bilirubin was 3.7 with a direct of 0.7 it was checked later 2017 and was slightly elevated at 1.4. 2019 bilirubin was 2.5 and in 2019 bilirubin was 3.4. The remaining liver enzymes are normal. AST is 26 ALT 26 and alkaline phosphatase 130. The patient recently had a CT scan that shows mild diffuse fatty liver. No evidence of cirrhosis or intrahepatic mass. No pleural hypertension. There are some atrophy of the pancreas. No evidence of malignancy. He has no past history of liver disease. No history of hepatitis. No family history of liver cirrhosis or problems. Prior to 2018 he received his care at the [facility]. We do not have any old records to compare previous levels of the bilirubin. He does not recall ever being told by a physician that his bilirubin was elevated in the past. 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 Healing well. No other serious sequelae. (8) Anemia: Status: Acute Problem details: Chronic, stable. Not further evaluated during this hospital stay (9) Weakness: Status: Chronic Problem details: Getting back to baseline. Ongoing high risk for falls due to chronic neurologic impairment. -h/o falls -PT/OT consults (10) Malnutrition: Status: Chronic Problem details: -nutrition consult ordered -weight at [facility] was 74.6 kg in November 2022 -weight at admission was 72.1 kg (down 3.4%) (11) CKD (chronic kidney disease) stage 3, GFR 30-59 ml/min: Status: Acute Problem details: -creatinine 0.8, avoid nephrotoxic medications, renally dosing antibiotics, continue to monitor (12) COPD (chronic obstructive pulmonary disease): Status: Chronic Problem details: -possible acute on chronic exacerbation. Continues to vape -CT shows centrilobular emphysema, multifocal peripheral reticulation (ILD, fibrosis) -continue home inhalers, scheduled duonebs, prn albuterol nebs (monitoring HR in setting of new onset afib) (13) Acquired hemolytic anemia: Status: Chronic Problem details: Previous diagnosis found in past medical history. Details of the nature of his hemolytic anemia is uncertain -dropping from admission 11.3 --> 9.2 -->9.3 -monitor (14) Type 2 diabetes mellitus with microalbuminuria: Status: Chronic Problem details: -A1C 4.5. Possibly attributable to hemolytic anemia? -hold home dose of metformin while hospitalized Blood sugars well controlled in the hospital (15) CAD (coronary artery disease): Status: Chronic Problem details: -s/p CABG RODRIGEZ to prox-mid LAD, SVG aorta to posterolateral RCA -continue aspirin -in reviewing EMR, unable to see echo from 2015, appears he may have had another echo in 2019. BNP 2320. denies known h/o heart failure. -trop 0.02 DS: Summary Hospital Course Hospital Course: 78-year-old male with a history of coronary artery disease status post CABG, type 2 diabetes, Gilbert's, hepatic steatosis, alcoholism in remission, hemolytic anemia, COPD admitted to the hospital with concern of possible aspiration pneumonia and new onset of atrial fibrillation with rapid ventricular response. At time of admission evaluation showed atrial fibrillation with rapid ventricular response. He was treated with metoprolol for rate control. Anticoagulation was withheld due to concerns about fall risk. Early in his hospital stay he had a fall sustaining a head laceration. He is known to have problems with falling at home. He has previously had neurologic evaluation and is felt to have chronic neurologic problems at least partly related to longstanding history of alcohol abuse. This is thought to be contributing to his fall risk as well as his cognitive impairment. He had a Bunker score of 14/30 on July 25. He has been evaluated for falling and has improved ability to ambulate safely with a walker. Therapy is still working with him to use the walker safely. On admission his was concerned she could no longer care for him because of his significant disabilities. She is now indicating that she thinks he could go home with her. He had evaluation for aspiration. No definite aspiration was identified on the bedside study. There is a recommendation for a video swallow study which is not been done yet and is planned as an outpatient. No significant recurrent problems with aspiration in the last couple days. With metoprolol his blood pressure has been relatively low but he has been relatively asymptomatic with regards to his orthostatic hypotension. He does have some doc drop in his blood pressure with orthostatic testing. Assessment of his mobility and use of walker shows that he is likely back to his baseline with chronic ataxia and some impaired cognition and judgment affecting safety. Family would like to take him home and supervise him there. Status at Discharge Functional status at discharge: uses cane/walker Overall status at discharge: patient is not back to baseline Time Spent with Patient Time attestation: Total time spent providing and/or coordinating discharge services: Time spent: Greater than 30 minutes Exam Narrative: Exam Narrative: He is alert and appears in no distress. He has no concerns today except that he would like to go home. Respirations are clear to auscultation. He has diminished breath sounds for all lung alonzo. Cardiovascular: S1, S2, somewhat irregular rhythm. Abdomen is soft without tenderness extremities without edema Const: Vital Signs, click to edit/add: Vital Signs - 24 hr 07/28/23 15:00 07/28/23 15:00 07/28/23 15:00 Temperature Pulse Rate Pulse Rate [Left P ulse Oximeter] 76 Respiratory Rate 20 20 Blood Pressure [Le ft Arm] Blood Pressure [Ri ght Arm] Pulse Oximetry 94 95 Oxygen Delivery Me thod Room Air Oxygen Flow Rate 07/28/23 15:00 07/28/23 15:00 07/28/23 19:58 Temperature 98.5 F 99.0 F Pulse Rate 73 Pulse Rate [Left P ulse Oximeter] 76 86 Respiratory Rate 20 20 Blood Pressure [Le ft Arm] 126/70 118/92 H Blood Pressure [Ri ght Arm] Pulse Oximetry 94 91 Oxygen Delivery Me thod Room Air Room Air Oxygen Flow Rate 1 07/28/23 22:55 07/28/23 23:00 07/28/23 23:00 Temperature Pulse Rate 73 Pulse Rate [Left P ulse Oximeter] Respiratory Rate 20 Blood Pressure [Le ft Arm] Blood Pressure [Ri ght Arm] Pulse Oximetry 89 89 Oxygen Delivery Me thod Nasal Cannula Oxygen Flow Rate 1 07/28/23 23:00 07/28/23 23:00 07/29/23 03:34 Temperature 98.0 F 97.6 F Pulse Rate Pulse Rate [Left P ulse Oximeter] 87 87 68 Respiratory Rate 20 20 20 Blood Pressure [Le ft Arm] 128/94 H 111/69 Blood Pressure [Ri ght Arm] Pulse Oximetry 89 92 Oxygen Delivery Me thod Nasal Cannula Nasal Cannula Oxygen Flow Rate 1 1.5 07/29/23 07:52 07/29/23 07:54 07/29/23 07:54 Temperature Pulse Rate 77 Pulse Rate [Left P ulse Oximeter] Respiratory Rate Blood Pressure [Le ft Arm] Blood Pressure [Ri ght Arm] Pulse Oximetry 95 95 Oxygen Delivery Me thod Nasal Cannula Oxygen Flow Rate 1 07/29/23 07:54 Temperature 97.9 F Pulse Rate Pulse Rate [Left P ulse Oximeter] 78 Respiratory Rate 20 Blood Pressure [Le ft Arm] Blood Pressure [Ri ght Arm] 123/78 Pulse Oximetry 95 Oxygen Delivery Me thod Nasal Cannula Oxygen Flow Rate 1 Documenting provider has reviewed patient's vital signs: yes DS: Data Data Completed and Pending Labs on day of discharge: Labs from last 24 hours 07/29/23 06:18 WBC 6.57 RBC 3.16 L Hgb 9.3 L Hct 29.4 L MCV 93 MCH 29 MCHC 32 RDW Coeff of Tong 15.8 H Plt Count 307 Neut % (Auto) 63.8 Lymph % (Auto) 15.8 L [place] % (Auto) 16.1 H Eos % (Auto) 0.8 Baso % (Auto) 0.9 Neut # (Auto) 4.19 Lymph # (Auto) 1.00 [place] # (Auto) 1.10 H Eos # (Auto) 0.05 Baso # (Auto) 0.06 Abs Immat Gran (auto) 0.17 Imm/Tot Granulo (auto) 2.6 Sodium 138 Potassium 4.2 Chloride 103 Carbon Dioxide 27 Anion Gap 8 BUN 8 Creatinine 0.7 Estimated Creat Clear 63.88 Estimated GFR 95 Glucose 145 H Calcium 9.1 Discharge Plan Discharge Disposition: Home w/ Parent or Adult Date of Admission: 07/23/23 12:54 Attending Provider on Discharge: Tevin Aranda Primary Care Provider: Provider,Not a Local Condition: Stable Anticipated Discharge Date/Time: 07/29/23 09:57 Discharge Medications: New potassium chloride 10 mEq Capsule, Extended Release 10 meq PO DAILY Qty: 30 0RF metoprolol tartrate 25 mg Tablet 12.5 mg PO BID Qty: 30 0RF Continued primidone 50 mg tablet 50 mg PO QAM tamsulosin 0.4 mg capsule 0.4 mg PO DAILY gabapentin 300 mg capsule 300 mg PO HS bupropion HCl 300 mg tablet extended release 24 hr 300 mg PO QAM metformin 1,000 mg tablet 1,000 mg PO BID trazodone 100 mg tablet 200 mg PO HS aspirin [Chin Chewable Aspirin] 81 mg tablet,chewable 81 mg PO DAILY albuterol sulfate [Ventolin HFA] 90 mcg/actuation HFA aerosol inhaler 2 inh inhalation Q6H PRN cholecalciferol (vitamin D3) 50 mcg (2,000 unit) capsule 50 mcg PO DAILY fluticasone propion-salmeterol 250-50 mcg/dose blister with device 1 inh INHALATION BID atorvastatin 40 mg tablet 40 mg PO HS duloxetine 60 mg capsule,delayed release(DR/EC) 60 mg PO DAILY nitroglycerin 0.4 mg tablet, sublingual 0.4 mg sublingual Q5M PRN Discharge Orders: Discharge Order (Routine); Ordered 07/29/23 Ordered By: Tevin Aranda Patient Education: Metoprolol (By mouth), Potassium Chloride (By mouth), A-fib (Atrial Fibrillation) (DC) Additional Instructions: Sanket has impaired brain function which affects his balance, judgment and memory. He needs continuous supervision for safety. Make an appointment with his primary care provider in the next week to recheck his heart rate, nutrition, swallowing/aspiration, home safety. He should also have a blood tests for his basic metabolic panel and CBC in 1 week. You will get a phone call from Speech Therapist to schedule an outpatient video swallow study. Activity Level: Activity as Tolerated and Use Walker Follow Up Appointments: Provider,Not a Local [Primary Care Provider] - Xiao Tomlin DO [Referring] - 08/01/23 12:30 pm ([facility] for follow-up.) Forms: [facility] Info Instructions
--- NOTE | 2023-07-29 11:50 | PC.SOCIAL ---
Discharge planning: Met with in room regarding d/c plan. states she will take pt home at discharge. She is no longer interested in [facility] stay as pt no longer has a need for rehab care. states she is not interested in home care or home health lpn care. lives at home and provides 31/01 care. Their daughter lives in apartment in the same building and is able to provide care when needed in place of . is aware of how to contact social sciences chair if she decides she wants resources on home health lpn care or options for placement. Provided with copy of Important Message from Medicare and discussed option to appeal discharge. states she is planning to take pt home at discharge today with no concerns or questions.
== END 2023-07-29 12:45 | disposition home or self-care (01) | DRG 308 ==
LOC: ED 17:14 → MEDSURG 20:31
PROVIDERS: Family Medicine; Physician Assistant; Admitting Provider Family Medicine; Emergency Provider Family Medicine; Visit Provider Family Medicine
DX: I48.0 Paroxysmal atrial fibrillation (principal); J69.0 Pneumonitis due to inhalation of food and vomit; D59.9 Acquired hemolytic anemia, unspecified; E44.0 Moderate protein-calorie malnutrition; J44.1 Chronic obstructive pulmonary disease with (acute) exacerbation; G61.81 Chronic inflammatory demyelinating polyneuritis; Z79.01 Long term (current) use of anticoagulants; F03.90 Unspecified dementia, unspecified severity, without behavioral disturbance, psychotic disturbance, mood disturbance, and anxiety; R26.81 Unsteadiness on feet; R79.89 Other specified abnormal findings of blood chemistry; Z91.81 History of falling; Z68.23 Body mass index [BMI] 23.0-23.9, adult; E11.22 Type 2 diabetes mellitus with diabetic chronic kidney disease; R80.9 Proteinuria, unspecified; N18.30 Chronic kidney disease, stage 3 unspecified; Z79.84 Long term (current) use of oral hypoglycemic drugs; J44.9 Chronic obstructive pulmonary disease, unspecified; K76.0 Fatty (change of) liver, not elsewhere classified; E11.42 Type 2 diabetes mellitus with diabetic polyneuropathy; F10.21 Alcohol dependence, in remission; J06.9 Acute upper respiratory infection, unspecified; E80.4 Gilbert syndrome; I25.10 Atherosclerotic heart disease of native coronary artery without angina pectoris; S01.81XA Laceration without foreign body of other part of head, initial encounter; W18.39XA Other fall on same level, initial encounter; Y92.230 Patient room in hospital as the place of occurrence of the external cause; F32.A Depression, unspecified; Z87.828 Personal history of other (healed) physical injury and trauma; E78.00 Pure hypercholesterolemia, unspecified
CPT/HCPCS: 36415; 71045; 71275; 76705; 80048; 80053; 80076; 81001; 82803; 82977; 83036; 83540; 83550; 83605; 83690; 83735; 83880; 84132; 84145; 84484; 85025; 85027; 85379; 86140; 87040; 87070; 87086; 87449; 87631; 87899; 92526; 92610; 93005; 93306; 94640; 94761; 97110; 97116; 97161; 97165; 97530; 97535; 99281; 99284; 99285; G0378; A9270; J1650; J2543; J7030; J7050; Q9967

== ENCOUNTER 2023-08-14 10:09 | Outpatient (CLI) | payer MEDICARE, BC, SELFPAY ==
--- OUTSIDE RECORDS SUMMARY | 2023-08-14 10:13 | XMS_ITS | Continuity of Care Document ---
Author Name [facility] Organization [facility] Care Team Providers Care Garbage Pick Up Man Name Role Phone [facility] Unavailable Unavailable Problems Combined list of problems from Department of Defense and Veterans Affairs facilities. It does not include entries that were removed or entered in error. 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 Dec 06, 2010 Entered By: MARY KRAUS I Comment: CIDP, treated with IVIG 07/2010 [facility] Chronic low back pain Active Condition [facility] Chronic obstructive lung disease Active Condition [facility] Colorectal cancer screening Active Condition Apr 08, 2013 Entered By: PATY JACINTO Comment: colonoscopy 01/16; repeat 7 yrs [facility] Coronary heart disease Active Condition November 10, 2014 Entered By: PATY JACINTO Comment: CABG 11/2005; RODRIGEZ to LAD, SVG to RCA [facility] Depression Active Condition [facility] Diabetes mellitus [facility] Gout Active Condition Mar 05 Entered By: PATY JACINTO Comment: by history 01/23 [facility] Gynecomastia Active Condition [facility] Hemolytic anemia Active Condition Feb 07, 2018 Entered By: PATY JACINTO Comment: normal iron, B12 2018 Entered By: PATY JACINTO Comment: hemolysis, Lucie negative 2018 Entered By: PATY JACINTO Comment: splenomegaly (poss. cirrhosis by CT; US normal 04/25) [facility] Hypertension Active Condition November 29, 2015 Entered By: PATY JACINTO Comment: with orthostatic hypotension [facility] Osteoarthritis Active Condition Jan 062020 Entered By: RIAN KLEIN Comment: S/P right total knee in 2017Jul 2020 Entered By: RIAN KLEIN Comment: S/P right total hip in 2018 (for fracture) [facility] Foot Pain (ICD-9-CM 719.47) Inactive Condition 10/10/2006 [facility] Fracture of shaft of radius and ulna, closed Inactive Condition 04/07/2013 Sep 11, 2005 Entered By: MARY KRAUS I Comment: s/p ORIF 1967 [facility] Full thickness rotator cuff tear Inactive Condition 10/29/2013 November 22 Entered By: MARY RKAUS I Comment: s/p repair right shoulder 09/10 [facility] Liver enzymes abnormal Inactive Condition 04/08/2019 Jul 06, 2014 Entered By: PATY JACINTO Comment: hepatic steatosis [facility] Viera's metatarsalgia Inactive Condition 10/29/2013 [facility] Plantar fasciitis Inactive Condition 10/29/2013 [facility] Subclinical hypothyroidism Inactive Condition 11/25/2013 [facility] Tremor Inactive Condition 11/29/2015 [facility] Diagnosis: ICD-10-CM R93.2 Abnormal findings on dx imaging of liver and biliary tract Active Diagnosis [facility] Diagnosis: ICD-10-CM J44.9 Chronic obstructive pulmonary disease, unspecified Active Diagnosis [facility] Diagnosis: ICD-10-CM R06.00 Dyspnea, unspecified Active Diagnosis [facility] Diagnosis: ICD-10-CM Z00.00 Encntr for general adult medical exam w/o abnormal findings Active Diagnosis [facility] Medications Combined list of outpatient medications from Department of Defense and [facility] Affairs facilities.Medications provided include 1) outpatient medications from the last 15 months, and 2) patient-reported medications. Medication Details Route Status Patient Instructions Prescription Expires Prescription Number Last Dispense Date Ordering Provider Order Date Source ALBUTEROL 90MCG/ACTUA T (CFC-F) INHL,ORAL,8 .5GM DOSE COUNTER INHALE 1 PUFF BY INHALATI ON FOUR TIMES A DAY NEEDED FOR SHORTNES S OF BREATH INHALA TION ACTIVE 08/17/2023 [id number] 3 Xiao QUICK 2022 [facility] ASPIRIN 81MG TAB,CHEWABL E CHEW ONE TABLET BY MOUTH EVERY DAY ORALLY ACTIVE PATY CRISTOBAL 2022 [facility] ATORVASTATI N CA 40MG TAB TAKE ONE TABLET BY MOUTH EVERY DAY FOR CHOLESTE ROL ORALLY ACTIVE 10/28/2023 [id number] 4 PRINCESS NI 2022 [facility] CHOLECALCIF KERRI 25MCG (1,000UNIT) TAB TAKE ONE TABLET BY MOUTH EVERY DAY FOR VITAMIN D ORALLY ACTIVE 10/28/2023 [id number] 4 PRINCESS NI 2022 [facility] CHOLECALCIF KERRI 25MCG (1,000UNIT) TAB TAKE ONE TABLET BY MOUTH EVERY DAY FOR VITAMIN- D ORALLY 07/11/2022 [id number] 2 PRINCESS NI 2021 [facility] DICLOFENAC NA 1% GEL,TOP APPLY 2 GRAMS TOPICALL Y THREE TIMES A DAY NEEDED TO AFFECTED AREA FOR PAIN. *USE DOSE CARD IN BOX TO MEASURE DOSE. MAX 32 GRAMS PER DAY. FOR PAIN AND INFLAMMA TION TO AFFECTED AREA FOR PAIN. *USE DOSE CARD IN BOX TO MEASURE DOSE. MAX 32 GRAMS PER DAY. FOR PAIN AND INFLAMMA TION TOPICA LLY 05/09/2023 [id number] 3 PRINCESS NI 2021 [facility] DULOXETINE HCL 60MG CAP,EC TAKE ONE CAPSULE BY MOUTH EVERY DAY ORALLY ACTIVE 2024 [id number] PRINCESS NI 2022 [facility] DULOXETINE HCL 60MG CAP,EC TAKE ONE CAPSULE BY MOUTH EVERY DAY ORALLY DISCONT INUED 05/09/2023 [id number] 3 PRINCESS NI 2021 [facility] FLUTICASONE 250MCG/SALM ETEROL 50MCG INHL,ORAL,D ISKUS,60 INHALE 1 PUFF BY INHALATI ON TWICE A DAY FOR COPD INHALA TION ACTIVE 03/12/2024 [id number] PRINCESS NI 2022 [facility] FLUTICASONE 250MCG/SALM ETEROL 50MCG INHL,ORAL,D ISKUS,60 INHALE 1 PUFF BY INHALATI ON TWICE A DAY TO PREVENT BREATHIN G TROUBLE -RINSE MOUTH AFTER USING *REPLACE S SYMBICOR T 10/27* INHALA TION 10/25/2022 [id number] ALBERTO KLEIN R 2021 [facility] GABAPENTIN 300MG CAP TAKE TWO CAPSULES BY MOUTH AT BEDTIME FOR 30 DAYS FOR PAIN AND NUMBNESS ORALLY 05/09/2023 [id number] 2 PRINCESS NI 2021 [facility] METFORMIN HCL 1000MG TAB TAKE ONE TABLET BY MOUTH TWICE A DAY FOR DIABETES ORALLY 12/19/2022 [id number] 3 ALBERTO KLEIN R 2021 [facility] NITROGLYCER IN 0.4MG TAB,SUBLING UAL DISSOLVE ONE TABLET UNDER THE TONGUE EVERY 5 MINUTES FOR UP TO 3 DOSES IF NEEDED CHEST PAIN FOR CHEST PAIN SUBLIN GUAL ACTIVE 11/14/2023 [id number] 3 BHARGAV NINO 2022 [facility] PRIMIDONE 50MG TAB TAKE ONE TABLET BY MOUTH EVERY DAY ORALLY 05/09/2023 [id number] 2 PRINCESS NI 2021 [facility] TIOTROPIUM 18MCG CAP,INHL,30 INHALE ONE CAPSULE IN INHALER BY INHALATI ON EVERY DAY FOR COPD INHALA TION ACTIVE 08/17/2023 [id number] 3 Xiao QUICK 2022 [facility] TRAZODONE HCL 100MG TAB TAKE TWO TABLETS BY MOUTH AT BEDTIME NEEDED FOR SLEEP ORALLY ACTIVE 07/05/2024 [id number] 4 PRINCESS NI 2023 [facility] TRAZODONE HCL 100MG TAB TAKE TWO TABLETS BY MOUTH AT BEDTIME NEEDED FOR SLEEP ORALLY DISCONT INUED 11/20/2023 [id number] 3 BE RAMESH I 2022 [facility] TRAZODONE HCL 100MG TAB TAKE TWO TABLETS BY MOUTH AT BEDTIME NEEDED FOR SLEEP ORALLY DISCONT INUED 04/13/2023 [id number] 3 BE RAMESH I 2021 [facility] Immunizations Combined list of available immunizations from the Department of Defense and Veterans Affairs facilities. Immunization Series Date Given Administered By Site Reaction Lot Number CVX Code Drug Service Cashier Status Comments Source INFLUENZA VACCINE, QUADRIVALENT, ADJUVANTED 2021 205 complet ed [facility] COVID-19 (Thoughtly), MRNA, LNP-S, PF, 30 MCG/0.3 ML DOSE 3 2020 208 complet ed PFR; [id number]; 2 [facility] INFLUENZA, UNSPECIFIED FORMULATION 2020 [facility]-19 (Thoughtly), MRNA, LNP-S, PF, 30 MCG/0.3 ML DOSE 2 2020 208 complet ed PFR; [id number]; 1 [facility] COVID-19 (Thoughtly), MRNA, LNP-S, PF, 30 MCG/0.3 ML DOSE 1 2020 208 complet ed PFR; [id number]; 1 [facility] INFLUENZA, INJECTABLE, QUADRIVALENT, PRESERVATIVE FREE 2019 150 complet ed [facility] INFLUENZA, SEASONAL, INJECTABLE, PRESERVATIVE FREE 2018 140 complet ed [facility] INFLUENZA, SEASONAL, INJECTABLE, PRESERVATIVE FREE 2017 140 complet ed [facility] INFLUENZA, HIGH DOSE SEASONAL 2016 135 complet ed [facility] PNEUMOCOCCAL POLYSACCHARID E PPV23 2016 33 complet ed merck; [id number]; 9 [facility] INFLUENZA, SEASONAL, INJECTABLE, PRESERVATIVE FREE 2015 140 complet ed Partner: Jyoti . Administe red by: Jyoti Clinician (NPI=Not Provided) . Partner 3 Lot#: [id number] Mfr: SEQIRUS [facility] PNEUMOCOCCAL CONJUGATE PCV 13 2015 133 complet ed wyeth lot [id number] exp 12/22 [facility] TDAP 2014 115 complet ed glaxosmit hkline; [id number]; 6 [facility] ZOSTER LIVE 2014 121 complet ed Merck; [id number]; 5 [facility] INFLUENZA, UNSPECIFIED FORMULATION 2013 88 complet ed [facility] INFLUENZA, UNSPECIFIED FORMULATION 2012 88 complet ed [facility] INFLUENZA, UNSPECIFIED FORMULATION 2011 88 complet ed [facility] INFLUENZA, HIGH DOSE SEASONAL, PRESERV-FREE (HISTORICAL) 2009 135 complet ed [facility] INFLUENZA, UNSPECIFIED FORMULATION 2008 88 complet ed [facility] INFLUENZA, UNSPECIFIED FORMULATION 2007 88 complet ed [facility] INFLUENZA, UNSPECIFIED FORMULATION 2006 88 complet ed [facility] INFLUENZA, UNSPECIFIED FORMULATION 2005 88 complet ed [facility] PNEUMOCOCCAL, UNSPECIFIED FORMULATION 2005 109 complet ed [facility] TD(ADULT) UNSPECIFIED FORMULATION 2005 NONE 139 complet ed [facility] INFLUENZA, UNSPECIFIED FORMULATION 2004 88 complet ed [facility] INFLUENZA, UNSPECIFIED FORMULATION 2003 88 complet ed [facility] INFLUENZA, UNSPECIFIED FORMULATION 2001 88 complet ed [facility] TD(ADULT) UNSPECIFIED FORMULATION 1996 139 complet ed [facility] Results Combined list of recent chemistry, hematology and other laboratory results from Department of Defense and Veterans Affairs, ranging from 15 months to all on record, depending upon the facility. Order Name Results Value Reference Range Date Interpretation Specimen Comments Source HEMOGLOBI N A1C HEMOGLOBIN A1C/HEMOGLO BIN.TOTAL IN BLOOD 4.3 4.0 - 6.0 05/08 Specimen Type: BLOOD Comment: Values obtained from A1C measurement s can vary. For typical A1C assays, a reported value of 7.0 could actually be between 6.7 and 7.3 if measured by a reference method. A reported value of 9.0 could actually be between 8.7 and 9.3. Ref: [email or web address] Ordering Provider: EDISON KLEIN Report Released Date/Time: Dec 18, 2021 03:48 PM Reporting Lab: [facility] [address] Performing Lab: [facility] [address] [place] [facility] ALKALINE PHOSPHATA SE ALKALINE PHOSPHATASE [ENZYMATIC ACTIVITY/VO LUME] IN SERUM OR PLASMA 100 40 - 150 05/08 Specimen Type: PLASMA No comment entered. Ordering Provider: EDISON KLEIN Report Released Date/Time: Dec 18, 2021 03:48 PM Reporting Lab: [facility] [address] Performing Lab: [facility] [address] [place] [facility] LIPID PANEL,NON -FASTING CHOLESTEROL [MASS/VOLUM E] IN SERUM OR PLASMA 125 <199 - 199 05/08 Specimen Type: PLASMA No comment entered. Ordering Provider: EDISON KLEIN Report Released Date/Time: Dec 18, 2021 03:48 PM Reporting Lab: [facility] [address] Performing Lab: [facility] [address] [place] [facility] LIPID PANEL,NON -FASTING CHOLESTEROL IN HDL [MASS/VOLUM E] IN SERUM OR PLASMA 35 40 05/08 L Specimen Type: PLASMA No comment entered. Ordering Provider: EDISON KLEIN Report Released Date/Time: Dec 18, 2021 03:48 PM Reporting Lab: [facility] [address] Performing Lab: [facility] [address] [place] [facility] LIPID PANEL,NON -FASTING CHOLESTEROL IN LDL [MASS/VOLUM E] IN SERUM OR PLASMA BY CALCULATION 64 <99 - 99 05/08 Specimen Type: PLASMA No comment entered. Ordering Provider: EDISON KLEIN Report Released Date/Time: Dec 18, 2021 03:48 PM Reporting Lab: [facility] [address] Performing Lab: [facility] [address] [place] [facility] LIPID PANEL,NON -FASTING CHOLESTEROL IN VLDL [MASS/VOLUM E] IN SERUM OR PLASMA BY CALCULATION 26 <29 - 29 05/08 Specimen Type: PLASMA No comment entered. Ordering Provider: EDISON KLEIN Report Released Date/Time: Dec 18, 2021 03:48 PM Reporting Lab: [facility] [address] Performing Lab: [facility] [address] [place] [facility] LIPID PANEL,NON -FASTING CHOLESTEROL NON HDL [MASS/VOLUM E] IN SERUM OR PLASMA 90 <129 - 129 05/08 Specimen Type: PLASMA No comment entered. Ordering Provider: EDISON KLEIN Report Released Date/Time: Dec 18, 2021 03:48 PM Reporting Lab: [facility] [address] Performing Lab: [facility] [address] [place] [facility] LIPID PANEL,NON -FASTING TRIGLYCERID E [MASS/VOLUM E] IN SERUM OR PLASMA 131 <149 - 149 05/08 Specimen Type: PLASMA No comment entered. Ordering Provider: EDISON KLEIN Report Released Date/Time: Dec 18, 2021 03:48 PM Reporting Lab: [facility] [address] Performing Lab: [facility] [address] [place] [facility] CBC LEUKOCYTES [#/VOLUME] IN BLOOD BY AUTOMATED COUNT 5.39 4.0 - 11.0 05/08 Specimen Type: BLOOD No comment entered. Ordering Provider: EDISON KLEIN Report Released Date/Time: Dec 18, 2021 03:48 PM Reporting Lab: [facility] [address] Performing Lab: [facility] [address] [place] [facility] CBC ERYTHROCYTE S [#/VOLUME] IN BLOOD BY AUTOMATED COUNT 4.55 4.6 - 6.2 05/08 L Specimen Type: BLOOD No comment entered. Ordering Provider: EDISON KLEIN Report Released Date/Time: Dec 18, 2021 03:48 PM Reporting Lab: [facility] [address] Performing Lab: [facility] [address] [place] [facility] CBC HEMOGLOBIN [MASS/VOLUM E] IN BLOOD 13.8 13.5 - 17.9 05/08 Specimen Type: BLOOD No comment entered. Ordering Provider: EDISON KLEIN Report Released Date/Time: Dec 18, 2021 03:48 PM Reporting Lab: [facility] [address] Performing Lab: [facility] [address] [place] [facility] CBC HEMATOCRIT [VOLUME FRACTION] OF BLOOD BY AUTOMATED COUNT 41.2 41 - 54 05/08 Specimen Type: BLOOD No comment entered. Ordering Provider: EDISON KLEIN Report Released Date/Time: Dec 18, 2021 03:48 PM Reporting Lab: [facility] [address] Performing Lab: [facility] [address] [place] [facility] CBC MCV [ENTITIC VOLUME] BY AUTOMATED COUNT 90.5 80 - 100 05/08 Specimen Type: BLOOD No comment entered. Ordering Provider: EDISON KLEIN Report Released Date/Time: Dec 18, 2021 03:48 PM Reporting Lab: [facility] [address] Performing Lab: [facility] [address] [place] [facility] CBC MCH [ENTITIC MASS] BY AUTOMATED COUNT 30.3 27 - 33 05/08 Specimen Type: BLOOD No comment entered. Ordering Provider: EDISON KLEIN Report Released Date/Time: Dec 18, 2021 03:48 PM Reporting Lab: [facility] [address] Performing Lab: [facility] [address] [place] [facility] CBC MCHC [MASS/VOLUM E] BY AUTOMATED COUNT 33.5 32.0 - 37.5 05/08 Specimen Type: BLOOD No comment entered. Ordering Provider: EDISON KLEIN Report Released Date/Time: Dec 18, 2021 03:48 PM Reporting Lab: [facility] [address] Performing Lab: [facility] [address] [place] [facility] CBC PLATELETS [#/VOLUME] IN BLOOD BY AUTOMATED COUNT 206 150 - 400 05/08 Specimen Type: BLOOD No comment entered. Ordering Provider: EDISON KLEIN Report Released Date/Time: Dec 18, 2021 03:48 PM Reporting Lab: [facility] [address] Performing Lab: [facility] [address] [place] [facility] CBC PLATELET MEAN VOLUME [ENTITIC VOLUME] IN BLOOD BY AUTOMATED COUNT 10.3 7.4 - 10.4 05/08 Specimen Type: BLOOD No comment entered. Ordering Provider: EDISON KLEIN Report Released Date/Time: Dec 18, 2021 03:48 PM Reporting Lab: [facility] [address] Performing Lab: [facility] [address] [place] [facility] CBC ERYTHROCYTE DISTRIBUTIO N WIDTH [RATIO] BY AUTOMATED COUNT 15.6 11.5 - 14.5 05/08 H Specimen Type: BLOOD No comment entered. Ordering Provider: EDISON KLEIN Report Released Date/Time: Dec 18, 2021 03:48 PM Reporting Lab: [facility] [address] Performing Lab: [facility] [address] [place] [facility] BASIC METABOLIC PANEL+MG CREATININE [MASS/VOLUM E] IN SERUM OR PLASMA 1.1 0.7 - 1.2 05/08 Specimen Type: PLASMA No comment entered. Ordering Provider: EDISON KLEIN Report Released Date/Time: Dec 18, 2021 03:48 PM Reporting Lab: [facility] [address] Performing Lab: [facility] [address] [place] [facility] BASIC METABOLIC PANEL+MG UREA NITROGEN [MASS/VOLUM E] IN SERUM OR PLASMA 12 8 - 26 05/08 Specimen Type: PLASMA No comment entered. Ordering Provider: EDISON KLEIN Report Released Date/Time: Dec 18, 2021 03:48 PM Reporting Lab: [facility] [address] Performing Lab: [facility] [address] [place] [facility] BASIC METABOLIC PANEL+MG GLUCOSE [MASS/VOLUM E] IN SERUM OR PLASMA 232 70 - 100 05/08 H Specimen Type: PLASMA No comment entered. Ordering Provider: EDISON KLEIN Report Released Date/Time: Dec 18, 2021 03:48 PM Reporting Lab: [facility] [address] Performing Lab: [facility] [address] [place] [facility] BASIC METABOLIC PANEL+MG SODIUM [MOLES/VOLU ME] IN SERUM OR PLASMA 140 136 - 145 05/08 Specimen Type: PLASMA No comment entered. Ordering Provider: EDISON KLEIN Report Released Date/Time: Dec 18, 2021 03:48 PM Reporting Lab: [facility] [address] Performing Lab: [facility] [address] [place] [facility] BASIC METABOLIC PANEL+MG POTASSIUM [MOLES/VOLU ME] IN SERUM OR PLASMA 4.1 3.5 - 5.1 05/08 Specimen Type: PLASMA No comment entered. Ordering Provider: EDISON KLEIN Report Released Date/Time: Dec 18, 2021 03:48 PM Reporting Lab: [facility] [address] Performing Lab: [facility] [address] [place] [facility] BASIC METABOLIC PANEL+MG CHLORIDE [MOLES/VOLU ME] IN SERUM OR PLASMA 102 98 - 107 05/08 Specimen Type: PLASMA No comment entered. Ordering Provider: EDISON KLEIN Report Released Date/Time: Dec 18, 2021 03:48 PM Reporting Lab: [facility] [address] Performing Lab: [facility] [address] [place] [facility] BASIC METABOLIC PANEL+MG CARBON DIOXIDE, TOTAL [MOLES/VOLU ME] IN SERUM OR PLASMA 26 22 - 29 05/08 Specimen Type: PLASMA No comment entered. Ordering Provider: EDISON KLEIN Report Released Date/Time: Dec 18, 2021 03:48 PM Reporting Lab: [facility] [address] Performing Lab: [facility] [address] [place] [facility] BASIC METABOLIC PANEL+MG CALCIUM [MASS/VOLUM E] IN SERUM OR PLASMA 10.3 8.4 - 10.2 05/08 H Specimen Type: PLASMA No comment entered. Ordering Provider: EDISON KLEIN Report Released Date/Time: Dec 18, 2021 03:48 PM Reporting Lab: [facility] [address] Performing Lab: [facility] [address] [place] [facility] BASIC METABOLIC PANEL+MG MAGNESIUM [MASS/VOLUM E] IN SERUM OR PLASMA 1.9 1.6 - 2.6 05/08 Specimen Type: PLASMA No comment entered. Ordering Provider: EDISON KLEIN Report Released Date/Time: Dec 18, 2021 03:48 PM Reporting Lab: [facility] [address] Performing Lab: [facility] [address] [place] [facility] BASIC METABOLIC PANEL+MG ANION GAP IN SERUM OR PLASMA 12 5 - 15 05/08 Specimen Type: PLASMA No comment entered. Ordering Provider: EDISON KLEIN Report Released Date/Time: Dec 18, 2021 03:48 PM Reporting Lab: [facility] [address] Performing Lab: [facility] [address] [place] [facility] BASIC METABOLIC PANEL+MG GLOMERULAR FILTRATION RATE/1.73 SQ M.PREDICTED [VOLUME RATE/AREA] IN SERUM, PLASMA OR BLOOD BY CREATININE- BASED FORMULA (CKD-EPI) 70 60 05/08 Specimen Type: PLASMA No comment entered. Ordering Provider: EDISON KLEIN Report Released Date/Time: Dec 18, 2021 03:48 PM Reporting Lab: [facility] [address] Performing Lab: [facility] [address] [place] [facility] BONE SPEC. ALK PHOS ALKALINE PHOSPHATASE .BONE [...] Biol Markers (1995) 11:159-164 Test Performed by [facility] [place], [facility], [address] [place] [address] Helder Mccormick M.D., Ph.D., Director of Laboratorie s , [facility] [id number] Ordering Provider: FLORIDA PAREDES Report Released Date/Time: Aug 01, 2020 10:49 AM Reporting Lab: [facility] [address] Performing Lab: [address] [place] [facility] CALCIUM CALCIUM [MASS/VOLUM E] IN SERUM OR PLASMA 10.2 8.4 - 10.2 11/29 Specimen Type: PLASMA No comment entered. Ordering Provider: FLORIDA PAREDES Report Released Date/Time: Aug 01, 2020 10:49 AM Reporting Lab: [facility] [address] Performing Lab: [facility] [address] [place] [facility] PTH-N-TAC T PARATHYRIN. INTACT [MASS/VOLUM E] IN SERUM OR PLASMA 30.4 8.7 - 77.1 11/29 Specimen Type: PLASMA No comment entered. Ordering Provider: FLORIDA PAREDES Report Released Date/Time: Aug 01, 2020 10:49 AM Reporting Lab: [facility] [address] Performing Lab: [facility] [address] [place] [facility] VIT D 25-OH,TOT AL 25-HYDROXYV ITAMIN D3 [MASS/VOLUM E] IN SERUM OR PLASMA 46 12 - 50 11/29 Specimen Type: SERUM No comment entered. Ordering Provider: FLORIDA PAREDES Report Released Date/Time: Aug 01, 2020 10:49 AM Reporting Lab: [facility] [address] Performing Lab: [facility] [address] [facility] Vital Signs Combined list of inpatient and outpatient Vital Signs from Department of Defense and Veterans Affairs, ranging from 12 months to all on record, depending upon the facility. Vital Sign Value Date Comments Source SYSTOLIC BLOOD PRESSURE 113 11/13/2022 13:33:47 [facility] DIASTOLIC BLOOD PRESSURE 73 11/13/2022 13:33:47 [facility] PULSE OXIMETRY 96% 11/13/2022 13:33:47 [facility] WEIGHT 164.2 11/13/2022 13:33:47 [facility] BMI 24kg/m2 11/13/2022 13:33:47 [facility] PAIN 0 11/13/2022 13:33:47 [facility] HEIGHT 69.3 11/13/2022 13:33:47 [facility] TEMPERATURE 96.6 11/13/2022 13:33:47 [facility] PULSE 81 11/13/2022 13:33:47 [facility] RESPIRATION 16 11/13/2022 13:33:47 [facility] SYSTOLIC BLOOD PRESSURE 138 10/02/2022 15:07:01 [facility] DIASTOLIC BLOOD PRESSURE 83 10/02/2022 15:07:01 [facility] PULSE OXIMETRY 98% 10/02/2022 15:07:01 [facility] WEIGHT 165 10/02/2022 15:07:01 [facility] BMI 23kg/m2 10/02/2022 15:07:01 [facility] PAIN 2 10/02/2022 15:07:01 [facility] PULSE 89 10/02/2022 15:07:01 [facility] RESPIRATION 16 10/02/2022 15:07:01 [place] [facility] Encounters Combined list of: 1) Encounters from Department of Veterans Affairs facilities going back up to thelast 18 months. 2) Encounters from the Department of Defense facilities going back up to 280 months. Location Location Details Encounter Type Encounter Number Reason For Visit Attending Provider ADM Date DC Date Status Disposition Source [place] [facility] Outpatient Encounter [id number] 05/03 [facility] [place] [facility] [place] [id number] Diagnos is: ICD-10- CM Z00.00 Encntr for general adult medical exam w/o abnorma l finding s
Lisa NI 05/08 [facility] [place] [facility] Outpatient Encounter [id number] SANDRA NINO A 05/09 [facility] [place] [facility] Outpatient Encounter [id number] 07/24 [facility] [place] [facility] Outpatient Encounter [id number] SANDRA NINO H A 07/26 [facility] [place] [facility] Outpatient Encounter [id number] Diagnos is: ICD-10- CM R06.00 Dyspnea , unspeci fied
ORQUIDEA,AGUSTINA B 08/16 [facility] [place] [facility] OFFICE O/P EST SF 10-19 MIN [id number] Diagnos is: ICD-10- CM J44.9 Chronic obstruc tive pulmona ry disease , unspeci fied
Lisa NI 09/25 [facility] [place] [facility] Outpatient Encounter [id number] 09/27 [facility] [place] [facility] OFFICE O/P EST LOW 20-29 MIN [id number] Diagnos is: ICD-10- CM J44.9 Chronic obstruc tive pulmona ry disease , unspeci fied
Lisa NI 10/02 [place] [facility] [place] [facility] Outpatient Encounter [id number] 10/02 [place] [facility] [place] [facility] Outpatient Encounter [id number] DIANA ANDREWS Jaime 10/08 [place] [facility] [place] [facility] Outpatient Encounter [id number] 10/27 [place] [facility] [place] [facility] Outpatient Encounter [id number] 10/29 [place] [facility] [place] [facility] Outpatient Encounter [id number] 11/13 [place] [facility] [place] [facility] HEMOGLOBIN [id number] Diagnos is: ICD-10- CM J44.9 Chronic obstruc tive pulmona ry disease , unspeci fied
[facility]STOBAL [facility] OFF/OP CNSLTJ NEW/EST LOW 30 [id number] Diagnos is: ICD-10- CM J44.9 Chronic obstruc tive pulmona ry disease , unspeci fied
PATY CRISTOBAL 11/13 [facility] [place] [facility] Outpatient Encounter [id number] 11/13 [place] [facility] [place] [facility] Outpatient Encounter [id number] Marissa DIAZ 02/12 [place] [facility] QNHP OL DIG ASSMT&MGMT - [id number] Diagnos is: ICD-10- CM R93.2 Abnorma l finding s on dx imaging of liver and biliary tract<b r/> PANCHO BARLOW 06/05 [place] [facility] Outpatient Encounter [id number] DIANA ANDREWS 07/05 [facility] Outpatient Encounter [id number] 08/01 [facility] Social History Combined list of available smoking, tobacco, and other social history from Department of Defense and Veterans Affairs facilities. Social History Type Response Date Comment Sourc e Tobacco smoking status NHIS VA-TOBACCO FORMER USER 05/08/2022 [facility] History of tobacco use AZ-TOBACCO QUIT 1 TO < 5 YRS 05/08/2022 [facility] History of tobacco use [place]-TOBACCO FORMER USER 06/27/2021 [facility] History of tobacco use PATIENT IS TOBACCO USER 04/15/2019 [facility] History of tobacco use INPT TOBACCO COUNSELING 04/08/2019 [facility] History of tobacco use AZ-TOBACCO QUIT 1 TO < 5 YRS 01/20/2019 [facility] History of tobacco use INPT TOBACCO COUNSELING 03/31/2018 [facility] History of tobacco use INPT TOBACCO COUNSELING 02/11/2018 [facility] History of tobacco use FORMER TOBACCO US E >1Y <7Y 01/17/2018 [facility] History of tobacco use FORMER TOBACCO US ER 7Y OR GREATER 01/07/2017 [facility] History of tobacco use FORMER TOBACCO US E >1Y <7Y 09/12/2015 [facility] History of tobacco use FORMER TOBACCO US E >1Y <7Y 05/25/2014 [facility] History of tobacco use FORMER TOBACCO USE <1Y 04/08/2013 [facility] History of tobacco use CURRENT TOBACCO USER 06/16/2012 [facility] History of tobacco use CURRENT TOBACCO USER 05/14/2011 [facility] History of tobacco use CURRENT TOBACCO USER 07/13/2010 [facility] History of tobacco use CURRENT TOBACCO USER 05/05/2010 [facility] History of tobacco use CURRENT TOBACCO USER 04/14/2009 [facility] History of tobacco use FORMER TOBACCO US E >1Y <7Y 04/15/2008 [facility] History of tobacco use FORMER TOBACCO US E >1Y <7Y 06/09/2007 [facility] History of tobacco use CDM COPD TOBACCO NON-USER [address] [place] [address] History of tobacco use FORMER TOBACCO USE <1Y 09/02/2006 [facility] Plan of Care List of future care activities from Department [facility] facilities. Additional future care activities may be listed in the Assessment and Plan section. Date/Time Care Activity Care Activity Detail Facili ty 09/11/2023 AMBULATORY - NONE AMBULATORY - NONE [facility] Advance Directives List of completed, amended, or rescinded Advance Directives on record at [facility] facilities. An actual copy of the Directive is not included. Date Advance Directive Provider Source 04/01/2018 ADVANCE DIRECTIVE DISCUSSION ISIDRA NOGUERA ROLE J [facility]
--- OUTSIDE RECORDS SUMMARY | 2023-08-14 10:13 | XMS_ITS | Encounter Summary ---
Author Name Unknown Organization [facility] Address [address] [place] [address]. [place] [address] Care Team Providers Care Early Childhood Education Worker Name Role Phone Reza Leary MD Unavailable [phone] [facility] Primary Care Prov ider Xiao Tomlin DO Primary Care Provider [phone] Encounter Details Date Type Department Care Team (Late st Contact Info) Description 08/01/2012 Office Visit-[facility] [place] [address] [place] [address] Kassie Garrido, RUTH TWISTER DOFFER XXX RESIGNED XXX [address] [facility] [place] GAMBINO [id number] Social History Tobacco Use Types Packs/Day Years [...] 1945 AGE: [age] years old Referring Physician: [facility] Referring Clinic: [facility] CURRENT DIAGNOSES 1. - CAD, 414.00 2. [...] 24 hr, 1 p.o. daily 7. Metoprolol Eunxltpe75 mg Tablet, 1/2 tab twice daily 8. [...] meeting Lucía Vizcarra and his in the [facility]. He is a 67-year-old [...] in [place] - 1965 and [place]; Exercise - no regular exercise; Seat Belt Use - always; Occupation - retired and use to work at [employer] in [place]; Residence - lives with and children, lives in [place] year round and raising 's nephew; Place of - [place]; REVIEW OF SYSTEMS GENERAL denies recent weight [...] this has been fully evaluated at the [facility] but I leave that to his primary [...] he would like to do thisthrough the [facility] or our clinic. He chose our clinic. [...] Bar MD 6 months Kassie Garrido N.P. cc:[facility] Dr. Ford documented in this encounter Plan of Treatment Not on file documented as of this encounter Visit Diagnoses Not on filedocumented in this encounter Additional Health Concerns Infection Onset Date Last Indicated Resolved Time Rule Out COVID-19 02/23/2020 02/23/2020 02/24/2020 2:05 PM CDT Rule Out COVID-19 02/16/2021 02/16/2021 02/16/2021 6:19 PM CDT documented as of this encounter Care Teams Early Childhood Education Worker Relationship Specialty Start Date End Date Reza Leary MD [facility] [place] [address] [facility] [address] [place] [address] PCP - ENT ENT-Otolaryngology 11/09/11 02/16/21 [facility] [place] [address] PCP - General 07/21/12 09/14/20 [place] [address] [place] [address] PCP - General Family Medicine 09/15/20 documented as of this encounter
--- OUTSIDE RECORDS SUMMARY | 2023-08-14 10:13 | XMS_ITS | Clinical Summary ---
Author Name Unknown Organization [facility] Address [address] [place] [address] Care Team Providers Care Food Selector Name Role Phone IgorshawnmichelleXiao Primary Care Provider Allergies No known active allergies Medications Medication [...] series) 2006 LUNG CANCER SCREENING 11/01/2006 11/01/2005 LIPID 12/09/2009 12/09/2008, 10/07, 11/01/2005 FALL RISK ASSESSMENT 2011 ZOSTER IMMUNIZATION (2 of 3) 01/05/2015 11/10/2014 MEDICARE ANNUAL WELLNESS VISIT 08/10/2022 08/10/2021, 07/15/2020 COVID-19 Vaccine ( season) 2023 06/27/2021, 08/31/2020, 08/10/2020 INFLUENZA VACCINE (#1) 2023 , 04/03/2021, 04/11/2020, Additional history exists PHQ-2 (once per calendar year) 2023 GLUCOSE 02/18/2024 02/17/2021, 02/05, 02/16/2021, Additional history exists DTAP/TDAP/TD IMMUNIZATION (6 - Td or Tdap) [...] Advance Directives For more information, please contact: [phone] Latest Code Status on File Code Status [...] with patient/ legal decision maker Care Teams Food Selector Relationship Specialty [place] [address] [place] [address] PCP - General Family Medicine 09/15/20
--- OUTSIDE RECORDS SUMMARY | 2023-08-14 10:13 | XMS_ITS | Referral Summary ---
Author Name Unknown Organization [facility] Address [address] [place] [address] Care Team Providers Care Director Service Name Role Phone Nabor Xiao S Primary Care Provider [phone] Allergies No known active allergies Medications Medication [...] Advance Directives For more information, please contact: [phone] Latest Code Status on File Code Status [...] with patient/ legal decision maker Care Teams Director Service Relationship Specialty [place] [address] [place] [address] PCP - General Family Medicine 09/15/20
--- OUTSIDE RECORDS SUMMARY | 2023-08-14 10:13 | XMS_ITS | Clinical Summary ---
Author Name Unknown Organization [employer] Address [place], [place] [address] Care Team Providers Care Cash Register Balancer Name Role Phone Xiao Tomline Primary Care Provider [facility] Care, [place] Unavailable [phone] Allergies No known active allergies Medications Medication Sig Dispensed Refills Start Date End Date Status traZODone (DESYREL) 100 mg tablet Take 200 mg by mouth at bedtime. 0 08/24/19 16 Active albuterol HFA (PROVENTIL HFA) 90 mcg/actuation inhaler Inhale 2 Puffs by mouth 4 times daily if needed for Shortness Of Breath. 0 10/12/19 16 Active DULoxetine (CYMBALTA) 60 mg Delayed-release capsule Take 1 capsule by mouth once daily. 0 03/05/20 17 Active blood-glucose meterIndications:U ncontrolled type 2 diabetes mellitus without complication, with long-term current use of insulin Dispense meter, test strips, lancets covered by pt ins. E11.65 NIDDM type II, uncontrolled - Test 2 times/day. 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 0 08/26/19 18 Active blood sugar diagnostic (ACCU-CHEK GUIDE) stripIndications:U ncontrolled type 2 diabetes mellitus without complication, with long-term current use of insulin Dispense item covered by pt ins. E11.65 NIDDM type II, uncontrolled - Test 3 times/day, Reason: High A1C 100 Strip 6 09/02/19 18 Active cholecalciferol (Vitamin D-3) 2,000 unit capsule Vitamin D3 oral take 1 by oral route daily Active 0 Active primidone (MYSOLINE) 50 mg tablet Take 50 mg by mouth once daily. 0 01/12/20 22 Active Wixela Inhub 250-50 mcg/dose diskus inhaler Inhale 1 Puff by mouth two times daily. 0 10/25/19 22 Active nitroglycerin (NITROSTAT) 0.4 mg sublingual tabletIndications: Chest pain in adult Place 1 Tablet (0.4 mg) under the tongue every 5 minutes if needed for Chest Pain. 30 Tablet 0 09/28/19 23 Active atorvastatin (LIPITOR) 40 mg tabletIndications: Mixed hyperlipidemia Take 1 Tablet (40 mg) by mouth at bedtime. 90 Tablet 3 09/28/19 23 Active gabapentin (NEURONTIN) 300 mg capsuleIndications :Diabetic peripheral neuropathy (HC) Take 1 Capsule (300 mg) by mouth at bedtime. 90 Capsule 3 04/08/20 23 Active tamsulosin (FLOMAX) 0.4 mg capsuleIndications :BPH without urinary obstruction Take 1 Capsule (0.4 mg) by mouth once daily after a meal. 90 Capsule 3 04/08/20 23 Active buPROPion (WELLBUTRIN XL) 300 mg Extended-Release tabletIndications: Recurrent major depressive disorder, in full remission (HC) TAKE 1 TABLET BY MOUTH EVERY MORNING 60 Tablet 0 07/15/19 24 Active potassium chloride (MICRO-K) 10 mEq Controlled-release capsule Take 10 mEq by mouth two times daily with meals. 0 07/29/19 24 Active metoprolol tartrate (LOPRESSOR) 25 mg tabletIndications: Paroxysmal atrial fibrillation (HC) Take 0.5 Tablets (12.5 mg) by mouth two times daily. 180 Tablet 1 08/01/19 24 Active Blood Pressure Monitor (Blood Pressure Kit) KitIndications:Par oxysmal atrial fibrillation (HC) Diagnosis: hypertension Use as directed 1 Each 0 08/01/19 24 Active metFORMIN (GLUCOPHAGE) 1,000 mg tabletIndications: Diabetes mellitus type 2 with neurological manifestations (HC) TAKE 1 TABLET (1,000 MG) BY MOUTH 2 TIMES DAILY WITH MEALS. 180 Tablet 0 08/05/19 24 Active metFORMIN (GLUCOPHAGE) 1,000 mg tabletIndications: Diabetes mellitus type 2 with neurological manifestations (HC) Take 1 Tablet (1,000 mg) by mouth two times daily with meals. 180 Tablet 3 09/28/19 23 024 Discontinued tiotropium (SPIRIVA HANDIHALER) 18 mcg inhalation capsule Inhale 18 mcg by mouth once daily. Using a SPRIVA HANDIHALER simons the capsule, then by mouth breathe in the powder. Inhale twice from the same capsule for full dose. 0 024 Discontinued(*P atient states no longer taking) diclofenac topical (VOLTAREN) 1 % gel Apply topically to affected area(s) four times daily. 0 09/19/19 23 024 Discontinued(*P atient states no longer taking) metoprolol tartrate (LOPRESSOR) 25 mg tablet Take 12.5 Tablets by mouth two times daily. 0 07/29/19 24 024 Discontinued(Re order (E-cancel not sent)) Active Problems Problem Noted Date Diagnosed Date Mild dementia with mood disturbance 08/01/2023 Paroxysmal atrial fibrillation 08/01/2023 Controlled type 2 diabetes m ellitus with microalbuminuria, without long-term current use of insulin 09/12/2022 Microalbuminuria 08/29/2022 Bilateral pseudophakia 04/30/2022 Hyperopia of both eyes with astigmatism and pres byopia 04/30/2022 Acquired hemolytic anemia 08/10/2021 Sensory peripheral neuropathy 10/19/2020 Overview: EMG 10/2020 Gilbert syndrome 09/16/2020 Overview: Elevated indirect bilirubinemia, no treatment needed Coronary artery disease of b ypass graft of [place] heart with stable angina pectoris 07/16/2020 Stage 3a chronic kidney disease 06/26/2020 Mixed hyperlipidemia 06/26/2020 Diabetic peripheral neuropathy 06/26/2020 Acute gout of right foot 02/12/2019 Tobacco abuse 11/07/2017 Recurrent major depressive disorder 12/25/2016 Overview: Followed by [place]. Hospitalizations and ECT in past. Last ECT [...] nodule 12/25/2016 Overview: RLL. Benign, followed by [place]. Stable since 2010. CT 04/10/21 stable RLL nodules 6mm, 5mm. Repeat CT in 1 year. Right knee DJD 12/25/2016 Overview: Injection 05/2016 at [place] Blepharospasm 02/12/2011 COUGH HYPERCHOLESTEROLEMIA, PURE COPD (chronic [...] Encounters Date Type Department Care Team Description 08/13/2023 Orders Only [facility] [place] [address] [place] [address] Qasim Lu II, PT <No scans attached> 08/12/2023 10:00 AM EXECUTIVE DIRECTOR CONTRACT SHOP Home Care Visit [address] [address] Carito Grey, PT PT - [place] START OF CARE 08/12/2023 Plan of Care Documentation [address] [address] 08/12/[address] [address] Carito Grey, PT Home Care (Verbal orders) 08/12/2023 Home Care Visit [address] [address] Carito Grey, PT CARE COORDINATION 08/09/2023 Telephone [facility] [address] [place] [address] Xiao Tomlin DO Questions (Home Therapy) 08/05/2023 Refill [facility] [id number] [place] [id number] Xiao Tomlin DO Refill Request (Metformin) 08/01/2023 12:30 PM EXECUTIVE DIRECTOR CONTRACT SHOP Office Visit [facility] [id number] [place] [address] Xiao Tomlin DO Hospital F/U ([facility], Afib. Feeling tired today) 08/01/2023 Travel 07/24/2023 Patient Outreach [facility] Care Management - Advanced Care Team [address] [place] [address] Ginger Medrano, tourist adviser Management (ACO engagement call) 07/23/2023 3:00 PM EXECUTIVE DIRECTOR CONTRACT SHOP Orders Only [facility] [address] [place] [address] 2 scans: (2-Ord) ECHO TTE COMPLETE WO CONTRAST ([id number]) 07/22/2023 2:40 PM EXECUTIVE DIRECTOR CONTRACT SHOP Office Visit [facility] [address] [place] [address] Ashley Ferris MD Cough (productive cough); Nose Problem (runny nose); Confusion (up and down not able to sleep due to cough) 07/22/2023 Travel 07/13/2023 Refill [facility] [address] [place] [address] Xiao Tomlin DO Refill Request (Bupropion) 06/18/2023 1:18 PM EXECUTIVE DIRECTOR CONTRACT SHOP - 06/18/2023 11:59 PM EXECUTIVE DIRECTOR CONTRACT SHOP Hospital Encounter [facility] [address] [place] [address] Xiao Tomlin DO Rivera, Sidney W II, PT 06/18/2023 Travel 06/11/2023 1:29 PM EXECUTIVE DIRECTOR CONTRACT SHOP - 06/11/2023 11:59 PM EXECUTIVE DIRECTOR CONTRACT SHOP Hospital Encounter [facility] [address] [address] [address] Xiao Tomlin, Qasim Messina W II, PT 06/11/2023 Travel 06/04/2023 1:22 PM EXECUTIVE DIRECTOR CONTRACT SHOP - 06/04/2023 11:59 PM EXECUTIVE DIRECTOR CONTRACT SHOP Hospital Encounter [facility] [address] [place] [address] Xiao Tomlin DO Rivera, Sidney W II, PT 06/04/2023 Travel 05/28/2023 2:14 PM EXECUTIVE DIRECTOR CONTRACT SHOP - 05/28/2023 11:59 PM EXECUTIVE DIRECTOR CONTRACT SHOP Hospital Encounter [facility] [address] [facility] [address] Xiao Tomlin DO Rivera, Sidney W II, PT 05/28/2023 Travel 05/21/2023 1:32 PM EXECUTIVE DIRECTOR CONTRACT SHOP - 05/21/2023 11:59 PM EXECUTIVE DIRECTOR CONTRACT SHOP Hospital Encounter [facility] [address] [place] [address] Nabor, Xiao Valencia, DO Lu, Qasim W II, PT 05/21/2023 Travel from Last 3 Months Immunizations Name Administration Dates Next Due COVID-19 vaccine ([place] NT[employer]uation App 30mcg/0.3mL) PF, MDV 06/27/2021,08/31/2020,08/10/2020 Influenza Virus, Unspecified [...] Sign Reading Time Taken Comments Blood Pressure 110/80 08/12/2023 1:27 PM EXECUTIVE DIRECTOR CONTRACT SHOP Pulse 77 08/12/2023 1:20 PM EXECUTIVE DIRECTOR CONTRACT SHOP Temperature 36.7 ??C (98.1 ??F) 08/12/2023 1:20 PM CS T Respiratory Rate 12 08/12/2023 1:20 PM EXECUTIVE DIRECTOR CONTRACT SHOP Oxygen Saturation 97% 08/12/2023 1:20 PM EXECUTIVE DIRECTOR CONTRACT SHOP Inhaled Oxygen Concentration - - Weight 71.2 kg (157 lb) 08/12/2023 1:20 PM EXECUTIVE DIRECTOR CONTRACT SHOP Height 182.9 cm (6') 08/12/2023 1:20 PM EXECUTIVE DIRECTOR CONTRACT SHOP Body Mass Index 21.29 08/12/2023 1:20 PM EXECUTIVE DIRECTOR CONTRACT SHOP Plan of Treatment Upcoming Encounters Date Type Department Care Team (Late st Contact Info) Description 08/14/2023 2:30 PM EXECUTIVE DIRECTOR CONTRACT SHOP Home Care Visit [address] [address] [place] [address] [place] [address] 08/20/2023 3:00 AM EXECUTIVE DIRECTOR CONTRACT SHOP Home Care Visit [address] [address] Meghan Shepherd, PT [address] [place] [address] 08/22/2023 3:00 AM EXECUTIVE DIRECTOR CONTRACT SHOP Home Care Visit [address] [address] Meghan Shepherd, PT [address] [place] [address] 08/27/2023 3:00 AM EXECUTIVE DIRECTOR CONTRACT SHOP Home Care Visit [facility] [address] [place] [address] Meghan Shepherd, PT [address] [place] [address] 08/29/2023 3:00 AM EXECUTIVE DIRECTOR CONTRACT SHOP Appointment [facility] [address] [place] [address] Meghan Shepherd, PT [address] [place] [address] 09/09/2023 8:45 AM EXECUTIVE DIRECTOR CONTRACT SHOP Office Visit [facility] [address] [place] [address] [place] [address] [place], [place] [id number] Health Maintenance Due Date Last Done Comments Zoster (shingles) series for age 50+ (2 of 3) 01/05/2015 11/10/2014 COVID-19 vaccine series ( season) 2023 06/27/2021, 08/31/2020, 08/10/[address] (for lung CA) ag e 50-80 07/24/2023 07/24/2022 (Completed outsid e of Fabian), 04/10/2021 BMI (ht and wt on same day) for age 18+ 09/28/2023 09/27/2022, 08/29/2022, 08/10/2021, Additional history exists Depression screening for age 12+ 09/28/2023 09/27/2022, 08/10/2021, 07/19/2020, Additional history exists Medicare Wellness for age 65+ 09/28/2023, 08/10/2021, 07/15/2020, Additional history exists Tetanus booster 11/10/2024 11/10/2014, 01/06, 12/21/1997, Additional history exists Tdap Completed 11/10/2014 Pneumococcal series for age 65+ Completed 05/24/2017, 11/29/2015, 10/12/2015, Additional history exists Hepatitis C screening for ag e 18-79 Completed 07/15/2020 Fecal testing non-DNA (FIT,FOBT,iFOBT) for age 45-75 Discontinued 05/08/2021, 04/19/2020, 01/30/2019, Additional history exists Influenza for age 65+ Completed 04/08/2023 , 05/08/2022, 03/29/2022, Additional history exists Procedures Procedure Name Priority Date/Time Associated Diagnosis Comments T4,FREE Routine 08/01/2023 1:34 PM EXECUTIVE DIRECTOR CONTRACT SHOP Paroxysmal atrial fibrillation (HC) TSH WITH REFLEX Add On 08/01/2023 1:34 PM EXECUTIVE DIRECTOR CONTRACT SHOP Paroxysmal atrial fibrillation (HC) RED CELL MORPHOLOGY Routine 08/01/2023 1 :34 PM EXECUTIVE DIRECTOR CONTRACT SHOP Paroxysmal atrial fibrillation (HC) PLATELET ESTIMATE Routine 08/01/2023 1:3 4 PM EXECUTIVE DIRECTOR CONTRACT SHOP Paroxysmal atrial fibrillation (HC) MANUAL DIFFERENTIAL Routine 08/01/2023 1 :34 PM EXECUTIVE DIRECTOR CONTRACT SHOP Paroxysmal atrial fibrillation (HC) CBC WITH AUTO DIFFERENTIAL Routine 08/01/2023 1:34 PM EXECUTIVE DIRECTOR CONTRACT SHOP Paroxysmal atrial fibrillation (HC) BASIC METABOLIC PANEL Routine 08/01/2023 1:34 PM EXECUTIVE DIRECTOR CONTRACT SHOP Paroxysmal atrial fibrillation (HC) CBC WITH AUTO DIFFERENTIAL Routine 08/01/2023 1:34 PM EXECUTIVE DIRECTOR CONTRACT SHOP Paroxysmal atrial fibrillation (HC) ECHO TTE COMPLETE WO CONTRAST Routine 07/23/2023 5:25 PM EXECUTIVE DIRECTOR CONTRACT SHOP COPD (chronic obstructive pulmonary disease) (HC) COVID/FLU/RSV PANEL Routine 07/22/2023 3 :22 PM EXECUTIVE DIRECTOR CONTRACT SHOP Cough, unspecified type from Last 3 Months Results * (ABNORMAL) CBC WITH AUTO DIFFERENTIAL (08/01/2023 1:34 PM EXECUTIVE DIRECTOR CONTRACT SHOP) WHITE BLOOD COUNT 10.7 4.5 - 11.0 thou/cu mm 08/01/2023 3:45 PM EXECUTIVE DIRECTOR CONTRACT SHOP [facility] RED BLOOD COUNT 3.18(L) 4.30 - 5.90 mil/cu mm 08/01/2023 3:45 PM EXECUTIVE DIRECTOR CONTRACT SHOP [facility] HEMOGLOBIN 9.3(L) 13.5 - 17.5 g/dL 08/01/2023 3:45 PM EXECUTIVE DIRECTOR CONTRACT SHOP [facility] HEMATOCRIT 29.6(L) 37.0 - 53.0 % 08/01/2023 3:45 PM EXECUTIVE DIRECTOR CONTRACT SHOP [facility] MCV 93 80 - 100 fL 08/01/2023 3:45 PM EXECUTIVE DIRECTOR CONTRACT SHOP [facility] MCH 29.2 26.0 - 34.0 pg 08/01/2023 3:45 PM EXECUTIVE DIRECTOR CONTRACT SHOP [facility] MCHC 31.4(L) 32.0 - 36.0 g/dL 08/01/2023 3:45 PM [facility] RDW 18.1(H) 11.5 - 15.5 % 08/01/2023 3:45 PM EXECUTIVE DIRECTOR CONTRACT SHOP [facility] PLATELET COUNT 359 140 - 440 thou/cu mm 08/01/2023 3:45 PM [facility] MPV 9.1 6.5 - 11.0 fL 08/01/2023 3:45 PM EXECUTIVE DIRECTOR CONTRACT SHOP [facility] Blood BLOOD SPECIMEN / Unknown Butterfly / Unknown 08/01/2023 1:34 PM EXECUTIVE DIRECTOR CONTRACT SHOP 08/01/2023 1:34 PM EXECUTIVE DIRECTOR CONTRACT SHOP Xiao Tomlin DO HEMATOLOGY [facility] [address] [place] [address], * RED CELL MORPHOLOGY (08/01/2023 1:34 PM EXECUTIVE DIRECTOR CONTRACT SHOP) Pathologist [facility] RBC COMMENT RBC morphology appears normal RBC morphology appears normal, RBC morphology within normal limits for newborns. 08/01/2023 3:45 PM EXECUTIVE DIRECTOR CONTRACT SHOP [facility] Blood BLOOD SPECIMEN / Unknown Butterfly / Unknown 08/01/2023 1:34 PM EXECUTIVE DIRECTOR CONTRACT SHOP 08/01/2023 1:34 PM EXECUTIVE DIRECTOR CONTRACT SHOP Xiao Costashawnmichelle DURHAM HEMATOLOGY [facility] [address] [place] [address], [place] [phone] * PLATELET ESTIMATE (08/01/2023 1:34 PM EXECUTIVE DIRECTOR CONTRACT SHOP) PLATELET ESTIMATE Adequate Adequate, No estimate 08/01/2023 3:45 PM EXECUTIVE DIRECTOR CONTRACT SHOP [facility] Blood BLOOD SPECIMEN / Unknown Butterfly / Unknown 08/01/2023 1:34 PM EXECUTIVE DIRECTOR CONTRACT SHOP 08/01/2023 1:34 PM EXECUTIVE DIRECTOR CONTRACT SHOP Xiao Costashawnmichelle DURHAM HEMATOLOGY Performing Organization Address [facility] Co de Phone Number [facility] [address] [place] [address], [place] [phone] * (ABNORMAL) TSH WITH REFLEX (08/01/2023 1:34 PM EXECUTIVE DIRECTOR CONTRACT SHOP) TSH 5.10(H) 0.27 - 4.20 uIU/mL 08/01/2023 10:59 PM EXECUTIVE DIRECTOR CONTRACT SHOP [facility] Blood BLOOD SPECIMEN / Unknown Butterfly / Unknown 08/01/2023 1:34 PM EXECUTIVE DIRECTOR CONTRACT SHOP 08/01/2023 1:34 PM EXECUTIVE DIRECTOR CONTRACT SHOP Narrative [facility] - 08/01/2023 10:59 PM EXECUTIVE DIRECTOR CONTRACT SHOP In Adults, TSH values between 5.00 and 10.00 uIU/ml do not necessarily indicate the presence of Hypothyroidism. Correlation with clinical findings such as presence of goiter and/or Thyroperoxidase (TPO) Antibody may be helpful. For more information please refer to BECKIE 2004; 291: 228-238. Xiao Tomlin DO CHEMISTRY Performing Organization Address City/[facility]/ZIP Co de Phone Number [facility] [address] [place] [address], [place] * (ABNORMAL) MANUAL DIFFERENTIAL (08/01/2023 1:34 PM EXECUTIVE DIRECTOR CONTRACT SHOP) % NEUTROPHILS 68.0 % 08/01/2023 3:45 PM EXECUTIVE DIRECTOR CONTRACT SHOP [facility] % LYMPHOCYTES 20.0 % 08/01/2023 3:45 PM EXECUTIVE DIRECTOR CONTRACT SHOP [facility] % MONOCYTES 11.0 % 08/01/2023 3:45 PM EXECUTIVE DIRECTOR CONTRACT SHOP [facility] % EOSINOPHILS 0.0 % 08/01/2023 3:45 PM EXECUTIVE DIRECTOR CONTRACT SHOP [facility] % BASOPHILS 1.0 % 08/01/2023 3:45 PM EXECUTIVE DIRECTOR CONTRACT SHOP [facility] NEUTROPHILS ABSOLUTE 7.3(H) 1.7 - 7.0 thou/cu mm 08/01/2023 3:45 PM EXECUTIVE DIRECTOR CONTRACT SHOP [facility] LYMPHOCYTES ABSOLUTE 2.1 0.9 - 2.9 thou/cu mm 08/01/2023 3:45 PM EXECUTIVE DIRECTOR CONTRACT SHOP [facility] MONOCYTES ABSOLUTE 1.2(H) <0.9 thou/cu mm 08/01/2023 3:45 PM EXECUTIVE DIRECTOR CONTRACT SHOP [facility] EOSINOPHILS ABSOLUTE 0.0 <0.5 thou/cu mm 08/01/2023 3:45 PM EXECUTIVE DIRECTOR CONTRACT SHOP [facility] BASOPHILS ABSOLUTE 0.1 <0.3 thou/cu mm 08/01/2023 3:45 PM EXECUTIVE DIRECTOR CONTRACT SHOP [facility] Blood BLOOD SPECIMEN / Unknown Butterfly / Unknown 08/01/2023 1:34 PM EXECUTIVE DIRECTOR CONTRACT SHOP 08/01/2023 1:34 PM EXECUTIVE DIRECTOR CONTRACT SHOP Xiao Tomlin DO HEMATOLOGY [facility] [address] [place] [address], * T4,FREE (08/01/2023 1:34 PM EXECUTIVE DIRECTOR CONTRACT SHOP) T4,FREE 1.23 0.93 - 1.70 ng/dL 08/02/2023 1:16 AM EXECUTIVE DIRECTOR CONTRACT SHOP [facility] Blood BLOOD SPECIMEN / Unknown Butterfly / Unknown 08/01/2023 1:34 PM EXECUTIVE DIRECTOR CONTRACT SHOP 08/01/2023 1:34 PM EXECUTIVE DIRECTOR CONTRACT SHOP Xiao Annie Nabor DO CHEMISTRY [facility] [address] [place] [address], [place] * (ABNORMAL) BASIC METABOLIC PANEL (08/01/2023 1:34 PM EXECUTIVE DIRECTOR CONTRACT SHOP) SODIUM 138 136 - 145 mmol/L 08/01/2023 10:24 PM [facility] POTASSIUM 4.3 3.5 - 5.1 mmol/L 08/01/2023 10:24 PM [facility] CHLORIDE 100 98 - 107 mmol/L 08/01/2023 10:24 PM [facility] CO2,TOTAL 24 22 - 29 mmol/L 08/01/2023 10:24 PM [facility] ANION GAP 14 5 - 18 08/01/2023 10:24 PM [facility] GLUCOSE 148(H) 70 - 99 mg/dL 08/01/2023 10:24 PM [facility] CALCIUM 9.6 8.8 - 10.2 mg/dL 08/01/2023 10:24 PM [facility] BUN 17 8 - 23 mg/dL 08/01/2023 10:24 PM [facility] CREATININE 1.02 0.70 - 1.20 mg/dL 08/01/2023 10:24 PM [facility] BUN/CREAT RATIO 17 10 - 20 10:24 PM [facility] eGFR 76(L) >90 mL/min/1.7 3m2 08/01/2023 10:24 PM [facility] Comment:As of 2021, eG FR is calculated by the CKD-EPI creatinine equation without race adjustment. ??eGFR can be influenced by muscle mass, exercise, and diet. ??The reported eGFR is an estimation only and is only applicable if the renal function is stable. Blood BLOOD SPECIMEN / Unknown Butterfly / Unknown 08/01/2023 1:34 PM EXECUTIVE DIRECTOR CONTRACT SHOP 08/01/2023 1:34 PM EXECUTIVE DIRECTOR CONTRACT SHOP Xiao Tomlin DO CHEMISTRY [facility] [address] [place] [address], [place] * ECHO TTE COMPLETE WO CONTRAST (07/23/2023 5:25 PM EXECUTIVE DIRECTOR CONTRACT SHOP) AORTIC VALVE MEAN PG 4 mmHg EJECTION FRACTION 58 % PEAK TR VELOCITY 2.9 m/s LVEDD 5.4 cm EJECTION FRACTION 55 - 60% Anatomical Region Laterality Modality Ultrasound 07/23/2023 3:23 PM EXECUTIVE DIRECTOR CONTRACT SHOP Narrative 07/23/2023 8:02 PM EXECUTIVE DIRECTOR CONTRACT SHOP ECHOCARDIOGRAM LUCÍA PATEL ? Accession#: ?? [id number] : ?1945 78 years Study Date: ?? 07/23/2023 3:23:28 PM Gender: M ?BP: ? 95/50 mmHg Height: 178.00 cm ?BSA: ?1.89 m? ? ? Weight: 72.00 kg ? Tech: ? MTS ? Referring MD: NISHA BISHOP Site: ? [facility] Reading Location: [facility] Patient Location: Inpatient. Procedure: 2D, Color Doppler and Spectral Doppler. Indication for study: COPD (chronic obstructive pulmonary disease) Cardiac Rhythm: Irregular.Study quality: Technically limited. Imaging limitations: This study was subject to imaging limitations due to body habitus and a prominent lung artifact. Final Impressions: 1. Normal LV size, normal wall thickness, normal global systolic function with an estimated EF of 55 - 60%. 2. Technically limited exam. 3. Mildly enlarged left atrium. 4. The aortic valve is sclerotic, no stenosis and trivial regurgitation. 5. The mitral valve is notable for MAC, trace mitral regurgitation. 6. The ascending aorta is dilated with a maximal diameter of 3.8 cm. 7. The aortic sinus is dilated with a maximal diameter of 3.9 cm. Chamber Sizes and Function Normal left ventricular size, normal wall thickness, normal global systolic function with an estimated EF of 55 - 60%. Left atrial size is mildly enlarged. Right ventricular cavity size is normal, global systolic RV function is normal. The right atrium is normal. Right atrial volume index is 27 ml/m? ? ?. Right atrial area is 17 cm? ? ?. The pulmonary artery is not well visualized. The sinus of Valsalva is dilated. The ascending aorta is dilated. Valves, RV Pressures and Diastolic Function The aortic valve is sclerotic, no stenosis and trivial regurgitation. The mitral valve is notable for MAC, trace mitral regurgitation. Indeterminate pattern of LV diastolic filling. The tricuspid valve is normal in structure. Tricuspid regurgitation is trace regurgitation. The tricuspid regurgitant velocity is 2.9 m/s, the estimated right ventricular systolic pressure is 34 mmHg plus right atrial pressure. There is borderline increased estimated pulmonary pressure by tricuspid regurgitation velocity and right atrial pressure. The pulmonic valve is normal. Trace pulmonary regurgitation. Masses, Effusion, Shunts There is no pericardial effusion. The inferior vena cava is dilated, respiratory size variation less than 50%. Interatrial septum is not well visualized. MEASUREMENTS AND CALCULATIONS 2-D Measurements and LV Function: LVID (d) 5.4 cm LV FS% (2D) ?? 27 % LVID (s) 3.9 cm LVOT diameter 2.0 cm IVS (d) ??0.9 cm HR ?54 bpm LVPW (d) 1.1 cm LA Vol index ??43 ml/m2 Ao Sinus 3.9 cm RA Vol index ??27 ml/m2 Asc Ao ?? 3.8 cm RA area ? 17 cm? ? ? LA ? 4.3 cm RV Max 4C (d) 3.8 cm Diastology: Mitral ?Tissue Doppler E Peak 1.0 m/s ??e', Septum ? 0.06 m/s A Peak 0.3 m/s E/A ?3.3 DT ? 162 msec Aortic Valve: Vmax ? 1.4 m/s ??BLANQUITA (V) ?? 1.53 cm? AI P 1/2 311 msec VTI ?0.31 m ?? BLANQUITA (I) ?? 1.54 cm? ? ? LVOT V max 0.6 m/s ??Max PG ?7 mmHg LVOT VTI ?? 0.14 m ?? Mean PG ?? 4 mmHg SV ? 48 ml ?Dim Index 0.47 SV index ?? 25 ml/m? ? ? CO ?2.6 l/min ?CI ?1.4 l/min/m? ? ? Mitral Valve: MVA ?4.7 cm? ? ? MV P 1/2 47 msec Tricuspid Valve and estimated PA pressures: TR Vmax 2.9 m/s TAPSE 1.8 cm TR maxG 34 mmHg . This study was interpreted by an [facility] accredited facility. CC: HIM (med records) [facility], Med/Surg - IP [facility]. ??Final ?? Procedure Note Ariel Keith MD - 07/23/2023 ECHOCARDIOGRAM LUCÍA PATEL : 1945 78 years Study Date: 07/23/2023 3:23:28 PM Gender: M BP: 95/50 mmHg Height: 178.00 cm BSA: 1.89 m? ? ? Weight: 72.00 kg Tech: [facility] Referring MD: NISHA BISHOP Site: [facility] Reading Location: [facility] Patient Location: Inpatient. Procedure: 2D, Color Doppler and Spectral Doppler. Indication for study: COPD (chronic obstructive pulmonary disease) Cardiac Rhythm: Irregular.Study quality: Technically limited. Imaging limitations: This study was subject to imaging limitations due tobody habitus and a prominent lung artifact. Final Impressions: 1. Normal LV size, normal wall thickness, normal global systolic functionwith an estimated EF of 55 - 60%. 2. Technically limited exam. 3. Mildly enlarged left atrium. 4. The aortic valve is sclerotic, no stenosis and trivialregurgitation. 5. The mitral valve is notable for MAC, trace mitral regurgitation. 6. The ascending aorta is dilated with a maximal diameter of 3.8 cm. 7. The aortic sinus is dilated with a maximal diameter of 3.9 cm. Chamber Sizes and Function Normal left ventricular size, normal wall thickness, normal globalsystolic function with an estimated EF of 55 - 60%. Left atrial size ismildly enlarged. Right ventricular cavity size is normal, global systolicRV function is normal. The right atrium is normal. Right atrial volumeindex is 27 ml/m? ? ?. Right atrial area is 17 cm? ? ?. The pulmonary artery isnot well visualized. The sinus of Valsalva is dilated. The ascending aortais dilated. Valves, RV Pressures and Diastolic Function The aortic valve is sclerotic, no stenosis and trivial regurgitation. Themitral valve is notable for MAC, trace mitral regurgitation. Indeterminatepattern of LV diastolic filling. The tricuspid valve is normal instructure. Tricuspid regurgitation is trace regurgitation. The tricuspidregurgitant velocity is 2.9 m/s, the estimated right ventricular systolicpressure is 34 mmHg plus right atrial pressure. There is borderlineincreased estimated pulmonary pressure by tricuspid regurgitation velocityand right atrial pressure. The pulmonic valve is normal. Trace pulmonaryregurgitation. Masses, Effusion, Shunts There is no pericardial effusion. The inferior vena cava is dilated,respiratory size variation less than 50%. Interatrial septum is not wellvisualized. MEASUREMENTS AND CALCULATIONS 2-D Measurements and LV Function: LVID (d) 5.4 cm LV FS% (2D) 27 % LVID (s) 3.9 cm LVOT diameter 2.0 cm IVS (d) 0.9 cm HR 54 bpm LVPW (d) 1.1 cm LA Vol index 43 ml/m2 Ao Sinus 3.9 cm RA Vol index 27 ml/m2 Asc Ao 3.8 cm RA area 17 cm? ? ? LA 4.3 cm RV Max 4C (d) 3.8 cm Diastology: Mitral Tissue Doppler E Peak 1.0 m/s e', Septum 0.06 m/s A Peak 0.3 m/s E/A 3.3 DT 162 msec Aortic Valve: Vmax 1.4 m/s BLANQUITA (V) 1.53 cm? ? ? AI P 1/2 311 msec VTI 0.31 m BLANQUITA (I) 1.54 cm? ? ? LVOT V max 0.6 m/s Max PG 7 mmHg LVOT VTI 0.14 m Mean PG 4 mmHg SV 48 ml Dim Index 0.47 SV index 25 ml/m? ? ? CO 2.6 l/min CI 1.4 l/min/m? ? ? Mitral Valve: MVA 4.7 cm? ? ? MV P 1/2 47 msec Tricuspid Valve and estimated PA pressures: TR Vmax 2.9 m/s TAPSE 1.8 cm TR maxG 34 mmHg . This study was interpreted by an [facility] accredited facility. CC: HIM (med records) [facility], Med/Surg - IP [facility]. Final Nisha Bishop MD ECHO ORD * COVID/FLU/RSV PANEL (07/22/2023 3:22 PM EXECUTIVE DIRECTOR CONTRACT SHOP) COVID 19 [facility] Negative Negative 07/22/2023 11:06 PM EXECUTIVE DIRECTOR CONTRACT SHOP [facility] Comment:All PCR tests are colin bject to false negative result due to variability in viral load and collection technique. A negative result does not rule out a SARS-CoV-2 infection. Clinical correlation required. INFLUENZA A PCR Negative 4 11:06 PM EXECUTIVE DIRECTOR CONTRACT SHOP [facility] INFLUENZA B PCR Negative 4 11:06 PM EXECUTIVE DIRECTOR CONTRACT SHOP [facility] Respiratory Syncytial Virus Negative 07/22/2023 11:06 PM EXECUTIVE DIRECTOR CONTRACT SHOP [facility] Nasopharyngeal SPECIMEN FROM NASOPHARYNGEAL STRUCTURE / Unknown Non-Blood / Unknown 07/22/2023 3:22 PM EXECUTIVE DIRECTOR CONTRACT SHOP 07/22/2023 3:22 PM EXECUTIVE DIRECTOR CONTRACT SHOP Narrative [facility] - 07/22/2023 11:06 PM EXECUTIVE DIRECTOR CONTRACT SHOP This test has been authorized by FDA under an Emergency Use Authorization (EUA). This test is only authorized for the duration of time the declaration that circumstances exist justifying the authorization of the emergency use of in vitro diagnostic tests for detection of SARS-CoV-2 virus and/or diagnosis of COVID-19 infection under section 564(b)(1) of the Act, 21 U.S.C. 360bbb-3(b) (1), unless the authorization is terminated or revoked sooner. Ashley Ferris MD MICROBIOLO GY [facility] [address] [place] [address], from Last 3 Months Advance Directives Documents on File Type Date Recorded Patient Pack Operator Maris CLINE 08/01/2023 Care Teams Cash Register Balancer Relationship Specialty [place] [address] [address] [place], [place] [id number] PCP - General Family Practice 01/19/19 [facility] [address] [place] [address] 08/09/23
--- OUTSIDE RECORDS SUMMARY | 2023-08-14 10:13 | XMS_ITS | Encounter Summary ---
Author Name Unknown Organization [facility] Address [address] [place] [address]. [place] [address] Care Team Providers Care Csr Name Role Phone Frw, None Primary Care Provider Reza Bryant MD Unavailable [phone] [place], [facility] Primary Care Prov ider Xiao Tomlin DO Primary Care Provider [phone] Encounter Details Date Type Department Care Team (Late st Contact Info) Description 07/17/2012 Office Visit-[facility] [address] [place] [address] Magno Bar MD Social History Tobacco Use Types Packs/Day Years Used Date Smoking Tobacco: Never Assessed Sex and Gender Information Value Date Recorded Sex Assigned at Not on file Gender Identity Not on file Sexual Orientation Not on file documented as of this encounter Progress Notes * Magno Bra MD - 07/21/2012 4:12 PM CST Progress Note Created by: Magno Bar M.D. APPT [id number] DATE: 07/17/2012 LUCÍA VIZCARRA [id number] DATE OF : 1945 AGE: [age] years old Referring Physician: [facility] CUR[facility] [...] 24 hr, 1 p.o. daily 7. Metoprolol [id number] mg Tablet, 1/2 tab twice daily 8. [...] is 67 and a patient of the [facility]. He has multiple health and medical issues as best I can tell, but he came today specifically to ask me to evaluate and assess his claim that he has reason to have a certain level of cardiac disability. Apparently the [place] assessment has led them to wish to [...] he had a coronary angiogram done at [facility]. I believe this was precipitated by an [...] in [place] - 1965 and [place]; Exercise - no regular exercise; Seat Belt Use - always; Occupation - retired and use to work at [employer] in [place]; Residence - lives with and children, lives in [place] year round and raising 's nephew; Placeof - [place]; REVIEW OF SYSTEMS GENERAL weight loss, 2 [...] documented as of this encounter Care Teams Csr Relationship Specialty Start Date End Date Frw, None PCP - General Family Practice 11/09/11 07/20/12 Reza Leary MD [facility] [place] [address] [facility] [address] [place] [address] PCP - ENT ENT-Otolaryngology 11/09/11 02/16/21 [place], [place], [place] [address] PCP - General 07/21/12 09/14/20 [place] [address] [place] [address] PCP - General Family Medicine 09/15/20 documented as of this encounter
--- OUTSIDE RECORDS SUMMARY | 2023-08-14 10:13 | XMS_ITS | Encounter Summary ---
Author Name Unknown Organization [facility] Address [address] [place] [address]. [place] [address] Care Team Providers Care Metal Box Maker Name Role Phone Frw, None Primary Care Provider Reza Bryant MD Unavailable [phone] [facility] Primary Care Prov ider Xiao Tomlin DO Primary Care Provider Encounter Details Date Type Department Care Team (Late st Contact Info) Description 04/18/2009 Office Visit-[facility] [address] [place] [address] Magno Bar MD Social History [...] M.D. APPT [id number] DATE: 04/18/2009 LUCÍA VIZCARRA [id number] DATE OF : 1945 AGE: [age] years [...] - retired and use to work at [employer] in [place]; Residence - lives with and children,lives in [place] year round and raising 's nephew; Place of - [place]; REVIEW OF SYSTEMS GENERAL decreased energy, weight [...] documented as of this encounter Care Teams Metal Box Maker Relationship Specialty Start Date End Date Frw, None PCP - General Family Practice 11/09/11 07/20/12 Reza Leary MD [facility] [address] [place] [address] [facility] [address] [place] [address] PCP - ENT ENT-Otolaryngology 11/09/11 02/16/21 [place] [address] PCP - General 07/21/12 09/14/20 [place] [address] [place] [address] PCP - General Family Medicine 09/15/20 documented as of this encounter
--- NOTE | 2023-08-14 10:15 | CRLHL7_ITS ---
For Patients: As a result of the Century Cures Act, medical imaging exams and procedure reports are released immediately into your electronic medical record. You may view this report before your referring provider. If you have questions, please contact your health care provider. INDICATION: aspiration pneumonia TECHNIQUE: Modified barium swallow. Fluoroscopic time 1 minute 32 seconds. FINDINGS/IMPRESSION: Laryngeal penetration occurred with solid bolus. No aspiration. Decreased ability to initiate the swallowing mechanism. No obstruction. No diverticulum. Dictated by Frederic Maldonado MD @ 08/14/2023 10:56:18 AM (Electronically Signed)
--- OUTSIDE RECORDS SUMMARY | 2023-08-14 10:18 | XMS_ITS | Encounter Summary ---
Author Name Department of Vetera Affairs Organization Department of Vetera ns [facility] Address [address] [place] [address] Support Name Relationship Address Phone ALLY VIZCARRA Next of Kin [address] [place] [address] ALLY VIZCARRA Emergency Contact [address] [place] [address] Insurance Providers: All historical and current [...] BASIC PLUS ONE Jul 08, 2015 113 [id number] HIRAM VZICARRA RT PATIENT [place] FEP PREFERRED PROVIDER ORGANIZAT ION (PPO) FEP BASIC PLUS ONE Jul 08, 2015 113 [id number] [phone] HIRAM VIZCARRA RT PATIENT MEDICARE (WNR) MEDICARE (M) PART B Feb 01, 2011 PART B [id number] HIRAM VIZCARRA RT PATIENT MEDICARE (WNR) MEDICARE (M) PART A Feb 01, 2011 PART A [id number] HIRAM VIZCARRA RT PATIENT Selected Encounter This section includes the information on record at [place] for the Encounter. Date/Time Encounter Type Encounter Description Reason Pro vider Source Aug 01, 2023 11:18 AM Outpatient Encounter TELEPHONE TRIAGE IHE Encounter Template Text not used by [place] Plan of Treatment: Future Appointments (+ 6 months) and Future Tests (+/- 45 days) The Plan of Treatment section includes future care activities for the patient from all [facility] This section includes future appointments and future orders which are active, pending or scheduled. Future Appointments This section includes appointments that were scheduled to occur 6 months from the date of the Encounter, up to a maximum of 20 appointments. The data comes from all [facility]. Appointment Date/Time Appointment Type Appointme nt Facility Name Sep 11, 2023 02:00 PM AMBULATORY - NONE [facility] Oct 08, 2023 10:00 AM AMBULATORY - NONE [facility] Oct 08, 2023 11:00 AM AMBULATORY - MEDICINE [facility] Active, Pending, and Scheduled Orders This section includes a listing of several types of active, pending, and scheduled orders, including clinic medications orders, diagnostic test orders, procedure orders and consult orders; where the start date of the order is 45 days before the date of the Encounter or 45 days after the date of theEncounter. The data comes from all [facility]. Test Date/Time Test Type Test Details Facility Name Aug 30, 2023 12:00 AM Laboratory - Chemistry Order COMPREHENSIVE METABOLIC PANEL+MG PLASMA SP ONCE [facility] Aug 30, 2023 12:00 AM Laboratory - Chemistry Order CBC & DIFF BLOOD SP [facility] Aug 30, 2023 12:00 AM Laboratory - Chemistry Order LIPID PANEL,NON-FASTING PLASMA SP [facility] Sep 11, 2023 02:00 PM Imaging - Ultrasou nd Order US ABDOMEN COMPLETE (NON-VASCULAR) (P) [facility] Social History: Smoking Status (Most [...] 08, 2022 03:00 PM VA-TOBACCO FORMER USER [facility] Tobacco Use History This section includes a history of the smoking, or tobacco-related health factors, that were collected on or before the date of the Encounter. The data comes from the [place] facility where the Encounter took place. Date/Time Smoking Status/Tobacco Use Comment F acility May 08, 2022 03:00 PM MT-TOBACCO QUIT 1 TO < 5 YRS [facility] Jun 27, 2021 10:00 AM VA-TOBACCO FORMER USER [facility] Jun 27, 2021 10:00 AM VA-TOBACCO QUIT 1 TO < 5 YRS [facility] Apr 15, 2019 11:53 AM PATIENT IS TOBACCO USER [facility] Apr 08, 2019 09:44 PM INPT TOBACCO COUNSELING [facility] Jan 20, 2019 11:30 AM VA-TOBACCO FORMER USER [facility] Jan 20, 2019 11:30 AM VA-TOBACCO QUIT 1 TO < 5 YRS [facility] Mar 31, 2018 08:41 AM INPT TOBACCO COUNSELING [facility] Feb 11, 2018 06:44 AM INPT TOBACCO COUNSELING [facility] Jan 17, 2018 01:41 PM FORMER TOBACCO USE >1Y <7Y [facility] Jan 07, 2017 09:31 AM FORMER TOBACCO USER 7Y OR GREATE R [facility] Sep 12, 2015 11:34 AM FORMER TOBACCO USE >1Y <7Y [facility] May 25, 2014 11:05 AM FORMER TOBACCO USE >1Y <7Y [facility] Apr 08, 2013 03:17 PM FORMER TOBACCO USE <1Y [facility] Jun 16, 2012 02:13 PM CURRENT TOBACCO USER [facility] May 14, 2011 01:12 PM CURRENT TOBACCO USER [facility] Jul 13, 2010 01:42 PM CURRENT TOBACCO USER [facility] May 05, 2010 08:29 AM CURRENT TOBACCO USER [facility] Apr 14, 2009 05:18 PM CURRENT TOBACCO USER [facility] Apr 15, 2008 05:27 PM FORMER TOBACCO USE >1Y <7Y [facility] Jun 09, 2007 02:43 PM FORMER TOBACCO USE >1Y <7Y [facility] November 25, 2006 02:54 PM CDM COPD TOBACCO NON-USER [facility] Sep 02, 2006 01:50 PM FORMER TOBACCO USE <1Y [facility] Advance Directives: All historical and [...] ADVANCE DIRECTIVE DISCUSSION ISIDRA NOGUERA ROLE J [facility] Encounter Notes: All associated encounter notes This section contains the clinical notes associated to the Encounter. Date/Time Encounter Note(s) Provider Source Aug 01, 2023 01:37 PM ADDENDUM: LOCAL TITLE: Addendum STANDARD TITLE: ADDENDUM DATE OF NOTE: AUG 01, 2023@13:37:32 ENTRY DATE: AUG 01, 2023@13:37:32 AUTHOR: DIANA ANDREWS COSIGNER: URGENCY: STATUS: COMPLETED Spoke with Spouse and she states that [facility] cannot send Vet's records without Vet's Signature on JENAE. Spouse states Vet was too confused at time of Hospitalizatoin to sign form, so She was advised to have [place] request records. This science writer called [facility] Medical Records and they will fax reports, labs, diagnostic reports to [place]. Spoke with their imaging Dept and they cannot push imaging to [facility], only to [facility] or [place]. Discs will be mailed to [place] Imaging Dept. /desi/ DIANA ANDREWS CHECK WEIGHER NURSE Signed: 08/01/2023 13:41 Receipt Acknowledged By: 08/02/2023 07:48 /es/ BRITTANIE NINO MD STAFF PHYSICIAN --- Original Document --- 08/01/23 CCC: SCHEDULING ADMINISTRATION: Primary Care Call Center Primary Care Provider Call. Please contact at the following number: [phone] - Ally Other: Ally, [facility] , called. Ally stated that she spoke with [facility] and was told she would need to contact PACT to assist with request. Ally is requesting PACT to place a request to [facility] and [facility] to obtain [facility] medical records. would like those records be place in his [facility] records. Please contact [facility]'s medical records at [phone]. This note was created by a V23 [facility] Call Center OLYA/DELIA. Please do not alert this science writer by adding as a signer for future communications. Alerts are not monitored by this user, please reach out to [facility] Leadership instead if indicated. /david GRAHAM VSN [address] [facility] CALL CENTER AMSA Signed: 08/01/2023 11:24 Receipt Acknowledged By: 08/01/2023 13:19 /david ANDREWS RN STAFF NURSE CREWDIANA [facility] Aug 01, 2023 11:18 AM ADMINISTRATIVE NOT E: LOCAL TITLE: CCC: SCHEDULING ADMINISTRATION STANDARD TITLE: ADMINISTRATIVE NOTE DATE OF NOTE: AUG 01, 2023@11:18 ENTRY DATE: AUG 01, 2023@11:18:11 AUTHOR: KANDI GRAHAM EXP COSIGNER: URGENCY: STATUS: COMPLETED CCC: SCHEDULING ADMINISTRATION Has ADDENDA Primary Care Call Center Primary Care Provider Call. Please contact at the following number: [phone] - Ally Other: Ally, 's , called. Ally stated that she spoke with [facility] and was told she would need to contact PACT to assist with request. Ally is requesting PACT to place a request to [facility] and [facility] to obtain 's medical records. Mcdonald would like those records be place in his [facility] records. Please contact [facility]'s medical records at [phone]. This note was created by a V23 [facility] Call Center OLYA/DELIA. Please do not alert this science writer by adding as a signer for future communications. Alerts are not monitored by this user, please reach out to [facility] Leadership instead if indicated. /david GRAHAM VSN [address] [facility] Signed: 08/01/2023 11:24 Receipt Acknowledged By: 08/01/2023 13:19 /david ANDREWS, CHECK WEIGHER NURSE 08/01/2023 ADDENDUM STATUS: COMPLETED Spoke with Spouse and she states that [facility] cannot send Vet's records without Vet's Signature on JENAE. Spouse states Vet was too confused at time of Hospitalizatoin to sign form, so She was advised to have [place] request records. This science writer called [facility] Medical Records and they will fax reports, labs, diagnostic reports to [place]. Spoke with their imaging Dept and they cannot push imaging to [facility], only to [facility] or [place]. Discs will be mailed to [place] Imaging Dept. /david ANDREWS, CHECK WEIGHER NURSE Signed: 08/01/2023 13:41 Receipt Acknowledged By: 08/02/2023 07:48 /es/ BRITTANIE NINO MD STAFF PHYSICIAN 08/02/2023 ADDENDUM STATUS: COMPLETED Notes received from [facility] and plced in Providers inbox. /desi/ DIANA ANDREWS RN STAFF NURSE Signed: 08/02/2023 09:43 KANDI GRAHAM [facility]
--- NOTE | 2023-08-15 08:43 | SLP.EVAL ---
Benson Brown I sent this report to [facility] but need your signature as the ordering doc. Thank you Mary Ferraro [employer]EE SHOP ATTENDANT CO[employer]EE [employer]OP ATTENDANT Ifrah Rg Start: 08/14/23 10:51 Freq: Status: Discharge Protocol: Document 08/14/23 10:52 [facility] (Rec: 08/14/23 11:06 [facility] [id number]) E-signed By Mary Ferraro CCC, [employer]EE SHOP ATTENDANT CO[employer]EE SHOP ATTENDANT System Review History & Reason For Referral Type of Speech Evaluation Modified Barium Swallow Evaluation Rehabilitation Order Evaluation Date of Order 07/25/23 Reason for Referral possible aspiration Treatment Diagnosis dysphagia Hearing Information Hearing Status Patient is very hard of hearing. Vision Information Vision Status Patient wearing glasses Patient Orientation Orientation & Mental Status Patient has some cognitive deficits [employer] SHOP ATTENDANT Initial Assessment/POC Subjective Information Subjective/Pain Comment Patient ambulated to the xray suite. His is with him. Caregiver's Name [place] - Assessment & Impression Assessment/Impression Patient is a 78 year old male referred for a modified barium swallow study following a hospital admission for possible aspiration pneumonia. He was evaluated by the CO[employer]EE SHOP ATTENDANT and did not exhibit immediate signs of aspiration but he some delayed coughing after food trials stopped. Patient does not notice any problems so most of the information was gathered from his . She reports he coughs with things such as cereal (Captain Crunch with milk) and crackers. She reports that having no teeth doesn't stop him from eating anything. He even has steak that she cuts up. [employer]AL [employer] FUNCTION AND DENTITION Patient has decreased tongue tip elevation but otherwise looks ok. He is edentulous. He has dentures but won't wear them. THIN LIQUID Patient took small sips of thin liquid by cup. He was able to maintain the bolus in his mouth but the initiation was a little delayed. No penetration or aspiration occurred. PUREE Patient given a teaspoon of puree. He had to manipulate some before he was able to swallow. Some premature spillage to the vallecula occurred. Once he swallowed he was able to clear most of the bolus. Some mild residue in the vallecula. No penetration or aspiration occurred. MUFFIN AND COOKIE WITH BARIUM PUREE Patient given separate trials of muffin and cookie each mixed with barium puree. He needed extended chewing time for each consistency and there was premature spillage to the vallecula. Some of the spillage fell over into the laryngeal vestibule and penetrated but he did not aspirate. Mild pharyngeal residue after the swallow. IMPRESSIONS AND RECOMMENDATIONS Patient exhibits delayed swallow initiation. He was able to maintain the liquid bolus in his mouth until he swallowed but with solids he had spillage to the vallecula before swallowing and some spilled over and into the laryngeal vestibule. He had no aspiration today but with the delayed swallow initiation and spillover, there is the potential. Recommend patient wear his teeth if he can tolerate. Food should be softer and he should take small bites so he doesn't have to chew as long. Thin liquids are fine. The images and recommendations were reviewed with patient and his and questions answered. Therapist Signature & License # I Certify That Therapy Services Provided Therapist Signature & License Number Mary Ferraro, [facility]-[employer] ATTENDANT, # [id number] Physician Signature Signature of Physician Indicates Medically Needed Services Physician Signature & Date Required Please Sign/Date Here Speech/Language Pathology Billing Units Billing Units Eval Swallow Motion Fluoro 1
== END 2023-08-14 10:10 | disposition home or self-care (01) ==
PROVIDERS: PCP Family Medicine; Visit Provider Family Medicine
DX: J69.0 Pneumonitis due to inhalation of food and vomit (principal)
CPT/HCPCS: 74230; 92611